=== PATIENT | female | born 1970 | race African-American/Black ===

== ENCOUNTER 2016-08-11 18:49 | Inpatient (IN) | payer OTHER ==
[~2016-08-11] VITALS: Ht 167.6 cm; Wt 58.5 kg
[~2016-08-11 18:49] MED LIST: ACET-461 PO; AMIT25TA9 PO; AMX500CIP PO; ASPI-875 PO; CEFD300C3 PO; CEPH500T PO; HYDR1TAB PO; INSU100I10 SQ; INSU100I14 SQ; INSU100V6 SC; LISI-556 PO; LOVA20TA2 PO; ONDA8TAB13 PO; ONDAN4ODT SL
--- NOTE | 2016-08-11 19:04 | ED General ---
General Chief Complaint: Glucose Problems Stated Complaint: SOA Source of Information: Patient Exam Limitations: No Limitations History of Present Illness Time Seen by Provider: 19:02 Initial Comments To ER with reports of shortness of breath nausea vomiting and feeling overall poorly since earlier today. Patient is a known diabetic insulin-dependent. She uses 8 units of NovoLog with meals and 30 units of Levemir at bedtime. She does not own a glucometer she states and has not checked her sugars in many months but she states that she has been taking her insulin appropriately. Timing/Duration: 1-2 Days Severity: Moderate Associated Systoms: Nausea/Vomiting Allergies and Home Medications Allergies Coded Allergies: Sulfa (Sulfonamide Antibiotics) (Unverified Allergy, Unknown, 08/02/13) Home Medications Cefdinir 300 Mg Capsule, 300 MG PO BID, #20 Ref 0 Prescribed by: MELODIE PALACIOS on 01/20/151533 Insulin Aspart 100 Unit/1 Ml Insuln.pen, 8 UNITS SQ TIDAC, (Reported) LAST RECEIVED 3 MONTHS 2013 THROUGH [facility] Insulin Glargine,Hum.rec.anlog 300 Unit/3 Ml Insuln.pen, 30 UNITS SQ HS, ( Reported) LAST RECEIVED 3 MONTHS 2013 THROUGH [facility] Ondansetron 8 Mg Tab.rapdis, 8 MG PO Q6H PRN for NAUSEA/VOMITING, #10 Ref 0 Prescribed by: MELODIE PALACIOS on 01/20/151533 Constitutional: see HPI EENTM: see HPI Respiratory: no symptoms reported Cardiovascular: no symptoms reported Genitourinary: no symptoms reported Musculoskeletal: no symptoms reported Skin: no symptoms reported Psychiatric/Neurological: No Symptoms Reported Hematologic/Lymphatic: No Symptoms Reported Past Ftrjwlj-Droahp-Dhvenr Hx Patient Social History Recent Foreign Travel: No Contact w/Someone Who Travel: No Immunizations Up To Date Tetanus Booster (TDap): Unknown PED Vaccines UTD: No Seasonal Allergies Seasonal Allergies: No Surgeries HX Surgeries: Yes Surgeries: Tubal Ligation Respiratory Hx Respiratory Disorders: No Cardiovascular Hx Cardiac Disorders: No Neurological Hx Neurological Disorders: Yes Neurological Disorders: Neuropathy 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 System Hx 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 Disorders: No Sexually Transmitted Disease: No HIV/AIDS: No Female 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 Disorders: Denies Genitourinary Hx Genitourinary Disorders: No Gastrointestinal Hx Gastrointestinal Disorders: No Musculoskeletal Hx Musculoskeletal Disorders: Yes Musculoskeletal Disorders: Osteoporosis, Arthritis Endocrine Hx Endocrine Disorders: Yes Endocrine Disorders: Diabetes, Insulin dep HEENT HX ENT Disorders: No Cancer Hx Cancer: No Psychosocial Hx Psychiatric Problems: Yes Behavioral Health Disorders: Anxiety, Depression Integumentary HX Skin/Integumentary Disorder: No Blood Transfusions Hx Blood Disorders: No Adverse Reaction to a Blood Tr: No Family Medical History Significant Family History: Heart Disease, Diabetes, Hypertension Family Medial History: Family history: Hypertension 09 SISTER Kidney disease 03 MOTHER Myocardial infarction 09 SISTER Physical Exam Vital Signs Capillary Refill : General Appearance: No Apparent Distress, WD/WN, Other ([place]ul respirations noted) Eyes: Bilateral Eye EOMI, Bilateral Eye Normal Inspection, Bilateral Eye PERRL HEENT: PERRL/EOMI, TMs Normal Neck: Full Range of Motion, Normal Inspection Respiratory: Normal Breath Sounds, No Accessory Muscle Use, No Respiratory Distress Cardiovascular: Normal Peripheral Pulses, Tachycardia Gastrointestinal: Normal Bowel Sounds, Non Tender, Soft Neurologic/Psychiatric: Alert, Oriented x3 Skin: Normal Color, Warm/Dry Departure Impression Impression: Primary Impression: Diabetic ketoacidosis Disposition: ADMITTED INPATIENT Condition: Improved Decision to Admit Reason: Admit from ER (General) Decision to Admit/Date: Aug 11, 2016 Time/Decision to Admit Time: 19:04 Departure-Patient Inst. Referrals: [facility] (PCP/Family) Primary Care Physician ESSIE DRIVER APRN Aug 11, 2016 19:04
[2016-08-11 19:06] LABS: ABG BASE EXCESS -26.5 MMOL/L (-2.5-2.5); ABG OXYGEN SATURATION 98 % (94-100); ABG PO2 122 MMHG (79-93); ABG TCO2 3.4 MMOL/L (21.0-31.0)
[2016-08-11 19:08] LABS: ABG HCO3 3 MMOL/L (23-27); ABG PCO2 13 MMHG (35-45); ABG PH 6.98 (7.37-7.43)
[2016-08-11 19:09] LABS: ALLENS TEST POSITIVE; PATIENT TEMP 98.3
[2016-08-11] MEDS ORDERED: SODIUM BICARB 8.4% 50 MEQ/50 ML (ABBOTT) SYR ONE (19:11)
[2016-08-11] MEDS ORDERED: SODIUM BICARB 8.4% 50 MEQ/50 ML (ABBOTT) SYR IV ONE (19:15)
[2016-08-11] MEDS ORDERED: inSUlin (REGULAR) HUMAN 1 UNIT/0.01 ML (CHARGE PER UNIT) IV ONE (19:15)
[2016-08-11] MEDS ORDERED: ONDANSETRON 4 MG/2 ML (SDV) Z0FRAN IVP ONE (19:15)
[2016-08-11] MEDS ORDERED: NS IV 1000 ML 1,000 ML IV SCH (19:15)
[2016-08-11 19:16] LABS: BASOPHILS % (AUTO) 0 % (0-10); EOSINOPHILS % (AUTO) 0 % (0-10); LYMPHOCYTES # (AUTO) 2.4 X 10^3 (1.0-4.0); LYMPHOCYTES % (AUTO) 14 % (12-44); MEAN CORPUSCULAR HEMOGLOBIN 28 PG (25-34); MEAN CORPUSCULAR HGB CONC 31 G/DL (32-36); MEAN CORPUSCULAR VOLUME 89 FL (80-99); MEAN PLATELET VOLUME 11.2 FL (7.4-10.4); MONOCYTES # (AUTO) 0.7 X 10^3 (0.0-1.0); MONOCYTES % (AUTO) 4 % (0-12); NEUTROPHILS # (AUTO) 13.8 X 10^3 (1.8-7.8); NEUTROPHILS % (AUTO) 82 % (42-75); PLATELET COUNT 447 10^3/uL (130-400); RED BLOOD COUNT 4.32 10^6/uL (4.35-5.85); RED CELL DISTRIBUTION WIDTH 14.1 % (10.0-14.5); WHITE BLOOD COUNT 16.9 10^3/uL (4.3-11.0)
[2016-08-11] MEDS ORDERED: D5W IV NR (19:24)
[2016-08-11] MEDS ORDERED: SODIUM BICARBONATE IV NR (19:24)
[2016-08-11 19:26] LABS: ALANINE AMINOTRANSFERASE 12 U/L (0-55); BILIRUBIN,TOTAL < 0.1 MG/DL (0.1-1.0); BLOOD UREA NITROGEN 13 MG/DL (7-18); BUN/CREATININE RATIO 7; CALCIUM 8.5 MG/DL (8.5-10.1); CHLORIDE 97 MMOL/L (98-107); CREATININE SERUM 1.86 MG/DL (0.60-1.30); GFR ESTIMATED 36; POTASSIUM 4.4 MMOL/L (3.6-5.0); SODIUM 131 MMOL/L (135-145)
[2016-08-11 19:28] LABS: BILIRUBIN,URINE NEGATIVE (NEGATIVE); KETONES,URINE 4+ (NEGATIVE); LEUKOCYTE ESTERASE ,URINE 2+ (NEGATIVE); NITRITE,URINE NEGATIVE (NEGATIVE); PH,URINE 5 (5-9); PROTEIN,URINE 2+ (NEGATIVE); UROBILINOGEN,URINE NORMAL (NORMAL)
[2016-08-11 19:29] LABS: ANION GAP 29 MMOL/L (5-14); CARBON DIOXIDE 5 MMOL/L (21-32); GLUCOSE 792 MG/DL (70-105)
[2016-08-11] MEDS ORDERED: inSUlin REGULAR TPN/DRIP ONLY 250 UNITS in NORMAL SALINE 250 ML IV SCH (19:30)
[2016-08-11] MEDS ORDERED: inSUlin REGULAR TPN/DRIP 250 UNITS/NS 250 ML IV SCH ×2 (19:30)
[2016-08-11 19:33] LABS: BAND NEUTROPHILS 6 %; BASOPHILS % (MANUAL) 1 %; EOSINOPHILS % (MANUAL) 0 %; LYMPHOCYTES % (MANUAL) 18 %; NEUTROPHILS % (MANUAL) 70 %
[2016-08-11 19:41] LABS: ASPARTATE AMINO TRANSFERASE 12 U/L (5-34)
[2016-08-11 19:45] LABS: SQUAMOUS EPITHELIAL CELL,UR 0-2 /HPF
[2016-08-11 20:00] VITALS: BP 133/81
[2016-08-11 20:02] LABS: ABG BASE EXCESS -26.4 MMOL/L (-2.5-2.5); ABG OXYGEN SATURATION 98 % (94-100); ABG PO2 125 MMHG (79-93); ABG TCO2 3.6 MMOL/L (21.0-31.0)
[2016-08-11 20:05] VITALS: BP 148/93
[2016-08-11 20:05] LABS: ABG HCO3 3 MMOL/L (23-27); ABG PCO2 15 MMHG (35-45); ABG PH 6.97 (7.37-7.43); ALLENS TEST POSITIVE
[2016-08-11 20:06] LABS: PATIENT TEMP 98.6
[2016-08-11] MEDS ORDERED: 1/2 NS W/KCL 20 MEQ/L 1,000 ML IV ONE (20:44)
[2016-08-11 21:00] VITALS: BP 148/99
[2016-08-11 22:00] VITALS: BP 126/86
[2016-08-11] MEDS ORDERED: NS IV 1000 ML X 1 WIDE OPEN IV ONE (22:30)
[2016-08-11] MEDS ORDERED: cefTRIAXone INJECTION 1,000 MG in NS (IVPB) 50 ML IV SCH (22:30)
[2016-08-11] MEDS ORDERED: ONDANSETRON 4 MG/2 ML (SDV) Z0FRAN IVP PRN (22:30)
[2016-08-11] MEDS ORDERED: DEXTROSE 10% IV SOLUTION 1,000 ML IV SCH (22:30)
[2016-08-11 23:00] VITALS: BP 139/91
[2016-08-12] VITALS (15 sets, daily range): BP systolic 113–157; BP diastolic 79–100
[2016-08-12] MEDS: D5 1/2 NS W/KCL 20 MEQ/L 1,000 ML IV SCH ×3 (00:15→10:20)
[2016-08-12] MEDS: cefTRIAXone INJECTION 1,000 MG in NS (IVPB) 50 ML IV SCH ×2 (00:15→22:38)
[2016-08-12 01:57] LABS: POTASSIUM 3.7 MMOL/L (3.6-5.0)
[2016-08-12 01:59] LABS: CALCIUM 7.7 MG/DL (8.5-10.1); CREATININE SERUM 1.19 MG/DL (0.60-1.30)
[2016-08-12 02:01] LABS: CALCIUM 7.9 MG/DL (8.5-10.1); CREATININE SERUM 1.3 MG/DL (0.60-1.30); POTASSIUM 3.6 MMOL/L (3.6-5.0)
[2016-08-12 03:35] LABS: BASOPHILS % (AUTO) 0 % (0-10); EOSINOPHILS % (AUTO) 0 % (0-10); LYMPHOCYTES # (AUTO) 2.7 X 10^3 (1.0-4.0); LYMPHOCYTES % (AUTO) 19 % (12-44); MEAN CORPUSCULAR HEMOGLOBIN 27 PG (25-34); MEAN CORPUSCULAR HGB CONC 33 G/DL (32-36); MEAN CORPUSCULAR VOLUME 83 FL (80-99); MEAN PLATELET VOLUME 10.1 FL (7.4-10.4); MONOCYTES # (AUTO) 0.8 X 10^3 (0.0-1.0); MONOCYTES % (AUTO) 6 % (0-12); NEUTROPHILS # (AUTO) 10.3 X 10^3 (1.8-7.8); NEUTROPHILS % (AUTO) 74 % (42-75); PLATELET COUNT 379 10^3/uL (130-400); RED BLOOD COUNT 3.76 10^6/uL (4.35-5.85); RED CELL DISTRIBUTION WIDTH 13.8 % (10.0-14.5); WHITE BLOOD COUNT 13.8 10^3/uL (4.3-11.0)
[2016-08-12 04:03] LABS: ANION GAP 10 MMOL/L (5-14); BLOOD UREA NITROGEN 8 MG/DL (7-18); BUN/CREATININE RATIO 7; CALCIUM 7.5 MG/DL (8.5-10.1); CARBON DIOXIDE 15 MMOL/L (21-32); CHLORIDE 109 MMOL/L (98-107); CREATININE SERUM 1.16 MG/DL (0.60-1.30); GFR ESTIMATED > 60; GLUCOSE 194 MG/DL (70-105); MAGNESIUM 1.7 MG/DL (1.8-2.4); POTASSIUM 3.4 MMOL/L (3.6-5.0); SODIUM 134 MMOL/L (135-145)
[2016-08-12 04:08] LABS: PHOSPHORUS 0.7 MG/DL (2.3-4.7)
[2016-08-12] MEDS ORDERED: KCL 20 MEQ TAB (K-DUR) PO ONE (04:45)
[2016-08-12] MEDS: MAGNESIUM 1 GM/100 ML IVPB 100 ML IV SCH ×2 (04:48→06:05)
[2016-08-12] MEDS ORDERED: SODIUM PHOSPHATE INJ 40 MM in NS (IVPB) 250 ML INJ ONE (05:45)
[2016-08-12] MEDS ORDERED: KCL 20 MEQ TAB (K-DUR) PO SCH (06:00)
[2016-08-12] MEDS ORDERED: MAGNESIUM 1 GM/100 ML IVPB 100 ML IV SCH (06:00)
[2016-08-12] MEDS ORDERED: POTASSIUM CL 10MEQ/50ML IVPB 50 ML IV SCH (06:00)
[2016-08-12] MEDS ORDERED: inSUlin DETERMIR 1 UNIT/0.01 ML (LEVEMIR) CHARGE PER UNIT SQ NR (09:30)
[2016-08-12] MEDS: 1/2 NS W/KCL 20 MEQ/L 1,000 ML IV SCH (10:22)
--- NOTE | 2016-08-12 11:01 | Diagnostic Imaging Report ---
EXAM: Postoperative radiograph of the chest. INDICATION: DKA. UTI. FINDINGS: The lungs are clear. The heart size is normal. No effusion or pneumothorax The mediastinum and tracey appear markable. IMPRESSION: Unremarkable exam. Dictated by: Dictated on workstation # [id number]
[2016-08-12] MEDS: inSUlin ASPART (NovoLOG) 1 UNIT/0.01 ML (CHARGE PER UNIT) SC SCH ×4 (11:10→21:34)
--- NOTE | 2016-08-12 11:47 | History & Physicial ([facility]) ---
HPI History of Present Illness: 45 yo F with known DM that was admitted from ER for DKA. Patient has not had insulin for many months. She does not want to tell me the last time she had insulin. The ICU nurse looked up pharmacy records and does not see any insulin that has been filled for the last year. She was also found to have UTI but denies any symptoms other then urinary frequency. Denies fever or chills. No coughing or shortness of breath. She was started on an insulin drip after admission and this AM states that she is feeling much better but she is just laying in bed and not interested in talking this AM. Denies any other medical problems at this time. Source: patient Exam Limitations: no limitations Date seen by provider: Aug 12, 2016 Attending Physician Christy Mcbride MD [place]CP [facility] Date of Admission Aug 11, 2016 at 19:19 Home Medications Home Medications Reviewed patient Home Medication Reconciliation Form Allergies Coded Allergies: Sulfa (Sulfonamide Antibiotics) (Unverified Allergy, Unknown, 08/02/13) YZW-Smfbdc-Vrmqer Hx Patient Social History Alcohol Use: Denies Use Recreational Drug Use: No Smoking Status: Never a Smoker Recent Foreign Travel: No Contact w/other who traveled: No Recent Hopitalizations: No Recent Infectious Disease Expo: No Physical Abuse Screen: No Sexual Abuse: No Immunizations Up To Date Tetanus Booster (TDap): Unknown Past Medical History Past Medical History 1. Diabetes Mellitus II -patient was diagnosed approximately 5 years ago and started initially on oral medications. Not compliant with her insulin or follow up. 2. Depression with history of Suicide attempt/ Suicidal ideation Past Surgical History 1. Tubal Ligation Family Medical History Significant Family History: Heart Disease, Diabetes, Hypertension Family History: Family history: Hypertension 09 SISTER Kidney disease 03 MOTHER Myocardial infarction 09 SISTER Review of Systems ([facility]) Constitutional: no symptoms reported, No chills, No fever, No malaise EENTM: no symptoms reported Respiratory: no symptoms reported, No cough, No dyspnea on exertion, No hemoptysis, No short of breath, No wheezing Cardiovascular: no symptoms reported, No chest pain, No edema, No palpitations Gastrointestinal: no symptoms reported, No abdominal pain, No constipation, No diarrhea, loss of appetite, No nausea, No vomiting Genitourinary: No discharge, No dysuria, frequency, No hematuria, No incontinence : No Musculoskeletal: no symptoms reported, No back pain, No joint pain, No muscle pain Skin: no symptoms reported, No lesions, No rash Psychiatric/Neurological: No Symptoms Reported, Denies Anxiety, Denies Depressed Reviewed Test Results Reviewed Test Results Lab Laboratory Tests Test 08/11/16 18:54 08/11/16 18:56 08/11/16 19:03 08/11/16 19:14 Range/Units Blood Gas Puncture Site RIGHT RADIAL Blood Gas Patient Temperature 98.3 Arterial Blood pH 6.98 *L 7.37-7.43 Arterial Blood Partial Pressure CO2 13 *L 35-45 MMHG Arterial Blood Partial Pressure O2 122 H 79-93 MMHG Arterial Blood HCO3 3 *L 23-27 MMOL/L Arterial Blood Total CO2 3.4 L 21.0-31.0 MMOL/L Arterial Blood Oxygen Saturation 98 94-100 % Arterial Blood Base Excess -26.5 L -2.5-2.5 MMOL/L Nic Test POSITIVE Blood Gas Ventilator Setting NO Blood Gas Inspired Oxygen ROOM AIR White Blood Count 16.9 H 4.3-11.0 10^3/uL Red Blood Count 4.32 L 4.35-5.85 10^6/uL Hemoglobin 12.0 11.5-16.0 G/DL Hematocrit 39 35-52 % Mean Corpuscular Volume 89 80-99 FL Mean Corpuscular Hemoglobin 28 25-34 PG Mean Corpuscular Hemoglobin Concent 31 L 32-36 G/DL Red Cell Distribution Width 14.1 10.0-14.5 % Platelet Count 447 H 130-400 10^3/uL Mean Platelet Volume 11.2 H 7.4-10.4 FL Neutrophils (%) (Auto) 82 H 42-75 % Lymphocytes (%) (Auto) 14 12-44 % Monocytes (%) (Auto) 4 0-12 % Eosinophils (%) (Auto) 0 0-10 % Basophils (%) (Auto) 0 0-10 % Neutrophils # (Auto) 13.8 H 1.8-7.8 X 10^3 Lymphocytes # (Auto) 2.4 1.0-4.0 X 10^3 Monocytes # (Auto) 0.7 0.0-1.0 X 10^3 Eosinophils # (Auto) 0.0 0.0-0.3 10^3/uL Basophils # (Auto) 0.0 0.0-0.1 10^3/uL Neutrophils % (Manual) 70 % Lymphocytes % (Manual) 18 % Monocytes % (Manual) 5 % Eosinophils % (Manual) 0 % Basophils % (Manual) 1 % Band Neutrophils 6 % Blood Morphology Comment NORMAL Sodium Level 131 L 135-145 MMOL/L Potassium Level 4.4 3.6-5.0 MMOL/L Chloride Level 97 L 98-107 MMOL/L Carbon Dioxide Level 5 *L 21-32 MMOL/L Anion Gap 29 H 5-14 MMOL/L Blood Urea Nitrogen 13 7-18 MG/DL Creatinine 1.86 H 0.60-1.30 MG/DL Estimat Glomerular Filtration Rate 36 BUN/Creatinine Ratio 7 Glucose Level 792 *H 70-105 MG/DL Hemoglobin A1c 13.1 H 4.5-6.2 % Calcium Level 8.5 8.5-10.1 MG/DL Total Bilirubin < 0.1 L 0.1-1.0 MG/DL Aspartate Amino Transf (AST/SGOT) 12 5-34 U/L Alanine Aminotransferase (ALT/SGPT) 12 0-55 U/L Alkaline Phosphatase 213 H 40-136 U/L Total Protein 8.0 6.4-8.2 G/DL Albumin 4.0 3.2-4.5 G/DL Glucometer > 600 *H 70-110 MG/DL Urine Color YELLOW Urine Clarity SLIGHTLY CLOUDY Urine pH 5 5-9 Urine Specific Sebastian 1.020 1.016-1.022 Urine Protein 2+ H NEGATIVE Urine Glucose (UA) 4+ H NEGATIVE Urine Ketones 4+ H NEGATIVE Urine Nitrite NEGATIVE NEGATIVE Urine Bilirubin NEGATIVE NEGATIVE Urine Urobilinogen NORMAL NORMAL MG/DL Urine Leukocyte Esterase 2+ H NEGATIVE Urine RBC (Auto) 4+ H NEGATIVE Urine RBC 5-10 H /HPF Urine WBC 10-25 H /HPF Urine Squamous Epithelial Cells 0-2 /HPF Urine Crystals NONE /LPF Urine Bacteria TRACE /HPF Urine Casts NONE /LPF Urine Mucus NONE /LPF Urine Culture Indicated YES Test 08/11/16 19:52 08/11/16 20:21 08/11/16 20:56 08/11/16 23:00 Range/Units Blood Gas Puncture Site RIGHT RADIAL Blood Gas Patient Temperature 98.6 Arterial Blood pH 6.97 *L 7.37-7.43 Arterial Blood Partial Pressure CO2 15 *L 35-45 MMHG Arterial Blood Partial Pressure O2 125 H 79-93 MMHG Arterial Blood HCO3 3 *L 23-27 MMOL/L Arterial Blood Total CO2 3.6 L 21.0-31.0 MMOL/L Arterial Blood Oxygen Saturation 98 94-100 % Arterial Blood Base Excess -26.4 L -2.5-2.5 MMOL/L Nic Test POSITIVE Blood Gas Ventilator Setting NO Blood Gas Inspired Oxygen ROOM AIR Glucometer 592 *H 531 *H 70-110 MG/DL Sodium Level 136 135-145 MMOL/L Potassium Level 3.6 3.6-5.0 MMOL/L Chloride Level 107 98-107 MMOL/L Carbon Dioxide Level 8 *L 21-32 MMOL/L Anion Gap 21 H 5-14 MMOL/L Blood Urea Nitrogen 10 7-18 MG/DL Creatinine 1.30 0.60-1.30 MG/DL Estimat Glomerular Filtration Rate 54 BUN/Creatinine Ratio 8 Glucose Level 292 H 70-105 MG/DL Calcium Level 7.9 L 8.5-10.1 MG/DL Test 08/12/16 00:04 08/12/16 01:13 08/12/16 01:15 08/12/16 02:06 Range/Units Glucometer 225 H 213 H 215 H 70-110 MG/DL Sodium Level 134 L 135-145 MMOL/L Potassium Level 3.7 3.6-5.0 MMOL/L Chloride Level 110 H 98-107 MMOL/L Carbon Dioxide Level 8 *L 21-32 MMOL/L Anion Gap 16 H 5-14 MMOL/L Blood Urea Nitrogen 8 7-18 MG/DL Creatinine 1.19 0.60-1.30 MG/DL Estimat Glomerular Filtration Rate 60 BUN/Creatinine Ratio 7 Glucose Level 222 H 70-105 MG/DL Calcium Level 7.7 L 8.5-10.1 MG/DL Test 08/12/16 03:05 08/12/16 03:17 08/12/16 03:59 08/12/16 05:02 Range/Units Glucometer 177 H 161 H 168 H 70-110 MG/DL White Blood Count 13.8 H 4.3-11.0 10^3/uL Red Blood Count 3.76 L 4.35-5.85 10^6/uL Hemoglobin 10.3 L 11.5-16.0 G/DL Hematocrit 31 L 35-52 % Mean Corpuscular Volume 83 80-99 FL Mean Corpuscular Hemoglobin 27 25-34 PG Mean Corpuscular Hemoglobin Concent 33 32-36 G/DL Red Cell Distribution Width 13.8 10.0-14.5 % Platelet Count 379 130-400 10^3/uL Mean Platelet Volume 10.1 7.4-10.4 FL Neutrophils (%) (Auto) 74 42-75 % Lymphocytes (%) (Auto) 19 12-44 % Monocytes (%) (Auto) 6 0-12 % Eosinophils (%) (Auto) 0 0-10 % Basophils (%) (Auto) 0 0-10 % Neutrophils # (Auto) 10.3 H 1.8-7.8 X 10^3 Lymphocytes # (Auto) 2.7 1.0-4.0 X 10^3 Monocytes # (Auto) 0.8 0.0-1.0 X 10^3 Eosinophils # (Auto) 0.0 0.0-0.3 10^3/uL Basophils # (Auto) 0.0 0.0-0.1 10^3/uL Sodium Level 134 L 135-145 MMOL/L Potassium Level 3.4 L 3.6-5.0 MMOL/L Chloride Level 109 H 98-107 MMOL/L Carbon Dioxide Level 15 L 21-32 MMOL/L Anion Gap 10 5-14 MMOL/L Blood Urea Nitrogen 8 7-18 MG/DL Creatinine 1.16 0.60-1.30 MG/DL Estimat Glomerular Filtration Rate > 60 BUN/Creatinine Ratio 7 Glucose Level 194 H 70-105 MG/DL Calcium Level 7.5 L 8.5-10.1 MG/DL Phosphorus Level 0.7 *L 2.3-4.7 MG/DL Magnesium Level 1.7 L 1.8-2.4 MG/DL Test 08/12/16 05:58 08/12/16 07:00 08/12/16 08:12 08/12/16 08:47 Range/Units Glucometer 174 H 174 H 137 H 121 H 70-110 MG/DL Test 08/12/16 09:33 08/12/16 11:08 08/12/16 12:45 Range/Units Glucometer 195 H 233 H 70-110 MG/DL Sodium Level 136 135-145 MMOL/L Potassium Level 3.3 L 3.6-5.0 MMOL/L Chloride Level 109 H 98-107 MMOL/L Carbon Dioxide Level 16 L 21-32 MMOL/L Anion Gap 11 5-14 MMOL/L Blood Urea Nitrogen 5 L 7-18 MG/DL Creatinine 0.95 0.60-1.30 MG/DL Estimat Glomerular Filtration Rate > 60 BUN/Creatinine Ratio 5 Glucose Level 136 H 70-105 MG/DL Calcium Level 7.6 L 8.5-10.1 MG/DL Radiology Date of Exam: 08/12/16 CHEST 1 VIEW, AP/PA ONLY EXAM: Postoperative radiograph of the chest. INDICATION: DKA. UTI. FINDINGS: The lungs are clear. The heart size is normal. No effusion or pneumothorax The mediastinum and tracey appear markable. IMPRESSION: Unremarkable exam. Physical Exam-([facility]) Physical Exam Vital Signs VS - Last 72 Hours, by Label 08/11/16 08/11/16 08/11/16 08/11/16 18:53 20:00 20:05 20:15 Temp 97.1 97.3 97.6 Pulse 121 117 117 Resp 24 25 22 B/P (MAP) 142/83 133/81 148/93 Pulse Ox 100 100 100 O2 Delivery Room Air Room Air Room Air 08/11/16 08/11/16 08/11/16 08/11/16 20:22 20:38 21:00 22:00 Temp 97.3 Pulse 119 114 112 123 Resp 23 17 13 B/P (MAP) 148/99 126/86 Pulse Ox 100 100 100 O2 Delivery Room Air Room Air 08/11/16 08/12/16 08/12/16 08/12/16 23:00 00:00 00:00 00:00 Temp 99.0 Pulse 114 116 Resp 21 12 B/P (MAP) 139/91 142/86 Pulse Ox 97 99 99 O2 Delivery Room Air Room Air 08/12/16 08/12/16 08/12/16 08/12/16 01:00 01:00 02:00 03:00 Pulse 124 124 120 125 Resp 9 17 37 B/P (MAP) 157/100 130/88 130/79 Pulse Ox 98 98 98 O2 Delivery Room Air Room Air Room Air 08/12/16 08/12/16 08/12/16 08/12/16 04:00 04:00 05:00 06:00 Pulse 129 120 121 Resp 12 10 39 B/P (MAP) 129/79 148/91 130/80 Pulse Ox 100 99 99 98 O2 Delivery Room Air Room Air Room Air 08/12/16 08/12/16 08/12/16 08/12/16 07:00 07:01 08:00 08:00 Pulse 113 113 112 Resp 11 12 B/P (MAP) 124/94 131/84 Pulse Ox 98 99 99 O2 Delivery Room Air Room Air 08/12/16 08/12/16 08/12/16 08/12/16 09:00 10:00 11:00 11:28 Pulse 114 120 109 Resp 7 11 15 B/P (MAP) 135/90 121/83 134/87 Pulse Ox 97 98 98 99 O2 Delivery Room Air Room Air Room Air 08/12/16 08/12/16 12:00 13:44 Temp 98.8 Pulse 110 Resp 20 B/P (MAP) 148/98 Pulse Ox 100 99 O2 Delivery Room Air Capillary Refill : Less Than 3 Seconds General Appearance: WD/WN, no apparent distress HEENT: PERRL/EOMI, TMs normal Neck: non-tender, full range of motion, supple, normal inspection Respiratory: chest non-tender, lungs clear, normal breath sounds, no respiratory distress, no accessory muscle use, No accessory muscle use, No crackles, No wheezing Cardiovascular: normal peripheral pulses, regular rate, rhythm, no edema, no gallop, no JVD, no murmur Gastrointestinal: normal bowel sounds, non tender, soft, no organomegaly, No distended, No guarding, No rebound, No tenderness Extremities: normal range of motion, non-tender, normal inspection, no pedal edema, no calf tenderness, normal capillary refill Neurologic/Psychiatric: account maintenance representative II-XII nml as tested, no motor/sensory deficits, alert, normal mood/affect, oriented x 3 Skin: normal color, warm/dry Lymphatic: no adenopathy Assessment/Plan Assessment/Plan Plan 45 yo F with known insulin dependent DM that was admitted for DKA Plan Diabetic Ketoacidosis likely 2/2 infection in Insulin dependent DM - Insulin drip d/c this AM after gap closed, Started her sub cutaneous insulin prior to D/c of drip - A1c 13.1, Patient has been non compliant for over 1 year - Labs in AM - Likely benefit from daily ASA therapy UTI - Culture and sensitivity pending - Continue Rocephin D2 - Encourage PO hydration Hypokalemia - Replaced IV, repeat BMP at noon - Will replace PO if needed Hypo Mag - Replaced PO, Repeat level at noon Elevated Blood Pressure - Will continue to monitor, if continues to be elevated with add ACEI FEN: ADA diet DVT PPX: Lovenox Dispo: Admit to ICU, will transfer to Med Surg after drip d/c, possible d/c home tomorrow Diagnosis/Problems: Clinical Quality Measures DVT/VTE Risk/Contraindication: Risk Factor Score Per Nursin RFS Level Per Nursing on Admit: 2=Moderate Copy Copies To 1: CHRISTY MCBRIDE MD, HOLLY R MD Aug 12, 2016 11:47
[2016-08-12 13:34] LABS: ANION GAP 11 MMOL/L (5-14); BLOOD UREA NITROGEN 5 MG/DL (7-18); BUN/CREATININE RATIO 5; CALCIUM 7.6 MG/DL (8.5-10.1); CARBON DIOXIDE 16 MMOL/L (21-32); CHLORIDE 109 MMOL/L (98-107); CREATININE SERUM 0.95 MG/DL (0.60-1.30); GFR ESTIMATED > 60; GLUCOSE 136 MG/DL (70-105); POTASSIUM 3.3 MMOL/L (3.6-5.0); SODIUM 136 MMOL/L (135-145)
[2016-08-12] MEDS ORDERED: ACETAMINOPHEN 500 MG TAB (TYLENOL) PO PRN (13:45)
[2016-08-12] MEDS: KCL 20 MEQ TAB (K-DUR) PO SCH (17:02)
[2016-08-12] MEDS ORDERED: inSUlin DETERMIR 1 UNIT/0.01 ML (LEVEMIR) CHARGE PER UNIT SQ SCH (21:00)
[2016-08-13] VITALS: BP 111/75
[2016-08-13 04:25] VITALS: BP 110/68
[2016-08-13] MEDS: KCL 20 MEQ TAB (K-DUR) PO SCH ×2 (06:32→17:39)
[2016-08-13] MEDS: inSUlin ASPART (NovoLOG) 1 UNIT/0.01 ML (CHARGE PER UNIT) SC SCH ×4 (06:46→16:58)
[2016-08-13 06:56] LABS: BASOPHILS % (AUTO) 0 % (0-10); EOSINOPHILS # (AUTO) 0.1 10^3/uL (0.0-0.3); EOSINOPHILS % (AUTO) 1 % (0-10); LYMPHOCYTES # (AUTO) 2.4 X 10^3 (1.0-4.0); LYMPHOCYTES % (AUTO) 28 % (12-44); MEAN CORPUSCULAR HEMOGLOBIN 27 PG (25-34); MEAN CORPUSCULAR HGB CONC 33 G/DL (32-36); MEAN CORPUSCULAR VOLUME 83 FL (80-99); MEAN PLATELET VOLUME 9.9 FL (7.4-10.4); MONOCYTES # (AUTO) 0.6 X 10^3 (0.0-1.0); MONOCYTES % (AUTO) 7 % (0-12); NEUTROPHILS # (AUTO) 5.5 X 10^3 (1.8-7.8); NEUTROPHILS % (AUTO) 64 % (42-75); PLATELET COUNT 369 10^3/uL (130-400); RED CELL DISTRIBUTION WIDTH 14.1 % (10.0-14.5); WHITE BLOOD COUNT 8.5 10^3/uL (4.3-11.0)
[2016-08-13 07:18] LABS: ANION GAP 9 MMOL/L (5-14); BLOOD UREA NITROGEN 4 MG/DL (7-18); BUN/CREATININE RATIO 6; CALCIUM 8.4 MG/DL (8.5-10.1); CARBON DIOXIDE 24 MMOL/L (21-32); CHLORIDE 106 MMOL/L (98-107); CREATININE SERUM 0.66 MG/DL (0.60-1.30); GFR ESTIMATED > 60; GLUCOSE 85 MG/DL (70-105); PHOSPHORUS 2.1 MG/DL (2.3-4.7); POTASSIUM 3.2 MMOL/L (3.6-5.0); SODIUM 139 MMOL/L (135-145)
[2016-08-13 08:24] VITALS: BP 118/79
[2016-08-13] MEDS ORDERED: KCL 20 MEQ TAB (K-DUR) PO NR (09:30)
[2016-08-13] MEDS ORDERED: CATHETER FLUSH 10 ML SYR IV PRN (13:45)
[2016-08-13] MEDS ORDERED: CATHETER FLUSH 10 ML SYR IV SCH (14:00)
--- NOTE | 2016-08-13 16:19 | Discharge Summary ---
Diagnosis/Chief Complaint Date of Admission Aug 11, 2016 at 19:19 Date of Discharge 08/13/2016 Admission Diagnosis Admission Diagnosis DKA Insulin Dependent DM II Ecoli UTI Hypokalemia Hypomagnesemia Discharge Diagnosis See Above Chief Complaint/HPI Chief Complaint/HPI 45 yo F with known DM that was admitted from ER for DKA. Patient has not had insulin for many months. She does not want to tell me the last time she had insulin. The ICU nurse looked up pharmacy records and does not see any insulin that has been filled for the last year. She was also found to have UTI but denies any symptoms other then urinary frequency. Denies fever or chills. No coughing or shortness of breath. She was started on an insulin drip after admission and this AM states that she is feeling much better but she is just laying in bed and not interested in talking this AM. Denies any other medical problems at this time. Discharge Summary-Simple/Stand Consultations Discharge Physical Examination Allergies: Coded Allergies: Sulfa (Sulfonamide Antibiotics) (Unverified Allergy, Unknown, 08/02/13) Vitals & I&Os Vital Sign - Last 12Hours Date Time Temp Pulse Resp B/P (MAP) Pulse Ox O2 Delivery O2 Flow Rate FiO2 08/13/16 08:24 97.3 110 20 118/79 99 Room Air Intake and Output 08/13/16 00:00 Intake Total 1690 ml Output Total 1450 ml Balance 240 ml General Appearance: Alert, Oriented X3, Cooperative, No Acute Distress HEENT: Atraumatic, PERRLA, EOMI, Mucous Memb Moist/[place] Respiratory: Clear to Auscultation, Normal Air Movement Cardiovascular: Regular Rate, Normal S1, Normal S2, No Murmurs Abdominal: Normal Bowel Sounds, Soft, No Tenderness, No Hepatosplenomegaly, No Masses Extremities: No Edema, Normal Pulses, No Tenderness/Swelling Skin: No Rashes, No Breakdown Neuro: Normal Gait, Normal Speech, Strength at 5/5 X4 Ext, Sensation Intact, Cranial Nerves 3-12 NL Psych/Mental Status: Mental Status NL, Mood NL Hospital Course See final discharge diagnosis. Pending Labs None pending A1c: 13.1 Radiology Reviewed Date of Exam: 08/12/16 CHEST 1 VIEW, AP/PA ONLY EXAM: Postoperative radiograph of the chest. INDICATION: DKA. UTI. FINDINGS: The lungs are clear. The heart size is normal. No effusion or pneumothorax The mediastinum and tracey appear markable. IMPRESSION: Unremarkable exam. Discussion & Recommendations 45 yo F that was admitted in DKA. Patient states that she has been taking her insulin appropriately 30 units of levemir at night and 8 with meal however she has not had medication filled for over a year. Patient was also found to have kwon-susceptible Ecoli UTI and was sent home with macrobid to complete treatment. Blood sugars better controlled with hydration and insulin administration. A1 was 13.1. Discussed with patient the importance of close follow up and discussed technician terminal and repeater impact of uncontrolled DM. Patient has appt to be seen next week. Discharge Condition at discharge stable Instructions to patient/family Please see electonic discharge instructions given to patient. Discharge Medications Reviewed and agree with Discharge Medication list on patient's Discharge Instruction sheet Clinical Quality Measures DVT/VTE Risk/Contraindication: Risk Factor Score Per Nursin RFS Level Per Nursing on Admit: 2=Moderate Copy Copies To 1: Raphael HILTON HOLLY R MD Aug 13, 2016 16:19
[2016-08-13] MEDS ORDERED: NITR-65 PO (16:21)
--- NOTE | 2016-08-13 16:29 | Discharge Instructions ---
Discharge Inst-[facility] Discharge Medications New, Converted or Re-Newed RX: Transmitted to Pharmacy New Medications: Nitrofurantoin Monohyd/M-Cryst (Macrobid 100 mg Capsule) 100 Mg Capsule 1 TAB PO BID for 7 Days, #14 CAP Continued Medications: Insulin Aspart (Novolog Pen) 100 Unit/1 Ml Insuln.pen 8 UNITS SQ AC, EACH HAS NOT RECEIVED IN OVER A YEAR Insulin Glargine,Hum.rec.anlog (Lantus Solostar) 300 Unit/3 Ml Insuln.pen 30 UNITS SQ HS, EA HAS NOT RECEIVED IN OVER A YEAR Patient Instructions Goal/Follow Up Appt: You have a follow up appt with Dr Galeas on August 17 @ 2pm as your doctor is out of the office next week - You will then follow up with Raphael Rogel after your hospital followup appt Patient Instructions: - Please call the clinic if you need refills on your insulin as your A1c is greatly increased - Make sure that you are following your diabetic diet - Make sure to stay well hydrated Return to The Hospital For: Chest pain Shortness of breath Unable to tolerate your antibiotics Activity & Diet Discharge Diet: ADA Diet Activity as Tolerated: Yes Copy Copies To 1: [facility] HO[facility] MD Aug 13, 2016 16:29
[2016-08-13 16:59] VITALS: BP 121/85
[2016-08-13] MEDS ORDERED: inSUlin DETERMIR 1 UNIT/0.01 ML (LEVEMIR) CHARGE PER UNIT SQ SCH (21:00)
== END 2016-08-13 18:10 | disposition home or self-care (01) | DRG 638 ==
LOC: EDUNIT# 18:49 → ER 18:51 → ICU 19:19 → 4TH 08-12 12:30
PROVIDERS: ADMIT Family Medicine; ATTEND Family Medicine
DX: E13.10 Other specified diabetes mellitus with ketoacidosis without coma (principal); N39.0 Urinary tract infection, site not specified; B96.20 Unspecified Escherichia coli [E. coli] as the cause of diseases classified elsewhere; Z79.4 Long term (current) use of insulin; E87.6 Hypokalemia; E83.42 Hypomagnesemia; F32.9 Major depressive disorder, single episode, unspecified; Z91.14 Patient's other noncompliance with medication regimen; Z91.19 Patient's noncompliance with other medical treatment and regimen
CPT/HCPCS: 36415; 71010; 80048; 80053; 81000; 82805; 82962; 83036; 83735; 84100; 84703; 85007; 85025; 85027; 87077; 87088; 87186; 96365; 96375

== ENCOUNTER 2016-10-04 14:45 | Emergency (ER) | payer SELFPAY ==
[~2016-10-04] VITALS: Ht 167.6 cm; Wt 60.3 kg
[~2016-10-04 14:45] MED LIST changes: +NITR-65 PO
[2016-10-04] MEDS ORDERED: HYDROcodone/APAP 7.5 MG/325 MG (LORTAB, LORCET PLUS) TABLET PO STA (15:18)
[2016-10-04] MEDS ORDERED: IBUPROFEN 800 MG (MOTRIN) TAB PO STA (15:18)
[2016-10-04] MEDS ORDERED: IBUPROFEN TABLET 200 MG TAB PO STA (15:18)
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
[2016-10-04] MEDS ORDERED: IBUPROFEN TABLET 200 MG TAB PO ONE (16:00)
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
[2016-10-04] MEDS ORDERED: CYCL10TA9 PO (16:40)
[2016-10-04] MEDS ORDERED: HYDR-3812 PO (16:40)
[2016-10-04 16:49] VITALS: BP 112/78
== END 2016-10-04 16:49 | disposition home or self-care (01) ==
LOC: EDUNIT# 14:45 → ER 14:47
DX: S13.4XXA Sprain of ligaments of cervical spine, initial encounter (principal); S29.011A Strain of muscle and tendon of front wall of thorax, initial encounter; E11.9 Type 2 diabetes mellitus without complications; Z87.39 Personal history of other diseases of the musculoskeletal system and connective tissue; Z79.4 Long term (current) use of insulin; V49.40XA Driver injured in collision with unspecified motor vehicles in traffic accident, initial encounter; Y92.410 Unspecified street and highway as the place of occurrence of the external cause
CPT/HCPCS: 70450; 71010; 72125; 99283

== ENCOUNTER 2016-10-15 02:23 | Inpatient (IN) | payer OTHER ==
[2016-10-15] VITALS (19 sets, daily range): BP systolic 93–141; BP diastolic 53–92
[~2016-10-15] VITALS: Ht 167.6 cm; Wt 65.8 kg
[~2016-10-15 02:23] MED LIST changes: +CYCL10TA9 PO; +HYDR-3812 PO
--- OUTSIDE RECORDS SUMMARY | 2016-10-15 02:29 | XMS REPORT | Continuity of Care Document ---
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 Name Role Phone [employer] Unavailable Unavailable Problems Problem Status Onset Date Classification Date Reported Comments Source No data available for this section Problem 03/23/2016 [facility] Medications Allergies, Adverse Reactions, Alerts Immunizations Immunization Date Given Site Status Last Updated Comments Source No data available for this section No data available for this section [facility] Results Vital Signs Encounters Location Location Details Encounter Type Encounter Number Reason For Visit Attending Provider ADM Date DC Date Status Source [facility] Cancel Admit [id number] Gil Enriquez 201503/18/2016 [facility] Procedures Procedure Code Date Perfomer Comments Source No data available for this section [facility] Plan of Care Social History Assessment and Plan Family History Value Date Source Advance Directives Order Name Results Value Date Source
--- OUTSIDE RECORDS SUMMARY | 2016-10-15 02:31 | XMS REPORT | Continuity of Care Document ---
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 measurement by glucometer (mass/volume) 347 mg/dL 70-110 Encounters ACCT No. Visit Date/Time Discharge Status Pt. Type Provider Facility Loc./Unit Complaint [id number] 08/14/2013 08:26:00 08/14/2013 23: 59:59 CLS Outpatient SUNNY MAN, DEMETRIA [id number] 12/24/2011 09:52:00 12/24/2011 23: 59:59 CLS Outpatient LUKE SCHUSTER APRN
[2016-10-15] MEDS ORDERED: INSU100V16 SQ (02:33)
[2016-10-15] MEDS ORDERED: NS IV 1000 ML 1,000 ML IV ONE ×2 (02:40→03:54)
--- NOTE | 2016-10-15 02:40 | ED General ---
General Chief Complaint: Glucose Problems Stated Complaint: SOA,HIGH BLOOD SUGER Nursing Triage Note: Patient reports n/v. states she believes she is in DKA Nursing Sepsis Screen: No Definite Risk Source of Information: Patient Exam Limitations: No Limitations History of Present Illness Time Seen by Provider: 02:35 Initial Comments This 46 year old woman presents to the emergency room with complaints of dyspnea , vomiting today, and extremely dry mouth. She is a type I diabetic who has a history of episodes of DKA. Her fingerstick blood sugar on arrival is "too high ". She denies any recent symptoms of infectious illness such as dysuria, cough , or fever. She reports compliance with her insulin. She takes a total of approximately 45 units of insulin per day. She does not check her blood sugars at home because she does not have a glucometer. She has been feeling ill for 2 days and started vomiting the last 24 hours. Allergies and Home Medications Allergies Coded Allergies: Sulfa (Sulfonamide Antibiotics) (Unverified Allergy, Unknown, 08/02/13) Home Medications Insulin Aspart 100 Unit/1 Ml Susp, #10 (Reported) Insulin Glargine,Hum.rec.anlog 300 Unit/3 Ml Insuln.pen, 30 UNITS SQ HS, ( Reported) HAS NOT RECEIVED IN OVER A YEAR Constitutional: see HPI EENTM: other (significant dental decay and gingivitis) Respiratory: see HPI Cardiovascular: other (tachycardia) Gastrointestinal: see HPI Genitourinary: no symptoms reported : No Musculoskeletal: no symptoms reported Skin: no symptoms reported Psychiatric/Neurological: No Symptoms Reported Hematologic/Lymphatic: No Symptoms Reported Past Cdgzcac-Bcoxcf-Imbakr Hx Patient Social History Alcohol Use: Denies Use Recreational Drug Use: No Smoking Status: Never a Smoker Recent Foreign Travel: No Contact w/Someone Who Travel: No Recent Infectious Disease Expo: No Recent Hopitalizations: No Immunizations Up To Date Tetanus Booster (TDap): Unknown PED Vaccines UTD: No Seasonal Allergies Seasonal Allergies: No Surgeries HX Surgeries: Yes Surgeries: Tubal Ligation Respiratory Hx Respiratory Disorders: No Cardiovascular Hx Cardiac Disorders: No Neurological Hx Neurological Disorders: Yes Neurological Disorders: Neuropathy 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 System Hx 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 Disorders: No Sexually Transmitted Disease: No HIV/AIDS: No Female 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 Disorders: Denies Genitourinary Hx Genitourinary Disorders: Yes Genitourinary Disorders: Kidney Infection Gastrointestinal Hx Gastrointestinal Disorders: No Musculoskeletal Hx Musculoskeletal Disorders: Yes Musculoskeletal Disorders: Osteoporosis, Arthritis Endocrine Hx Endocrine Disorders: Yes (DM Type II) Endocrine Disorders: Diabetes, Insulin dep HEENT HX ENT Disorders: No Cancer Hx Cancer: No Psychosocial Hx Psychiatric Problems: Yes Behavioral Health Disorders: Anxiety, Depression Integumentary HX Skin/Integumentary Disorder: No Blood Transfusions Hx Blood Disorders: No Adverse Reaction to a Blood Tr: No Family Medical History Significant Family History: Heart Disease, Diabetes, Hypertension Family Medial History: Family history: Hypertension 09 SISTER Kidney disease 03 MOTHER Myocardial infarction 09 SISTER Physical Exam Vital Signs Vital Sign - Last 12Hours 10/15/16 02:29 Temp 98.0 Pulse 130 Resp 24 B/P (MAP) 139/80 Pulse Ox 99 Capillary Refill : Less Than 3 Seconds General Appearance: WD/WN, Mild Distress HEENT: PERRL/EOMI, Normal ENT Inspection, Other (severe dental decay. 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 Skin: Normal Color, Warm/Dry Progress/Results/Core Measures Results/Orders Lab Results Laboratory Tests Test 10/15/16 02:30 10/15/16 02:35 10/15/16 03:25 Range/Units Glucometer > 600 *H 70-110 MG/DL White Blood Count 14.1 H 4.3-11.0 10^3/uL Red Blood Count 4.07 L 4.35-5.85 10^6/uL Hemoglobin 11.6 11.5-16.0 G/DL Hematocrit 36 35-52 % Mean Corpuscular Volume 88 80-99 FL Mean Corpuscular Hemoglobin 29 25-34 PG Mean Corpuscular Hemoglobin Concent 33 32-36 G/DL Red Cell Distribution Width 13.7 10.0-14.5 % Platelet Count 363 130-400 10^3/uL Mean Platelet Volume 10.9 H 7.4-10.4 FL Neutrophils (%) (Auto) 88 H 42-75 % Lymphocytes (%) (Auto) 9 L 12-44 % Monocytes (%) (Auto) 3 0-12 % Eosinophils (%) (Auto) 0 0-10 % Basophils (%) (Auto) 0 0-10 % Neutrophils # (Auto) 12.3 H 1.8-7.8 X 10^3 Lymphocytes # (Auto) 1.3 1.0-4.0 X 10^3 Monocytes # (Auto) 0.4 0.0-1.0 X 10^3 Eosinophils # (Auto) 0.0 0.0-0.3 10^3/uL Basophils # (Auto) 0.0 0.0-0.1 10^3/uL Sodium Level 129 L 135-145 MMOL/L Potassium Level 4.1 3.6-5.0 MMOL/L Chloride Level 99 98-107 MMOL/L Carbon Dioxide Level < 5 *L 21-32 MMOL/L Anion Gap 25 H 5-14 MMOL/L Blood Urea Nitrogen 16 7-18 MG/DL Creatinine 1.69 H 0.60-1.30 MG/DL Estimat Glomerular Filtration Rate 40 BUN/Creatinine Ratio 9 Glucose Level 716 *H 70-105 MG/DL Calcium Level 8.7 8.5-10.1 MG/DL Magnesium Level 2.2 1.8-2.4 MG/DL Total Bilirubin 0.1 0.1-1.0 MG/DL Aspartate Amino Transf (AST/SGOT) 21 5-34 U/L Alanine Aminotransferase (ALT/SGPT) 20 0-55 U/L Alkaline Phosphatase 169 H 40-136 U/L Total Protein 8.1 6.4-8.2 GM/DL Albumin 3.9 3.2-4.5 GM/DL Serum Alcohol < 10 <10 MG/DL Urine Color YELLOW Urine Clarity CLEAR Urine pH 5 5-9 Urine Specific [place] 1.015 L 1.016-1.022 Urine Protein 2+ H NEGATIVE Urine Glucose (UA) 4+ H NEGATIVE Urine Ketones 4+ H NEGATIVE Urine Nitrite NEGATIVE NEGATIVE Urine Bilirubin NEGATIVE NEGATIVE Urine Urobilinogen NORMAL NORMAL MG/DL Urine Leukocyte Esterase NEGATIVE NEGATIVE Urine RBC (Auto) 5+ H NEGATIVE Urine RBC >100 H /HPF Urine WBC RARE /HPF Urine Squamous Epithelial Cells 5-10 /HPF Urine Crystals NONE /LPF Urine Bacteria TRACE /HPF Urine Casts NONE /LPF Urine Mucus NEGATIVE /LPF Urine Culture Indicated NO Urine Opiates Screen NEGATIVE NEGATIVE Urine Oxycodone Screen NEGATIVE NEGATIVE Urine Methadone Screen NEGATIVE NEGATIVE Urine Propoxyphene Screen NEGATIVE NEGATIVE Urine Barbiturates Screen NEGATIVE NEGATIVE Ur Tricyclic Antidepressants Screen NEGATIVE NEGATIVE Urine Phencyclidine Screen NEGATIVE NEGATIVE Urine Amphetamines Screen NEGATIVE NEGATIVE Urine Methamphetamines Screen NEGATIVE NEGATIVE Urine Benzodiazepines Screen NEGATIVE NEGATIVE Urine Cocaine Screen NEGATIVE NEGATIVE Urine Cannabinoids Screen NEGATIVE NEGATIVE My Orders Orders - NANDO NICOLAS MD Cbc With Automated Diff (10/15/16 02:40) Comprehensive Metabolic Panel (10/15/16 02:40) Magnesium (10/15/16 02:40) Ua Culture If Indicated (10/15/16 02:40) Accucheck Stat ONCE (10/15/16 02:40) Saline Lock/Iv-Start (10/15/16 02:40) Monitor-Rhythm Ecg Trace Only (10/15/16 02:40) Chest 1 View, Ap/Pa Only (10/15/16 02:40) Ns Iv 1000 Ml (Sodium Chloride 0.9%) (10/15/16 02:40) Ondansetron Injection (Zofran Injectio (10/15/16 02:45) Insulin (Regular) Human (Humulin R (Per (10/15/16 02:45) Alcohol (10/15/16 03:02) Drug Screen Stat (Urine) (10/15/16 03:02) Accucheck Stat ONCE (10/15/16 03:50) Ns Iv 1000 Ml (Sodium Chloride 0.9%) (10/15/16 03:54) Insulin (Regular) Human (Humulin R (Per (10/15/16 04:00) Medications Given in ED Current Medications Medications Dose Ordered Sig/Ryland Route Start Time Stop Time Status Last Admin Dose Admin Insulin Human Regular 10 unit ONCE ONCE IV 10/15/16 02:45 10/15/16 02:46 DC 10/15/16 02:50 10 UNIT Ondansetron HCl 4 mg ONCE ONCE IVP 10/15/16 02:45 10/15/16 02:46 DC 10/15/16 02:49 4 MG Sodium Chloride 1,000 ml @ 0 mls/hr Q0M ONCE IV 10/15/16 02:40 10/15/16 02:43 DC 10/15/16 02:50 0 MLS/HR Vital Signs/I&O Vital Sign - Last 12Hours 10/15/16 02:29 Temp 98.0 Pulse 130 Resp 24 B/P (MAP) 139/80 Pulse Ox 99 Blood Pressure Mean: 99 Progress Note #1: Time: 03:23 Progress Note Patient is receiving a liter of IV fluids with 10 units of insulin. Labs have returned demonstrating DKA. Progress Note #2: Time: 03:56 Progress Note Fingerstick blood sugar is 406 after 1 L of normal saline and 10 units of insulin. Another liter of saline will be tongue with 5 units of insulin. Gingivitis may have been a contributing factor to the DKA. Clindamycin will be ordered for treatment of the dental disease. Hematuria was noted on UA. Cause is uncertain at this time. Diagnostic Imaging Diagonstic Imaging: Xray Plain Films/CT/US/NM/MRI: chest Comments Chest x-ray viewed by me and report not available. No acute abnormalities appreciated Departure Communication Time/Spoke to Admitting Phy: 03:[address] Neville Impression Impression: Primary Impression: DKA (diabetic ketoacidoses) Qualified Codes: E10.10 - Type 1 diabetes mellitus with ketoacidosis without coma Additional Impressions: Hypovolemia Hematuria Gingivitis Disposition: ADMITTED INPATIENT Condition: Improved Decision to Admit Reason: Admit from ER (General) Decision to Admit/Date: Oct 15, 2016 Time/Decision to Admit Time: 03:00 Departure-Patient Inst. Referrals: [facility] (PCP/Family) Primary Care Physician NANDO NICOLAS MD Oct 15, 2016 02:39
[2016-10-15] MEDS ORDERED: ONDANSETRON 4 MG/2 ML (SDV) Z0FRAN IVP ONE (02:45)
[2016-10-15] MEDS ORDERED: inSUlin (REGULAR) HUMAN 1 UNIT/0.01 ML (CHARGE PER UNIT) IV ONE ×2 (02:45→04:00)
[2016-10-15 02:52] LABS: BASOPHILS % (AUTO) 0 % (0-10); EOSINOPHILS % (AUTO) 0 % (0-10); LYMPHOCYTES # (AUTO) 1.3 X 10^3 (1.0-4.0); LYMPHOCYTES % (AUTO) 9 % (12-44); MEAN CORPUSCULAR HEMOGLOBIN 29 PG (25-34); MEAN CORPUSCULAR HGB CONC 33 G/DL (32-36); MEAN CORPUSCULAR VOLUME 88 FL (80-99); MEAN PLATELET VOLUME 10.9 FL (7.4-10.4); MONOCYTES # (AUTO) 0.4 X 10^3 (0.0-1.0); MONOCYTES % (AUTO) 3 % (0-12); NEUTROPHILS # (AUTO) 12.3 X 10^3 (1.8-7.8); NEUTROPHILS % (AUTO) 88 % (42-75); PLATELET COUNT 363 10^3/uL (130-400); RED BLOOD COUNT 4.07 10^6/uL (4.35-5.85); RED CELL DISTRIBUTION WIDTH 13.7 % (10.0-14.5); WHITE BLOOD COUNT 14.1 10^3/uL (4.3-11.0)
[2016-10-15 03:05] LABS: ALANINE AMINOTRANSFERASE 20 U/L (0-55); ALBUMIN 3.9 GM/DL (3.2-4.5); ASPARTATE AMINO TRANSFERASE 21 U/L (5-34); BILIRUBIN,TOTAL 0.1 MG/DL (0.1-1.0); BLOOD UREA NITROGEN 16 MG/DL (7-18); BUN/CREATININE RATIO 9; CALCIUM 8.7 MG/DL (8.5-10.1); CHLORIDE 99 MMOL/L (98-107); CREATININE SERUM 1.69 MG/DL (0.60-1.30); GFR ESTIMATED 40; MAGNESIUM 2.2 MG/DL (1.8-2.4); POTASSIUM 4.1 MMOL/L (3.6-5.0); SODIUM 129 MMOL/L (135-145); TOTAL PROTEIN 8.1 GM/DL (6.4-8.2)
[2016-10-15 03:07] LABS: ANION GAP 25 MMOL/L (5-14); CARBON DIOXIDE < 5 MMOL/L (21-32); GLUCOSE 716 MG/DL (70-105)
[2016-10-15 03:36] LABS: BILIRUBIN,URINE NEGATIVE (NEGATIVE); KETONES,URINE 4+ (NEGATIVE); LEUKOCYTE ESTERASE ,URINE NEGATIVE (NEGATIVE); NITRITE,URINE NEGATIVE (NEGATIVE); PH,URINE 5 (5-9); PROTEIN,URINE 2+ (NEGATIVE); UROBILINOGEN,URINE NORMAL (NORMAL)
[2016-10-15 03:43] LABS: WBC,URINE RARE /HPF
--- OUTSIDE RECORDS SUMMARY | 2016-10-15 04:18 | XMS REPORT | Continuity of Care Document ---
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 Sponsorship Coordinator Name Role Phone [employer] Unavailable Unavailable Problems Problem Status Onset Date Classification Date Reported Comments Source No data available for this section Problem 03/23/2016 [facility] Medications Allergies, Adverse Reactions, Alerts Immunizations Immunization Date Given Site Status Last Updated Comments Source No data available for this section No data available for this section [facility] Results Vital Signs Encounters Location Location Details Encounter Type Encounter Number Reason For Visit Attending Provider ADM Date DC Date Status Source [facility] Cancel Admit [id number] Gil Enriquez 201503/18/2016 [facility] Procedures Procedure Code Date Perfomer Comments Source No data available for this section [facility] Plan of Care Social History Assessment and Plan Family History Value Date Source Advance Directives Order Name Results Value Date Source
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
[2016-10-15] MEDS ORDERED: NS (IVPB) 100 ML ONE (04:34)
[2016-10-15] MEDS ORDERED: NS IV ONE (04:38)
[2016-10-15] MEDS ORDERED: KCL IV ONE (04:38)
[2016-10-15] MEDS ORDERED: 1/2 NS W/KCL 20 MEQ/L 1,000 ML IV ONE (04:41)
[2016-10-15] MEDS ORDERED: INSULIN REGULAR TPN IV SCH (05:15)
[2016-10-15] MEDS ORDERED: DRIP ONLY IV SCH (05:15)
[2016-10-15] MEDS ORDERED: NORMAL SALINE IV SCH (05:15)
[2016-10-15] MEDS: 1/2 NS W/KCL 20 MEQ/L 1,000 ML IV SCH ×5 (05:17→21:15)
[2016-10-15 05:29] LABS: CALCIUM 8.2 MG/DL (8.5-10.1); CREATININE SERUM 1.24 MG/DL (0.60-1.30); MAGNESIUM 1.9 MG/DL (1.8-2.4); PHOSPHORUS 1.9 MG/DL (2.3-4.7); POTASSIUM 3.4 MMOL/L (3.6-5.0)
--- NOTE | 2016-10-15 05:56 | Pulmonary Consultation ---
History of Present Illness History of Present Illness Date of Consultation 10/15/16 05:51 Time Seen by Provider: 05:51 Date of Admission History of Present Illness 46yo with hx of DM1 with multiple episodes of DKA presented to ED secondary to worsening SOB, vomiting that started 2 days ago. Her accu check read too high. No recent illness. She not usually check her BS at home secondary to not having a glucometer. Upon ED admission she was dx with DKA and admitted to ICU. I am consulted for ICU management. Allergies and Home Medications Allergies Coded Allergies: Sulfa (Sulfonamide Antibiotics) (Unverified Allergy, Unknown, 08/02/13) Home Medications Insulin Aspart 100 Unit/1 Ml Susp, #10 (Reported) Insulin Glargine,Hum.rec.anlog 300 Unit/3 Ml Insuln.pen, 30 UNITS SQ HS, ( Reported) HAS NOT RECEIVED IN OVER A YEAR Past [place]-Pairqk-Mxatyd Hx Patient Social History Alcohol Use: Denies Use Recreational Drug Use: No Smoking Status: Never a Smoker Recent Foreign Travel: No Contact w/Someone Who Travel: No Recent Infectious Disease Expo: No Recent Hopitalizations: No Physical Abuse Screen: No Sexual Abuse: No Immunizations Up To Date Tetanus Booster (TDap): Unknown PED Vaccines UTD: No Seasonal Allergies Seasonal Allergies: No Surgeries HX Surgeries: Yes Surgeries: Tubal Ligation Respiratory Hx Respiratory Disorders: No Cardiovascular Hx Cardiac Disorders: No Neurological Hx Neurological Disorders: Yes Neurological Disorders: Neuropathy 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 System Hx 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 Disorders: No Sexually Transmitted Disease: No HIV/AIDS: No Female 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 Disorders: Denies Genitourinary Hx Genitourinary Disorders: Yes Genitourinary Disorders: Kidney Infection Gastrointestinal Hx Gastrointestinal Disorders: No Musculoskeletal Hx Musculoskeletal Disorders: Yes Musculoskeletal Disorders: Osteoporosis, Arthritis Endocrine Hx Endocrine Disorders: Yes (DM Type II) Endocrine Disorders: Diabetes, Insulin dep HEENT HX ENT Disorders: No Cancer Hx Cancer: No Psychosocial Hx Psychiatric Problems: Yes Behavioral Health Disorders: Anxiety, Depression Integumentary HX Skin/Integumentary Disorder: No Blood Transfusions Hx Blood Disorders: No Adverse Reaction to a Blood Tr: No Family Medical History Significant Family History: Heart Disease, Diabetes, Hypertension Family Medial History: Family history: Hypertension 09 SISTER Kidney disease 03 MOTHER Myocardial infarction 09 SISTER Review of Systems Constitutional: Malaise, Sweats, Weakness, No: Chills, Fever, Other Eyes: No: Conjunctivae inflammation, Eyelid inflammation, Other, Pain, Redness , Vision change ENT: No: Ear discharge, Ear pain, Mouth pain, Mouth swelling, Nose congestion, Nose discharge, Nose pain, Other, Throat pain, Throat swelling Respiratory: Cough, Dry, SOB with excertion, Shortness of breath, No: Hemoptysis, Other, Pleuritic Pain, Sputum, Wheezing, Wheezing Cardiovascular: Lt Headedness, Palpitations, No: Chest Pain, Edema, Orthopnea, Other, Paroxysmal Noc. Dyspnea Gastrointestinal: Nausea, Vomiting, No: Abdominal Pain, Constipation, Diarrhea , Hematochezia, Melena, Other Genitourinary: No Dysuria, No Frequency, No Incontinence, No Hematuria, No Retention, No Other Musculoskeletal: No: arm pain, back pain, foot pain, hand pain, leg pain, neck pain, other, shoulder pain Skin: No: Bruising, Jaundice, Lesions, Other, Rash Neurological: Confusion, Weakness Exam Exam Vital Signs Date Time Temp Pulse Resp B/P (MAP) Pulse Ox O2 Delivery O2 Flow Rate FiO2 10/15/16 04:57 105 10/15/16 04:42 100 Room Air 10/15/16 04:40 97.0 110 15 132/92 100 Room Air 10/15/16 04:19 105 18 100 10/15/16 02:29 98.0 130 24 139/80 99 I & O 10/15/16 07:00 Intake Total 1000 ml Balance 1000 ml General Appearance: WD/WN, Mild Distress HEENT: PERRL/EOMI, Normal ENT Inspection, Other (severe dental decay. 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 Clinical Quality Measures DVT/VTE Risk/Contraindication: Risk Factor Score Per Nursin RFS Level Per Nursing on Admit: 1=Low/No VTE PPX EVELIO GUERRERO DO Oct 15, 2016 05:56
[2016-10-15] MEDS ORDERED: POTASSIUM CL 10MEQ/50ML IVPB 200 ML IV ONE (06:00)
[2016-10-15] MEDS ORDERED: CLINDAMYCIN 600 MG/4ML (CLEOCIN) VIAL ONE (06:13)
[2016-10-15] MEDS ORDERED: NS (IVPB) 50 ML ONE (06:13)
[2016-10-15] MEDS ORDERED: SODIUM PHOSPHATE INJ 30 MM in NS (IVPB) 250 ML IV ONE (06:15)
[2016-10-15] MEDS: D5 1/2 NS 1000 ML IV SOLUTION 1,000 ML IV SCH ×3 (06:16→18:37)
[2016-10-15] MEDS: POTASSIUM CL 10MEQ/50ML IVPB 50 ML IV SCH ×16 (06:16→20:30)
[2016-10-15] MEDS ORDERED: ONDANSETRON 4 MG/2 ML (SDV) Z0FRAN IV PRN (06:30)
[2016-10-15] MEDS ORDERED: CLINDAMYCIN INJECTION 600 MG in NS (IVPB) 50 ML IV NR (06:45)
--- NOTE | 2016-10-15 06:46 | Diagnostic Imaging Report ---
Clinical indication: Patient with high blood sugar. Exam: Portable chest x-ray upright view. Comparisons: Chest x-ray dated 10/04/2016. Findings: Lungs/pleura: Lungs are clear. There is no pneumothorax. There is no pleural effusion. Mediastinum: Unremarkable. Pulmonary vasculature: Unremarkable. Heart: Unremarkable. Bones/extrathoracic soft tissue: There is mild left curvature of the lumbar spine. Ring jewellery is again seen overlying the bilateral lower lung field regions. Impression: There is no radiographic evidence of acute cardiopulmonary process. Dictated by: Dictated on workstation # [id number]
[2016-10-15] MEDS ORDERED: inSUlin REGULAR TPN/DRIP ONLY 250 UNITS in NORMAL SALINE 250 ML IV SCH (07:00)
[2016-10-15] MEDS: D5 1/2 NS W/KCL 20 MEQ/L 1,000 ML IV SCH ×5 (08:24→22:29)
[2016-10-15] MEDS ORDERED: HYDROcodone/APAP 7.5 MG/325 MG (LORTAB, LORCET PLUS) TABLET PO PRN (08:30)
[2016-10-15 10:04] LABS: ABG BASE EXCESS -11.5 MMOL/L (-2.5-2.5); ABG OXYGEN SATURATION 98 % (94-100); ABG PCO2 29 MMHG (35-45); ABG PO2 85 MMHG (79-93); ABG TCO2 14.7 MMOL/L (21.0-31.0)
[2016-10-15 10:07] LABS: ABG HCO3 14 MMOL/L (23-27); ABG PH 7.29 (7.37-7.43); ALLENS TEST YES-POS; PATIENT TEMP 97.9
[2016-10-15] MEDS ORDERED: ACET-93 PO (10:49)
--- NOTE | 2016-10-15 11:11 | History & Physical-Hospitalist ---
HPI History of Present Illness: HPI/Chief Complaint CC: DKA HPI: This is a 46 yoWF pt of [facility] with recurrent hx of DKA, noncompliant with meds and diet, and is currently classified with severe DKA with blood sugar greater than 600, acute renal failure 1.69, and bicarb less than 5 now 8, currently on insulin drip, CXR showed no infiltrate, Na+ 135, UDS negative, ETOH negative, UA hematuria, WBC 14 Patient Interview: Pt states that she feels a bit better Physical exam stable. Lungs sound perfect. Pt states that she would like some pain meds and some breakfast. Pt asked how long it would be until she could eat. Scribed by Elizabeth Tompkins under the direct supervision of Dr. Neville. Source: patient Exam Limitations: no limitations Date Seen 10/15/16 Time Seen by Provider: 10:00 Attending Physician Yue Neville DO PCP [facility] Referring Physician Date of Admission Oct 15, 2016 at 03:29 Home Medications & Allergies Home Medications Reviewed patient Home Medication Reconciliation Form Allergies Allergies Coded Allergies Sulfa (Sulfonamide Antibiotics) (Unverified Allergy, Unknown, 08/02/13) Past Smncrit-Kgejge-Uhjbje Hx Patient Social History Employed/Student: unemployed Alcohol Use: Denies Use Recreational Drug Use: No Smoking Status: Never a Smoker Physical Abuse Screen: No Sexual Abuse: No Recent Foreign Travel: No Contact w/other who traveled: No Recent Hopitalizations: No Recent Infectious Disease Expo: No Immunizations Up To Date Tetanus Booster (TDap): Unknown Seasonal Allergies Seasonal Allergies: No Surgeries HX Surgeries: Yes Surgeries: Tubal Ligation Respiratory Hx Respiratory Disorders: No Cardiovascular Hx Cardiovascular Disorders: No Neurological Hx Neurological Disorders: Yes Neurological Disorders: Neuropathy 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 System Hx 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 Disorders: No Sexually Transmitted Disease: No HIV/AIDS: No Female 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 Disorders: Denies Genitourinary Hx Genitourinary Disorders: Yes Genitourinary Disorders: Kidney Infection Gastrointestinal Hx Gastrointestinal Disorders: No Musculoskeletal Hx Musculoskeletal Disorders: Yes Musculoskeletal Disorders: Osteoporosis, Arthritis Endocrine Hx Endocrine Disorders: Yes (DM Type II) Endocrine Disorders: Diabetes, Insulin dep HEENT HX ENT Disorders: No Cancer Hx Cancer: No Psychosocial Hx Psychiatric Problems: Yes Behavioral Health Disorders: Anxiety, Depression Integumentary HX Skin/Integumentary Disorder: No Blood Transfusions Hx Blood Disorders: No Adverse Reaction to a Blood Tr: No Family Medical History Significant Family History: Heart Disease, Diabetes, Hypertension Family Hx: Family history: Hypertension 09 SISTER Kidney disease 03 MOTHER Myocardial infarction 09 SISTER Review of Systems Constitutional: see HPI, dizziness, malaise, weakness EENTM: no symptoms reported Respiratory: no symptoms reported Cardiovascular: no symptoms reported Gastrointestinal: loss of appetite, nausea, vomiting Genitourinary: no symptoms reported Musculoskeletal: no symptoms reported Skin: no symptoms reported Psychiatric/Neurological: No Symptoms Reported All Other Systems Reviewed Negative Unless Noted: Yes Physical Exam Physical Exam Vital Signs Vital Sign - Last 12Hours 10/15/16 10/15/16 02:29 04:40 Temp 98.0 Pulse 130 Resp 24 B/P (MAP) 139/80 Pulse Ox 99 O2 Delivery Room Air Capillary Refill : Less Than 3 Seconds General Appearance: No Apparent Distress, WD/WN, Chronically ill, Thin Eyes: Bilateral Eye Normal Inspection, Bilateral Eye PERRL HEENT: PERRL/EOMI, Normal ENT Inspection, Pharynx Normal Neck: Full Range of Motion, Normal Inspection, Non Tender, Supple, Carotid Bruit Respiratory: Chest Non Tender, Lungs Clear, Normal Breath Sounds, No Accessory Muscle Use, No Respiratory Distress Cardiovascular: Regular Rate, Rhythm, No Edema, No Gallop, No JVD, No Murmur, Normal Peripheral Pulses Gastrointestinal: Normal Bowel Sounds, No Organomegaly, No Pulsatile Mass, Non Tender, Soft Back: Normal Inspection, No CVA Tenderness, No Vertebral Tenderness Extremity: Normal Capillary Refill, Normal Inspection, Normal Range of Motion, Non Tender, No Calf Tenderness, No Pedal Edema Neurologic/Psychiatric: Alert, Oriented x3, No Motor/Sensory Deficits, Normal Mood/Affect Skin: Normal Color, Warm/Dry Lymphatic: No Adenopathy Results Results/Procedures Lab Laboratory Tests 10/15/16 02:35 10/15/16 05:00 Assessment/Plan Admission Diagnosis Assessment: DKA severe DM Type 1 Hypokalemia Leukocytosis Assessment and Plan Plan: Pain meds insulin DKA protocol Monitor closely Clinical Quality Measures DVT/VTE Risk/Contraindication: Risk Factor Score Per Nursin RFS Level Per Nursing on Admit: 1=Low/No VTE PPX YUE NEVILLE DO Oct 15, 2016 11:11
[2016-10-15] MEDS: CLINDAMYCIN 150 MG (CLEOCIN) CAP PO SCH ×3 (13:08→20:30)
[2016-10-15 16:40] LABS: ANION GAP 7 MMOL/L (5-14); BLOOD UREA NITROGEN 5 MG/DL (7-18); BUN/CREATININE RATIO 6; CALCIUM 7.2 MG/DL (8.5-10.1); CARBON DIOXIDE 15 MMOL/L (21-32); CHLORIDE 111 MMOL/L (98-107); CREATININE SERUM 0.81 MG/DL (0.60-1.30); GFR ESTIMATED > 60; GLUCOSE 175 MG/DL (70-105); MAGNESIUM 1.2 MG/DL (1.8-2.4); PHOSPHORUS 1.1 MG/DL (2.3-4.7); POTASSIUM 3.1 MMOL/L (3.6-5.0); SODIUM 133 MMOL/L (135-145)
[2016-10-15] MEDS: MAGNESIUM 1 GM/100 ML IVPB 100 ML IV SCH ×4 (17:31→20:57)
[2016-10-16] VITALS (14 sets, daily range): BP systolic 95–135; BP diastolic 62–104
[2016-10-16] MEDS ORDERED: DEXTROSE 10% IV SOLUTION 1,000 ML IV ONE (00:10)
[2016-10-16] MEDS ORDERED: DEXTROSE 10% IV SOLUTION 1,000 ML IV SCH (00:30)
[2016-10-16 00:31] LABS: ANION GAP 6 MMOL/L (5-14); BLOOD UREA NITROGEN 3 MG/DL (7-18); BUN/CREATININE RATIO 4; CALCIUM 7.1 MG/DL (8.5-10.1); CARBON DIOXIDE 16 MMOL/L (21-32); CHLORIDE 113 MMOL/L (98-107); CREATININE SERUM 0.75 MG/DL (0.60-1.30); GFR ESTIMATED > 60; GLUCOSE 151 MG/DL (70-105); MAGNESIUM 2.7 MG/DL (1.8-2.4); PHOSPHORUS 1.1 MG/DL (2.3-4.7); POTASSIUM 3.8 MMOL/L (3.6-5.0); SODIUM 135 MMOL/L (135-145)
[2016-10-16] MEDS: inSUlin ASPART (NovoLOG) 1 UNIT/0.01 ML (CHARGE PER UNIT) SC SCH ×2 (02:11→10:53)
[2016-10-16] MEDS ORDERED: KCL 20 MEQ TAB (K-DUR) PO ONE (02:15)
[2016-10-16] MEDS ORDERED: inSUlin DETERMIR 1 UNIT/0.01 ML (LEVEMIR) CHARGE PER UNIT SQ ONE (02:15)
[2016-10-16 05:23] LABS: BASOPHILS % (AUTO) 0 % (0-10); EOSINOPHILS % (AUTO) 0 % (0-10); LYMPHOCYTES # (AUTO) 1.6 X 10^3 (1.0-4.0); LYMPHOCYTES % (AUTO) 16 % (12-44); MEAN CORPUSCULAR HEMOGLOBIN 28 PG (25-34); MEAN CORPUSCULAR HGB CONC 34 G/DL (32-36); MEAN CORPUSCULAR VOLUME 85 FL (80-99); MEAN PLATELET VOLUME 9.8 FL (7.4-10.4); MONOCYTES # (AUTO) 0.9 X 10^3 (0.0-1.0); MONOCYTES % (AUTO) 9 % (0-12); NEUTROPHILS # (AUTO) 7.7 X 10^3 (1.8-7.8); NEUTROPHILS % (AUTO) 75 % (42-75); PLATELET COUNT 250 10^3/uL (130-400); RED BLOOD COUNT 3.11 10^6/uL (4.35-5.85); RED CELL DISTRIBUTION WIDTH 13.8 % (10.0-14.5); WHITE BLOOD COUNT 10.3 10^3/uL (4.3-11.0)
[2016-10-16 05:46] LABS: ANION GAP 9 MMOL/L (5-14); BLOOD UREA NITROGEN 2 MG/DL (7-18); BUN/CREATININE RATIO 3; CALCIUM 7.2 MG/DL (8.5-10.1); CARBON DIOXIDE 15 MMOL/L (21-32); CHLORIDE 112 MMOL/L (98-107); CREATININE SERUM 0.74 MG/DL (0.60-1.30); GFR ESTIMATED > 60; GLUCOSE 159 MG/DL (70-105); MAGNESIUM 2.2 MG/DL (1.8-2.4); POTASSIUM 3.4 MMOL/L (3.6-5.0); SODIUM 136 MMOL/L (135-145)
[2016-10-16] MEDS: POTASSIUM CL 10MEQ/50ML IVPB 50 ML IV SCH (06:15)
[2016-10-16] MEDS ORDERED: SODIUM PHOSPHATE INJ 40 MM in NS (IVPB) 250 ML IV ONE (07:45)
[2016-10-16] MEDS: CLINDAMYCIN 150 MG (CLEOCIN) CAP PO SCH ×2 (08:03→14:08)
--- NOTE | 2016-10-16 08:38 | Diagnostic Imaging Report ---
INDICATION: Dyspnea. COMPARISON: 10/15/2016. FINDINGS: The lungs are well aerated. No infiltrates have developed. The heart is not enlarged. There is no pulmonary edema. No hilar adenopathy. Right PICC line is present overlying the superior vena caval shadow at the tip at the cavoatrial junction. The heart appears normal. IMPRESSION: 1. Satisfactory right PICC line placement. 2. Lungs are clear. Dictated by: Dictated on workstation # [id number]
--- NOTE | 2016-10-16 09:48 | Progress Note (SOAP) ---
Objective Exam Last Set of Vital Signs Vital Signs Date Time Temp Pulse Resp B/P (MAP) Pulse Ox O2 Delivery O2 Flow Rate FiO2 10/16/16 08:00 Room Air 10/16/16 07:00 107 10/16/16 06:00 14 106/70 99 10/15/16 20:00 99.5 Capillary Refill : Less Than 3 Seconds I&O Bad table Results/Procedures Lab Laboratory Tests 10/15/16 09:48: Glucometer 181H 10/15/16 09:57: Blood Gas Puncture Site NA, Blood Gas Patient Temperature 97.9, Arterial Blood pH 7.29*L, Arterial Blood Partial Pressure CO2 29L, Arterial Blood Partial Pressure O2 85, Arterial Blood HCO3 14*L, Arterial Blood Total CO2 14.7L, Arterial Blood Oxygen Saturation 98, Arterial Blood Base Excess -11.5L, Nic Test YES-POS, Blood Gas Ventilator Setting NO, Blood Gas Inspired Oxygen ROOM AIR 10/15/16 10:54: Glucometer 220H 10/15/16 12:03: Glucometer 198H 10/15/16 13:03: Glucometer 172H 10/15/16 14:07: Glucometer 179H 10/15/16 15:09: Glucometer 161H 10/15/16 16:10: Sodium Level 133L, Potassium Level 3.1L, Chloride Level 111H, Carbon Dioxide Level 15L, Anion Gap 7, Blood Urea Nitrogen 5L, Creatinine 0.81, Estimat Glomerular Filtration Rate > 60, BUN/Creatinine Ratio 6, Glucose Level 175H, Calcium Level 7.2L, Phosphorus Level 1.1L, Magnesium Level 1.2L 10/15/16 16:13: Glucometer 171H 10/15/16 18:01: Glucometer 155H 10/15/16 18:58: Glucometer 161H 10/15/16 20:00: Glucometer 210H 10/15/16 20:56: Glucometer 189H 10/15/16 21:55: Glucometer 159H 10/15/16 23:27: Glucometer 140H 10/16/16 00:05: Sodium Level 135, Potassium Level 3.8, Chloride Level 113H, Carbon Dioxide Level 16L, Anion Gap 6, Blood Urea Nitrogen 3L, Creatinine 0.75, Estimat Glomerular Filtration Rate > 60, BUN/Creatinine Ratio 4, Glucose Level 151H, Calcium Level 7.1L, Phosphorus Level 1.1L, Magnesium Level 2.7H 10/16/16 00:08: Glucometer 148H 10/16/16 01:27: Glucometer 188H 10/16/16 02:55: Glucometer 204H 10/16/16 05:03: Glucometer 160H, White Blood Count 10.3, Red Blood Count 3.11L, Hemoglobin 8.8#L , Hematocrit 26L, Mean Corpuscular Volume 85, Mean Corpuscular Hemoglobin 28, Mean Corpuscular Hemoglobin Concent 34, Red Cell Distribution Width 13.8, Platelet Count 250, Mean Platelet Volume 9.8, Neutrophils (%) (Auto) 75, Lymphocytes (%) (Auto) 16, Monocytes (%) (Auto) 9, Eosinophils (%) (Auto) 0, Basophils (%) (Auto) 0, Neutrophils # (Auto) 7.7, Lymphocytes # (Auto) 1.6, Monocytes # (Auto) 0.9, Eosinophils # (Auto) 0.0, Basophils # (Auto) 0.0, Sodium Level 136, Potassium Level 3.4L, Chloride Level 112H, Carbon Dioxide Level 15L, Anion Gap 9, Blood Urea Nitrogen 2L, Creatinine 0.74, Estimat Glomerular Filtration Rate > 60, BUN/Creatinine Ratio 3, Glucose Level 159H, Calcium Level 7.2L, Phosphorus Level 1.0*L, Magnesium Level 2.2 Clinical Quality Measures DVT/VTE Risk/Contraindication: Risk Factor Score Per Nursin RFS Level Per Nursing on Admit: 1=Low/No VTE PPX BERNIE BARRIOS MD Oct 16, 2016 09:48
[2016-10-16] MEDS ORDERED: CLIN150C17 PO (15:24)
--- NOTE | 2016-10-16 15:29 | Discharge Instructions ---
Discharge [facility] Discharge Medications New, Converted or Re-Newed RX: Transmitted to Pharmacy New Medications: Clindamycin HCl (Clindamycin HCl) 150 Mg Capsule 300 MG PO QID for 7 Days, #28 CAP 0 Refills Continued Medications: Acetaminophen (Acetaminophen) 500 Mg Tablet 1000 MG PO Q6H PRN for PAIN-MILD, TAB Insulin Aspart (Novolog) 100 Unit/1 Ml Susp 8 UNITS SQ TIDWM Insulin Glargine,Hum.rec.anlog (Lantus Solostar) 300 Unit/3 Ml Insuln.pen 30 UNITS SQ HS, EA HAS NOT RECEIVED IN OVER A YEAR Patient Instructions Goal/Follow Up Appt: The nurse from [facility] will call you on Tuesday morning with a follow up appointment. Patient Instructions: Please taek all medicines as prescribed. You can tow picker your diabetic supplies at the Walk-In desk at [facility]. Your antibiotics will be at the pharmacy. Return to The Hospital For: BS >500 that do not come down. Activity & Diet Discharge Diet: ADA Diet Activity as Tolerated: Yes Orders-Post D/C & Referrals Pneu Vac Indicated: Yes Copy Copies To 1: BERNIE SHERMAN APRN, MD Oct 16, 2016 15:29
--- NOTE | 2016-10-16 15:31 | Discharge Summary ---
Diagnosis/Chief Complaint Date of Admission Oct 15, 2016 at 03:29 Date of Discharge Discharge Summary-Simple/Stand Consultations Discharge Physical Examination Allergies: Coded Allergies: Sulfa (Sulfonamide Antibiotics) (Unverified Allergy, Unknown, 08/02/13) Vitals & I&Os Vital Sign - Last 12Hours Date Time Temp Pulse Resp B/P (MAP) Pulse Ox O2 Delivery O2 Flow Rate FiO2 10/16/16 15:21 Room Air 10/16/16 15:00 105 17 117/80 99 10/15/16 20:00 99.5 Intake and Output 10/16/16 00:00 Intake Total 2720 ml Output Total 2150 ml Balance 570 ml Hospital Course See final discharge diagnosis. Discharge Instructions to patient/family Please see electonic discharge instructions given to patient. Discharge Medications Reviewed and agree with Discharge Medication list on patient's Discharge Instruction sheet Clinical Quality Measures DVT/VTE Risk/Contraindication: Risk Factor Score Per Nursin RFS Level Per Nursing on Admit: 1=Low/No VTE PPX BERNIE BARRIOS MD Oct 16, 2016 15:31
[2016-10-17] MEDS ORDERED: POTASSIUM CL 10MEQ/50ML IVPB 50 ML IV SCH (06:00)
[2016-10-17] MEDS ORDERED: KCL 20 MEQ TAB (K-DUR) PO SCH (06:00)
[2016-10-17] MEDS ORDERED: MAGNESIUM 1 GM/100 ML IVPB 100 ML IV SCH (06:00)
== END 2016-10-16 16:45 | disposition home or self-care (01) | DRG 639 ==
LOC: EDUNIT# 02:23 → ER 02:25 → ICU 03:29
PROVIDERS: ADMIT Internal Medicine; ATTEND Internal Medicine
DX: E10.10 Type 1 diabetes mellitus with ketoacidosis without coma (principal); E87.6 Hypokalemia; E10.40 Type 1 diabetes mellitus with diabetic neuropathy, unspecified; K02.9 Dental caries, unspecified; K05.10 Chronic gingivitis, plaque induced; R31.9 Hematuria, unspecified; F32.9 Major depressive disorder, single episode, unspecified; D72.829 Elevated white blood cell count, unspecified; F41.9 Anxiety disorder, unspecified; M81.0 Age-related osteoporosis without current pathological fracture; Z79.4 Long term (current) use of insulin; Z91.19 Patient's noncompliance with other medical treatment and regimen; Z91.14 Patient's other noncompliance with medication regimen
CPT/HCPCS: 36415; 71010; 80048; 80053; 80306; 80320; 81000; 82805; 82962; 83605; 83735; 84100; 85025; 87040; 87081; 96361; 96374; 96375; 96376

== ENCOUNTER 2017-04-07 10:49 | Inpatient (IN) | payer SELFPAY ==
[~2017-04-07] VITALS: Ht 167.6 cm; Wt 63.0 kg
[~2017-04-07 10:49] MED LIST changes: +ACET-93 PO; +CLIN150C17 PO; +INSU100V16 SQ
--- OUTSIDE RECORDS SUMMARY | 2017-04-07 11:11 | XMS REPORT | Continuity of Care Document ---
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 Name Role Phone [employer] Unavailable Unavailable Problems Problem Status Onset Date Classification Date Reported Comments Source No data available for this section Problem 03/23/2016 [facility] Medications Allergies, Adverse Reactions, Alerts Immunizations Immunization Date Given Site Status Last Updated Comments Source No data available for this section No data available for this section [facility] Results Vital Signs Encounters Location Location Details Encounter Type Encounter Number Reason For Visit Attending Provider ADM Date DC Date Status Source [facility] Cancel Admit [id number] Gil Enriquez 201503/18/2016 [facility] Procedures Procedure Code Date Perfomer Comments Source No data available for this section [facility] Plan of Care Social History Assessment and Plan Family History Value Date Source Advance Directives Order Name Results Value Date Source
[2017-04-07] MEDS ORDERED: NS IV 1000 ML 1,000 ML IV ONE ×2 (11:17→12:37)
[2017-04-07] MEDS ORDERED: ONDANSETRON 4 MG/2 ML (SDV) Z0FRAN IVP ONE (11:30)
[2017-04-07 11:31] LABS: BASOPHILS % (AUTO) 0 % (0-10); EOSINOPHILS % (AUTO) 0 % (0-10); LYMPHOCYTES % (AUTO) 18 % (12-44); MEAN CORPUSCULAR HEMOGLOBIN 28 PG (25-34); MEAN CORPUSCULAR HGB CONC 34 G/DL (32-36); MEAN CORPUSCULAR VOLUME 83 FL (80-99); MEAN PLATELET VOLUME 10.6 FL (7.4-10.4); MONOCYTES # (AUTO) 0.9 X 10^3 (0.0-1.0); MONOCYTES % (AUTO) 6 % (0-12); NEUTROPHILS # (AUTO) 12.7 X 10^3 (1.8-7.8); NEUTROPHILS % (AUTO) 76 % (42-75); PLATELET COUNT 388 10^3/uL (130-400); RED BLOOD COUNT 4.48 10^6/uL (4.35-5.85); RED CELL DISTRIBUTION WIDTH 12.7 % (10.0-14.5); WHITE BLOOD COUNT 16.6 10^3/uL (4.3-11.0)
[2017-04-07 11:42] LABS: INR 0.9 (0.8-1.4); PROTHROMBIN TIME PATIENT 12.4 SEC (12.2-14.7)
[2017-04-07 11:49] LABS: ALANINE AMINOTRANSFERASE 15 U/L (0-55); ALBUMIN 4.2 GM/DL (3.2-4.5); AMYLASE 75 U/L (25-125); ANION GAP 23 MMOL/L (5-14); ASPARTATE AMINO TRANSFERASE 14 U/L (5-34); BILIRUBIN,TOTAL 0.4 MG/DL (0.1-1.0); BLOOD UREA NITROGEN 16 MG/DL (7-18); BUN/CREATININE RATIO 9; CALCIUM 9.3 MG/DL (8.5-10.1); CARBON DIOXIDE 13 MMOL/L (21-32); CHLORIDE 98 MMOL/L (98-107); CREATININE SERUM 1.74 MG/DL (0.60-1.30); GFR ESTIMATED 39; GLUCOSE 354 MG/DL (70-105); LIPASE < 4 U/L (8-78); MAGNESIUM 2.1 MG/DL (1.8-2.4); POTASSIUM 4.2 MMOL/L (3.6-5.0); SODIUM 134 MMOL/L (135-145); TOTAL PROTEIN 8.2 GM/DL (6.4-8.2)
[2017-04-07 11:55] LABS: ALCOHOL < 10 MG/DL (<10)
[2017-04-07 11:56] LABS: BAND NEUTROPHILS 0 %; BASOPHILS % (MANUAL) 1 %; EOSINOPHILS % (MANUAL) 0 %; LYMPHOCYTES % (MANUAL) 14 %; NEUTROPHILS % (MANUAL) 81 %
[2017-04-07 12:00] LABS: TROPONIN I < 0.30 NG/ML (<0.30)
[2017-04-07 12:17] LABS: ABG BASE EXCESS -12.2 MMOL/L (-2.5-2.5); ABG OXYGEN SATURATION 74 % (94-100); ABG PCO2 31 MMHG (35-45); ABG PO2 42 MMHG (79-93); ABG TCO2 14.5 MMOL/L (21.0-31.0)
--- NOTE | 2017-04-07 12:19 | ED General ---
General Chief Complaint: Glucose Problems Stated Complaint: HIGH BS Nursing Triage Note: pt reports she has had n/v and malaise since last night. pt thinks her sugar is high but has not taken her glucose level as her glucometer is broke. Nursing Sepsis Screen: No Definite Risk Source of Information: Patient, Old Records History of Present Illness Time Seen by Provider: 11:17 Initial Comments PT ARRIVES VIA POV FROM HOME PT C/O NAUSEA AND VOMITING SINCE MIDNIGHT--HAS VOMITED UNKNOWN # OF TIMES NO DIARRHEA NO ABDOMINAL PAIN NO FEVER NO URINARY SYMPTOMS, VOIDING A NORMAL AMOUNT C/O CHEST HEAVINESS AND HAVING SHORTNESS OF BREATH WITH EXERTION NO KNOWN SICK CONTACTS OR SUSPICIOUS FOODS PT IS INSULIN DEPENDENT DIABETES, AND STATES SHE FEELS LIKE SHE IS IN DKA PT WITH LONG HISTORY OF NON-COMPLIANCE AND MULTIPLE EPISODES OF DKA PT HAS NOT CHECKED HER BLOOD SUGAR RECENTLY--CLAIMS HER GLUCOMETER IS BROKEN-- STATES NORMALLY HER BLOOD SUGAR RUNS IN THE 200'S . 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--SEEN APPROXIMATELY A MONTH AGO FOR ROUTINE EXAM Allergies and Home Medications Allergies Coded Allergies: Sulfa (Sulfonamide Antibiotics) (Unverified Allergy, Unknown, 08/02/13) Home Medications Amitriptyline HCl 25 Mg Tablet, 25 MG PO DAILY PRN for NEUROPATHY, (Reported) Insulin Aspart 100 Unit/1 Ml Susp, 15 UNITS SQ AC, (Reported) LAST FILLED 09-01-16 Insulin Determir 1,000 Units/10 Ml Soln, 45 UNITS SC HS, (Reported) LAST FILLED 10-18-16 Constitutional: see HPI, No chills, No diaphoresis, No dizziness, No fever, malaise, weakness EENTM: no symptoms reported Respiratory: see HPI, dyspnea on exertion, short of breath Cardiovascular: see HPI, chest pain, No edema, No palpitations, No syncope, No vascular heart diseas Gastrointestinal: see HPI, No abdominal pain, No diarrhea, loss of appetite, nausea, vomiting Genitourinary: no symptoms reported : No LMP: Mar 24, 2017 (S/P BTL) Musculoskeletal: no symptoms reported Skin: no symptoms reported Psychiatric/Neurological: No Symptoms Reported Hematologic/Lymphatic: No Symptoms Reported Immunological/Allergic: no symptoms reported Past Loojhvz-Ynrmxr-Dfmkdq Hx Patient Social History Alcohol Use: Rarely Uses Recreational Drug Use: No (DENIES BUT TESTED + FOR COCAINE 04/07/17) Smoking Status: Never a Smoker Recent Foreign Travel: No Contact w/Someone Who Travel: No Recent Infectious Disease Expo: No Recent Hopitalizations: No Physical Abuse: No Sexual Abuse: No Mistreated: No Fear: No Immunizations Up To Date Tetanus Booster (TDap): Unknown PED Vaccines UTD: No Seasonal Allergies Seasonal Allergies: No Surgeries History of Surgeries: Yes Surgeries: Tubal Ligation Respiratory History of Respiratory Disorde: No Currently Using CPAP: No Cardiovascular History of Cardiac Disorders: No Neurological History of Neurological Disord: Yes Neurological Disorders: Neuropathy 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 System : No (BTL) Hx 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 Disorders: No Sexually Transmitted Disease: No HIV/AIDS: No Female 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 Disorders: Denies Genitourinary History of Genitourinary Disor: Yes Genitourinary Disorders: Kidney Infection Gastrointestinal History of Gastrointestinal Di: No Musculoskeletal History of Musculoskeletal Dis: Yes Musculoskeletal Disorders: Osteoporosis, Arthritis Endocrine History of Endocrine Disorders: Yes Endocrine Disorders: Diabetes, Insulin dep HEENT History of HEENT Disorders: No Cancer History of Cancer: No Psychosocial History of Psychiatric Problem: Yes Behavioral Health Disorders: Anxiety, Depression Suicide Risk Score: 0 Integumentary History of Skin or Integumenta: No Blood Transfusions History of Blood Disorders: No Adverse Reaction to a Blood Tr: No Family Medical History Significant Family History: Heart Disease, Diabetes, Hypertension Family Medial History: Family history: Hypertension 09 SISTER Kidney disease 03 MOTHER Myocardial infarction 09 SISTER Physical Exam Vital Signs Vital Sign - Last 12Hours 04/07/17 04/07/17 11:10 14:10 Temp 98.4 Pulse 115 Resp 20 B/P (MAP) 112/73 (86) Pulse Ox 99 O2 Delivery Room Air Capillary Refill : Less Than 3 Seconds General Appearance: No Apparent Distress, WD/WN, Other (LETHARGIC, SLIGHTLY SLOW MENTATION, SOMEWHAT DRAMATIC--SOBBING, NO TEARS) HEENT: PERRL/EOMI, Other (POOR DENTITION, MISSING TEETH. DRY ORAL MUCOSA) Neck: Full Range of Motion, Normal Inspection, Non Tender, Supple Respiratory: Normal Breath Sounds, No Accessory Muscle Use, No Respiratory Distress Cardiovascular: No Edema, No JVD, No Murmur, Normal Peripheral Pulses, Tachycardia Gastrointestinal: Normal Bowel Sounds, No Organomegaly, No Pulsatile Mass, Non Tender, Soft Back: Normal Inspection, No CVA Tenderness Extremity: Normal Capillary Refill, Normal Inspection, Normal Range of Motion, Non Tender, No Calf Tenderness, No Pedal Edema Neurologic/Psychiatric: Alert, Oriented x3, No Motor/Sensory Deficits, bobbin presser II- XII Norm as Tested Skin: Normal Color, Warm/Dry, Tattoos/Piercings (MULTIPLE TATTOOS) Progress/Results/Core Measures Suspected Sepsis Recent Fever Within 48 Hours: No Infection Criteria Present: None New/Unexplained Altered Menta: No Sepsis Screen: No Definite Risk Sepsis Diagnosis: SIRS Temperature:98.4 Pulse: 115 Respiratory Rate: 20 Laboratory Tests 04/07/17 11:05: White Blood Count 16.6H Blood Pressure 112 /73 Mean: 86 Laboratory Tests 04/07/17 11:05: Creatinine 1.74H, INR Comment 0.9, Platelet Count 388, Total Bilirubin 0.4 04/07/17 17:26: Creatinine 0.98 04/07/17 18:27: Creatinine 0.89 Results/Orders Lab Results Laboratory Tests Test 04/07/17 11:04 04/07/17 11:05 04/07/17 12:10 04/07/17 12:50 Range/Units Glucometer 304 H 70-110 MG/DL White Blood Count 16.6 H 4.3-11.0 10^3/uL Red Blood Count 4.48 4.35-5.85 10^6/uL Hemoglobin 12.7 11.5-16.0 G/DL Hematocrit 37 35-52 % Mean Corpuscular Volume 83 80-99 FL Mean Corpuscular Hemoglobin 28 25-34 PG Mean Corpuscular Hemoglobin Concent 34 32-36 G/DL Red Cell Distribution Width 12.7 10.0-14.5 % Platelet Count 388 130-400 10^3/uL Mean Platelet Volume 10.6 H 7.4-10.4 FL Neutrophils (%) (Auto) 76 H 42-75 % Lymphocytes (%) (Auto) 18 12-44 % Monocytes (%) (Auto) 6 0-12 % Eosinophils (%) (Auto) 0 0-10 % Basophils (%) (Auto) 0 0-10 % Neutrophils # (Auto) 12.7 H 1.8-7.8 X 10^3 Lymphocytes # (Auto) 3.0 1.0-4.0 X 10^3 Monocytes # (Auto) 0.9 0.0-1.0 X 10^3 Eosinophils # (Auto) 0.0 0.0-0.3 10^3/uL Basophils # (Auto) 0.0 0.0-0.1 10^3/uL Neutrophils % (Manual) 81 % Lymphocytes % (Manual) 14 % Monocytes % (Manual) 4 % Eosinophils % (Manual) 0 % Basophils % (Manual) 1 % Band Neutrophils 0 % Blood Morphology Comment NORMAL Prothrombin Time 12.4 12.2-14.7 SEC INR Comment 0.9 0.8-1.4 Activated Partial Thromboplast Time 21 L 24-35 SEC Sodium Level 134 L 135-145 MMOL/L Potassium Level 4.2 3.6-5.0 MMOL/L Chloride Level 98 98-107 MMOL/L Carbon Dioxide Level 13 L 21-32 MMOL/L Anion Gap 23 H 5-14 MMOL/L Blood Urea Nitrogen 16 7-18 MG/DL Creatinine 1.74 H 0.60-1.30 MG/DL Estimat Glomerular Filtration Rate 39 BUN/Creatinine Ratio 9 Glucose Level 354 H 70-105 MG/DL Hemoglobin A1c 13.4 H 4.5-6.2 % Calcium Level 9.3 8.5-10.1 MG/DL Magnesium Level 2.1 1.8-2.4 MG/DL Total Bilirubin 0.4 0.1-1.0 MG/DL Aspartate Amino Transf (AST/SGOT) 14 5-34 U/L Alanine Aminotransferase (ALT/SGPT) 15 0-55 U/L Alkaline Phosphatase 166 H 40-136 U/L Troponin I < 0.30 <0.30 NG/ML B-Type Natriuretic Peptide 15.8 <100.0 PG/ML Total Protein 8.2 6.4-8.2 GM/DL Albumin 4.2 3.2-4.5 GM/DL Amylase Level 75 25-125 U/L Lipase < 4 L 8-78 U/L Serum Test, Qualitative NEGATIVE NEGATIVE Serum Alcohol < 10 <10 MG/DL Blood Gas Puncture Site r radial Blood Gas Patient Temperature 98.2 Arterial Blood pH 7.26 *L 7.37-7.43 Arterial Blood Partial Pressure CO2 31 L 35-45 MMHG Arterial Blood Partial Pressure O2 42 L 79-93 MMHG Arterial Blood HCO3 14 *L 23-27 MMOL/L Arterial Blood Total CO2 14.5 L 21.0-31.0 MMOL/L Arterial Blood Oxygen Saturation 74 L 94-100 % Arterial Blood Base Excess -12.2 L -2.5-2.5 MMOL/L Nic Test YES-POS Blood Gas Ventilator Setting NO Blood Gas Inspired Oxygen Room air Urine Color YELLOW Urine Clarity CLEAR Urine pH 5 5-9 Urine Specific Cadott 1.025 H 1.016-1.022 Urine Protein 2+ H NEGATIVE Urine Glucose (UA) 4+ H NEGATIVE Urine Ketones 4+ H NEGATIVE Urine Nitrite NEGATIVE NEGATIVE Urine Bilirubin NEGATIVE NEGATIVE Urine Urobilinogen NORMAL NORMAL MG/DL Urine Leukocyte Esterase 3+ H NEGATIVE Urine RBC (Auto) 4+ H NEGATIVE Urine RBC 5-10 H /HPF Urine WBC 25-50 H /HPF Urine Squamous Epithelial Cells 2-5 /HPF Urine Crystals NONE /LPF Urine Bacteria TRACE /HPF Urine Casts NONE /LPF Urine Mucus NEGATIVE /LPF Urine Culture Indicated YES Urine Opiates Screen NEGATIVE NEGATIVE Urine Oxycodone Screen NEGATIVE NEGATIVE Urine Methadone Screen NEGATIVE NEGATIVE Urine Propoxyphene Screen NEGATIVE NEGATIVE Urine Barbiturates Screen NEGATIVE NEGATIVE Ur Tricyclic Antidepressants Screen NEGATIVE NEGATIVE Urine Phencyclidine Screen NEGATIVE NEGATIVE Urine Amphetamines Screen NEGATIVE NEGATIVE Urine Methamphetamines Screen NEGATIVE NEGATIVE Urine Benzodiazepines Screen NEGATIVE NEGATIVE Urine Cocaine Screen POSITIVE H NEGATIVE Urine Cannabinoids Screen NEGATIVE NEGATIVE Test 04/07/17 14:38 04/07/17 15:58 04/07/17 16:00 04/07/17 17:19 Range/Units Glucometer 119 H 129 H 121 H 70-110 MG/DL Blood Gas Puncture Site RT RAD Blood Gas Patient Temperature 99.5 Arterial Blood pH 7.35 L 7.37-7.43 Arterial Blood Partial Pressure CO2 38 35-45 MMHG Arterial Blood Partial Pressure O2 95 H 79-93 MMHG Arterial Blood HCO3 21 L 23-27 MMOL/L Arterial Blood Total CO2 21.7 21.0-31.0 MMOL/L Arterial Blood Oxygen Saturation 99 94-100 % Arterial Blood Base Excess -4.0 L -2.5-2.5 MMOL/L Nic Test YES-POS Blood Gas Ventilator Setting NO Blood Gas Inspired Oxygen ROOM AIR Test 04/07/17 17:26 04/07/17 18:06 04/07/17 18:27 04/07/17 19:03 Range/Units Sodium Level 137 135 135-145 MMOL/L Potassium Level 3.3 L 3.3 L 3.6-5.0 MMOL/L Chloride Level 107 107 98-107 MMOL/L Carbon Dioxide Level 23 22 21-32 MMOL/L Anion Gap 7 6 5-14 MMOL/L Blood Urea Nitrogen 10 10 7-18 MG/DL Creatinine 0.98 0.89 0.60-1.30 MG/DL Estimat Glomerular Filtration Rate > 60 > 60 BUN/Creatinine Ratio 10 11 Glucose Level 113 H 98 70-105 MG/DL Calcium Level 7.6 L 7.5 L 8.5-10.1 MG/DL Glucometer 110 68 L 70-110 MG/DL Test 04/07/17 19:29 Range/Units Glucometer 60 *L 70-110 MG/DL My Orders Orders - DARRYL CAMPOS DO Accucheck Stat ONCE (04/07/17 11:16) Saline Lock/Iv-Start (04/07/17 11:16) Monitor-Rhythm Ecg Trace Only (04/07/17 11:17) Amylase (04/07/17 11:17) Cbc With Automated Diff (04/07/17 11:17) Comprehensive Metabolic Panel (04/07/17 11:17) Lipase (04/07/17 11:17) Magnesium (04/07/17 11:17) Ua Culture If Indicated (04/07/17 11:17) Ondansetron Injection (Zofran Injectio (04/07/17 11:30) Saline Lock/Iv-Start (04/07/17 11:17) Ns Iv 1000 Ml (Sodium Chloride 0.9%) (04/07/17 11:17) Alcohol (04/07/17 11:23) BNP (04/07/17 11:23) Drug Screen Stat (Urine) (04/07/17 11:23) Hcg,Qualitative Serum (04/07/17 11:23) Protime With Inr (04/07/17 11:23) Partial Thromboplastin Time (04/07/17 11:23) Troponin I (04/07/17 11:23) Arterial Blood Gas (04/07/17 11:23) Manual Differential (04/07/17 11:05) Ekg Tracing (04/07/17 12:12) Sodium Bicarbonate 8.4% Syr (Sodium Bica (04/07/17 12:30) Saline Lock/Iv-Start (04/07/17 12:37) Ns Iv 1000 Ml (Sodium Chloride 0.9%) (04/07/17 12:37) Urine Culture (04/07/17 12:50) Medications Given in ED Current Medications Medications Dose Ordered Sig/Ryland Route Start Time Stop Time Status Last Admin Dose Admin Ondansetron HCl 8 mg ONCE ONCE IVP 04/07/17 11:30 04/07/17 11:31 DC 04/07/17 11:25 8 MG Sodium Bicarbonate 50 meq ONCE ONCE IV 04/07/17 12:30 04/07/17 12:31 DC 04/07/17 12:47 50 MEQ Sodium Chloride 1,000 ml @ 0 mls/hr Q0M ONCE IV 04/07/17 11:17 04/07/17 11:19 DC 04/07/17 11:25 0 MLS/HR Vital Signs/I&O Vital Sign - Last 12Hours 04/07/17 04/07/17 04/07/17 04/07/17 11:10 13:45 14:10 14:30 Temp 98.4 98.0 Pulse 115 111 107 Resp 20 18 18 B/P (MAP) 112/73 (86) 112/77 (89) Pulse Ox 99 98 98 O2 Delivery Room Air Room Air 04/07/17 04/07/17 16:40 19:00 Temp 99.5 Pulse 110 104 Resp 18 B/P (MAP) 105/58 (74) Pulse Ox 98 O2 Delivery Room Air Capillary Refill : Less Than 3 Seconds Blood Pressure Mean: 86 Progress Note : Progress Note HEART RATE DOWN AT TIME OF ADMIT NO DETERIORATION IN PT'S CONDITION DURING ER STAY ECG Initial ECG Impression Time: 12:12 Initial ECG Rate: 109 Initial ECG Rhythm: S.Tach Initial ECG Comparisson: No Previous ECG Available Departure Communication (Admissions) Progress Notes 1234--SPOKE WITH DR. RAWLS, [facility]ICE [facility] FOR ADMIT. Impression Impression: Primary Impression: Diabetic ketoacidosis Additional Impressions: Uncontrolled diabetes mellitus Urinary tract infection Non-compliance RENAL INSUFFICIENCY AND DEHYDRATION Disposition: ADMITTED INPATIENT Condition: Improved Admissions Decision to Admit Reason: Admit from ER (General) Decision to Admit/Date: Apr 07, 2017 Time/Decision to Admit Time: 12:35 Departure-Patient Inst. Referrals: [facility] (PCP) Primary Care Physician LUKE SCHUSTER (Family) Primary Care Physician DARRYL CAMPOS DO Apr 07, 2017 12:19
[2017-04-07 12:21] LABS: ABG HCO3 14 MMOL/L (23-27); ABG PH 7.26 (7.37-7.43)
[2017-04-07 12:22] LABS: ALLENS TEST YES-POS; PATIENT TEMP 98.2
[2017-04-07] MEDS ORDERED: SODIUM BICARB 8.4% 50 MEQ/50 ML (ABBOTT) SYR IV ONE (12:30)
[2017-04-07 12:57] LABS: BILIRUBIN,URINE NEGATIVE (NEGATIVE); KETONES,URINE 4+ (NEGATIVE); LEUKOCYTE ESTERASE ,URINE 3+ (NEGATIVE); NITRITE,URINE NEGATIVE (NEGATIVE); PH,URINE 5 (5-9); PROTEIN,URINE 2+ (NEGATIVE); UROBILINOGEN,URINE NORMAL (NORMAL)
--- OUTSIDE RECORDS SUMMARY | 2017-04-07 13:02 | XMS REPORT | Continuity of Care Document ---
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 [employer] Unavailable Unavailable Problems Problem Status Onset Date Classification Date Reported Comments Source No data available for this section Problem 03/23/2016 [facility] Medications Allergies, Adverse Reactions, Alerts Immunizations Immunization Date Given Site Status Last Updated Comments Source No data available for this section No data available for this section [facility] Results Vital Signs Encounters Location Location Details Encounter Type Encounter Number Reason For Visit Attending Provider ADM Date DC Date Status Source [facility] Cancel Admit [id number] Gil Enriquez [id number]/18/2016 [facility] Procedures Procedure Code Date Perfomer Comments Source No data available for this section [facility] Plan of Care Social History Assessment and Plan Family History Value Date Source Advance Directives Order Name Results Value Date Source
[2017-04-07 13:06] LABS: WBC,URINE 25-50 /HPF
[2017-04-07 14:10] VITALS: BP 112/77
[2017-04-07] MEDS ORDERED: DEXTROSE 10% IV SOLUTION 1,000 ML IV SCH (14:15)
[2017-04-07] MEDS ORDERED: POTASSIUM CL 10MEQ/50ML IVPB X 4 (TOTAL 40 MEQ) IV SCH (14:15)
[2017-04-07] MEDS ORDERED: 1/2 NS IV SOLUTION 1,000 ML IV SCH (14:15)
[2017-04-07] MEDS ORDERED: REGULAR inSUlin DRIP 250 UNITS/NS 250 ML IV SCH ×2 (14:15)
[2017-04-07] MEDS ORDERED: D5 1/2 NS IV 1,000 ML IV SCH (14:15)
[2017-04-07] MEDS ORDERED: 1/2 NS W/KCL 20 MEQ/L 1,000 ML IV SCH (14:15)
[2017-04-07] MEDS ORDERED: ONDANSETRON 4 MG/2 ML (SDV) Z0FRAN IV PRN (14:30)
[2017-04-07] MEDS: D5 1/2 NS W/KCL 20 MEQ/L 1,000 ML IV SCH ×2 (14:55→19:10)
[2017-04-07] MEDS ORDERED: AMIT25TA9 PO (15:45)
[2017-04-07] MEDS ORDERED: INSU100V5 SC (15:45)
[2017-04-07 16:17] LABS: ABG HCO3 21 MMOL/L (23-27); ABG OXYGEN SATURATION 99 % (94-100); ABG PCO2 38 MMHG (35-45); ABG PH 7.35 (7.37-7.43); ABG PO2 95 MMHG (79-93); ABG TCO2 21.7 MMOL/L (21.0-31.0); ALLENS TEST YES-POS
[2017-04-07 16:18] LABS: PATIENT TEMP 99.5
[2017-04-07 16:40] VITALS: BP 105/58
[2017-04-07 18:13] LABS: ANION GAP 7 MMOL/L (5-14); BLOOD UREA NITROGEN 10 MG/DL (7-18); BUN/CREATININE RATIO 10; CALCIUM 7.6 MG/DL (8.5-10.1); CARBON DIOXIDE 23 MMOL/L (21-32); CHLORIDE 107 MMOL/L (98-107); CREATININE SERUM 0.98 MG/DL (0.60-1.30); GFR ESTIMATED > 60; GLUCOSE 113 MG/DL (70-105); POTASSIUM 3.3 MMOL/L (3.6-5.0); SODIUM 137 MMOL/L (135-145)
[2017-04-07 18:51] LABS: ANION GAP 6 MMOL/L (5-14); BLOOD UREA NITROGEN 10 MG/DL (7-18); BUN/CREATININE RATIO 11; CALCIUM 7.5 MG/DL (8.5-10.1); CARBON DIOXIDE 22 MMOL/L (21-32); CHLORIDE 107 MMOL/L (98-107); CREATININE SERUM 0.89 MG/DL (0.60-1.30); GFR ESTIMATED > 60; GLUCOSE 98 MG/DL (70-105); POTASSIUM 3.3 MMOL/L (3.6-5.0); SODIUM 135 MMOL/L (135-145)
[2017-04-07 19:05] VITALS: BP 103/65
[2017-04-07] MEDS: DEXTROSE 10% IV SOLUTION 250 ML IV SCH ×2 (19:45→22:11)
[2017-04-07] MEDS ORDERED: DEXTROSE 10% IV SOLUTION 250 ML IV ONE (19:50)
[2017-04-07] MEDS: NITROFURANTOIN 100 MG (MACROBID) CAPSULE PO SCH (21:24)
[2017-04-07 23:31] LABS: ANION GAP 9 MMOL/L (5-14); BLOOD UREA NITROGEN 8 MG/DL (7-18); BUN/CREATININE RATIO 9; CALCIUM 7.7 MG/DL (8.5-10.1); CARBON DIOXIDE 21 MMOL/L (21-32); CHLORIDE 105 MMOL/L (98-107); CREATININE SERUM 0.85 MG/DL (0.60-1.30); GFR ESTIMATED > 60; GLUCOSE 105 MG/DL (70-105); POTASSIUM 3.1 MMOL/L (3.6-5.0); SODIUM 135 MMOL/L (135-145)
[2017-04-08] VITALS: BP 98/58
[2017-04-08] MEDS ORDERED: inSUlin ASPART (NovoLOG) 1 UNIT/0.01 ML (CHARGE PER UNIT) SC SCH
[2017-04-08] MEDS: POTASSIUM CL 10MEQ/50ML IVPB 50 ML IV SCH ×4 (01:06→03:13)
[2017-04-08 04:00] VITALS: BP 112/68
[2017-04-08 05:25] LABS: BASOPHILS % (AUTO) 0 % (0-10); EOSINOPHILS # (AUTO) 0.1 10^3/uL (0.0-0.3); EOSINOPHILS % (AUTO) 1 % (0-10); LYMPHOCYTES # (AUTO) 2.8 X 10^3 (1.0-4.0); LYMPHOCYTES % (AUTO) 29 % (12-44); MEAN CORPUSCULAR HEMOGLOBIN 29 PG (25-34); MEAN CORPUSCULAR HGB CONC 34 G/DL (32-36); MEAN CORPUSCULAR VOLUME 84 FL (80-99); MEAN PLATELET VOLUME 10.4 FL (7.4-10.4); MONOCYTES # (AUTO) 0.7 X 10^3 (0.0-1.0); MONOCYTES % (AUTO) 7 % (0-12); NEUTROPHILS % (AUTO) 63 % (42-75); PLATELET COUNT 294 10^3/uL (130-400); RED BLOOD COUNT 3.69 10^6/uL (4.35-5.85); RED CELL DISTRIBUTION WIDTH 12.5 % (10.0-14.5); WHITE BLOOD COUNT 9.7 10^3/uL (4.3-11.0)
[2017-04-08 05:51] LABS: ALANINE AMINOTRANSFERASE 12 U/L (0-55); ALBUMIN 3.2 GM/DL (3.2-4.5); ANION GAP 11 MMOL/L (5-14); ASPARTATE AMINO TRANSFERASE 11 U/L (5-34); BILIRUBIN,TOTAL 0.4 MG/DL (0.1-1.0); BLOOD UREA NITROGEN 6 MG/DL (7-18); BUN/CREATININE RATIO 8; CALCIUM 8.1 MG/DL (8.5-10.1); CARBON DIOXIDE 19 MMOL/L (21-32); CHLORIDE 106 MMOL/L (98-107); CREATININE SERUM 0.79 MG/DL (0.60-1.30); GFR ESTIMATED > 60; GLUCOSE 129 MG/DL (70-105); POTASSIUM 3.5 MMOL/L (3.6-5.0); SODIUM 136 MMOL/L (135-145); TOTAL PROTEIN 5.9 GM/DL (6.4-8.2)
[2017-04-08 08:00] VITALS: BP 104/67
[2017-04-08] MEDS ORDERED: INFLUENZA TRIvalent 2017-2018 0.5 ML/45 MCG SYR IM ONE (08:30)
[2017-04-08] MEDS: NITROFURANTOIN 100 MG (MACROBID) CAPSULE PO SCH ×2 (09:49→20:17)
[2017-04-08] MEDS ORDERED: AMITRIPTYLINE 25 MG (ELAVIL) TAB PO PRN (10:45)
--- NOTE | 2017-04-08 10:46 | History & Physical-Hospitalist ---
HPI History of Present Illness: HPI/Chief Complaint CC: DKA HPI: This is a 46-year-old female clinic patient a [facility] with a past medical history of type I diabetes with several occasions of DKA in the past that presents to the ER with nausea and vomiting and could no longer manage oral intake at home was found to have DKA due to dehydration with nausea and vomiting and UTI. She currently feels much better is able to tolerate clear liquids and once to advance her diet. I reviewed her home medications and have restarted her home insulin regimen and reviewed urine culture and will tentatively plan for discharge tomorrow. Source: patient Exam Limitations: no limitations Date Seen 04/08/17 Time Seen by Provider: 09:45 Attending Physician Yue Neville DO [facility] Referring Physician Date of Admission Apr 07, 2017 at 12:35 Home Medications & Allergies Home Medications Reviewed patient Home Medication Reconciliation Form Allergies Allergies Coded Allergies Sulfa (Sulfonamide Antibiotics) (Unverified Allergy, Unknown, 08/02/13) Past Cmjgefn-Kcvozd-Kjdlbd Hx Patient Social History Alcohol Use: Rarely Uses Number of Drinks Today: 0 Recreational Drug Use: No (DENIES BUT TESTED + FOR COCAINE 04/07/17) Smoking Status: Never a Smoker Physical Abuse Screen: No Sexual Abuse: No Recent Foreign Travel: No Contact w/other who traveled: No Recent Hopitalizations: No Recent Infectious Disease Expo: No Immunizations Up To Date Tetanus Booster (TDap): Unknown Pediatric: No Seasonal Allergies Seasonal Allergies: No Surgeries Yes Tubal Ligation Respiratory No Currently Using CPAP: No Cardiovascular No Neurological Yes Neuropathy 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 System : No (BTL) Hx 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 Disorders: No Sexually Transmitted Disease: No HIV/AIDS: No Female 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 Disorders: Denies Genitourinary Yes Kidney Infection Gastrointestinal No Musculoskeletal Yes Osteoporosis, Arthritis Endocrine History of Endocrine Disorders: Yes Endocrine Disorders: Diabetes, Insulin dep Are Your Blood Sugars Over 250: Yes HEENT History of HEENT Disorders: No Cancer No Psychosocial History of Psychiatric Problem: Yes Behavioral Health Disorders: Anxiety, Depression Integumentary History of Skin or Integumenta: No Blood Transfusions History of Blood Disorders: No Adverse Reaction to a Blood Tr: No Family Medical History Significant Family History: Heart Disease, Diabetes, Hypertension Family Hx: Family history: Hypertension 09 SISTER Kidney disease 03 MOTHER Myocardial infarction 09 SISTER Review of Systems Constitutional: see HPI, weakness EENTM: no symptoms reported Respiratory: no symptoms reported Cardiovascular: no symptoms reported Gastrointestinal: loss of appetite, nausea, vomiting Genitourinary: no symptoms reported Musculoskeletal: no symptoms reported Skin: no symptoms reported Psychiatric/Neurological: No Symptoms Reported All Other Systems Reviewed Negative Unless Noted: Yes Physical Exam Physical Exam Vital Signs Vital Sign - Last 12Hours 04/07/17 04/07/17 11:10 14:10 Temp 98.4 Pulse 115 Resp 20 B/P (MAP) 112/73 (86) Pulse Ox 99 O2 Delivery Room Air Capillary Refill : Less Than 3 Seconds General Appearance: No Apparent Distress, WD/WN, Chronically ill, Thin Eyes: Bilateral Eye Normal Inspection, Bilateral Eye PERRL HEENT: PERRL/EOMI, Normal ENT Inspection, Pharynx Normal Neck: Full Range of Motion, Normal Inspection, Non Tender, Supple, Carotid Bruit Respiratory: Chest Non Tender, Lungs Clear, Normal Breath Sounds, No Accessory Muscle Use, No Respiratory Distress Cardiovascular: Regular Rate, Rhythm, No Edema, No Gallop, No JVD, No Murmur, Normal Peripheral Pulses Gastrointestinal: Normal Bowel Sounds, No Organomegaly, No Pulsatile Mass, Non Tender, Soft Back: Normal Inspection, No CVA Tenderness, No Vertebral Tenderness Extremity: Normal Capillary Refill, Normal Inspection, Normal Range of Motion, Non Tender, No Calf Tenderness, No Pedal Edema Neurologic/Psychiatric: Alert, Oriented x3, No Motor/Sensory Deficits, Normal Mood/Affect Skin: Normal Color, Warm/Dry Lymphatic: No Adenopathy Results Results/Procedures Lab Laboratory Tests 04/07/17 11:05 04/07/17 17:26 04/07/17 18:27 04/07/17 23:00 04/08/17 05:10 Assessment/Plan Admission Diagnosis Assessment: DKA now resolved placed back on subcutaneous insulin and discontinue insulin drip Dehydration Nausea vomiting Cocaine on urine drug screen UTI Assessment and Plan Plan: Continue to treat the urinary tract infection Subcutaneous insulin Home meds Antibiotics Clinical Quality Measures DVT/VTE Risk/Contraindication: Risk Factor Score Per Nursin RFS Level Per Nursing on Admit: 3=High YUE NEVILLE DO Apr 08, 2017 10:45
[2017-04-08] MEDS ORDERED: KCL 20 MEQ TAB (K-DUR) PO NR (11:00)
[2017-04-08] MEDS: inSUlin ASPART (NovoLOG) 1 UNIT/0.01 ML (CHARGE PER UNIT) SQ SCH ×3 (11:07→17:26)
[2017-04-08 12:00] VITALS: BP 122/79
[2017-04-08] MEDS: DEXTROSE 10% IV SOLUTION 250 ML IV SCH (14:26)
[2017-04-08] MEDS: NS IV 1000 ML 1,000 ML IV SCH ×2 (15:08)
[2017-04-08 16:00] VITALS: BP 99/58
[2017-04-08 19:41] VITALS: BP 101/59
[2017-04-08] MEDS: inSUlin DETERMIR 1 UNIT/0.01 ML (LEVEMIR) CHARGE PER UNIT SQ SCH (21:46)
[2017-04-09] VITALS: BP 103/69
[2017-04-09] MEDS: NS IV 1000 ML 1,000 ML IV SCH ×2 (03:58→18:10)
[2017-04-09 04:01] VITALS: BP 105/73
[2017-04-09] MEDS ORDERED: GLUCAGON EMERGENCY 1 MG/KIT IM PRN (04:15)
[2017-04-09] MEDS ORDERED: DEXTROSE 10% IV SOLUTION 1,000 ML IV PRN (04:15)
[2017-04-09] MEDS ORDERED: DEXTROSE 50% 50 ML (IMS) SYR IV PRN (04:15)
[2017-04-09 05:34] LABS: BASOPHILS % (AUTO) 0 % (0-10); EOSINOPHILS # (AUTO) 0.1 10^3/uL (0.0-0.3); EOSINOPHILS % (AUTO) 2 % (0-10); LYMPHOCYTES # (AUTO) 0.9 X 10^3 (1.0-4.0); LYMPHOCYTES % (AUTO) 15 % (12-44); MEAN CORPUSCULAR HEMOGLOBIN 28 PG (25-34); MEAN CORPUSCULAR HGB CONC 33 G/DL (32-36); MEAN CORPUSCULAR VOLUME 86 FL (80-99); MEAN PLATELET VOLUME 9.9 FL (7.4-10.4); MONOCYTES # (AUTO) 0.5 X 10^3 (0.0-1.0); MONOCYTES % (AUTO) 8 % (0-12); NEUTROPHILS # (AUTO) 4.8 X 10^3 (1.8-7.8); NEUTROPHILS % (AUTO) 76 % (42-75); PLATELET COUNT 219 10^3/uL (130-400); RED BLOOD COUNT 3.62 10^6/uL (4.35-5.85); RED CELL DISTRIBUTION WIDTH 12.9 % (10.0-14.5); WHITE BLOOD COUNT 6.4 10^3/uL (4.3-11.0)
[2017-04-09 05:51] LABS: ALANINE AMINOTRANSFERASE 11 U/L (0-55); ALBUMIN 2.8 GM/DL (3.2-4.5); ANION GAP 12 MMOL/L (5-14); ASPARTATE AMINO TRANSFERASE 14 U/L (5-34); BILIRUBIN,TOTAL 0.2 MG/DL (0.1-1.0); BLOOD UREA NITROGEN 4 MG/DL (7-18); BUN/CREATININE RATIO 6; CALCIUM 7.9 MG/DL (8.5-10.1); CARBON DIOXIDE 23 MMOL/L (21-32); CHLORIDE 104 MMOL/L (98-107); CREATININE SERUM 0.63 MG/DL (0.60-1.30); GFR ESTIMATED > 60; GLUCOSE 116 MG/DL (70-105); POTASSIUM 3.5 MMOL/L (3.6-5.0); SODIUM 139 MMOL/L (135-145); TOTAL PROTEIN 5.4 GM/DL (6.4-8.2)
[2017-04-09] MEDS: NITROFURANTOIN 100 MG (MACROBID) CAPSULE PO SCH ×2 (08:00→20:09)
[2017-04-09] MEDS: inSUlin ASPART (NovoLOG) 1 UNIT/0.01 ML (CHARGE PER UNIT) SQ SCH ×3 (08:00→18:10)
[2017-04-09 08:45] VITALS: BP 107/71
[2017-04-09 12:59] VITALS: BP 94/57
[2017-04-09 15:39] VITALS: BP 112/75
[2017-04-09] MEDS: inSUlin DETERMIR 1 UNIT/0.01 ML (LEVEMIR) CHARGE PER UNIT SQ SCH (20:53)
[2017-04-09] MEDS ORDERED: inSUlin DETERMIR 1 UNIT/0.01 ML (LEVEMIR) CHARGE PER UNIT SQ ONE (21:00)
[2017-04-10] VITALS: BP 99/66
[2017-04-10 08:30] VITALS: BP 123/84
[2017-04-10] MEDS: NITROFURANTOIN 100 MG (MACROBID) CAPSULE PO SCH (08:44)
[2017-04-10] MEDS: NS IV 1000 ML 1,000 ML IV SCH (08:44)
[2017-04-10] MEDS: inSUlin ASPART (NovoLOG) 1 UNIT/0.01 ML (CHARGE PER UNIT) SQ SCH ×2 (08:44→11:43)
--- NOTE | 2017-04-10 14:21 | Discharge Instructions ---
Discharge [facility] Discharge Medications New, Converted or Re-Newed RX: Transmitted to Pharmacy New Medications: Nitrofurantoin Monohyd/M-Cryst (Nitrofurantoin Mclean-Mcr 100 mg) 100 Mg Capsule 100 MG PO BID for 5 Days, #10 CAP Continued Medications: Amitriptyline HCl (Amitriptyline HCl) 25 Mg Tablet 25 MG PO DAILY PRN for NEUROPATHY, TAB Insulin Aspart (Novolog) 100 Unit/1 Ml Susp 15 UNITS SQ AC, EA LAST FILLED 09-01-16 Insulin Determir (Levemir) 1,000 Units/10 Ml Soln 45 UNITS SC HS, EA LAST FILLED 10-18-16 Patient Instructions Goal/Follow Up Appt: [facility] WILL CALL YOU ON TUESDAY WITH AN APPOINTMENT. Patient Instructions: DUE TO YOUR LOW BLOOD SUGARS WHILE IN HOSPITAL, PLEASE REDUCE YOUR USUAL LEVEMIR DOSE TO 25 UNITS AT NIGHT. YOU CAN INCREASE THIS BY 2-3 UNITS IF YOUR DAYTIME BLOOD SUGARS ARE ABOVE 180 CONSISTENTLY. YOU SHOULD DISCUSS THIS FURTHER WITH YOUR PCP. Return to The Hospital For: PERSISTENTLY LOW BLOOD SUGARS, FEVER Activity & Diet Discharge Diet: ADA Diet Activity as Tolerated: Yes Orders-Post D/C & Referrals Pneu Vac Indicated: Yes Copy Copies To 1: BERNIE SHERMAN APRN, MD Apr 10, 2017 2:21 pm
[2017-04-10] MEDS ORDERED: NITR100C10 PO (14:22)
--- NOTE | 2017-04-10 14:24 | Discharge Summary ---
Diagnosis/Chief Complaint Date of Admission Apr 07, 2017 at 12:35 pm Date of Discharge Apr 10, 2017 Admission Diagnosis Admission Diagnosis DKA Dehydration Nausea vomiting Cocaine on urine drug screen UTI Discharge Diagnosis DKA, mild 04/09 - due to low BS overnight, will keep one more night. decresae levemir dose tonight. 04/10 - Pt to take levemir 25 units at night, increase by 3 if she is not having lows. Suspect marginal compliance with insulin regimen at home. Should follow with PCP for further care. Recommend CDE consult with stephanie Mireles. Dehydration Nausea vomiting 04/09 - Resolved, eating a full diet 04/10 - Recommend carb-counting as outpatients Cocaine on urine drug screen 04/09 - pt states she only occasionally does drugs, declines ATS at present. 04/10 - discussed that her use of cocaine is likely what catapulted her into DKA. still declines treatment. UTI 04/09 - on macrobid 04/10 - DC with 5 day course. Chief Complaint/HPI Chief Complaint/HPI HPI: This is a 46-year-old female clinic patient a [facility] with a past medical history of type I diabetes with several occasions of DKA in the past that presents to the ER with nausea and vomiting and could no longer manage oral intake at home was found to have DKA due to dehydration with nausea and vomiting and UTI. She currently feels much better is able to tolerate clear liquids and once to advance her diet. I reviewed her home medications and have restarted her home insulin regimen and reviewed urine culture and will tentatively plan for discharge tomorrow. Discharge Summary-Simple/Stand Consultations Discharge Physical Examination Allergies: Coded Allergies: Sulfa (Sulfonamide Antibiotics) (Unverified Allergy, Unknown, 08/02/13) Vitals & I&Os Vital Sign - Last 12Hours Date Time Temp Pulse Resp B/P (MAP) Pulse Ox O2 Delivery O2 Flow Rate FiO2 04/10/17 08:30 96.5 94 20 123/84 (97) 98 Room Air Intake and Output 04/10/17 00:00 Intake Total 2900 ml Balance 2900 ml General Appearance: Alert, Oriented X3, Cooperative, No Acute Distress Respiratory: Clear to Auscultation, Normal Air Movement Cardiovascular: Regular Rate, Normal S1, Normal S2, No Murmurs, Gallops, Rubs Abdominal: Normal Bowel Sounds, Soft, No Tenderness, No Hepatosplenomegaly, No Masses Extremities: No Clubbing, No Cyanosis, No Edema Skin: No Rashes, No Breakdown, No Significant Lesion Neuro: Normal Gait, Normal Speech, Strength at 5/5 X4 Ext, Normal Tone, Sensation Intact, Cranial Nerves 3-12 NL Psych/Mental Status: Mental Status NL, Mood NL Hospital Course See final discharge diagnosis. Discharge Instructions to patient/family Please see electronic discharge instructions given to patient. Discharge Medications Reviewed and agree with Discharge Medication list on patient's Discharge Instruction sheet Clinical Quality Measures DVT/VTE Risk/Contraindication: Risk Factor Score Per Nursin RFS Level Per Nursing on Admit: 3=High Copy Copies To 1: BERNIE SHERMAN APRN, MD Apr 10, 2017 14:24
--- NOTE | 2017-04-10 14:24 | Progress Note (SOAP) ---
Subjective Subjective/Events-last exam Patient is feeling better today. BS were low last night after getting the full dose of levemir last night. Review of Systems Date Seen by Provider: Apr 09, 2017 Time Seen by Provider: 09:00 Pulmonary: No Dyspnea, No Cough Cardiovascular: No: Chest Pain Objective Exam Last Set of Vital Signs Vital Signs Date Time Temp Pulse Resp B/P (MAP) Pulse Ox O2 Delivery O2 Flow Rate FiO2 04/10/17 08:30 96.5 94 20 123/84 (97) 98 Room Air Capillary Refill : Less Than 3 SecondsLess Than 3 Seconds I&O Intake and Output 04/10/17 00:00 Intake Total 4740 ml Output Total 1000 ml Balance 3740 ml Intake Oral 3760 ml IV Total 980 ml Output Urine Total 1000 ml # Voids 10 General: Alert, Oriented X3, Cooperative, No Acute Distress Lungs: Clear to Auscultation, Normal Air Movement Heart: Regular Rate, Normal S1, Normal S2, No Murmurs, Gallops, Rubs Abdomen: Normal Bowel Sounds, Soft, No Tenderness, No Hepatosplenomegaly, No Masses Extremities: No Clubbing, No Cyanosis, No Edema Psych/Mental Status: Mental Status NL, Mood NL Results/Procedures Lab Laboratory Tests 04/09/17 16:07: Glucometer 157H 04/09/17 20:27: Glucometer 103 04/10/17 03:32: Glucometer 53*L 04/10/17 04:01: Glucometer 76 04/10/17 06:10: Glucometer 173H 04/10/17 10:58: Glucometer 64L 04/10/17 13:42: Glucometer 76 Microbiology 04/07/17 Urine Culture - Final, Complete Escherichia Coli Strep Agalactiae Group B Assessment/Plan Assessment/Plan Admission Dx DKA now resolved placed back on subcutaneous insulin and discontinue insulin drip Dehydration Nausea vomiting Cocaine on urine drug screen UTI Plan DKA 04/09 - due to low BS overnight, will keep one more night. decresae levemir dose tonight. Dehydration Nausea vomiting 04/09 - Resolved, eating a full diet Cocaine on urine drug screen 04/09 - pt states she only occasionally does drugs, declines ATS at present. UTI 04/09 - on macrobid Clinical Quality Measures DVT/VTE Risk/Contraindication: Risk Factor Score Per Nursin RFS Level Per Nursing on Admit: 3=High SOPHIE,BERNIE A MD Apr 10, 2017 14:23
== END 2017-04-10 15:44 | disposition home or self-care (01) | DRG 639 ==
LOC: EDUNIT# 10:49 → ER 10:52 → 4TH 12:35
PROVIDERS: ADMIT Internal Medicine; ATTEND Internal Medicine
DX: E10.10 Type 1 diabetes mellitus with ketoacidosis without coma (principal); E10.40 Type 1 diabetes mellitus with diabetic neuropathy, unspecified; F32.9 Major depressive disorder, single episode, unspecified; F41.9 Anxiety disorder, unspecified; F14.90 Cocaine use, unspecified, uncomplicated; Z79.4 Long term (current) use of insulin; Z91.19 Patient's noncompliance with other medical treatment and regimen; Z88.2 Allergy status to sulfonamides
CPT/HCPCS: 36415; 80048; 80053; 80306; 80320; 81000; 82150; 82805; 82962; 83036; 83690; 83735; 83880; 84484; 84703; 85007; 85025; 85027; 85610; 85730; 87077; 87088; 87186; 93005; 93041

== ENCOUNTER 2017-05-09 04:48 | Inpatient (IN) | payer OTHER ==
[~2017-05-09] VITALS: Ht 167.6 cm; Wt 57.2 kg
[2017-05-09] VITALS (17 sets, daily range): BP systolic 79–134; BP diastolic 57–89
[~2017-05-09 04:48] MED LIST changes: +ACHD5005 PO; -HYDR-3812 PO; +INSU100V5 SC; +NITR100C10 PO
[2017-05-09] MEDS ORDERED: NS IV 1000 ML 1,000 ML IV ONE ×3 (04:58→06:55)
[2017-05-09] MEDS ORDERED: ONDANSETRON 4 MG/2 ML (SDV) Z0FRAN IVP ONE (05:00)
[2017-05-09 05:15] LABS: BASOPHILS % (AUTO) 0 % (0-10); EOSINOPHILS % (AUTO) 0 % (0-10); HEMATOCRIT 31 % (35-52); HEMOGLOBIN 10.4 G/DL (11.5-16.0); LYMPHOCYTES # (AUTO) 2.3 X 10^3 (1.0-4.0); LYMPHOCYTES % (AUTO) 12 % (12-44); MEAN CORPUSCULAR HEMOGLOBIN 28 PG (25-34); MEAN CORPUSCULAR HGB CONC 33 G/DL (32-36); MEAN CORPUSCULAR VOLUME 84 FL (80-99); MEAN PLATELET VOLUME 9.3 FL (7.4-10.4); MONOCYTES % (AUTO) 11 % (0-12); NEUTROPHILS # (AUTO) 14.6 X 10^3 (1.8-7.8); NEUTROPHILS % (AUTO) 77 % (42-75); PLATELET COUNT 545 10^3/uL (130-400); RED CELL DISTRIBUTION WIDTH 13.2 % (10.0-14.5); WHITE BLOOD COUNT 18.9 10^3/uL (4.3-11.0)
[2017-05-09] MEDS ORDERED: inSUlin (REGULAR) HUMAN 1 UNIT/0.01 ML (CHARGE PER UNIT) SC ONE (05:15)
--- NOTE | 2017-05-09 05:23 | ED General ---
General Chief Complaint: Cough/Cold/Flu Symptoms Stated Complaint: VOMITING SOA COUGH Nursing Triage Note: PT TO ED 6 W/ C/O COUGH, SOB W/ COUGHING TIL SHE VOMITS ONSET X2-3 DAYS, WORSE THIS AM. Nursing Sepsis Screen: No Definite Risk Source of Information: Patient, Old Records Exam Limitations: No Limitations History of Present Illness Date Seen by Provider: May 09, 2017 Time Seen by Provider: 04:51 Initial Comments This 46 and one presents to the emergency room with complaints of vomiting, cough, and epigastric pain for the past 2-3 days. She has history of type I diabetes and has been admitted multiple times for DKA. She also has had multiple urinary tract infections and has tested positive for high alcohol levels and cocaine in the past. She is afebrile. She reports blood sugar this morning has been in the 170s. Allergies and Home Medications Allergies Coded Allergies: Sulfa (Sulfonamide Antibiotics) (Unverified Allergy, Unknown, 08/02/13) Home Medications Amitriptyline HCl 25 Mg Tablet, 25 MG PO DAILY PRN for NEUROPATHY, (Reported) Insulin Aspart 100 Unit/1 Ml Susp, 15 UNITS SQ AC, (Reported) LAST FILLED 09-01-16 Insulin Determir 1,000 Units/10 Ml Soln, 45 UNITS SC HS, (Reported) LAST FILLED 10-18-16 Constitutional: weakness EENTM: no symptoms reported Respiratory: see HPI Cardiovascular: no symptoms reported Gastrointestinal: see HPI Genitourinary: no symptoms reported : No Musculoskeletal: no symptoms reported Skin: no symptoms reported Psychiatric/Neurological: No Symptoms Reported Hematologic/Lymphatic: No Symptoms Reported Past Duuclii-Fattli-Wywdhx Hx Patient Social History Alcohol Use: Denies Use Recreational Drug Use: Yes (history positive cocaine urine drug screen) Smoking Status: Never a Smoker Recent Foreign Travel: No Contact w/Someone Who Travel: No Recent Infectious Disease Expo: No Recent Hopitalizations: No Physical Abuse: No Sexual Abuse: No Mistreated: No Fear: No Immunizations Up To Date Tetanus Booster (TDap): Unknown PED Vaccines UTD: No Seasonal Allergies Seasonal Allergies: No Surgeries History of Surgeries: Yes Surgeries: Tubal Ligation Respiratory History of Respiratory Disorde: No Currently Using CPAP: No Cardiovascular History of Cardiac Disorders: No Neurological History of Neurological Disord: Yes Neurological Disorders: Neuropathy 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 System : No Hx 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 Disorders: No Sexually Transmitted Disease: No HIV/AIDS: No Female 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 Disorders: Denies [employer] History: Tubal Ligation Genitourinary History of Genitourinary Disor: Yes Genitourinary Disorders: Kidney Infection Gastrointestinal History of Gastrointestinal Di: No Musculoskeletal History of Musculoskeletal Dis: Yes Musculoskeletal Disorders: Osteoporosis, Arthritis Endocrine History of Endocrine Disorders: Yes Endocrine Disorders: Diabetes, Insulin dep HEENT History of HEENT Disorders: No Cancer History of Cancer: No Psychosocial History of Psychiatric Problem: Yes Behavioral Health Disorders: Anxiety, Depression Suicide Risk Score: 0 Integumentary History of Skin or Integumenta: No Blood Transfusions History of Blood Disorders: No Adverse Reaction to a Blood Tr: No Family Medical History Significant Family History: Heart Disease, Diabetes, Hypertension Family Medial History: Family history: Hypertension 09 SISTER Kidney disease 03 MOTHER Myocardial infarction 09 SISTER Physical Exam Vital Signs Vital Sign - Last 12Hours 05/09/17 04:58 Temp 96.6 Pulse 114 Resp 20 B/P (MAP) 120/73 (89) Pulse Ox 100 O2 Delivery Room Air Capillary Refill : Less Than 3 Seconds General Appearance: WD/WN, Moderate Distress HEENT: PERRL/EOMI, Normal ENT Inspection, Pharynx Normal Neck: Normal Inspection Respiratory: Lungs Clear, Normal Breath Sounds, No Accessory Muscle Use, No Respiratory Distress Cardiovascular: No Edema, No Murmur, Tachycardia Gastrointestinal: Normal Bowel Sounds, Soft, Tenderness (epigastrium) Extremity: Normal Inspection, No Pedal Edema Neurologic/Psychiatric: Alert, Oriented x3, No Motor/Sensory Deficits, Normal Mood/Affect, beater head II-XII Norm as Tested Skin: Normal Color, Warm/Dry Progress/Results/Core Measures Suspected Sepsis Recent Fever Within 48 Hours: No Infection Criteria Present: None New/Unexplained Altered Menta: No Sepsis Screen: No Definite Risk Sepsis Diagnosis: SIRS Temperature:96.6 Pulse: 114 Respiratory Rate: 20 Laboratory Tests 05/09/17 05:05: White Blood Count 18.9H Blood Pressure 120 /73 Mean: 89 Laboratory Tests 05/09/17 05:05: Creatinine 1.31H, Platelet Count 545H, Total Bilirubin 0.3 Results/Orders Lab Results Laboratory Tests Test 05/09/17 05:05 05/09/17 05:08 05/09/17 05:25 05/09/17 05:57 Range/Units White Blood Count 18.9 H 4.3-11.0 10^3/uL Red Blood Count 3.70 L 4.35-5.85 10^6/uL Hemoglobin 10.4 L 11.5-16.0 G/DL Hematocrit 31 L 35-52 % Mean Corpuscular Volume 84 80-99 FL Mean Corpuscular Hemoglobin 28 25-34 PG Mean Corpuscular Hemoglobin Concent 33 32-36 G/DL Red Cell Distribution Width 13.2 10.0-14.5 % Platelet Count 545 H 130-400 10^3/uL Mean Platelet Volume 9.3 7.4-10.4 FL Neutrophils (%) (Auto) 77 H 42-75 % Lymphocytes (%) (Auto) 12 12-44 % Monocytes (%) (Auto) 11 0-12 % Eosinophils (%) (Auto) 0 0-10 % Basophils (%) (Auto) 0 0-10 % Neutrophils # (Auto) 14.6 H 1.8-7.8 X 10^3 Lymphocytes # (Auto) 2.3 1.0-4.0 X 10^3 Monocytes # (Auto) 2.0 H 0.0-1.0 X 10^3 Eosinophils # (Auto) 0.0 0.0-0.3 10^3/uL Basophils # (Auto) 0.0 0.0-0.1 10^3/uL Neutrophils % (Manual) 79 % Lymphocytes % (Manual) 14 % Monocytes % (Manual) 3 % Eosinophils % (Manual) 0 % Basophils % (Manual) 0 % Band Neutrophils 4 % Polychromasia SLIGHT Anisocytosis SLIGHT Sodium Level 134 L 135-145 MMOL/L Potassium Level 3.8 3.6-5.0 MMOL/L Chloride Level 102 98-107 MMOL/L Carbon Dioxide Level 12 L 21-32 MMOL/L Anion Gap 20 H 5-14 MMOL/L Blood Urea Nitrogen 6 L 7-18 MG/DL Creatinine 1.31 H 0.60-1.30 MG/DL Estimat Glomerular Filtration Rate 53 BUN/Creatinine Ratio 5 Glucose Level 486 *H 70-105 MG/DL Calcium Level 8.9 8.5-10.1 MG/DL Magnesium Level 1.9 1.8-2.4 MG/DL Total Bilirubin 0.3 0.1-1.0 MG/DL Aspartate Amino Transf (AST/SGOT) 18 5-34 U/L Alanine Aminotransferase (ALT/SGPT) 13 0-55 U/L Alkaline Phosphatase 159 H 40-136 U/L Total Protein 7.8 6.4-8.2 GM/DL Albumin 3.5 3.2-4.5 GM/DL Lipase < 4 L 8-78 U/L Serum Alcohol < 10 <10 MG/DL Glucometer 453 *H 389 H 70-110 MG/DL Urine Color YELLOW Urine Clarity SLIGHTLY CLOUDY Urine pH 5 5-9 Urine Specific [place] 1.015 L 1.016-1.022 Urine Protein 2+ H NEGATIVE Urine Glucose (UA) 4+ H NEGATIVE Urine Ketones 4+ H NEGATIVE Urine Nitrite NEGATIVE NEGATIVE Urine Bilirubin NEGATIVE NEGATIVE Urine Urobilinogen NORMAL NORMAL MG/DL Urine Leukocyte Esterase 3+ H NEGATIVE Urine RBC (Auto) 4+ H NEGATIVE Urine RBC 10-25 H /HPF Urine WBC 10-25 H /HPF Urine Squamous Epithelial Cells 5-10 /HPF Urine Crystals NONE /LPF Urine Bacteria TRACE /HPF Urine Casts NONE /LPF Urine Mucus NEGATIVE /LPF Urine Trichomonas FEW H /HPF Urine Culture Indicated YES Urine Opiates Screen NEGATIVE NEGATIVE Urine Oxycodone Screen NEGATIVE NEGATIVE Urine Methadone Screen NEGATIVE NEGATIVE Urine Propoxyphene Screen NEGATIVE NEGATIVE Urine Barbiturates Screen NEGATIVE NEGATIVE Ur Tricyclic Antidepressants Screen NEGATIVE NEGATIVE Urine Phencyclidine Screen NEGATIVE NEGATIVE Urine Amphetamines Screen NEGATIVE NEGATIVE Urine Methamphetamines Screen NEGATIVE NEGATIVE Urine Benzodiazepines Screen NEGATIVE NEGATIVE Urine Cocaine Screen POSITIVE H NEGATIVE Urine Cannabinoids Screen NEGATIVE NEGATIVE Micro Results Microbiology 05/09/17 Influenza Types A,B Antigen (CINDY) - Final, Complete My Orders Orders - NANDO NICOLAS MD Cbc With Automated Diff (05/09/17 04:58) Comprehensive Metabolic Panel (05/09/17 04:58) Lipase (05/09/17 04:58) Magnesium (05/09/17 04:58) Ua Culture If Indicated (05/09/17 04:58) Influenza A And B Antigens (05/09/17 04:58) Accucheck Stat ONCE (05/09/17 04:58) Saline Lock/Iv-Start (05/09/17 04:58) Chest Pa/Lat (2 View) (05/09/17 04:58) Ns Iv 1000 Ml (Sodium Chloride 0.9%) (05/09/17 04:58) Ondansetron Injection (Zofran Injectio (05/09/17 05:00) Alcohol (05/09/17 05:03) Drug Screen Stat (Urine) (05/09/17 05:03) Insulin (Regular) Human (Humulin R (Per (05/09/17 05:15) Manual Differential (05/09/17 05:05) Promethazine Injection (Phenergan Injec (05/09/17 05:30) Urine Culture (05/09/17 05:25) Ceftriaxone Injection (Rocephin Injectio (05/09/17 06:15) Ns Iv 1000 Ml (Sodium Chloride 0.9%) (05/09/17 06:07) Ceftriaxone Injection (Rocephin Injectio (05/09/17 06:15) Medications Given in ED Current Medications Medications Dose Ordered Sig/Ryland Route Start Time Stop Time Status Last Admin Dose Admin Insulin Human Regular 5 unit ONCE ONCE SC 05/09/17 05:15 05/09/17 05:16 DC 05/09/17 05:12 5 UNIT Ondansetron HCl 8 mg ONCE ONCE IVP 05/09/17 05:00 05/09/17 05:01 DC 05/09/17 05:08 8 MG Promethazine HCl 25 mg ONCE ONCE IVP 05/09/17 05:30 05/09/17 05:31 DC 05/09/17 05:32 25 MG Sodium Chloride 1,000 ml @ 0 mls/hr Q0M ONCE IV 05/09/17 04:58 05/09/17 05:01 DC 05/09/17 05:08 1,000 MLS/HR Sodium Chloride 1,000 ml @ 0 mls/hr Q0M ONCE IV 05/09/17 06:07 05/09/17 06:08 DC 05/09/17 06:11 1,000 MLS/HR Vital Signs/I&O Vital Sign - Last 12Hours 05/09/17 04:58 Temp 96.6 Pulse 114 Resp 20 B/P (MAP) 120/73 (89) Pulse Ox 100 O2 Delivery Room Air Capillary Refill : Less Than 3 Seconds Blood Pressure Mean: 89 Progress Note #1: Time: 05:34 Progress Note Patient received Zofran 8 mg IV for nausea and vomiting. She had refractory nausea and vomiting and Phenergan was given. IV fluids are infusing. Fingerstick blood sugar was 453. Insulin 5 units IV was administered. Progress Note #2: Time: 05:48 Progress Note Chest x-ray was normal. Influenza screen was negative. Patient was found to be in DKA with a CO2 level of 12. She will be admitted to the ICU on an insulin drip. Progress Note #3: Time: 06:06 Progress Note Rocephin is being administered for treatment of urinary tract infection. Patient will be admitted to the ICU on insulin drip for DKA. Urine drug screen was positive for cocaine. Blood sugars trending down. Diagnostic Imaging Diagonstic Imaging: Xray Plain Films/CT/US/NM/MRI: chest Comments Chest x-ray viewed by me and report not yet available. No acute abnormalities appreciated. Departure Communication (Admissions) Time/Spoke to Admitting Phy: 06:[address] Stoner Impression Impression: Primary Impression: Diabetic ketoacidosis Qualified Codes: E10.10 - Type 1 diabetes mellitus with ketoacidosis without coma Additional Impressions: Nausea and vomiting Qualified Codes: R11.2 - Nausea with vomiting, unspecified Abdominal pain Qualified Codes: R10.13 - Epigastric pain Urinary tract infection Qualified Codes: N39.0 - Urinary tract infection, site not specified Cough Disposition: ADMITTED INPATIENT Condition: Improved Admissions Decision to Admit Reason: Admit from ER (General) Decision to Admit/Date: May 09, 2017 Time/Decision to Admit Time: 05:45 Departure-Patient Inst. Referrals: [facility] (PCP) Primary Care Physician LUKE SCHUSTER (Family) Primary Care Physician NANDO NICOLAS MD May 09, 2017 05:23
[2017-05-09] MEDS ORDERED: PROMETHAZINE INJ 25 MG/ML (PHENERGAN) AMP IVP ONE (05:30)
[2017-05-09 05:37] LABS: ALANINE AMINOTRANSFERASE 13 U/L (0-55); ALBUMIN 3.5 GM/DL (3.2-4.5); ALKALINE PHOSPHATASE 159 U/L (40-136); BILIRUBIN,TOTAL 0.3 MG/DL (0.1-1.0); BUN/CREATININE RATIO 5; CALCIUM 8.9 MG/DL (8.5-10.1); CARBON DIOXIDE 12 MMOL/L (21-32); CHLORIDE 102 MMOL/L (98-107); CREATININE SERUM 1.31 MG/DL (0.60-1.30); GFR ESTIMATED 53; LIPASE < 4 U/L (8-78); MAGNESIUM 1.9 MG/DL (1.8-2.4); POTASSIUM 3.8 MMOL/L (3.6-5.0); SODIUM 134 MMOL/L (135-145); TOTAL PROTEIN 7.8 GM/DL (6.4-8.2)
[2017-05-09 05:38] LABS: BILIRUBIN,URINE NEGATIVE (NEGATIVE); CLARITY,URINE SLIGHTLY CLOUDY; COLOR,URINE YELLOW; GLUCOSE, URINE (UA) 4+ (NEGATIVE); KETONES,URINE 4+ (NEGATIVE); LEUKOCYTE ESTERASE ,URINE 3+ (NEGATIVE); NITRITE,URINE NEGATIVE (NEGATIVE); PH,URINE 5 (5-9); PROTEIN,URINE 2+ (NEGATIVE); UROBILINOGEN,URINE NORMAL (NORMAL)
[2017-05-09 05:40] LABS: ANISOCYTOSIS SLIGHT; BAND NEUTROPHILS 4 %; BASOPHILS % (MANUAL) 0 %; EOSINOPHILS % (MANUAL) 0 %; LYMPHOCYTES % (MANUAL) 14 %; MONOCYTES % (MANUAL) 3 %; NEUTROPHILS % (MANUAL) 79 %; POLYCHROMASIA SLIGHT
[2017-05-09 05:42] LABS: GLUCOSE 486 MG/DL (70-105)
[2017-05-09 05:47] LABS: BACTERIA,URINE TRACE /HPF; TRICHOMONAS,URINE FEW /HPF
[2017-05-09 05:54] LABS: AMPHETAMINE SCREEN, URINE NEGATIVE (NEGATIVE); BARBITURATE SCREEN URINE NEGATIVE (NEGATIVE); BENZODIAZEPINES SCREEN URINE NEGATIVE (NEGATIVE); CANNABINOID SCREEN, URINE NEGATIVE (NEGATIVE); COCAINE SCREEN URINE POSITIVE (NEGATIVE); METHADONE STAT NEGATIVE (NEGATIVE); METHAMPHETAMINE SCREEN URINE S NEGATIVE (NEGATIVE); OPIATE SCREEN URINE NEGATIVE (NEGATIVE); OXYCODONE STAT NEGATIVE (NEGATIVE); PROPOXYPHENE STAT NEGATIVE (NEGATIVE); TRICYCLIC ANTIDEPRESSANTS SCRE NEGATIVE (NEGATIVE)
[2017-05-09] MEDS ORDERED: cefTRIAXone 1 GM (ROCEPHIN) VIAL IV ONE (06:15)
[2017-05-09] MEDS ORDERED: cefTRIAXone INJECTION 1,000 MG in D5W 50 ML IVPB SOLUTION 50 ML IV ONE (06:15)
--- OUTSIDE RECORDS SUMMARY | 2017-05-09 06:19 | XMS REPORT | Summary of Care ---
Author Author [facility] Organization [facility] Address Unknown Phone Unavailable Encounter [facility] [id number] Date(s): 03/18/16 - 03/18/16 [facility] [address] [place], [place] [id number] [place] [address] [phone] Attending Physician: Gil Enriquez Admitting Physician: Gil Enriquez Vital Signs No data available for this section Problem List No data available for this section Allergies, Adverse Reactions, Alerts No data available for this section Medications No data available for this section Results No data available for this section Immunizations No data available for this section Procedures No data available for this section Social History No data available for this section Functional Status No data available for this section Assessment and Plan No data available for this section Hospital Discharge Instructions No data available for this section
--- OUTSIDE RECORDS SUMMARY | 2017-05-09 06:19 | XMS REPORT | Summary of Care ---
Author Author [facility] Organization [facility] Address Unknown Phone Unavailable Encounter [facility] [id number] Date(s): 03/18/16 - 03/18/16 [facility] [address] [place], [place] [id number] [place] [address] [phone] Attending Physician: Gil Enriquez Admitting Physician: Gil [...]
--- OUTSIDE RECORDS SUMMARY | 2017-05-09 06:19 | XMS REPORT | Continuity of Care Document ---
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 Senior Science Consultant Name Role Phone [employer] Unavailable Unavailable Problems Medications Allergies, Adverse Reactions, Alerts Immunizations Results Vital Signs Encounters Location Location Details Encounter Type Encounter Number Reason For Visit Attending Provider ADM Date DC Date Status Source [facility] Cancel Admit [id number] Gil Enriquez 201503/18/[address] [facility] Procedures Plan of Care Social History Assessment and Plan Family History Advance Directives Functional Status
[2017-05-09] MEDS ORDERED: CATHETER FLUSH 10 ML SYR IV PRN (07:00)
[2017-05-09] MEDS ORDERED: inSUlin REGULAR TPN/DRIP ONLY 250 UNITS in NORMAL SALINE 250 ML IV SCH (07:00)
[2017-05-09] MEDS ORDERED: D5 1/2 NS 1000 ML IV SOLUTION 1,000 ML IV SCH (07:00)
[2017-05-09] MEDS ORDERED: PROMETHAZINE INJ 25 MG/ML (PHENERGAN) AMP IV PRN (07:00)
[2017-05-09] MEDS ORDERED: ONDANSETRON 4 MG/2 ML (SDV) Z0FRAN IV PRN (07:00)
[2017-05-09] MEDS: 1/2 NS W/KCL 20 MEQ/L 1,000 ML IV SCH ×3 (07:23→17:58)
--- NOTE | 2017-05-09 07:49 | Diagnostic Imaging Report ---
INDICATION: Shortness of air with cough. Patient refused to remove nipple rings EXAMINATION: Two-view chest 05/09/2017 COMPARISON: 10/16/2016 FINDINGS: Two views of the chest Bilateral nipple rings are noted obscuring portions of the chest. The visualized lungs demonstrate a vague density in the right infrahilar region and right lower lobe possibly a developing infiltrate versus atelectasis. Correlate with symptoms. Remaining lungs clear. Pulmonary vasculature normal in appearance. Heart also normal. No pneumothorax. IMPRESSION: 1. Vague density right lung base likely atelectasis, however, clinical exclusion of symptoms of pneumonia recommended. Followup could be performed to assure resolution. Remaining visualized chest unremarkable with limitations as above. Dictated by: Dictated on workstation # [id number]
[2017-05-09 07:52] LABS: BUN/CREATININE RATIO 4; CARBON DIOXIDE 15 MMOL/L (21-32); CHLORIDE 108 MMOL/L (98-107); CREATININE SERUM 1.01 MG/DL (0.60-1.30); GFR ESTIMATED > 60; GLUCOSE 322 MG/DL (70-105); POTASSIUM 3.8 MMOL/L (3.6-5.0); SODIUM 138 MMOL/L (135-145)
[2017-05-09] MEDS: D5 1/2 NS W/KCL 20 MEQ/L 1,000 ML IV SCH ×4 (08:06→18:14)
[2017-05-09] MEDS: 1/2 NS IV SOLUTION 1,000 ML IV SCH ×5 (08:09→18:13)
--- NOTE | 2017-05-09 10:00 | History & Physicial (CHS) ---
HPI History of Present Illness: Patient presented to ED early this morning with complaints of elevated blood sugars, not using her insulin for a few days, and nausea and vomiting. She reports that she has coughed so hard she has vomited. In the ED she was found to have elevated anion gap, acidosis, and hyperglycemia, and was admitted for DKA; she has had multiple admissions for DKA in the past, although she reports being admitted to the facility [facility] for the same problem and no record of that visit can be found in our hospital records. On admission, she was also found to have cocaine in her urine, which has also been present on past urine drug screens. When seen this morning the patient reports that her nausea has resolved and her only complaint is a headache. Patient was diagnosed with Type II Diabetes several years ago and has been frequently hospitalized for uncontrolled blood sugars secondary to non-compliance. Source: patient, RN/MD, old records Exam Limitations: other (pt unwillingness to communicate) Date seen by provider: May 09, 2017 Time Seen by Provider: 10:15 Attending Physician Angelita Griggs DO [facility] Consult Date of Admission May 09, 2017 at 06:11 Home Medications Home Medications Reviewed patient Home Medication Reconciliation Form Allergies Coded Allergies: Sulfa (Sulfonamide Antibiotics) (Unverified Allergy, Unknown, 08/02/13) [id number] Hx Patient Social History Marrital Status: single Number of Children: 5 Number of living children: 5 Employed/Student: unemployed Alcohol Use: Denies Use Recreational Drug Use: Yes (positive cocaine urine drug screen) Smoking Status: Never a Smoker Recent Foreign Travel: No Contact w/other who traveled: No Recent Hopitalizations: No Recent Infectious Disease Expo: No Physical Abuse Screen: No Sexual Abuse: No Immunizations Up To Date Tetanus Booster (TDap): Unknown Past Medical History Past Medical History 1. Diabetes Mellitus II -patient was diagnosed approximately 5 years ago and started initially on oral medications. Not compliant with her insulin or follow up. 2. Depression with history of Suicide attempt/ Suicidal ideation 3. Cocaine Use/Abuse 4. Abnormal Pap 5. Diabetic Neuropathy 6. Anxiety 7. Arthritis 8. Medical Noncompliance 9. History of Incarceration Past Surgical History 1. Tubal Ligation 2. LEEP Family Medical History Significant Family History: Heart Disease, Diabetes, Hypertension Family History: Family history: Hypertension 09 SISTER Kidney disease 03 MOTHER Myocardial infarction 09 SISTER Review of Systems (CHC) Constitutional: see HPI, malaise, weakness EENTM: no symptoms reported Respiratory: cough Cardiovascular: No chest pain, No edema, No palpitations Gastrointestinal: abdominal pain, loss of appetite, nausea, vomiting Genitourinary: no symptoms reported : No (s/p bilateral tubal ligation) Musculoskeletal: no symptoms reported Skin: no symptoms reported Psychiatric/Neurological: Anxiety, Depressed, Headache Reviewed Test Results Reviewed Test Results Lab Laboratory Tests Test 05/09/17 05:05 05/09/17 05:08 05/09/17 05:25 05/09/17 05:57 Range/Units White Blood Count 18.9 H 4.3-11.0 10^3/uL Red Blood Count 3.70 L 4.35-5.85 10^6/uL Hemoglobin 10.4 L 11.5-16.0 G/DL Hematocrit 31 L 35-52 % Mean Corpuscular Volume 84 80-99 FL Mean Corpuscular Hemoglobin 28 25-34 PG Mean Corpuscular Hemoglobin Concent 33 32-36 G/DL Red Cell Distribution Width 13.2 10.0-14.5 % Platelet Count 545 H 130-400 10^3/uL Mean Platelet Volume 9.3 7.4-10.4 FL Neutrophils (%) (Auto) 77 H 42-75 % Lymphocytes (%) (Auto) 12 12-44 % Monocytes (%) (Auto) 11 0-12 % Eosinophils (%) (Auto) 0 0-10 % Basophils (%) (Auto) 0 0-10 % Neutrophils # (Auto) 14.6 H 1.8-7.8 X 10^3 Lymphocytes # (Auto) 2.3 1.0-4.0 X 10^3 Monocytes # (Auto) 2.0 H 0.0-1.0 X 10^3 Eosinophils # (Auto) 0.0 0.0-0.3 10^3/uL Basophils # (Auto) 0.0 0.0-0.1 10^3/uL Neutrophils % (Manual) 79 % Lymphocytes % (Manual) 14 % Monocytes % (Manual) 3 % Eosinophils % (Manual) 0 % Basophils % (Manual) 0 % Band Neutrophils 4 % Polychromasia SLIGHT Anisocytosis SLIGHT Sodium Level 134 L 135-145 MMOL/L Potassium Level 3.8 3.6-5.0 MMOL/L Chloride Level 102 98-107 MMOL/L Carbon Dioxide Level 12 L 21-32 MMOL/L Anion Gap 20 H 5-14 MMOL/L Blood Urea Nitrogen 6 L 7-18 MG/DL Creatinine 1.31 H 0.60-1.30 MG/DL Estimat Glomerular Filtration Rate 53 BUN/Creatinine Ratio 5 Glucose Level 486 *H 70-105 MG/DL Calcium Level 8.9 8.5-10.1 MG/DL Magnesium Level 1.9 1.8-2.4 MG/DL Total Bilirubin 0.3 0.1-1.0 MG/DL Aspartate Amino Transf (AST/SGOT) 18 5-34 U/L Alanine Aminotransferase (ALT/SGPT) 13 0-55 U/L Alkaline Phosphatase 159 H 40-136 U/L Total Protein 7.8 6.4-8.2 GM/DL Albumin 3.5 3.2-4.5 GM/DL Lipase < 4 L 8-78 U/L Serum Alcohol < 10 <10 MG/DL Glucometer 453 *H 389 H 70-110 MG/DL Urine Color YELLOW Urine Clarity SLIGHTLY CLOUDY Urine pH 5 5-9 Urine Specific [place] 1.015 L 1.016-1.022 Urine Protein 2+ H NEGATIVE Urine Glucose (UA) 4+ H NEGATIVE Urine Ketones 4+ H NEGATIVE Urine Nitrite NEGATIVE NEGATIVE Urine Bilirubin NEGATIVE NEGATIVE Urine Urobilinogen NORMAL NORMAL MG/DL Urine Leukocyte Esterase 3+ H NEGATIVE Urine RBC (Auto) 4+ H NEGATIVE Urine RBC 10-25 H /HPF Urine WBC 10-25 H /HPF Urine Squamous Epithelial Cells 5-10 /HPF Urine Crystals NONE /LPF Urine Bacteria TRACE /HPF Urine Casts NONE /LPF Urine Mucus NEGATIVE /LPF Urine Trichomonas FEW H /HPF Urine Culture Indicated YES Urine Opiates Screen NEGATIVE NEGATIVE Urine Oxycodone Screen NEGATIVE NEGATIVE Urine Methadone Screen NEGATIVE NEGATIVE Urine Propoxyphene Screen NEGATIVE NEGATIVE Urine Barbiturates Screen NEGATIVE NEGATIVE Ur Tricyclic Antidepressants Screen NEGATIVE NEGATIVE Urine Phencyclidine Screen NEGATIVE NEGATIVE Urine Amphetamines Screen NEGATIVE NEGATIVE Urine Methamphetamines Screen NEGATIVE NEGATIVE Urine Benzodiazepines Screen NEGATIVE NEGATIVE Urine Cocaine Screen POSITIVE H NEGATIVE Urine Cannabinoids Screen NEGATIVE NEGATIVE Test 05/09/17 06:40 05/09/17 07:24 05/09/17 08:48 05/09/17 09:52 Range/Units Glucometer 274 H 379 H 422 *H 70-110 MG/DL Sodium Level 138 135-145 MMOL/L Potassium Level 3.8 3.6-5.0 MMOL/L Chloride Level 108 H 98-107 MMOL/L Carbon Dioxide Level 15 L 21-32 MMOL/L Anion Gap 15 H 5-14 MMOL/L Blood Urea Nitrogen 4 L 7-18 MG/DL Creatinine 1.01 0.60-1.30 MG/DL Estimat Glomerular Filtration Rate > 60 BUN/Creatinine Ratio 4 Glucose Level 322 H 70-105 MG/DL Calcium Level 8.0 L 8.5-10.1 MG/DL Test 05/09/17 10:46 05/09/17 10:56 05/09/17 11:47 05/09/17 12:30 Range/Units Glucometer 395 H 412 *H 339 H 70-110 MG/DL Sodium Level 136 135-145 MMOL/L Potassium Level 4.5 3.6-5.0 MMOL/L Chloride Level 107 98-107 MMOL/L Carbon Dioxide Level 12 L 21-32 MMOL/L Anion Gap 17 H 5-14 MMOL/L Blood Urea Nitrogen 5 L 7-18 MG/DL Creatinine 1.01 0.60-1.30 MG/DL Estimat Glomerular Filtration Rate > 60 BUN/Creatinine Ratio 5 Glucose Level 449 *H 70-105 MG/DL Calcium Level 7.7 L 8.5-10.1 MG/DL Physical Exam-(CHC) Physical Exam Vital Signs VS - Last 72 Hours, by Label 05/09/17 05/09/17 05/09/17 05/09/17 04:58 06:45 06:55 07:00 Temp 96.6 99.3 Pulse 114 105 112 100 Resp 20 16 14 B/P (MAP) 120/73 (89) 134/89 (104) Pulse Ox 100 97 99 O2 Delivery Room Air Room Air Room Air 05/09/17 05/09/17 05/09/17 05/09/17 08:00 08:00 08:00 09:00 Temp 99.2 Pulse 105 113 Resp 33 13 B/P (MAP) 104/80 (88) 123/79 (94) Pulse Ox 98 98 O2 Delivery Room Air Room Air Room Air 1/22/18 1/22/18 1/22/18 1/22/18 10:00 11:00 12:00 12:00 Temp 99.0 Pulse 103 104 Resp 15 17 B/P (MAP) 107/77 (87) 110/71 (84) Pulse Ox 98 98 O2 Delivery Room Air Room Air Room Air Capillary Refill : Less Than 3 Seconds General Appearance: WD/WN, no apparent distress Eyes: Bilateral Eye Normal Inspection, Bilateral Eye EOMI HEENT: PERRL/EOMI, normal ENT inspection, No scleral icterus (R), No scleral icterus (L), No photophobia Neck: non-tender, full range of motion, supple, normal inspection, No lymphadenopathy (R), No lymphadenopathy (L) Respiratory: chest non-tender, lungs clear, normal breath sounds, no respiratory distress, no accessory muscle use, No crackles, No rales, No rhonchi , No wheezing Cardiovascular: normal peripheral pulses, regular rate, rhythm, no edema, no gallop, no JVD, no murmur, tachycardia (sinus tachycardia with rate of 103 per telemetry) Peripheral Pulses: 2+ Radial Pulses (R), 2+ Radial Pulses (L) Gastrointestinal: normal bowel sounds, non tender, soft, no organomegaly, no pulsatile mass, No guarding, No rebound, No tenderness Back: normal inspection, no CVA tenderness, no vertebral tenderness Extremities: normal range of motion, non-tender, normal inspection, no pedal edema, no calf tenderness, normal capillary refill, No inflammation, No slow capillary refill, No swelling 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, no motor/sensory deficits, oriented x 3, depressed affect Skin: normal color, warm/dry Lymphatic: no adenopathy Assessment/Plan Assessment/Plan Admission Dx Diabetic Ketoacidosis Nausea and Vomiting Medical Noncompliance Cocaine Use Acute Kidney Injury Hyponatremia Leukocytosis Anxiety Depression Diabetic Neuropathy Plan Diabetic Ketoacidosis 05/09 -pt has been started on insulin gtt per protocol -accuchecks every hour -repeat BMP per protocol -will monitor closely Nausea and Vomiting 05/09 -reports no further nausea and vomiting since Zofran and Phenergan in ED -continue NPO for now, will consider advancing to diabetic clear liquid diet if pt requests later today Medical Noncompliance 05/09 -able to monitor while in the hospital, but getting patient to comply as an outpatient will likely prove to be a significant challenge Cocaine Use 05/09 -urine positive for cocaine; has also been positive in the past; when asked, patient refuses to discuss -will use any controlled substances sparingly Acute Kidney Injury 05/09 -Cr 1.31 on admission -appears to be trending down after IV hydration and insulin gtt started -will continue to monitor Hyponatremia 05/09 -borderline as Na 133, likely secondary to DKA -recheck with serial BMPs Leukocytosis 05/09 -WBC 18.9, received Rocephin in ED for possible UTI Anxiety 05/09 -per history Depression 05/09 -per history Diabetic Neuropathy 05/09 -per history; will start home Amitriptyline 25 mg at HS FEN: IV per insulin gtt protocol; NPO for now, will advance as tolerated to diabetic diet when ready DVT Ppx: Lovenox and SCDs, plus ambulation when patient is willing Dispo: Patient will require at least two midnights to gain control of her blood sugars and safely resolve her DKA; given her overall non-compliance she is at high risk for decompensation. CODE STATUS: FULL ANGELITA GRIGGS DO May 09, 2017 10:00
[2017-05-09] MEDS ORDERED: inSUlin (REGULAR) HUMAN 1 UNIT/0.01 ML (CHARGE PER UNIT) IV ONE (10:01)
[2017-05-09] MEDS ORDERED: inSUlin (REGULAR) HUMAN 1 UNIT/0.01 ML (CHARGE PER UNIT) ONE (10:06)
[2017-05-09 11:25] LABS: BUN/CREATININE RATIO 5; CALCIUM 7.7 MG/DL (8.5-10.1); CARBON DIOXIDE 12 MMOL/L (21-32); CHLORIDE 107 MMOL/L (98-107); CREATININE SERUM 1.01 MG/DL (0.60-1.30); GFR ESTIMATED > 60; POTASSIUM 4.5 MMOL/L (3.6-5.0); SODIUM 136 MMOL/L (135-145)
[2017-05-09 11:28] LABS: GLUCOSE 449 MG/DL (70-105)
[2017-05-09] MEDS ORDERED: INFLUENZA TRIvalent 2017-2018 0.5 ML/45 MCG SYR IM ONE (12:00)
[2017-05-09] MEDS ORDERED: ACETAMINOPHEN 500 MG TAB (TYLENOL) PO PRN (13:15)
[2017-05-09] MEDS ORDERED: DEXTROSE 10% IV SOLUTION 1,000 ML IV PRN (15:05)
[2017-05-09] MEDS ORDERED: DEXTROSE 10% IV SOLUTION 1,000 ML IV ONE (15:07)
[2017-05-09] MEDS: ENOXAPARIN 40 MG/0.4 ML (LOVENOX) SYR SC SCH (16:11)
[2017-05-09 18:11] LABS: BUN/CREATININE RATIO 5; CARBON DIOXIDE 19 MMOL/L (21-32); CHLORIDE 108 MMOL/L (98-107); GFR ESTIMATED > 60; GLUCOSE 125 MG/DL (70-105); POTASSIUM 3.8 MMOL/L (3.6-5.0); SODIUM 136 MMOL/L (135-145)
[2017-05-09] MEDS: AMITRIPTYLINE 25 MG (ELAVIL) TAB PO SCH (21:40)
[2017-05-09] MEDS: inSUlin (REGULAR) HUMAN 1 UNIT/0.01 ML (CHARGE PER UNIT) SC SCH (21:42)
[2017-05-10] VITALS (18 sets, daily range): BP systolic 95–140; BP diastolic 61–103
[2017-05-10 05:27] LABS: BASOPHILS % (AUTO) 0 % (0-10); EOSINOPHILS # (AUTO) 0.1 10^3/uL (0.0-0.3); EOSINOPHILS % (AUTO) 1 % (0-10); HEMATOCRIT 30 % (35-52); HEMOGLOBIN 10.1 G/DL (11.5-16.0); LYMPHOCYTES # (AUTO) 2.7 X 10^3 (1.0-4.0); LYMPHOCYTES % (AUTO) 22 % (12-44); MEAN CORPUSCULAR HEMOGLOBIN 28 PG (25-34); MEAN CORPUSCULAR HGB CONC 34 G/DL (32-36); MEAN CORPUSCULAR VOLUME 83 FL (80-99); MEAN PLATELET VOLUME 9.3 FL (7.4-10.4); MONOCYTES # (AUTO) 0.9 X 10^3 (0.0-1.0); MONOCYTES % (AUTO) 8 % (0-12); NEUTROPHILS # (AUTO) 8.5 X 10^3 (1.8-7.8); NEUTROPHILS % (AUTO) 69 % (42-75); PLATELET COUNT 520 10^3/uL (130-400); RED BLOOD COUNT 3.58 10^6/uL (4.35-5.85); RED CELL DISTRIBUTION WIDTH 13.6 % (10.0-14.5); WHITE BLOOD COUNT 12.2 10^3/uL (4.3-11.0)
[2017-05-10 05:52] LABS: BUN/CREATININE RATIO 6; CALCIUM 8.1 MG/DL (8.5-10.1); CARBON DIOXIDE 20 MMOL/L (21-32); CHLORIDE 104 MMOL/L (98-107); GFR ESTIMATED > 60; GLUCOSE 282 MG/DL (70-105); MAGNESIUM 1.7 MG/DL (1.8-2.4); PHOSPHORUS 1.1 MG/DL (2.3-4.7); POTASSIUM 3.6 MMOL/L (3.6-5.0); SODIUM 136 MMOL/L (135-145)
[2017-05-10] MEDS ORDERED: MAGNESIUM 1 GM/100 ML IVPB 100 ML IV SCH (06:00)
[2017-05-10] MEDS ORDERED: POTASSIUM CL 10MEQ/50ML IVPB 50 ML IV SCH (06:00)
[2017-05-10] MEDS ORDERED: KCL 20 MEQ TAB (K-DUR) PO SCH (06:00)
[2017-05-10] MEDS ORDERED: KCL 20 MEQ TAB (K-DUR) PO ONE (06:15)
[2017-05-10] MEDS: MAGNESIUM 1 GM/100 ML IVPB 100 ML IV SCH ×2 (06:15→07:19)
[2017-05-10] MEDS: inSUlin (REGULAR) HUMAN 1 UNIT/0.01 ML (CHARGE PER UNIT) SC SCH ×2 (06:15→11:22)
--- NOTE | 2017-05-10 08:19 | Diagnostic Imaging Report ---
INDICATION: Urinary tract infection and diabetic ketoacidosis. TIME OF EXAM: 4:26 AM Correlation is made with prior study 05/09/2017. FINDINGS: The heart size is normal. The lungs are clear. No pleural effusion or pneumothorax is identified. The pulmonary vascularity is normal. IMPRESSION: No acute abnormality detected. Dictated by: Dictated on workstation # [id number]
--- NOTE | 2017-05-10 09:42 | Progress Note (SOAP) ---
Subjective Subjective/Events-last exam Patient is without complaints this morning. Last night the insulin drip was discontinued by the eICU and the pt was started on sliding scale insulin and a diabetic diet. This morning she reports that she has been tolerating eating without any nausea or vomiting. She denies pain or other complaints at this time. No concerns from the nursing staff. Review of Systems Date Seen by Provider: May 10, 2017 Time Seen by Provider: 10:00 General: No Chills, No Night Sweats, No Fatigue, No Malaise HEENT: No Head Aches, No Visual Changes, No Eye Pain, No Ear Pain, No Dysphasia , No Sore Throat Pulmonary: No Dyspnea, No Cough Cardiovascular: No: Chest Pain, Palpitations, Edema, Lt Headedness Gastrointestinal: No: Nausea, Vomiting, Abdominal Pain, Diarrhea Genitourinary: No Dysuria, No Frequency, No Incontinence Musculoskeletal: No: neck pain, shoulder pain, back pain Neurological: No: Weakness, Numbness, Incoordination, Change in speech, Confusion, Seizures Objective Exam Last Set of Vital Signs Vital Signs Date Time Temp Pulse Resp B/P (MAP) Pulse Ox O2 Delivery O2 Flow Rate FiO2 05/10/17 08:30 Room Air 05/10/17 08:30 98.8 05/10/17 07:00 111 05/10/17 06:00 11 103/69 (80) 98 Capillary Refill : Less Than 3 Seconds I&O Intake and Output 05/10/17 00:00 Intake Total 2990 ml Output Total 2150 ml Balance 840 ml Intake Oral 490 ml IV Total 2500 ml Output Urine Total 2150 ml Daily Weight Change No General: Alert, Oriented X3, Cooperative, No Acute Distress HEENT: Atraumatic, PERRLA, EOMI, Mucous Memb Moist/[place] Neck: Supple, No JVD, No Thyromegaly Lungs: Clear to Auscultation, Normal Air Movement Heart: Regular Rate (NSR per telemetry, rate in the upper 90's), Normal S1, Normal S2, No Murmurs Abdomen: Normal Bowel Sounds, Soft, No Tenderness, No Hepatosplenomegaly, No Masses Extremities: No Clubbing, No Cyanosis, No Edema, Normal Pulses, No Tenderness/ Swelling Skin: No Rashes, No Significant Lesion Neuro: Normal Speech, Normal Tone, Sensation Intact, Cranial Nerves 3-12 NL Psych/Mental Status: Mental Status NL, Mood NL Results/Procedures Lab Laboratory Tests 05/09/17 09:52: Glucometer 422*H 05/09/17 10:46: Glucometer 395H 05/09/17 10:56: Sodium Level 136, Potassium Level 4.5, Chloride Level 107, Carbon Dioxide Level 12L, Anion Gap 17H, Blood Urea Nitrogen 5L, Creatinine 1.01, Estimat Glomerular Filtration Rate > 60, BUN/Creatinine Ratio 5, Glucose Level 449*H, Calcium Level 7.7L 05/09/17 11:47: Glucometer 412*H 05/09/17 12:30: Glucometer 339H 05/09/17 13:26: Glucometer 241H 05/09/17 14:34: Glucometer 134H 05/09/17 15:03: Glucometer 111H 05/09/17 15:51: Glucometer 120H 05/09/17 16:21: Glucometer 120H 05/09/17 17:01: Glucometer 120H 05/09/17 17:34: Glucometer 122H 05/09/17 17:45: Sodium Level 136, Potassium Level 3.8, Chloride Level 108H, Carbon Dioxide Level 19L, Anion Gap 9, Blood Urea Nitrogen 4L, Creatinine 0.80, Estimat Glomerular Filtration Rate > 60, BUN/Creatinine Ratio 5, Glucose Level 125H, Calcium Level 8.0L 05/09/17 18:05: Glucometer 141H 05/09/17 18:50: Glucometer 142H 05/09/17 21:39: Glucometer 283H 05/10/17 04:30: White Blood Count 12.2H, Red Blood Count 3.58L, Hemoglobin 10.1L, Hematocrit 30L , Mean Corpuscular Volume 83, Mean Corpuscular Hemoglobin 28, Mean Corpuscular Hemoglobin Concent 34, Red Cell Distribution Width 13.6, Platelet Count 520H, Mean Platelet Volume 9.3, Neutrophils (%) (Auto) 69, Lymphocytes (%) (Auto) 22, Monocytes (%) (Auto) 8, Eosinophils (%) (Auto) 1, Basophils (%) (Auto) 0, Neutrophils # (Auto) 8.5H, Lymphocytes # (Auto) 2.7, Monocytes # (Auto) 0.9, Eosinophils # (Auto) 0.1, Basophils # (Auto) 0.0, Sodium Level 136, Potassium Level 3.6, Chloride Level 104, Carbon Dioxide Level 20L, Anion Gap 12, Blood Urea Nitrogen 5L, Creatinine 0.90, Estimat Glomerular Filtration Rate > 60, BUN/ Creatinine Ratio 6, Glucose Level 282H, Calcium Level 8.1L, Phosphorus Level 1.1L, Magnesium Level 1.7L Microbiology 05/09/17 Influenza Types A,B Antigen (CINDY) - Final, Complete 05/09/17 Urine Culture - Preliminary, Resulted Escherichia Coli Yeast Species Radiology CXR this AM shows no acute process Assessment/Plan Assessment/Plan Admission Dx Diabetic Ketoacidosis Nausea and Vomiting Medical Noncompliance Cocaine Use Acute Kidney Injury Hyponatremia Leukocytosis Anxiety Depression Diabetic Neuropathy Plan Diabetic Ketoacidosis 05/09 -pt has been started on insulin gtt per protocol -accuchecks every hour -repeat BMP per protocol -will monitor closely 05/10 -insulin gtt stopped by eICU last night and patient started on diabetic diet with sliding scale insulin -patient normally takes 45 units Levemir at night and 15 units Novolog with meals; will resume home dosing schedule -check glucose 2 hours after lunch, will give corrective insulin if glucose is over 200; otherwise will continue with accuchecks AC and HS -anion gap has closed, CO2 is normalizing and is now 20, patient still with some hyperglycemia -recheck BMP in AM -transfer to floor when bed available Nausea and Vomiting 05/09 -reports no further nausea and vomiting since Zofran and Phenergan in ED -continue NPO for now, will consider advancing to diabetic clear liquid diet if pt requests later today 05/10 -resolved Medical Noncompliance 05/09 -able to monitor while in the hospital, but getting patient to comply as an outpatient will likely prove to be a significant challenge 05/10 -patient much more awake, alert and communicative today Cocaine Use 05/09 -urine positive for cocaine; has also been positive in the past; when asked, patient refuses to discuss -will use any controlled substances sparingly Acute Kidney Injury 05/09 -Cr 1.31 on admission -appears to be trending down after IV hydration and insulin gtt started -will continue to monitor 05/10 -Cr has normalized today after IV hydration -recheck BMP in AM Hyponatremia 05/09 -borderline as Na 133, likely secondary to DKA -recheck with serial BMPs 05/10 -resolved Leukocytosis 05/09 -WBC 18.9, received Rocephin in ED for possible UTI 05/10 -urine culture shows ecoli and yeast, but less than 100,000 CFU, so not at the threshold for further treatment -WBC down to 12.2 -recheck CBC in AM Anxiety 05/09 -per history Depression 05/09 -per history Diabetic Neuropathy 05/09 -per history; will start home Amitriptyline 25 mg at HS Hypocalcemia 05/10 -8.1 this AM, likely dilutional, will recheck in AM Hypophosphatemia 05/10 -1.1 this AM -replace per protocol -recheck in AM Hypomagnesemia -1.7 this AM -replace per protocol -recheck in AM FEN: IV per insulin gtt protocol; NPO for now, will advance as tolerated to diabetic diet when ready DVT Ppx: Lovenox and SCDs, plus ambulation when patient is willing Dispo: Patient has improved significantly but remains hyperglycemic; will transfer to floor today and see if we can get better control of her sugars before discharge. Anticipate patient will be ready for discharge in 24-48 hours. CODE STATUS: FULL Clinical Quality Measures DVT/VTE Risk/Contraindication: Risk Factor Score Per Nursin RFS Level Per Nursing on Admit: 1=Low/No VTE PPX CARMINA GRIGGS DO May 10, 2017 09:42
[2017-05-10] MEDS ORDERED: inSUlin ASPART (NovoLOG) 1 UNIT/0.01 ML (CHARGE PER UNIT) SQ SCH (11:00)
[2017-05-10] MEDS: ENOXAPARIN 40 MG/0.4 ML (LOVENOX) SYR SC SCH (12:37)
[2017-05-10] MEDS: inSUlin ASPART (NovoLOG) 1 UNIT/0.01 ML (CHARGE PER UNIT) SQ SCH ×2 (20:24→21:56)
[2017-05-10] MEDS: AMITRIPTYLINE 25 MG (ELAVIL) TAB PO SCH (20:24)
[2017-05-10] MEDS ORDERED: inSUlin DETERMIR 1 UNIT/0.01 ML (LEVEMIR) CHARGE PER UNIT SQ SCH (21:00)
[2017-05-11] VITALS: BP 110/68
[2017-05-11 04:00] VITALS: BP 98/63
[2017-05-11 04:56] LABS: BASOPHILS % (AUTO) 0 % (0-10); EOSINOPHILS # (AUTO) 0.1 10^3/uL (0.0-0.3); EOSINOPHILS % (AUTO) 1 % (0-10); HEMATOCRIT 29 % (35-52); HEMOGLOBIN 9.8 G/DL (11.5-16.0); LYMPHOCYTES # (AUTO) 1.7 X 10^3 (1.0-4.0); LYMPHOCYTES % (AUTO) 13 % (12-44); MEAN CORPUSCULAR HEMOGLOBIN 28 PG (25-34); MEAN CORPUSCULAR HGB CONC 34 G/DL (32-36); MEAN CORPUSCULAR VOLUME 83 FL (80-99); MEAN PLATELET VOLUME 9.3 FL (7.4-10.4); MONOCYTES # (AUTO) 0.8 X 10^3 (0.0-1.0); MONOCYTES % (AUTO) 6 % (0-12); NEUTROPHILS # (AUTO) 10.6 X 10^3 (1.8-7.8); NEUTROPHILS % (AUTO) 80 % (42-75); PLATELET COUNT 477 10^3/uL (130-400); RED BLOOD COUNT 3.49 10^6/uL (4.35-5.85); RED CELL DISTRIBUTION WIDTH 13.7 % (10.0-14.5); WHITE BLOOD COUNT 13.2 10^3/uL (4.3-11.0)
[2017-05-11 05:22] LABS: BUN/CREATININE RATIO 6; CARBON DIOXIDE 23 MMOL/L (21-32); CHLORIDE 102 MMOL/L (98-107); GFR ESTIMATED > 60; GLUCOSE 202 MG/DL (70-105); POTASSIUM 3.2 MMOL/L (3.6-5.0); SODIUM 136 MMOL/L (135-145)
[2017-05-11] MEDS: inSUlin ASPART (NovoLOG) 1 UNIT/0.01 ML (CHARGE PER UNIT) SQ SCH ×2 (06:43→09:58)
[2017-05-11 08:00] VITALS: BP 109/67
[2017-05-11] MEDS ORDERED: KCL 20 MEQ TAB (K-DUR) PO NR (08:30)
--- NOTE | 2017-05-11 10:56 | Discharge Instructions ---
Discharge Inst-[facility] Discharge Medications New, Converted or Re-Newed RX: Other (no new prescriptions or change in medications) Continued Medications: Amitriptyline HCl (Amitriptyline HCl) 25 Mg Tablet 25 MG PO DAILY PRN for NEUROPATHY, TAB LAST FILLED 02-21-17 #30 Insulin Aspart (Novolog) 100 Unit/1 Ml Susp 15 UNITS SQ AC, EA LAST FILLED 09-01-16 Insulin Determir (Levemir) 1,000 Units/10 Ml Soln 45 UNITS SC HS, EA LAST FILLED 10-18-16 Patient Instructions Patient Instructions -follow diabetic diet -take insulin as prescribed -check blood sugar and log prior to taking insulin or if feeling unwell -keep follow up appointments as scheduled -return to hospital for any emergent concerns Goal/Follow Up Appt: 05/23/2017 at 2 PM with Paz Rogel APRN Return to The Hospital For: shortness of breath, chest pain or pressure, nausea or vomiting that makes you unable to keep down liquids, hypoglycemia unrelieved by eating, if directed by the supervisor aluminum fabrication provider, or any other emergent complaints or concerns Activity & Diet Discharge Diet: ADA Diet Activity as Tolerated: Yes Orders-Post D/C & Referrals Pneu Vac Indicated: Yes Copy Copies To 1: [facility]/CARMINA PENDLETON DO May 11, 2017 10:56
--- NOTE | 2017-05-11 10:59 | Discharge Summary ---
Diagnosis/Chief Complaint Date of Admission May 09, 2017 at 06:11 Date of Discharge 05/11/17 Admission Diagnosis Admission Diagnosis Diabetic Ketoacidosis Nausea and Vomiting Medical Noncompliance Cocaine Use Acute Kidney Injury Hyponatremia Leukocytosis Anxiety Depression Diabetic Neuropathy Discharge Diagnosis Diabetic Ketoacidosis 05/09 -pt has been started on insulin gtt per protocol -accuchecks every hour -repeat BMP per protocol -will monitor closely 05/10 -insulin gtt stopped by eICU last night and patient started on diabetic diet with sliding scale insulin -patient normally takes 45 units Levemir at night and 15 units Novolog with meals; will resume home dosing schedule -check glucose 2 hours after lunch, will give corrective insulin if glucose is over 200; otherwise will continue with accuchecks AC and HS -anion gap has closed, CO2 is normalizing and is now 20, patient still with some hyperglycemia -recheck BMP in AM -transfer to floor when bed available 05/11 -pt with one episode of hypoglycemia overnight which resolved with a snack; pt had a repeat episode of hypoglycemia this morning and it was discovered that her insulin was not being given with her meals as it was intended; orders changed back to AC and HS insulin -tolerating PO diet -discharge on home insulin regimen and follow up with Paz Rogel APRN as scheduled for follow up Nausea and Vomiting 05/09 -reports no further nausea and vomiting since Zofran and Phenergan in ED -continue NPO for now, will consider advancing to diabetic clear liquid diet if pt requests later today 05/10 -resolved Medical Noncompliance 05/09 -able to monitor while in the hospital, but getting patient to comply as an outpatient will likely prove to be a significant challenge 05/10 -patient much more awake, alert and communicative today Cocaine Use 05/09 -urine positive for cocaine; has also been positive in the past; when asked, patient refuses to discuss -will use any controlled substances sparingly Acute Kidney Injury 05/09 -Cr 1.31 on admission -appears to be trending down after IV hydration and insulin gtt started -will continue to monitor 05/10 -Cr has normalized today after IV hydration -recheck BMP in AM 05/11 -resolved Hyponatremia 05/09 -borderline as Na 133, likely secondary to DKA -recheck with serial BMPs 05/10 -resolved Leukocytosis 05/09 -WBC 18.9, received Rocephin in ED for possible UTI 05/10 -urine culture shows ecoli and yeast, but less than 100,000 CFU, so not at the threshold for further treatment -WBC down to 12.2 -recheck CBC in AM 05/11 -WBC 13.2 today Anxiety 05/09 -per history Depression 05/09 -per history Diabetic Neuropathy 05/09 -per history; will start home Amitriptyline 25 mg at HS Hypocalcemia 05/10 -8.1 this AM, likely dilutional, will recheck in AM Hypophosphatemia 05/10 -1.1 this AM -replace per protocol -recheck in AM Hypomagnesemia 05/10 -1.7 this AM -replace per protocol -recheck in AM FEN: consistent carbohydrate diabetic diet DVT Ppx: Lovenox and SCDs, plus ambulation when patient is willing Dispo: Patient feels ready for discharge this morning, will plan to discharge home on previous regimen this afternoon CODE STATUS: FULL Chief Complaint/HPI Chief Complaint/HPI Patient presented to ED early this morning with complaints of elevated blood sugars, not using her insulin for a few days, and nausea and vomiting. She reports that she has coughed so hard she has vomited. In the ED she was found to have elevated anion gap, acidosis, and hyperglycemia, and was admitted for DKA; she has had multiple admissions for DKA in the past, although she reports being admitted to the facility over [place] for the same problem and no record of that visit can be found in our hospital records. On admission, she was also found to have cocaine in her urine, which has also been present on past urine drug screens. When seen this morning the patient reports that her nausea has resolved and her only complaint is a headache. Patient was diagnosed with Type II Diabetes several years ago and has been frequently hospitalized for uncontrolled blood sugars secondary to non-compliance. Discharge Summary-Simple/Stand Consultations Discharge Physical Examination Allergies: Coded Allergies: Sulfa (Sulfonamide Antibiotics) (Unverified Allergy, Unknown, 08/02/13) Vitals & I&Os Vital Sign - Last 12Hours Date Time Temp Pulse Resp B/P (MAP) Pulse Ox O2 Delivery O2 Flow Rate FiO2 05/11/17 08:00 Room Air 05/11/17 08:00 98.7 101 16 109/67 (81) 96 Intake and Output 05/11/17 00:00 Intake Total 1200 ml Output Total 1500 ml Balance -300 ml General Appearance: Alert, Oriented X3, Cooperative, No Acute Distress HEENT: Atraumatic, EOMI, Mucous Memb Moist/[place] Respiratory: Clear to Auscultation, Normal Air Movement Cardiovascular: Regular Rate, Normal S1, Normal S2, No Murmurs Abdominal: Normal Bowel Sounds, Soft, No Tenderness, No Hepatosplenomegaly, No Masses Extremities: No Clubbing, No Cyanosis, No Edema, Normal Pulses, No Tenderness/ Swelling Skin: No Rashes, No Significant Lesion Neuro: Normal Speech, Normal Tone, Sensation Intact, Cranial Nerves 3-12 NL Psych/Mental Status: Mental Status NL, Mood NL Hospital Course See final discharge diagnosis. Labs Laboratory Tests Test 05/09/17 05:05 05/09/17 05:08 05/09/17 05:25 05/09/17 05:57 Range/Units White Blood Count 18.9 H 4.3-11.0 10^3/uL Red Blood Count 3.70 L 4.35-5.85 10^6/uL Hemoglobin 10.4 L 11.5-16.0 G/DL Hematocrit 31 L 35-52 % Mean Corpuscular Volume 84 80-99 FL Mean Corpuscular Hemoglobin 28 25-34 PG Mean Corpuscular Hemoglobin Concent 33 32-36 G/DL Red Cell Distribution Width 13.2 10.0-14.5 % Platelet Count 545 H 130-400 10^3/uL Mean Platelet Volume 9.3 7.4-10.4 FL Neutrophils (%) (Auto) 77 H 42-75 % Lymphocytes (%) (Auto) 12 12-44 % Monocytes (%) (Auto) 11 0-12 % Eosinophils (%) (Auto) 0 0-10 % Basophils (%) (Auto) 0 0-10 % Neutrophils # (Auto) 14.6 H 1.8-7.8 X 10^3 Lymphocytes # (Auto) 2.3 1.0-4.0 X 10^3 Monocytes # (Auto) 2.0 H 0.0-1.0 X 10^3 Eosinophils # (Auto) 0.0 0.0-0.3 10^3/uL Basophils # (Auto) 0.0 0.0-0.1 10^3/uL Neutrophils % (Manual) 79 % Lymphocytes % (Manual) 14 % Monocytes % (Manual) 3 % Eosinophils % (Manual) 0 % Basophils % (Manual) 0 % Band Neutrophils 4 % Polychromasia SLIGHT Anisocytosis SLIGHT Sodium Level 134 L 135-145 MMOL/L Potassium Level 3.8 3.6-5.0 MMOL/L Chloride Level 102 98-107 MMOL/L Carbon Dioxide Level 12 L 21-32 MMOL/L Anion Gap 20 H 5-14 MMOL/L Blood Urea Nitrogen 6 L 7-18 MG/DL Creatinine 1.31 H 0.60-1.30 MG/DL Estimat Glomerular Filtration Rate 53 BUN/Creatinine Ratio 5 Glucose Level 486 *H 70-105 MG/DL Mean Blood Glucose 358 H <=126 mg/dL Hemoglobin A1c 14.1 H 4.0-5.6 % Calcium Level 8.9 8.5-10.1 MG/DL Magnesium Level 1.9 1.8-2.4 MG/DL Total Bilirubin 0.3 0.1-1.0 MG/DL Aspartate Amino Transf (AST/SGOT) 18 5-34 U/L Alanine Aminotransferase (ALT/SGPT) 13 0-55 U/L Alkaline Phosphatase 159 H 40-136 U/L Total Protein 7.8 6.4-8.2 GM/DL Albumin 3.5 3.2-4.5 GM/DL Lipase < 4 L 8-78 U/L Serum Alcohol < 10 <10 MG/DL Glucometer 453 *H 389 H 70-110 MG/DL Urine Color YELLOW Urine Clarity SLIGHTLY CLOUDY Urine pH 5 5-9 Urine Specific [place] 1.015 L 1.016-1.022 Urine Protein 2+ H NEGATIVE Urine Glucose (UA) 4+ H NEGATIVE Urine Ketones 4+ H NEGATIVE Urine Nitrite NEGATIVE NEGATIVE Urine Bilirubin NEGATIVE NEGATIVE Urine Urobilinogen NORMAL NORMAL MG/DL Urine Leukocyte Esterase 3+ H NEGATIVE Urine RBC (Auto) 4+ H NEGATIVE Urine RBC 10-25 H /HPF Urine WBC 10-25 H /HPF Urine Squamous Epithelial Cells 5-10 /HPF Urine Crystals NONE /LPF Urine Bacteria TRACE /HPF Urine Casts NONE /LPF Urine Mucus NEGATIVE /LPF Urine Trichomonas FEW H /HPF Urine Culture Indicated YES Urine Opiates Screen NEGATIVE NEGATIVE Urine Oxycodone Screen NEGATIVE NEGATIVE Urine Methadone Screen NEGATIVE NEGATIVE Urine Propoxyphene Screen NEGATIVE NEGATIVE Urine Barbiturates Screen NEGATIVE NEGATIVE Ur Tricyclic Antidepressants Screen NEGATIVE NEGATIVE Urine Phencyclidine Screen NEGATIVE NEGATIVE Urine Amphetamines Screen NEGATIVE NEGATIVE Urine Methamphetamines Screen NEGATIVE NEGATIVE Urine Benzodiazepines Screen NEGATIVE NEGATIVE Urine Cocaine Screen POSITIVE H NEGATIVE Urine Cannabinoids Screen NEGATIVE NEGATIVE Test 05/09/17 06:40 05/09/17 07:24 05/09/17 08:48 05/09/17 09:52 Range/Units Glucometer 274 H 379 H 422 *H 70-110 MG/DL Sodium Level 138 135-145 MMOL/L Potassium Level 3.8 3.6-5.0 MMOL/L Chloride Level 108 H 98-107 MMOL/L Carbon Dioxide Level 15 L 21-32 MMOL/L Anion Gap 15 H 5-14 MMOL/L Blood Urea Nitrogen 4 L 7-18 MG/DL Creatinine 1.01 0.60-1.30 MG/DL Estimat Glomerular Filtration Rate > 60 BUN/Creatinine Ratio 4 Glucose Level 322 H 70-105 MG/DL Calcium Level 8.0 L 8.5-10.1 MG/DL Test 05/09/17 10:46 05/09/17 10:56 05/09/17 11:47 05/09/17 12:30 Range/Units Glucometer 395 H 412 *H 339 H 70-110 MG/DL Sodium Level 136 135-145 MMOL/L Potassium Level 4.5 3.6-5.0 MMOL/L Chloride Level 107 98-107 MMOL/L Carbon Dioxide Level 12 L 21-32 MMOL/L Anion Gap 17 H 5-14 MMOL/L Blood Urea Nitrogen 5 L 7-18 MG/DL Creatinine 1.01 0.60-1.30 MG/DL Estimat Glomerular Filtration Rate > 60 BUN/Creatinine Ratio 5 Glucose Level 449 *H 70-105 MG/DL Calcium Level 7.7 L 8.5-10.1 MG/DL Test 05/09/17 13:26 05/09/17 14:34 05/09/17 15:03 05/09/17 15:51 Range/Units Glucometer 241 H 134 H 111 H 120 H 70-110 MG/DL Test 05/09/17 16:21 05/09/17 17:01 05/09/17 17:34 05/09/17 17:45 Range/Units Glucometer 120 H 120 H 122 H 70-110 MG/DL Sodium Level 136 135-145 MMOL/L Potassium Level 3.8 3.6-5.0 MMOL/L Chloride Level 108 H 98-107 MMOL/L Carbon Dioxide Level 19 L 21-32 MMOL/L Anion Gap 9 5-14 MMOL/L Blood Urea Nitrogen 4 L 7-18 MG/DL Creatinine 0.80 0.60-1.30 MG/DL Estimat Glomerular Filtration Rate > 60 BUN/Creatinine Ratio 5 Glucose Level 125 H 70-105 MG/DL Calcium Level 8.0 L 8.5-10.1 MG/DL Test 05/09/17 18:05 05/09/17 18:50 05/09/17 21:39 05/10/17 04:30 Range/Units Glucometer 141 H 142 H 283 H 70-110 MG/DL White Blood Count 12.2 H 4.3-11.0 10^3/uL Red Blood Count 3.58 L 4.35-5.85 10^6/uL Hemoglobin 10.1 L 11.5-16.0 G/DL Hematocrit 30 L 35-52 % Mean Corpuscular Volume 83 80-99 FL Mean Corpuscular Hemoglobin 28 25-34 PG Mean Corpuscular Hemoglobin Concent 34 32-36 G/DL Red Cell Distribution Width 13.6 10.0-14.5 % Platelet Count 520 H 130-400 10^3/uL Mean Platelet Volume 9.3 7.4-10.4 FL Neutrophils (%) (Auto) 69 42-75 % Lymphocytes (%) (Auto) 22 12-44 % Monocytes (%) (Auto) 8 0-12 % Eosinophils (%) (Auto) 1 0-10 % Basophils (%) (Auto) 0 0-10 % Neutrophils # (Auto) 8.5 H 1.8-7.8 X 10^3 Lymphocytes # (Auto) 2.7 1.0-4.0 X 10^3 Monocytes # (Auto) 0.9 0.0-1.0 X 10^3 Eosinophils # (Auto) 0.1 0.0-0.3 10^3/uL Basophils # (Auto) 0.0 0.0-0.1 10^3/uL Sodium Level 136 135-145 MMOL/L Potassium Level 3.6 3.6-5.0 MMOL/L Chloride Level 104 98-107 MMOL/L Carbon Dioxide Level 20 L 21-32 MMOL/L Anion Gap 12 5-14 MMOL/L Blood Urea Nitrogen 5 L 7-18 MG/DL Creatinine 0.90 0.60-1.30 MG/DL Estimat Glomerular Filtration Rate > 60 BUN/Creatinine Ratio 6 Glucose Level 282 H 70-105 MG/DL Calcium Level 8.1 L 8.5-10.1 MG/DL Phosphorus Level 1.1 L 2.3-4.7 MG/DL Magnesium Level 1.7 L 1.8-2.4 MG/DL Test 05/10/17 11:10 05/10/17 20:15 05/10/17 21:29 05/10/17 23:56 Range/Units Glucometer 297 H 446 *H 359 H 82 70-110 MG/DL Test 05/11/17 02:30 05/11/17 03:09 05/11/17 04:24 05/11/17 05:21 Range/Units Glucometer 54 *L 103 203 H 70-110 MG/DL White Blood Count 13.2 H 4.3-11.0 10^3/uL Red Blood Count 3.49 L 4.35-5.85 10^6/uL Hemoglobin 9.8 L 11.5-16.0 G/DL Hematocrit 29 L 35-52 % Mean Corpuscular Volume 83 80-99 FL Mean Corpuscular Hemoglobin 28 25-34 PG Mean Corpuscular Hemoglobin Concent 34 32-36 G/DL Red Cell Distribution Width 13.7 10.0-14.5 % Platelet Count 477 H 130-400 10^3/uL Mean Platelet Volume 9.3 7.4-10.4 FL Neutrophils (%) (Auto) 80 H 42-75 % Lymphocytes (%) (Auto) 13 12-44 % Monocytes (%) (Auto) 6 0-12 % Eosinophils (%) (Auto) 1 0-10 % Basophils (%) (Auto) 0 0-10 % Neutrophils # (Auto) 10.6 H 1.8-7.8 X 10^3 Lymphocytes # (Auto) 1.7 1.0-4.0 X 10^3 Monocytes # (Auto) 0.8 0.0-1.0 X 10^3 Eosinophils # (Auto) 0.1 0.0-0.3 10^3/uL Basophils # (Auto) 0.0 0.0-0.1 10^3/uL Sodium Level 136 135-145 MMOL/L Potassium Level 3.2 L 3.6-5.0 MMOL/L Chloride Level 102 98-107 MMOL/L Carbon Dioxide Level 23 21-32 MMOL/L Anion Gap 11 5-14 MMOL/L Blood Urea Nitrogen 4 L 7-18 MG/DL Creatinine 0.70 0.60-1.30 MG/DL Estimat Glomerular Filtration Rate > 60 BUN/Creatinine Ratio 6 Glucose Level 202 H 70-105 MG/DL Calcium Level 8.0 L 8.5-10.1 MG/DL Test 05/11/17 09:49 05/11/17 11:34 Range/Units Glucometer 52 *L 161 H 70-110 MG/DL Radiology Reviewed CXR this AM shows no acute process Discussion & Recommendations The patient's DKA is presumed to be secondary to medical noncompliance. It resolved with an insulin gtt and fluids, and patient has been tolerating PO intake and sq insulin. Further details as outlined above. Patient requires insulin in order to remain out of the hospital, and will need to be more compliant with her home insulin therapy in order avoid repeat episodes of DKA; per chart review, it appears that she has multiple episodes per year, the majority of which are due to noncompliance with her home medications. Discharge Condition at discharge Stable Instructions to patient/family Please see electronic discharge instructions given to patient. Discharge Medications Reviewed and agree with Discharge Medication list on patient's Discharge Instruction sheet Clinical Quality Measures DVT/VTE Risk/Contraindication: Risk Factor Score Per Nursin RFS Level Per Nursing on Admit: 1=Low/No VTE PPX Copy Copies To 1: [facility]/CARMINA PENDLETON DO May 11, 2017 10:59
[2017-05-11] MEDS ORDERED: inSUlin ASPART (NovoLOG) 1 UNIT/0.01 ML (CHARGE PER UNIT) SQ SCH (11:00)
[2017-05-11] MEDS: ENOXAPARIN 40 MG/0.4 ML (LOVENOX) SYR SC SCH (13:24)
[2017-05-11 13:30] VITALS: BP 109/67
== END 2017-05-11 13:30 | disposition home or self-care (01) | DRG 638 ==
LOC: EDUNIT# 04:48 → ER 04:51 → ICU 06:11 → 4TH 05-10 17:10
PROVIDERS: ADMIT Family Medicine; ATTEND Family Medicine
DX: E11.10 Type 2 diabetes mellitus with ketoacidosis without coma (principal); E11.649 Type 2 diabetes mellitus with hypoglycemia without coma; E11.40 Type 2 diabetes mellitus with diabetic neuropathy, unspecified; N39.0 Urinary tract infection, site not specified; N17.9 Acute kidney failure, unspecified; E87.1 Hypo-osmolality and hyponatremia; F14.90 Cocaine use, unspecified, uncomplicated; E83.42 Hypomagnesemia; Z91.19 Patient's noncompliance with other medical treatment and regimen; F32.9 Major depressive disorder, single episode, unspecified; F41.9 Anxiety disorder, unspecified; E83.51 Hypocalcemia; E83.39 Other disorders of phosphorus metabolism; Z79.4 Long term (current) use of insulin
CPT/HCPCS: 36415; 71045; 71046; 80048; 80053; 80306; 80320; 81000; 82962; 83036; 83690; 83735; 84100; 85007; 85025; 85027; 87081; 87088; 87186; 87804; 96361; 96365; 96375

== ENCOUNTER 2017-05-30 11:31 | Inpatient (IN) | payer MEDICAID, OTHER ==
[~2017-05-30] VITALS: Ht 167.6 cm; Wt 56.0 kg
[2017-05-30] MEDS ORDERED: NS IV 1000 ML 1,000 ML IV ONE ×2 (12:42→15:04)
[2017-05-30] MEDS ORDERED: ONDANSETRON 4 MG/2 ML (SDV) Z0FRAN IVP ONE (12:45)
[2017-05-30 12:49] LABS: BASOPHILS % (AUTO) 0 % (0-10); EOSINOPHILS # (AUTO) 0.1 10^3/uL (0.0-0.3); EOSINOPHILS % (AUTO) 1 % (0-10); HEMATOCRIT 39 % (35-52); HEMOGLOBIN 13.1 G/DL (11.5-16.0); LYMPHOCYTES # (AUTO) 3.4 X 10^3 (1.0-4.0); LYMPHOCYTES % (AUTO) 14 % (12-44); MEAN CORPUSCULAR HEMOGLOBIN 28 PG (25-34); MEAN CORPUSCULAR HGB CONC 34 G/DL (32-36); MEAN CORPUSCULAR VOLUME 83 FL (80-99); MEAN PLATELET VOLUME 9.4 FL (7.4-10.4); MONOCYTES # (AUTO) 1.2 X 10^3 (0.0-1.0); MONOCYTES % (AUTO) 5 % (0-12); NEUTROPHILS # (AUTO) 19.2 X 10^3 (1.8-7.8); NEUTROPHILS % (AUTO) 80 % (42-75); PLATELET COUNT 517 10^3/uL (130-400); RED CELL DISTRIBUTION WIDTH 14.8 % (10.0-14.5); WHITE BLOOD COUNT 24.1 10^3/uL (4.3-11.0)
[2017-05-30 13:11] LABS: ALANINE AMINOTRANSFERASE 15 U/L (0-55); ALBUMIN 4.3 GM/DL (3.2-4.5); ALKALINE PHOSPHATASE 165 U/L (40-136); BILIRUBIN,TOTAL 0.5 MG/DL (0.1-1.0); BUN/CREATININE RATIO 9; CALCIUM 10.2 MG/DL (8.5-10.1); CARBON DIOXIDE 19 MMOL/L (21-32); CHLORIDE 105 MMOL/L (98-107); CREATININE SERUM 1.25 MG/DL (0.60-1.30); GFR ESTIMATED 56; GLUCOSE 143 MG/DL (70-105); LIPASE 9 U/L (8-78); MAGNESIUM 1.8 MG/DL (1.8-2.4); POTASSIUM 3.7 MMOL/L (3.6-5.0); SODIUM 140 MMOL/L (135-145)
[2017-05-30 13:22] LABS: EOSINOPHILS % (MANUAL) 2 %; LYMPHOCYTES % (MANUAL) 19 %; MONOCYTES % (MANUAL) 5 %; NEUTROPHILS % (MANUAL) 74 %; RBC MORPH NORMAL
[2017-05-30 13:30] LABS: TSH (THYROID ANALYZER) 1.47 UIU/ML (0.35-4.94)
[2017-05-30 13:34] LABS: CREATINE KINASE 32 U/L (29-168); MYOGLOBIN SERUM 14.9 NG/ML (10.0-92.0)
--- NOTE | 2017-05-30 13:52 | ED General ---
General Chief Complaint: Abdominal/GI Problems Stated Complaint: VOMITING HIGH BLOOD SUGAR Nursing Triage Note: Pt c/o diffuse abd pain and vomiting starting this morning. Pt unable to check blood sugar at home due to monitor being . pt reports she thinks BS may be high. Nursing Sepsis Screen: No Definite Risk Source of Information: Patient Exam Limitations: No Limitations History of Present Illness Date Seen by Provider: May 30, 2017 Time Seen by Provider: 13:00 Initial Comments 46-year-old female patient presents to the emergency department with complaints of diffuse abdominal cramping, nausea, vomiting beginning this a.m. Patient states she has not been able to check her blood sugars at home today as her meter is working. She doesn't know if her batteries are . Patient is concerned that her blood sugars elevated. Patient was admitted to [facility] on April 07 in May 09 for DKA, urinary tract infections, and cocaine use. Patient reports last using cocaine on Tuesday. Denies any other illicit drug use. Timing/Duration: Getting Worse, Other (onset this a.m.) Modifying Factors: worse with Eating Allergies and Home Medications Allergies Coded Allergies: Sulfa (Sulfonamide Antibiotics) (Unverified Allergy, Unknown, 05/30/17) Home Medications Amitriptyline HCl 25 Mg Tablet, 25 MG PO DAILY PRN for NEUROPATHY, (Reported) LAST FILLED 02-21-17 #30 Insulin Aspart 100 Unit/1 Ml Susp, 15 UNITS SQ AC, (Reported) LAST FILLED 09-01-16 Insulin Determir 1,000 Units/10 Ml Soln, 45 UNITS SC HS, (Reported) LAST FILLED 10-18-16 Constitutional: No chills, No fever, No malaise EENTM: no symptoms reported Respiratory: no symptoms reported Cardiovascular: no symptoms reported Gastrointestinal: see HPI, abdominal pain, No constipation, No diarrhea, No hematemesis, No jaundice, loss of appetite, No melena, nausea, vomiting Genitourinary: No decreased output, No dysuria, No frequency, No hematuria Musculoskeletal: no symptoms reported Skin: no symptoms reported Psychiatric/Neurological: No Symptoms Reported All Other Systems Reviewed Negative Unless Noted: Yes (Negative excepted noted.) Past Ezpqafp-Hdxgsk-Lrveuy Hx Patient Social History Recent Foreign Travel: No Contact w/Someone Who Travel: No Recent Infectious Disease Expo: No Recent Hopitalizations: No Immunizations Up To Date Tetanus Booster (TDap): Unknown PED Vaccines UTD: No Seasonal Allergies Seasonal Allergies: No Surgeries History of Surgeries: Yes Surgeries: Tubal Ligation Respiratory History of Respiratory Disorde: No Currently Using CPAP: No Cardiovascular History of Cardiac Disorders: No Neurological History of Neurological Disord: Yes Neurological Disorders: Neuropathy 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 System Hx 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 Disorders: No Sexually Transmitted Disease: No HIV/AIDS: No Female 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 Disorders: Denies 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 Genitourinary History of Genitourinary Disor: Yes Genitourinary Disorders: Kidney Infection Gastrointestinal History of Gastrointestinal Di: No Musculoskeletal History of Musculoskeletal Dis: Yes Musculoskeletal Disorders: Osteoporosis, Arthritis Endocrine History of Endocrine Disorders: Yes Endocrine Disorders: Diabetes, Insulin dep HEENT History of HEENT Disorders: No Cancer History of Cancer: No Psychosocial History of Psychiatric Problem: Yes Behavioral Health Disorders: Anxiety, Depression Integumentary History of Skin or Integumenta: No Blood Transfusions History of Blood Disorders: No Adverse Reaction to a Blood Tr: No Reviewed Nursing Assessment Reviewed/Agree w Nursing PMH: Yes Family Medical History Significant Family History: Heart Disease, Diabetes, Hypertension Family Medial History: Family history: Hypertension 09 SISTER Kidney disease 03 MOTHER Myocardial infarction 09 SISTER Physical Exam Vital Signs Vital Signs - First Documented 05/30/17 12:32 Temp 98.5 Pulse 160 Resp 18 B/P (MAP) 86/58 (67) Pulse Ox 99 O2 Delivery Room Air Capillary Refill : Less Than 3 Seconds General Appearance: No Apparent Distress, WD/WN HEENT: PERRL/EOMI, TMs Normal, Normal ENT Inspection, Pharynx Normal Neck: Full Range of Motion, Normal Inspection, Non Tender, Supple Respiratory: Lungs Clear, Normal Breath Sounds, No Accessory Muscle Use, No Respiratory Distress Cardiovascular: No Edema, No Murmur, Normal Peripheral Pulses, Tachycardia Gastrointestinal: Normal Bowel Sounds, No Organomegaly, Non Tender, Soft, No Distended Back: Normal Inspection, No CVA Tenderness Extremity: No Calf Tenderness, No Pedal Edema Neurologic/Psychiatric: Alert, Oriented x3, No Motor/Sensory Deficits, Normal Mood/Affect, community health representative II-XII Norm as Tested Skin: Normal Color, Warm/Dry Focused Exam Evaluation Lactate Level Laboratory Tests 05/30/17 15:13: Lactic Acid Level 1.19 Time of Focused Exam: 13:55 Respiratory: Lungs Clear, Normal Breath Sounds, No Accessory Muscle Use, No Respiratory Distress Cardiovascular: No Edema, No Murmur, Normal Peripheral Pulses, Tachycardia Capillary Refill: Less Than 3 Seconds Skin: normal color, warm/dry, No rash, No ulcerations Progress/Results/Core Measures Suspected Sepsis Recent Fever Within 48 Hours: No Infection Criteria Present: Suspected New Infection New/Unexplained Altered Menta: No Sepsis Screen: No Definite Risk Sepsis Diagnosis: SIRS Temperature:98.5 Pulse: 160 Respiratory Rate: 18 Laboratory Tests 05/30/17 12:40: White Blood Count 24.1H Blood Pressure 86 /58 Mean: 67 Laboratory Tests 05/30/17 15:13: Lactic Acid Level 1.19 Laboratory Tests 05/30/17 12:40: Creatinine 1.25, Platelet Count 517H, Total Bilirubin 0.5 Results/Orders Lab Results Laboratory Tests Test 05/30/17 12:32 05/30/17 12:40 05/30/17 14:04 05/30/17 15:13 Range/Units Glucometer 143 H 70-110 MG/DL White Blood Count 24.1 H 4.3-11.0 10^3/uL Red Blood Count 4.70 4.35-5.85 10^6/uL Hemoglobin 13.1 11.5-16.0 G/DL Hematocrit 39 35-52 % Mean Corpuscular Volume 83 80-99 FL Mean Corpuscular Hemoglobin 28 25-34 PG Mean Corpuscular Hemoglobin Concent 34 32-36 G/DL Red Cell Distribution Width 14.8 H 10.0-14.5 % Platelet Count 517 H 130-400 10^3/uL Mean Platelet Volume 9.4 7.4-10.4 FL Neutrophils (%) (Auto) 80 H 42-75 % Lymphocytes (%) (Auto) 14 12-44 % Monocytes (%) (Auto) 5 0-12 % Eosinophils (%) (Auto) 1 0-10 % Basophils (%) (Auto) 0 0-10 % Neutrophils # (Auto) 19.2 H 1.8-7.8 X 10^3 Lymphocytes # (Auto) 3.4 1.0-4.0 X 10^3 Monocytes # (Auto) 1.2 H 0.0-1.0 X 10^3 Eosinophils # (Auto) 0.1 0.0-0.3 10^3/uL Basophils # (Auto) 0.0 0.0-0.1 10^3/uL Neutrophils % (Manual) 74 % Lymphocytes % (Manual) 19 % Monocytes % (Manual) 5 % Eosinophils % (Manual) 2 % Blood Morphology Comment NORMAL Sodium Level 140 135-145 MMOL/L Potassium Level 3.7 3.6-5.0 MMOL/L Chloride Level 105 98-107 MMOL/L Carbon Dioxide Level 19 L 21-32 MMOL/L Anion Gap 16 H 5-14 MMOL/L Blood Urea Nitrogen 11 7-18 MG/DL Creatinine 1.25 0.60-1.30 MG/DL Estimat Glomerular Filtration Rate 56 BUN/Creatinine Ratio 9 Glucose Level 143 H 70-105 MG/DL Calcium Level 10.2 H 8.5-10.1 MG/DL Magnesium Level 1.8 1.8-2.4 MG/DL Total Bilirubin 0.5 0.1-1.0 MG/DL Aspartate Amino Transf (AST/SGOT) 16 5-34 U/L Alanine Aminotransferase (ALT/SGPT) 15 0-55 U/L Alkaline Phosphatase 165 H 40-136 U/L Total Creatine Kinase 32 29-168 U/L Creatine Kinase MB 1.0 <6.6 NG/ML Myoglobin 14.9 10.0-92.0 NG/ML Troponin I < 0.30 <0.30 NG/ML Total Protein 9.0 H 6.4-8.2 GM/DL Albumin 4.3 3.2-4.5 GM/DL Lipase 9 8-78 U/L TSH [place] Testing 1.47 0.35-4.94 UIU/ML Serum Alcohol < 10 <10 MG/DL Urine Color YELLOW Urine Clarity CLEAR Urine pH 5 5-9 Urine Specific [place] 1.020 1.016-1.022 Urine Protein 2+ H NEGATIVE Urine Glucose (UA) 4+ H NEGATIVE Urine Ketones 4+ H NEGATIVE Urine Nitrite NEGATIVE NEGATIVE Urine Bilirubin NEGATIVE NEGATIVE Urine Urobilinogen NORMAL NORMAL MG/DL Urine Leukocyte Esterase 3+ H NEGATIVE Urine RBC (Auto) 2+ H NEGATIVE Urine RBC NONE /HPF Urine WBC 50-100 H /HPF Urine Squamous Epithelial Cells 5-10 /HPF Urine Crystals NONE /LPF Urine Bacteria TRACE /HPF Urine Casts PRESENT /LPF Urine Hyaline Casts 5-10 H /LPF Urine Granular Casts 5-10 H /LPF Urine Mucus NEGATIVE /LPF Urine Culture Indicated YES Urine Opiates Screen NEGATIVE NEGATIVE Urine Oxycodone Screen NEGATIVE NEGATIVE Urine Methadone Screen NEGATIVE NEGATIVE Urine Propoxyphene Screen NEGATIVE NEGATIVE Urine Barbiturates Screen NEGATIVE NEGATIVE Ur Tricyclic Antidepressants Screen NEGATIVE NEGATIVE Urine Phencyclidine Screen NEGATIVE NEGATIVE Urine Amphetamines Screen NEGATIVE NEGATIVE Urine Methamphetamines Screen POSITIVE H NEGATIVE Urine Benzodiazepines Screen NEGATIVE NEGATIVE Urine Cocaine Screen POSITIVE H NEGATIVE Urine Cannabinoids Screen NEGATIVE NEGATIVE Lactic Acid Level 1.19 0.50-2.00 MMOL/L Test 05/30/17 16:33 05/30/17 18:03 05/30/17 20:21 Range/Units Glucometer 57 *L 80 150 H 70-110 MG/DL My Orders Orders - MELODIE PALACIOS PA Cbc With Automated Diff (05/30/17 12:42) Comprehensive Metabolic Panel (05/30/17 12:42) Lipase (05/30/17 12:42) Magnesium (05/30/17 12:42) Thyroid Analyzer (05/30/17 12:42) Troponin I (05/30/17 12:42) Ua Culture If Indicated (05/30/17 12:42) Accucheck Stat ONCE (05/30/17 12:42) Saline Lock/Iv-Start (05/30/17 12:42) Ekg Tracing (05/30/17 12:42) Monitor-Rhythm Ecg Trace Only (05/30/17 12:42) Ns Iv 1000 Ml (Sodium Chloride 0.9%) (05/30/17 12:42) Ondansetron Injection (Zofran Injectio (05/30/17 12:45) Manual Differential (05/30/17 12:40) Alcohol (05/30/17 12:53) Creatine Kinase (05/30/17 12:53) Creatine Kinase Mb (05/30/17 12:53) Drug Screen Stat (Urine) (05/30/17 12:53) Myoglobin Serum (05/30/17 12:53) Urine Culture (05/30/17 14:04) Lactic Acid Analyzer (05/30/17 15:04) Blood Culture (05/30/17 15:04) Chest 1 View, Ap/Pa Only (05/30/17 15:04) Ceftriaxone Injection (Rocephin Injectio (05/30/17 15:15) Ns Iv 1000 Ml (Sodium Chloride 0.9%) (05/30/17 15:04) Medications Given in ED Vital Signs/I&O Vital Sign - Last 12Hours 05/30/17 05/30/17 05/30/17 05/30/17 16:10 16:16 17:12 17:30 Temp 97.7 Pulse 122 113 118 Resp 18 12 B/P (MAP) 129/79 (96) Pulse Ox 98 100 100 O2 Delivery Room Air Room Air Room Air 05/30/17 05/30/17 05/30/17 05/30/17 19:00 20:52 21:00 23:54 Temp 98.2 98.4 Pulse 111 100 102 Resp 16 18 B/P (MAP) 128/82 (97) 128/77 (94) Pulse Ox 100 98 O2 Delivery Room Air Room Air Room Air 05/31/17 01:00 Pulse 99 Capillary Refill : Less Than 3 Seconds Blood Pressure Mean: 67 Point of Care Testing Finger Stick Blood Glucose: 143 ECG Initial ECG Impression Date: May 30, 2017 Initial ECG Impression Time: 12:48 Initial ECG Rate: 137 Initial ECG Rhythm: S.Tach Initial ECG Comparisson: Unchanged Comment Sinus tachycardia. No STEMI or arrhythmia noted. ECG reviewed and discussed with Dr. Antony. Diagnostic Imaging Diagonstic Imaging: Xray Plain Films/CT/US/NM/MRI: chest Comments FINDINGS: Lungs/pleura: Lungs are clear. There is no pneumothorax. There is no pleural effusion. Mediastinum: Unremarkable. Pulmonary vasculature: Unremarkable. Heart: Unremarkable. Bones/extrathoracic soft tissue: Unremarkable. IMPRESSION: There is no radiographic evidence of acute cardiopulmonary process. Dictated by: Dictated on workstation # [id number] Reviewed: Reviewed by Me (radiology report reviewed by me) Departure Communication (Admissions) Time/Spoke to Admitting Phy: 15:[address] Mcbride graciously accepts patient to her medical service for IVF, IV antibiotics, and further management. Progress Notes patient seen and evaluated. Patient given 2 L NS, zofran 4 mg, and 1 g rocephin in the ED. all laboratory findings, diagnostic study findings, and plan for admission discussed with the patient. Patient verbalizes understanding and agrees with the treatment plan. Patient is agreeable to admission. Plan for admission discussed with Dr. Antony. Impression Impression: Primary Impression: Sepsis Qualified Codes: A41.9 - Sepsis, unspecified organism Additional Impressions: Urinary tract infection Qualified Codes: N30.00 - Acute cystitis without hematuria Type I diabetes mellitus Qualified Codes: E10.8 - Type 1 diabetes mellitus with unspecified complications Polysubstance abuse Disposition: ADMITTED INPATIENT Condition: Stable Admissions Decision to Admit Reason: Admit from ER (General) Decision to Admit/Date: May 30, 2017 Time/Decision to Admit Time: 15:00 Departure-Patient Inst. Referrals: [facility] (PCP/Family) Primary Care Physician MELODIE PALACIOS May 30, 2017 13:52
[2017-05-30 14:18] LABS: BILIRUBIN,URINE NEGATIVE (NEGATIVE); CLARITY,URINE CLEAR; COLOR,URINE YELLOW; GLUCOSE, URINE (UA) 4+ (NEGATIVE); KETONES,URINE 4+ (NEGATIVE); LEUKOCYTE ESTERASE ,URINE 3+ (NEGATIVE); NITRITE,URINE NEGATIVE (NEGATIVE); PH,URINE 5 (5-9); PROTEIN,URINE 2+ (NEGATIVE); UROBILINOGEN,URINE NORMAL (NORMAL)
[2017-05-30 14:41] LABS: BACTERIA,URINE TRACE /HPF; WBC,URINE 50-100 /HPF
[2017-05-30 14:44] LABS: AMPHETAMINE SCREEN, URINE NEGATIVE (NEGATIVE); BARBITURATE SCREEN URINE NEGATIVE (NEGATIVE); BENZODIAZEPINES SCREEN URINE NEGATIVE (NEGATIVE); CANNABINOID SCREEN, URINE NEGATIVE (NEGATIVE); COCAINE SCREEN URINE POSITIVE (NEGATIVE); METHADONE STAT NEGATIVE (NEGATIVE); METHAMPHETAMINE SCREEN URINE S POSITIVE (NEGATIVE); OPIATE SCREEN URINE NEGATIVE (NEGATIVE); OXYCODONE STAT NEGATIVE (NEGATIVE); PROPOXYPHENE STAT NEGATIVE (NEGATIVE); TRICYCLIC ANTIDEPRESSANTS SCRE NEGATIVE (NEGATIVE)
[2017-05-30] MEDS ORDERED: cefTRIAXone INJECTION 1,000 MG in NS (IVPB) 50 ML IV ONE (15:15)
--- NOTE | 2017-05-30 15:20 | Diagnostic Imaging Report ---
CLINICAL INDICATION: Patient with high blood sugar. EXAM: Portable chest x-ray upright view. Of note, patient is unable to remove nipple rings. COMPARISONS: Chest x-ray dated 05/10/2017. FINDINGS: Lungs/pleura: Lungs are clear. There is no pneumothorax. There is no pleural effusion. Mediastinum: Unremarkable. Pulmonary vasculature: Unremarkable. Heart: Unremarkable. Bones/extrathoracic soft tissue: Unremarkable. IMPRESSION: There is no radiographic evidence of acute cardiopulmonary process. Dictated by: Dictated on workstation # [id number]
[2017-05-30 16:16] VITALS: BP 129/79
[2017-05-30] MEDS ORDERED: KETOROLAC 30 MG/ML VIAL IV PRN (16:45)
[2017-05-30] MEDS ORDERED: ONDANSETRON 4 MG/2 ML (SDV) Z0FRAN IV PRN (16:45)
[2017-05-30] MEDS ORDERED: ACETAMINOPHEN 500 MG TAB (TYLENOL) PO PRN (16:45)
[2017-05-30] MEDS: fluCOnazole (DIFLUCAN) 100 MG TAB PO SCH (17:03)
[2017-05-30] MEDS: inSUlin ASPART (NovoLOG) 1 UNIT/0.01 ML (CHARGE PER UNIT) SC SCH (17:04)
[2017-05-30] MEDS: FAMOTIDINE 20 MG (PEPCID) TABLET PO SCH (20:35)
[2017-05-30 20:52] VITALS: BP 128/82
[2017-05-30] MEDS ORDERED: inSUlin DETERMIR 1 UNIT/0.01 ML (LEVEMIR) CHARGE PER UNIT SQ SCH (21:00)
[2017-05-30 23:54] VITALS: BP 128/77
[2017-05-30] MEDS: NS IV 1000 ML 1,000 ML IV SCH ×2 (23:54→23:55)
[2017-05-31 04:00] VITALS: BP 116/79
[2017-05-31 05:25] LABS: BASOPHILS % (AUTO) 0 % (0-10); EOSINOPHILS # (AUTO) 0.1 10^3/uL (0.0-0.3); EOSINOPHILS % (AUTO) 1 % (0-10); HEMATOCRIT 31 % (35-52); HEMOGLOBIN 10.4 G/DL (11.5-16.0); LYMPHOCYTES # (AUTO) 2.2 X 10^3 (1.0-4.0); LYMPHOCYTES % (AUTO) 24 % (12-44); MEAN CORPUSCULAR HEMOGLOBIN 28 PG (25-34); MEAN CORPUSCULAR HGB CONC 33 G/DL (32-36); MEAN CORPUSCULAR VOLUME 84 FL (80-99); MEAN PLATELET VOLUME 9.6 FL (7.4-10.4); MONOCYTES # (AUTO) 0.6 X 10^3 (0.0-1.0); MONOCYTES % (AUTO) 7 % (0-12); NEUTROPHILS # (AUTO) 6.2 X 10^3 (1.8-7.8); NEUTROPHILS % (AUTO) 68 % (42-75); PLATELET COUNT 372 10^3/uL (130-400); RED BLOOD COUNT 3.71 10^6/uL (4.35-5.85); RED CELL DISTRIBUTION WIDTH 14.9 % (10.0-14.5); WHITE BLOOD COUNT 9.2 10^3/uL (4.3-11.0)
[2017-05-31 05:44] LABS: ALANINE AMINOTRANSFERASE 11 U/L (0-55); ALKALINE PHOSPHATASE 107 U/L (40-136); BILIRUBIN,TOTAL 0.3 MG/DL (0.1-1.0); BUN/CREATININE RATIO 11; CALCIUM 8.2 MG/DL (8.5-10.1); CARBON DIOXIDE 20 MMOL/L (21-32); CHLORIDE 110 MMOL/L (98-107); CREATININE SERUM 0.71 MG/DL (0.60-1.30); GFR ESTIMATED > 60; GLUCOSE 61 MG/DL (70-105); POTASSIUM 3.3 MMOL/L (3.6-5.0); SODIUM 141 MMOL/L (135-145); TOTAL PROTEIN 6.3 GM/DL (6.4-8.2)
[2017-05-31] MEDS: inSUlin ASPART (NovoLOG) 1 UNIT/0.01 ML (CHARGE PER UNIT) SC SCH ×3 (06:29→16:38)
[2017-05-31] MEDS: NS IV 1000 ML 1,000 ML IV SCH ×3 (06:46→21:59)
[2017-05-31 08:00] VITALS: BP 118/71
[2017-05-31] MEDS: cefTRIAXone 1 GM/NS 50 ML IVPB IV SCH ×2 (08:33)
[2017-05-31] MEDS ORDERED: KCL 20 MEQ TAB (K-DUR) PO NR (09:15)
--- NOTE | 2017-05-31 10:46 | History & Physicial (CHS) ---
HPI History of Present Illness: Patient is a 46 yo F w/ PMH of IDDM who presented to the ED on 05/30 after several episodes of vomiting in the morning. Patient woke up the morning of and was unable to take her blood glucose because the battery in her monitor was , she then ate a normal breakfast and started vomiting shortly after. Patient has a hx of DKA and presented to the ED w/ concerns of another episode of DKA. Patient takes 45 units of long acting insulin qhs and 15 units w/ meals , she states her average sugar level is probably 150-250 most days when she checks it. Patient states she has been having loose stools for over a week and thinks she probably has been getting progressively dehydrated during this time and today complains of several loose watery stools which is an acute worsening from her previous loose BMs. Upon presentation to the ED the patient was tachycardic and tachypneic w/ positive UA, UDS also tested positive for cocaine and meth. Patient admits abdominal pains related to frequent BMs, baseline HAs, some minor changes in vision, mild neuropathy from her feet to her knees but denies new numbness or tingling, CP, SOB, dysuria, hematuria or hematochezia. Source: patient, RN/MD Exam Limitations: no limitations Date seen by provider: May 31, 2017 Time Seen by Provider: 10:05 Attending Physician Chelsie Mcbride MD PCP Center/[facility] [place] Consult Date of Admission May 30, 2017 at 15:53 Home Medications Home Medications Reviewed patient Home Medication Reconciliation Form Allergies Coded Allergies: Sulfa (Sulfonamide Antibiotics) (Unverified Allergy, Unknown, 05/30/17) OOZ-Ikpwrw-Sxstlc Hx Patient Social History Alcohol Use: Occasionally Uses Recreational Drug Use: No Drug of Choice: cocaine Smoking Status: Never a Smoker Recent Foreign Travel: No Contact w/other who traveled: No Recent Hopitalizations: No Recent Infectious Disease Expo: No Physical Abuse Screen: No Sexual Abuse: No Immunizations Up To Date Tetanus Booster (TDap): Unknown Past Medical History Past Medical History 1. Diabetes Mellitus II -patient was diagnosed approximately 5 years ago and started initially on oral medications. Not compliant with her insulin or follow up. 2. Depression with history of Suicide attempt/ Suicidal ideation 3. Cocaine Use/Abuse 4. Abnormal Pap 5. Diabetic Neuropathy 6. Anxiety 7. Arthritis 8. Medical Noncompliance 9. History of Incarceration Past Surgical History 1. Tubal Ligation 2. LEEP Family Medical History Significant Family History: Heart Disease, Diabetes, Hypertension Family History: Family history: Hypertension 09 SISTER Kidney disease 03 MOTHER Myocardial infarction 09 SISTER Review of Systems ([facility]) Constitutional: No chills, No fever EENTM: no symptoms reported, No nose congestion Respiratory: no symptoms reported, No cough, No hemoptysis, No short of breath Cardiovascular: no symptoms reported, No chest pain, No edema Gastrointestinal: abdominal pain, diarrhea, No hematemesis, loss of appetite, nausea, No vomiting Genitourinary: no symptoms reported, No dysuria, No hematuria : No Musculoskeletal: no symptoms reported, No joint pain, No muscle pain Skin: no symptoms reported Psychiatric/Neurological: No Symptoms Reported Reviewed Test Results Reviewed Test Results Lab Laboratory Tests Test 05/30/17 16:33 05/30/17 18:03 05/30/17 20:21 05/31/17 05:15 Range/Units Glucometer 57 *L 80 150 H 57 *L 70-110 MG/DL Test 05/31/17 05:16 05/31/17 11:08 05/31/17 13:56 Range/Units White Blood Count 9.2 4.3-11.0 10^3/uL Red Blood Count 3.71 L 4.35-5.85 10^6/uL Hemoglobin 10.4 #L 11.5-16.0 G/DL Hematocrit 31 L 35-52 % Mean Corpuscular Volume 84 80-99 FL Mean Corpuscular Hemoglobin 28 25-34 PG Mean Corpuscular Hemoglobin Concent 33 32-36 G/DL Red Cell Distribution Width 14.9 H 10.0-14.5 % Platelet Count 372 130-400 10^3/uL Mean Platelet Volume 9.6 7.4-10.4 FL Neutrophils (%) (Auto) 68 42-75 % Lymphocytes (%) (Auto) 24 12-44 % Monocytes (%) (Auto) 7 0-12 % Eosinophils (%) (Auto) 1 0-10 % Basophils (%) (Auto) 0 0-10 % Neutrophils # (Auto) 6.2 1.8-7.8 X 10^3 Lymphocytes # (Auto) 2.2 1.0-4.0 X 10^3 Monocytes # (Auto) 0.6 0.0-1.0 X 10^3 Eosinophils # (Auto) 0.1 0.0-0.3 10^3/uL Basophils # (Auto) 0.0 0.0-0.1 10^3/uL Sodium Level 141 135-145 MMOL/L Potassium Level 3.3 L 3.6-5.0 MMOL/L Chloride Level 110 H 98-107 MMOL/L Carbon Dioxide Level 20 L 21-32 MMOL/L Anion Gap 11 5-14 MMOL/L Blood Urea Nitrogen 8 7-18 MG/DL Creatinine 0.71 0.60-1.30 MG/DL Estimat Glomerular Filtration Rate > 60 BUN/Creatinine Ratio 11 Glucose Level 61 L 70-105 MG/DL Lactic Acid Level 1.28 0.50-2.00 MMOL/L Calcium Level 8.2 L 8.5-10.1 MG/DL Total Bilirubin 0.3 0.1-1.0 MG/DL Aspartate Amino Transf (AST/SGOT) 15 5-34 U/L Alanine Aminotransferase (ALT/SGPT) 11 0-55 U/L Alkaline Phosphatase 107 40-136 U/L Total Protein 6.3 L 6.4-8.2 GM/DL Albumin 3.0 L 3.2-4.5 GM/DL Glucometer 99 59 *L 70-110 MG/DL Radiology Date of Exam: 05/30/17 CHEST 1 VIEW, AP/PA ONLY CLINICAL INDICATION: Patient with high blood sugar. EXAM: Portable chest x-ray upright view. Of note, patient is unable to remove nipple rings. COMPARISONS: Chest x-ray dated 05/10/2017. FINDINGS: Lungs/pleura: Lungs are clear. There is no pneumothorax. There is no pleural effusion. Mediastinum: Unremarkable. Pulmonary vasculature: Unremarkable. Heart: Unremarkable. Bones/extrathoracic soft tissue: Unremarkable. IMPRESSION: There is no radiographic evidence of acute cardiopulmonary process. Physical Exam-([facility]) Physical Exam Vital Signs VS - Last 72 Hours, by Label 05/30/17 05/30/17 05/30/17 05/30/17 12:32 16:10 16:16 17:12 Temp 98.5 97.7 Pulse 160 122 113 118 Resp 18 18 12 B/P (MAP) 86/58 (67) 129/79 (96) Pulse Ox 99 98 100 O2 Delivery Room Air Room Air Room Air 05/30/17 05/30/17 05/30/17 05/30/17 17:30 19:00 20:52 21:00 Temp 98.2 Pulse 111 100 Resp 16 B/P (MAP) 128/82 (97) Pulse Ox 100 100 O2 Delivery Room Air Room Air Room Air 05/30/17 05/31/17 05/31/17 05/31/17 23:54 01:00 04:00 07:00 Temp 98.4 98.2 Pulse 102 99 98 95 Resp 18 16 B/P (MAP) 128/77 (94) 116/79 (91) Pulse Ox 98 98 O2 Delivery Room Air Room Air 05/31/17 05/31/17 05/31/17 08:00 12:00 13:00 Temp 98.2 97.6 Pulse 98 94 93 Resp 16 18 B/P (MAP) 118/71 (87) 126/85 (99) Pulse Ox 98 98 O2 Delivery Room Air Room Air Capillary Refill : Less Than 3 Seconds General Appearance: WD/WN, no apparent distress Eyes: Bilateral Eye EOMI HEENT: PERRL/EOMI, No scleral icterus (R) Neck: non-tender, full range of motion, supple Respiratory: chest non-tender, lungs clear, normal breath sounds, no respiratory distress, no accessory muscle use Cardiovascular: normal peripheral pulses, no edema, no gallop, no JVD, no murmur, tachycardia Peripheral Pulses: 2+ Dorsalis Pedis (R) Gastrointestinal: normal bowel sounds, soft, No guarding, No rebound, tenderness (mild tenderness LLQ to palpation, normal bowel sounds) Extremities: normal range of motion, non-tender, no pedal edema, no calf tenderness 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, no motor/sensory deficits, alert, normal mood/affect, oriented x 3 Skin: normal color, warm/dry Lymphatic: no adenopathy Clinical Quality Measures DVT/VTE Risk/Contraindication: Risk Factor Score Per Nursin RFS Level Per Nursing on Admit: 2=Moderate Copy Copies To 1: Raphael HILTON Assessment/Plan Assessment/Plan (1) UTI (urinary tract infection) Status: Acute Assessment & Plan: - Brian Susceptible Ecoli Qualifiers: (2) Diabetes mellitus with hyperglycemia Status: Acute Assessment & Plan: - Some hypoglycemia, decreasing Levemir dose due to decreased PO intake - A1c pending Qualifiers: Qualified Codes: E11.65 - Type 2 diabetes mellitus with hyperglycemia; Z79.4 - [facility] (current) use of insulin (3) Non-compliance Status: Acute (4) Polysubstance abuse (5) Acute kidney failure Status: Acute Assessment & Plan: - Improving with IV fluid hydration CHELSIE MCRBIDE MD May 31, 2017 10:46
[2017-05-31] MEDS ORDERED: INFLUENZA TRIvalent 2017-2018 0.5 ML/45 MCG SYR IM ONE (11:15)
[2017-05-31 12:00] VITALS: BP 126/85
[2017-05-31 16:00] VITALS: BP 121/82
[2017-05-31] MEDS: fluCOnazole (DIFLUCAN) 100 MG TAB PO SCH (16:38)
[2017-05-31 20:00] VITALS: BP 122/86
[2017-05-31] MEDS ORDERED: inSUlin DETERMIR 1 UNIT/0.01 ML (LEVEMIR) CHARGE PER UNIT SQ SCH (21:00)
[2017-05-31] MEDS: FAMOTIDINE 20 MG (PEPCID) TABLET PO SCH (22:11)
[2017-06-01 00:25] VITALS: BP 129/89
[2017-06-01] MEDS: NS IV 1000 ML 1,000 ML IV SCH ×2 (03:40→11:41)
[2017-06-01 04:19] VITALS: BP 131/92
[2017-06-01 06:12] LABS: BASOPHILS % (AUTO) 0 % (0-10); EOSINOPHILS # (AUTO) 0.2 10^3/uL (0.0-0.3); EOSINOPHILS % (AUTO) 2 % (0-10); HEMATOCRIT 31 % (35-52); HEMOGLOBIN 10.2 G/DL (11.5-16.0); LYMPHOCYTES # (AUTO) 2.3 X 10^3 (1.0-4.0); LYMPHOCYTES % (AUTO) 29 % (12-44); MEAN CORPUSCULAR HEMOGLOBIN 28 PG (25-34); MEAN CORPUSCULAR HGB CONC 33 G/DL (32-36); MEAN CORPUSCULAR VOLUME 85 FL (80-99); MEAN PLATELET VOLUME 10.3 FL (7.4-10.4); MONOCYTES # (AUTO) 0.5 X 10^3 (0.0-1.0); MONOCYTES % (AUTO) 6 % (0-12); NEUTROPHILS # (AUTO) 4.8 X 10^3 (1.8-7.8); NEUTROPHILS % (AUTO) 62 % (42-75); PLATELET COUNT 330 10^3/uL (130-400); RED CELL DISTRIBUTION WIDTH 14.9 % (10.0-14.5); WHITE BLOOD COUNT 7.7 10^3/uL (4.3-11.0)
[2017-06-01] MEDS: inSUlin ASPART (NovoLOG) 1 UNIT/0.01 ML (CHARGE PER UNIT) SC SCH ×2 (06:29→11:53)
[2017-06-01 06:38] LABS: ALANINE AMINOTRANSFERASE 13 U/L (0-55); ALBUMIN 2.8 GM/DL (3.2-4.5); ALKALINE PHOSPHATASE 98 U/L (40-136); BILIRUBIN,TOTAL 0.3 MG/DL (0.1-1.0); BUN/CREATININE RATIO 7; CALCIUM 8.1 MG/DL (8.5-10.1); CARBON DIOXIDE 21 MMOL/L (21-32); CHLORIDE 106 MMOL/L (98-107); CREATININE SERUM 0.68 MG/DL (0.60-1.30); GFR ESTIMATED > 60; GLUCOSE 372 MG/DL (70-105); SODIUM 134 MMOL/L (135-145); TOTAL PROTEIN 5.9 GM/DL (6.4-8.2)
[2017-06-01 08:00] VITALS: BP 121/76
[2017-06-01] MEDS: cefTRIAXone 1 GM/NS 50 ML IVPB IV SCH ×2 (08:27)
--- NOTE | 2017-06-01 11:52 | Discharge Instructions ---
Discharge Inst-[facility] Discharge Medications New, Converted or Re-Newed RX: Other (No new scripts) Continued Medications: Amitriptyline HCl (Amitriptyline HCl) 25 Mg Tablet 25 MG PO DAILY PRN for NEUROPATHY, TAB LAST FILLED 02-21-17 #30 Insulin Aspart (Novolog) 100 Unit/1 Ml Susp 15 UNITS SQ AC, EA LAST FILLED 09-01-16 Insulin Determir (Levemir) 1,000 Units/10 Ml Soln 45 UNITS SC HS, EA LAST FILLED 10-18-16 Patient Instructions Goal/Follow Up Appt: Follow up appt with Raphael Rogel Jun 13 @ 2pm Patient Instructions: - Decrease basal insulin for the next 2-3 days to 35 units at night due to decreased appetite [facility] - Unable to tolerate medications Activity & Diet Discharge Diet: ADA Diet [facility] MD Jun 01, 2017 11:52 am
--- NOTE | 2017-06-01 11:53 | Discharge Summary ---
Diagnosis/Chief Complaint Date of Admission May 30, 2017 at 3:53 pm Date of Discharge Chief Complaint/HPI Chief Complaint/HPI Patient is a 46 yo F w/ PMH of IDDM who presented to the ED on 05/30 after several episodes of vomiting in the morning. Patient woke up the morning of and was unable to take her blood glucose because the battery in her monitor was , she then ate a normal breakfast and started vomiting shortly after. Patient has a hx of DKA and presented to the ED w/ concerns of another episode of DKA. Patient takes 45 units of long acting insulin qhs and 15 units w/ meals , she states her average sugar level is probably 150-250 most days when she checks it. Patient states she has been having loose stools for over a week and thinks she probably has been getting progressively dehydrated during this time and today complains of several loose watery stools which is an acute worsening from her previous loose BMs. Upon presentation to the ED the patient was tachycardic and tachypneic w/ positive UA, UDS also tested positive for cocaine and meth. Patient admits abdominal pains related to frequent BMs, baseline HAs, some minor changes in vision, mild neuropathy from her feet to her knees but denies new numbness or tingling, CP, SOB, dysuria, hematuria or hematochezia. Discharge Summary-Simple/Stand Consultations Discharge Physical Examination Allergies: Coded Allergies: Sulfa (Sulfonamide Antibiotics) (Unverified Allergy, Unknown, 05/30/17) Vitals & I&Os Vital Sign - Last 12Hours Date Time Temp Pulse Resp B/P (MAP) Pulse Ox O2 Delivery O2 Flow Rate FiO2 06/01/17 08:00 Room Air 06/01/17 08:00 98.1 96 18 121/76 (91) 97 Intake and Output 06/01/17 00:00 Intake Total 2542 ml Output Total 950 ml Balance 1592 ml Hospital Course See final discharge diagnosis. Radiology Reviewed Date of Exam: 05/30/17 CHEST 1 VIEW, AP/PA ONLY CLINICAL INDICATION: Patient with high blood sugar. EXAM: Portable chest x-ray upright view. Of note, patient is unable to remove nipple rings. COMPARISONS: Chest x-ray dated 05/10/2017. FINDINGS: Lungs/pleura: Lungs are clear. There is no pneumothorax. There is no pleural effusion. Mediastinum: Unremarkable. Pulmonary vasculature: Unremarkable. Heart: Unremarkable. Bones/extrathoracic soft tissue: Unremarkable. IMPRESSION: There is no radiographic evidence of acute cardiopulmonary process. Discharge Instructions to patient/family Please see electronic discharge instructions given to patient. Discharge Medications Reviewed and agree with Discharge Medication list on patient's Discharge Instruction sheet Clinical Quality Measures DVT/VTE Risk/Contraindication: Risk Factor Score Per Nursin RFS Level Per Nursing on Admit: 2=Moderate CHRISTY BOLDEN MD Jun 01, 2017 11:53 am
[2017-06-01 12:15] VITALS: BP 121/76
--- OUTSIDE RECORDS SUMMARY | 2017-06-02 12:25 | XMS REPORT | Continuity of Care Document ---
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 Jacker Feeder Name Role Phone [employer] Unavailable Unavailable Problems Medications Allergies, Adverse Reactions, Alerts Immunizations Results Vital Signs Encounters Location Location Details Encounter Type Encounter Number Reason For Visit Attending Provider ADM Date DC Date Status Source [facility] Cancel Admit [id number] Gil Enriquez 201503/18/2016 [facility] Mental Health Procedures Plan of Care Social History Assessment and Plan Family History Advance Directives Functional Status
--- OUTSIDE RECORDS SUMMARY | 2017-06-02 12:45 | XMS REPORT | Continuity of Care Document ---
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 Licensing Court Magistrate Name Role Phone [employer] Unavailable Unavailable Problems Medications Allergies, Adverse Reactions, Alerts Immunizations Results Vital Signs Encounters Location Location Details Encounter Type Encounter Number Reason For Visit Attending Provider ADM Date DC Date Status Source [facility] Cancel Admit [id number] Gil Enriquez 201503/18/2016 [facility] Mental Health Procedures Plan of Care Social History Assessment and Plan Family History Advance Directives Functional Status
== END 2017-06-01 12:26 | disposition home or self-care (01) | DRG 690 ==
LOC: EDUNIT# 11:31 → ER 11:33 → 4TH 15:53
PROVIDERS: ADMIT Family Medicine; ATTEND Family Medicine
DX: N39.0 Urinary tract infection, site not specified (principal); E11.65 Type 2 diabetes mellitus with hyperglycemia; E11.649 Type 2 diabetes mellitus with hypoglycemia without coma; E11.43 Type 2 diabetes mellitus with diabetic autonomic (poly)neuropathy; F14.90 Cocaine use, unspecified, uncomplicated; F15.90 Other stimulant use, unspecified, uncomplicated; F32.9 Major depressive disorder, single episode, unspecified; F41.9 Anxiety disorder, unspecified; M81.0 Age-related osteoporosis without current pathological fracture; Z79.4 Long term (current) use of insulin; Z91.14 Patient's other noncompliance with medication regimen
CPT/HCPCS: 36415; 71045; 80053; 80306; 80320; 81000; 82550; 82553; 82962; 83036; 83605; 83690; 83735; 83874; 84443; 84484; 85007; 85025; 85027; 87040; 87045; 87046; 87088; 87186; 87324; 87328; 87329; 87449; 93005; 93041; 96361; 96374; 96375

== ENCOUNTER 2017-07-20 08:35 | Observation (INO) | payer MEDICAID ==
[~2017-07-20] VITALS: Ht 167.6 cm; Wt 58.1 kg
--- OUTSIDE RECORDS SUMMARY | 2017-07-20 08:40 | XMS REPORT | Continuity of Care Document ---
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 Bacteriologist Dairy Name Role Phone [employer] Unavailable Unavailable Problems Medications Allergies, Adverse Reactions, Alerts Immunizations Results Vital Signs Encounters Location Location Details Encounter Type Encounter Number Reason For Visit Attending Provider ADM Date DC Date Status Source [facility] Cancel Admit [id number] Gil Enriquez 201503/18/2016 [facility] Mental Health Procedures Plan of Care Social History Assessment and Plan Family History Advance Directives Functional Status
--- OUTSIDE RECORDS SUMMARY | 2017-07-20 08:41 | XMS REPORT ---
Author Author LUKE SCHUSTER Organization [facility] Address [address] [place] [address] Care Team Providers Care Rock Lather Name Role Phone LUKE SCHUSTER Unavailable PROBLEMS Type Condition ICD9-CM Code [id number] Code Onset Dates Condition Status SNOMED Code Problem Type 1 diabetes mellitus with diabetic neuropathy E10.40 Active 238031795 Problem Diabetic mononeuropathy associated with type 2 diabetes mellitus E11.41 Active 160103533 Problem Type 2 diabetes mellitus with other specified complication E11.69 Active 46508700598449 Problem Type 2 diabetes mellitus with hyperglycemia E11.65 Active [id number] ALLERGIES No Information ENCOUNTERS Encounter Location Date Diagnosis [facility] [id number] [place] [address] Jul, [facility] [id number] [place] [address] Jun, Type 1 diabetes mellitus with diabetic neuropathy E10.40 [facility] [id number] [place] [id number] May, [facility] [id number] [id number] Apr, [facility] [address] [place] [address] Feb, Type 2 diabetes mellitus with hyperglycemia E11.65 [facility] [id number], [place] [address] Feb, Type 2 diabetes mellitus with other specified complication E11.69 and Diabetic mononeuropathy associated with type 2 diabetes mellitus E11.41 [facility] [address] [id number] Oct, [facility] [id number] [place] [id number] Oct, Type 2 diabetes mellitus with other specified complication E11.69 [facility] [id number] [place] [address]- [address] August, Type 2 diabetes mellitus with other specified complication E11.69 and Type 2 diabetes mellitus with hyperglycemia E11.65 [facility] [id number] [place] [id number] August, [facility] [id number] [place] [id number] 2546 Feb, [facility] [id number] [place] [address] [id number] Sep, Dental caries K02.9 [facility] [id number] [place] [address] [id number] August, Dental examination Z01.20 [facility] [id number] [place] [address]- [address] Jan, [facility] [id number] [place] [address] 98793- 2726 Jan, [facility] [id number] [place] [address] 07[address]- 2636 Dec, Diabetes with ketoacidosis, type II or unspecified type, uncontrolled 250.12 [facility] [address] [address] Nov, [facility] [id number] [place] [address] 2546 Nov, Fever 780.60 [facility] [id number] [place] [address] 78510- 6776 Jul, [facility] [id number] [place] [address]- [address] Jul, [facility] [address] [address] August, [facility] [id number] [place] [address] August, [facility] [address] [id number] [place] [address] Jun, [facility] [place] [facility] [address] [id number] [place] [address] Jun, [facility] [address] [id number] [place] [address] Apr, [facility] [address] [id number] [place] [address] Apr, [facility] [address] [id number] [place] [address] Mar, [facility] [address] [id number] [place] [address] Mar, [facility] [address] [id number] [place] [address] Oct, [facility] [address] [id number] [place] [address] Jun, [facility] [address] [id number] [place] [address] Jan, [facility] [address] [id number] [place] [address] Jan, [facility] [address] [id number] [place] [address] Jan, [facility] [address] [id number] [place] [address] Dec, [facility] [place] [facility] [address] [id number] [place] [address] Feb, [facility] [place] [facility] [address] [id number] [place] [address] Mar, [facility] [address] [id number] [place] [address] Feb, [facility] [address] [facility] [id number] [place] [address] Feb, [facility] [address] [facility] [id number] [place] [address] Feb, IMMUNIZATIONS No Known Immunizations SOCIAL HISTORY Never Assessed REASON FOR VISIT Waiting for call back PLAN OF CARE VITAL SIGNS MEDICATIONS Medication Instructions Dosage Frequency Start Date End Date Duration Status NovoLog 100 UNIT/ML Subcutaneous 3 times a day before meals 8 units August, Active Levemir 100 UNIT/ML Subcutaneous at bedtime 30 units 30 days Active RESULTS No Results PROCEDURES No Known procedures INSTRUCTIONS MEDICATIONS ADMINISTERED No Known Medications MEDICAL (GENERAL) HISTORY Type Description Date Medical History Diabetes type I Medical History diabetic neuropathy Surgical History tubal ligation 2002 Hospitalization History Ketoacidosis 01/2014 Hospitalization History DKA, UTI-[facility] 08/11/16 Hospitalization History DKA, UTI-[facility] 05/09/17 Hospitalization History UTI, DKA-VC 05/30/17
[2017-07-20 09:10] LABS: BASOPHILS % (AUTO) 0 % (0-10); EOSINOPHILS # (AUTO) 0.2 10^3/uL (0.0-0.3); EOSINOPHILS % (AUTO) 2 % (0-10); HEMATOCRIT 35 % (35-52); HEMOGLOBIN 11.4 G/DL (11.5-16.0); LYMPHOCYTES # (AUTO) 2.1 X 10^3 (1.0-4.0); LYMPHOCYTES % (AUTO) 31 % (12-44); MEAN CORPUSCULAR HEMOGLOBIN 29 PG (25-34); MEAN CORPUSCULAR HGB CONC 33 G/DL (32-36); MEAN CORPUSCULAR VOLUME 87 FL (80-99); MEAN PLATELET VOLUME 10.4 FL (7.4-10.4); MONOCYTES # (AUTO) 0.4 X 10^3 (0.0-1.0); MONOCYTES % (AUTO) 6 % (0-12); NEUTROPHILS # (AUTO) 4.2 X 10^3 (1.8-7.8); NEUTROPHILS % (AUTO) 60 % (42-75); PLATELET COUNT 330 10^3/uL (130-400); RED BLOOD COUNT 3.96 10^6/uL (4.35-5.85); RED CELL DISTRIBUTION WIDTH 14.2 % (10.0-14.5); WHITE BLOOD COUNT 6.9 10^3/uL (4.3-11.0)
[2017-07-20] MEDS ORDERED: NS IV 1000 ML 1,000 ML IV SCH (09:15)
[2017-07-20 09:24] LABS: ALBUMIN 3.9 GM/DL (3.2-4.5); BILIRUBIN,TOTAL 0.2 MG/DL (0.1-1.0); CALCIUM 8.6 MG/DL (8.5-10.1); CREATININE SERUM 1.35 MG/DL (0.60-1.30); POTASSIUM 4.4 MMOL/L (3.6-5.0); TOTAL PROTEIN 7.3 GM/DL (6.4-8.2)
[2017-07-20 10:48] LABS: BILIRUBIN,URINE NEGATIVE (NEGATIVE); CLARITY,URINE CLEAR; COLOR,URINE YELLOW; GLUCOSE, URINE (UA) 4+ (NEGATIVE); KETONES,URINE 3+ (NEGATIVE); LEUKOCYTE ESTERASE ,URINE 1+ (NEGATIVE); NITRITE,URINE POSITIVE (NEGATIVE); PH,URINE 5 (5-9); PROTEIN,URINE NEGATIVE (NEGATIVE); UROBILINOGEN,URINE NORMAL (NORMAL)
--- NOTE | 2017-07-20 10:53 | ED General ---
General Chief Complaint: Glucose Problems Stated Complaint: GLUCOSE ISSUES Nursing Triage Note: c/o elevated blood sugar with vomiting. Onset early this morning. Nursing Sepsis Screen: No Definite Risk Source of Information: Patient Exam Limitations: No Limitations History of Present Illness Date Seen by Provider: Jul 20, 2017 Time Seen by Provider: 10:15 Initial Comments The patient is a 46-year-old diabetic. She presents with complaints of high blood sugar. She seems unable to give a consistent report about her medications and administration of the same. She told the nurses that she was taking NPH insulin. It was later found that she had Levemir and NovoLog. She stated that when she was in here as an inpatient on 05/09 her medications were cut in half. She states that she has been taking 8 units of NovoLog with meals and 20 units of Levemir in the evening. In a check of her discharge instructions from April it was found that she was to be taking 45 units of Levemir in the evening and 15 units of NovoLog with each meal which was unchanged from her previous regimen. No odor of ketones is noted. Timing/Duration: 2-3 Days, Other (she was here yesterday with a family member and made no effort to report her problems.) Allergies and Home Medications Allergies Coded Allergies: Sulfa (Sulfonamide Antibiotics) (Unverified Allergy, Unknown, 05/30/17) Home Medications Amitriptyline HCl 25 Mg Tablet, 25 MG PO DAILY PRN for NEUROPATHY, (Reported) LAST FILLED 02-21-17 #30 Insulin Aspart 100 Unit/1 Ml Susp, 15 UNITS SQ AC, (Reported) LAST FILLED 09-01-16 Insulin Determir 1,000 Units/10 Ml Soln, 45 UNITS SC HS, (Reported) LAST FILLED 10-18-16 Patient Home Medication List Home Medication List Reviewed: Yes Constitutional: see HPI EENTM: blurred vision Respiratory: no symptoms reported Cardiovascular: no symptoms reported Gastrointestinal: nausea Genitourinary: no symptoms reported Musculoskeletal: no symptoms reported Skin: no symptoms reported Hematologic/Lymphatic: No Symptoms Reported Immunological/Allergic: no symptoms reported Past Gpcsspq-Rsmyny-Plxtnc Hx Patient Social History Alcohol Use: Occasionally Uses Number of Drinks Today: BB Alcohol Beverage of Choice: Beer, [place] Recreational Drug Use: No Drug of Choice: cocaine Smoking Status: Never a Smoker Recent Foreign Travel: No Contact w/Someone Who Travel: No Recent Infectious Disease Expo: No Recent Hopitalizations: No Immunizations Up To Date Tetanus Booster (TDap): Unknown PED Vaccines UTD: No Seasonal Allergies Seasonal Allergies: No Surgeries History of Surgeries: Yes Surgeries: Tubal Ligation Respiratory History of Respiratory Disorde: No Currently Using CPAP: No Currently Using BIPAP: No Cardiovascular History of Cardiac Disorders: No Neurological History of Neurological Disord: Yes Neurological Disorders: Neuropathy 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 System Hx 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 Disorders: No Sexually Transmitted Disease: No HIV/AIDS: No Female 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 Disorders: Denies [employer] RUBBER History: Tubal Ligation Genitourinary History of Genitourinary Disor: Yes Genitourinary Disorders: Kidney Infection Gastrointestinal History of Gastrointestinal Di: No Musculoskeletal History of Musculoskeletal Dis: Yes Musculoskeletal Disorders: Osteoporosis, Arthritis Endocrine History of Endocrine Disorders: Yes Endocrine Disorders: Diabetes, Insulin dep HEENT History of HEENT Disorders: No Cancer History of Cancer: No Did You Recieve Any Treatments: No Psychosocial History of Psychiatric Problem: Yes Behavioral Health Disorders: Anxiety, Depression Integumentary History of Skin or Integumenta: No Blood Transfusions History of Blood Disorders: No Adverse Reaction to a Blood Tr: No Family Medical History Significant Family History: Heart Disease, Diabetes, Hypertension Family Medial History: Family history: Hypertension 09 SISTER Kidney disease 03 MOTHER Myocardial infarction 09 SISTER Physical Exam Vital Signs Vital Signs - First Documented 07/20/17 08:51 Temp 97.0 Pulse 91 Resp 18 B/P (MAP) 139/97 (111) Pulse Ox 100 O2 Delivery Room Air Capillary Refill : Less Than 3 Seconds General Appearance: Other (poor hygiene) Eyes: Bilateral Eye Normal Inspection HEENT: Normal ENT Inspection Neck: Normal Inspection Respiratory: Chest Non Tender, Lungs Clear, Normal Breath Sounds, No Accessory Muscle Use, No Respiratory Distress Cardiovascular: Regular Rate, Rhythm, No Edema, No Gallop, No JVD, No Murmur, Normal Peripheral Pulses Gastrointestinal: Normal Bowel Sounds, No Organomegaly, No Pulsatile Mass, Non Tender, Soft Back: Normal Inspection Extremity: Normal Capillary Refill Neurologic/Psychiatric: Alert, Oriented x3, No Motor/Sensory Deficits, Normal Mood/Affect Skin: Normal Color, Warm/Dry Lymphatic: No Adenopathy Progress/Results/Core Measures Suspected Sepsis Recent Fever Within 48 Hours: No Infection Criteria Present: None New/Unexplained Altered Menta: No Sepsis Screen: No Definite Risk Sepsis Diagnosis: SIRS Temperature:97.0 Pulse: 91 Respiratory Rate: 18 Laboratory Tests 07/20/17 08:50: White Blood Count 6.9 Blood Pressure 139 /97 Mean: 111 Laboratory Tests 07/20/17 08:50: Creatinine 1.35H, Platelet Count 330, Total Bilirubin 0.2 Results/Orders Lab Results Laboratory Tests Test 07/20/17 08:50 07/20/17 09:01 07/20/17 10:35 Range/Units White Blood Count 6.9 4.3-11.0 10^3/uL Red Blood Count 3.96 L 4.35-5.85 10^6/uL Hemoglobin 11.4 L 11.5-16.0 G/DL Hematocrit 35 35-52 % Mean Corpuscular Volume 87 80-99 FL Mean Corpuscular Hemoglobin 29 25-34 PG Mean Corpuscular Hemoglobin Concent 33 32-36 G/DL Red Cell Distribution Width 14.2 10.0-14.5 % Platelet Count 330 130-400 10^3/uL Mean Platelet Volume 10.4 7.4-10.4 FL Neutrophils (%) (Auto) 60 42-75 % Lymphocytes (%) (Auto) 31 12-44 % Monocytes (%) (Auto) 6 0-12 % Eosinophils (%) (Auto) 2 0-10 % Basophils (%) (Auto) 0 0-10 % Neutrophils # (Auto) 4.2 1.8-7.8 X 10^3 Lymphocytes # (Auto) 2.1 1.0-4.0 X 10^3 Monocytes # (Auto) 0.4 0.0-1.0 X 10^3 Eosinophils # (Auto) 0.2 0.0-0.3 10^3/uL Basophils # (Auto) 0.0 0.0-0.1 10^3/uL Sodium Level 131 L 135-145 MMOL/L Potassium Level 4.4 3.6-5.0 MMOL/L Chloride Level 96 L 98-107 MMOL/L Carbon Dioxide Level 25 21-32 MMOL/L Anion Gap 10 5-14 MMOL/L Blood Urea Nitrogen 26 H 7-18 MG/DL Creatinine 1.35 H 0.60-1.30 MG/DL Estimat Glomerular Filtration Rate 52 BUN/Creatinine Ratio 19 Glucose Level 773 *H 70-105 MG/DL Calcium Level 8.6 8.5-10.1 MG/DL Total Bilirubin 0.2 0.1-1.0 MG/DL Aspartate Amino Transf (AST/SGOT) 15 5-34 U/L Alanine Aminotransferase (ALT/SGPT) 21 0-55 U/L Alkaline Phosphatase 147 H 40-136 U/L Total Protein 7.3 6.4-8.2 GM/DL Albumin 3.9 3.2-4.5 GM/DL Glucometer 546 *H 70-110 MG/DL My Orders Orders - ANA PAULA ANDREWS MD Accucheck Stat ONCE (07/20/17 08:56) Cbc With Automated Diff (07/20/17 09:04) Comprehensive Metabolic Panel (07/20/17 09:04) Ua Culture If Indicated (07/20/17 09:04) Ns Iv 1000 Ml (Sodium Chloride 0.9%) (07/20/17 09:15) Vital Signs/I&O Vital Sign - Last 12Hours 07/20/17 08:51 Temp 97.0 Pulse 91 Resp 18 B/P (MAP) 139/97 (111) Pulse Ox 100 O2 Delivery Room Air Capillary Refill : Less Than 3 Seconds Blood Pressure Mean: 111 Point of Care Testing Finger Stick Blood Glucose: 546 Departure Impression Impression: Primary Impression: hyperglycemia Disposition: ADMITTED INPATIENT Condition: Stable/Unchanged Admissions Decision to Admit Reason: Admit from ER (General) Decision to Admit/Date: Jul 20, 2017 Time/Decision to Admit Time: 10:38 Departure-Patient Inst. Referrals: [facility] (PCP/Family) Primary Care Physician ANA PAULA ANDREWS MD Jul 20, 2017 10:53
[2017-07-20 11:01] LABS: BACTERIA,URINE MODERATE /HPF; SQUAMOUS EPITHELIAL CELL,UR RARE /HPF
[2017-07-20 11:02] LABS: YEAST,URINE FEW /HPF
--- OUTSIDE RECORDS SUMMARY | 2017-07-20 12:05 | XMS REPORT | Continuity of Care Document ---
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 Rn Diabetes Name Role Phone [employer] Unavailable Unavailable Problems Medications Allergies, Adverse Reactions, Alerts Immunizations Results Vital Signs Encounters Location Location Details Encounter Type Encounter Number Reason For Visit Attending Provider ADM Date DC Date Status Source [facility] Cancel Admit [id number] Gil Enriquez 201503/18/2016 [facility] Mental Health Procedures Plan of Care Social History Assessment and Plan Family History Advance Directives Functional Status
[2017-07-20] MEDS ORDERED: inSUlin (REGULAR) HUMAN 1 UNIT/0.01 ML (CHARGE PER UNIT) IV ONE (12:45)
[2017-07-20 13:00] VITALS: BP 121/81
[2017-07-20] MEDS ORDERED: inSUlin (REGULAR) HUMAN 1 UNIT/0.01 ML (CHARGE PER UNIT) IV SCH ×2 (13:00→15:00)
[2017-07-20] MEDS ORDERED: CATHETER FLUSH 10 ML SYR IV PRN (13:15)
[2017-07-20] MEDS: NS IV 1000 ML 1,000 ML IV SCH ×2 (13:25→18:46)
[2017-07-20 15:04] VITALS: BP 114/73
[2017-07-20] MEDS ORDERED: AMITRIPTYLINE 25 MG (ELAVIL) TAB PO PRN (16:00)
--- NOTE | 2017-07-20 16:33 | History & Physicial ([facility]) ---
HPI History of Present Illness: This is a 46 yo female w/ history of DM Type 1 with prior admissions for hyperglycemia and DKA. Pt presents not feeling well for the past couple of days with very elevated BS. Pt has been taking Levemir 25U qhs and Novolog 11 U w/ meals. She reports being compliant with insulin. Reports 1 day hx of UTI symptoms which disappeared. Denies fever, chills, abdominal pain. Date seen by provider: Jul 20, 2017 Time Seen by Provider: 16:33 Attending Physician Romeo Dooley DO [facility] Consult Date of Admission Jul 20, 2017 at 10:44 Home Medications Home Medications Reviewed patient Home Medication Reconciliation performed by pharmacy medication reconciliations ct technician and/or nursing. Patients Allergies have been reviewed. Allergies Coded Allergies: Sulfa (Sulfonamide Antibiotics) (Unverified Allergy, Unknown, 05/30/17) KGC-Otptrf-Kzolas Hx Patient Social History Alcohol Use: Occasionally Uses Recreational Drug Use: No Drug of Choice: cocaine Smoking Status: Never a Smoker Recent Foreign Travel: No Contact w/other who traveled: No Recent Hopitalizations: No Recent Infectious Disease Expo: No Immunizations Up To Date Tetanus Booster (TDap): Unknown Past Medical History Past Medical History 1. Diabetes Mellitus I dx 2009 2. Depression with history of Suicide attempt/ Suicidal ideation 3. Cocaine Use/Abuse 4. Abnormal Pap 5. Diabetic Neuropathy 6. Anxiety 7. Arthritis 8. Medical Noncompliance 9. History of Incarceration Past Surgical History 1. Tubal Ligation 2. LEEP Family Medical History Significant Family History: Heart Disease, Diabetes, Hypertension Family History: Family history: Hypertension 09 SISTER Kidney disease 03 MOTHER Myocardial infarction 09 SISTER Review of Systems ([facility]) Constitutional: see HPI Physical Exam-([facility]) Physical Exam Vital Signs VS - Last 72 Hours, by Label 07/20/17 07/20/17 07/20/17 07/20/17 08:51 12:54 13:00 15:04 Temp 97.0 97.0 98.2 99.2 Pulse 91 94 93 97 Resp 18 18 12 16 B/P (MAP) 139/97 (111) 132/94 (111) 121/81 (94) 114/73 (87) Pulse Ox 100 100 98 96 O2 Delivery Room Air Room Air Room Air 07/20/17 07/20/17 07/21/17 07/21/17 19:40 20:25 00:00 05:00 Temp 97.0 97.2 96.5 Pulse 86 87 91 Resp 18 19 18 B/P (MAP) 97/58 (71) 107/65 (79) 92/53 (66) Pulse Ox 98 98 94 97 O2 Delivery Room Air Room Air Room Air Room Air 07/21/17 07/21/17 07/21/17 08:00 08:00 12:00 Temp 97.6 97.6 Pulse 95 91 Resp 18 16 B/P (MAP) 99/65 (76) 99/58 (72) Pulse Ox 98 O2 Delivery Room Air Room Air Room Air Capillary Refill : Less Than 3 Seconds General Appearance: WD/WN, no apparent distress HEENT: PERRL/EOMI Respiratory: chest non-tender, lungs clear, normal breath sounds Cardiovascular: regular rate, rhythm, no edema Gastrointestinal: non tender, soft Neurologic/Psychiatric: alert, normal mood/affect, oriented x 3 Skin: normal color, warm/dry Assessment/Plan Assessment/Plan Admission Dx DM Type 1 Hyperglycemia UTI Admission Status: Observation Assessment & Plan 1. DM Type I - patient given IV insulin in the ER and aggressive IVF rehydration - no evidence of DKA - plan to resume sq insulin when BS <200 2. Hyperglycemia - fluctuating BS between high's and low's - recommend referral to DM Educator and consider sliding scale Novolog based on carb intake 3. UTI - start ROMEO Yancey DO Jul 20, 2017 16:33
[2017-07-20] MEDS: cefTRIAXone INJECTION 1,000 MG in NS (IVPB) 100 ML IV SCH (16:49)
[2017-07-20] MEDS: inSUlin ASPART (NovoLOG) 1 UNIT/0.01 ML (CHARGE PER UNIT) SQ SCH (16:49)
[2017-07-20 17:03] LABS: HEMOGLOBIN 9.2 G/DL (11.5-16.0); MEAN PLATELET VOLUME 9.3 FL (7.4-10.4); RED BLOOD COUNT 3.19 10^6/uL (4.35-5.85); RED CELL DISTRIBUTION WIDTH 13.9 % (10.0-14.5); WHITE BLOOD COUNT 8.5 10^3/uL (4.3-11.0)
[2017-07-20 20:25] VITALS: BP 97/58
[2017-07-20] MEDS ORDERED: inSUlin DETERMIR 1 UNIT/0.01 ML (LEVEMIR) CHARGE PER UNIT SQ SCH (21:00)
[2017-07-20] MEDS: inSUlin ASPART (NovoLOG) 1 UNIT/0.01 ML (CHARGE PER UNIT) SC SCH (21:07)
[2017-07-21] VITALS: BP 107/65
[2017-07-21] MEDS: NS IV 1000 ML 1,000 ML IV SCH ×3 (01:04→14:00)
[2017-07-21 05:00] VITALS: BP 92/53
[2017-07-21] MEDS: inSUlin ASPART (NovoLOG) 1 UNIT/0.01 ML (CHARGE PER UNIT) SC SCH ×3 (05:22→15:37)
[2017-07-21 06:42] LABS: ALANINE AMINOTRANSFERASE 14 U/L (0-55); ALKALINE PHOSPHATASE 104 U/L (40-136); BILIRUBIN,TOTAL 0.2 MG/DL (0.1-1.0); BUN/CREATININE RATIO 18; CARBON DIOXIDE 22 MMOL/L (21-32); CHLORIDE 109 MMOL/L (98-107); CREATININE SERUM 0.65 MG/DL (0.60-1.30); GFR ESTIMATED > 60; GLUCOSE 131 MG/DL (70-105); POTASSIUM 3.6 MMOL/L (3.6-5.0); SODIUM 140 MMOL/L (135-145); TOTAL PROTEIN 5.5 GM/DL (6.4-8.2)
[2017-07-21] MEDS: inSUlin ASPART (NovoLOG) 1 UNIT/0.01 ML (CHARGE PER UNIT) SQ SCH ×3 (07:08→16:59)
[2017-07-21 08:00] VITALS: BP 99/65
[2017-07-21] MEDS: cefTRIAXone INJECTION 1,000 MG in NS (IVPB) 100 ML IV SCH (09:51)
[2017-07-21 12:00] VITALS: BP 99/58
[2017-07-21] MEDS ORDERED: INSU100V5 SC (15:27)
--- NOTE | 2017-07-21 15:37 | Discharge Instructions ---
Discharge [facility] Discharge Medications Changed Medications: Insulin Determir (Levemir) 1,000 Units/10 Ml Soln 25 UNITS SC HS, #1 EA 0 Refills (Changed from: 20 UNITS; Refills: ) new Levemir dose of 25 units at bedtime Continued Medications: Amitriptyline HCl (Amitriptyline HCl) 25 Mg Tablet 25 MG PO DAILY PRN for NEUROPATHY, TAB LAST FILLED 02-21-17 #30 Insulin Aspart (Novolog) 100 Unit/1 Ml Susp 15 UNITS SQ AC, EA Patient Instructions Goal/Follow Up Appt: F/U with Raphael 07/25/17 at 2pm Ginny Mireles, Pipe Testing Technician will contact patient for appointment for diabetic education Activity & Diet Discharge Diet: ADA Diet Orders-Post D/C & Referrals Pneu Vac Indicated: Yes ROMEO OLSON DO Jul 21, 2017 15:37
--- NOTE | 2017-07-21 15:39 | Discharge Summary ---
Diagnosis/Chief Complaint Date of Admission Jul 20, 2017 at 10:44 Date of Discharge July 21, 2017 Admission Diagnosis Admission Diagnosis 1. DM Type I 2. Hyperglycemia 3. UTI Discharge Diagnosis 1. DM Type I - patient given IV insulin in the ER and aggressive IVF rehydration - no evidence of DKA - plan to resume sq insulin when BS <200 07/21 - Had hypoglycemia overnight DC home on Levemir 25U qhs and Novolog 15 w/ meals (see #2 recommendations) 2. Hyperglycemia - fluctuating BS between high's and low's - recommend referral to DM Educator and consider sliding scale Novolog based on carb intake 3. UTI - start Rocephin - RX for Cipro to complete antibiotics. Discharge Summary-OBS Procedures None. Consultations Discharge Physical Examination Allergies: Coded Allergies: Sulfa (Sulfonamide Antibiotics) (Unverified Allergy, Unknown, 05/30/17) Vitals & I&Os Intake and Output 07/21/17 00:00 Intake Total 2740 ml Output Total 1000 ml Balance 1740 ml Vital Sign - Last 12Hours Date Time Temp Pulse Resp B/P (MAP) Pulse Ox O2 Delivery O2 Flow Rate FiO2 07/21/17 08:00 97.6 95 18 99/65 (76) 98 Room Air General Appearance: Alert, Oriented X3, Cooperative Psych/Mental Status: Mood NL Hospital Course Labs Laboratory Tests 07/20/17 17:00: White Blood Count 8.5, Red Blood Count 3.19L, Hemoglobin 9.2L, Hematocrit 28L, Mean Corpuscular Volume 87, Mean Corpuscular Hemoglobin 29, Mean Corpuscular Hemoglobin Concent 33, Red Cell Distribution Width 13.9, Platelet Count 256, Mean Platelet Volume 9.3 07/20/17 20:26: Glucometer 130H 07/21/17 02:07: Glucometer 40*L 07/21/17 02:29: Glucometer 41*L 07/21/17 03:01: Glucometer 85 07/21/17 05:19: Glucometer 138H 07/21/17 05:55: Sodium Level 140, Potassium Level 3.6, Chloride Level 109H, Carbon Dioxide Level 22, Anion Gap 9, Blood Urea Nitrogen 12, Creatinine 0.65, Estimat Glomerular Filtration Rate > 60, BUN/Creatinine Ratio 18, Glucose Level 131H, Calcium Level 8.0L, Total Bilirubin 0.2, Aspartate Amino Transf (AST/SGOT) 12, Alanine Aminotransferase (ALT/SGPT) 14, Alkaline Phosphatase 104, Total Protein 5.5L, Albumin 3.0L 07/21/17 09:52: Glucometer 36*L 07/21/17 14:54: Glucometer 304H Microbiology 07/20/17 Urine Culture - Preliminary, Resulted Probable E.coli Discharge Instructions to patient/family Please see electronic discharge instructions given to patient. Patient Instructions Goal/Follow Up Appt: F/U with Raphael 07/25/17 at 2pm Ginny Mireles Tech Ed Teacher will contact patient for appointment for diabetic education Activity & Diet Discharge Diet: ADA Diet Discharge Medications Reviewed and agree with Discharge Medication list on patient's Discharge Instruction sheet Discharge Medications Changed Medications: Insulin Determir (Levemir) 1,000 Units/10 Ml Soln 25 UNITS SC HS, #1 EA 0 Refills (Changed from: 20 UNITS; Refills: ) new Levemir dose of 25 units at bedtime Continued Medications: Amitriptyline HCl (Amitriptyline HCl) 25 Mg Tablet 25 MG PO DAILY PRN for NEUROPATHY, TAB LAST FILLED 02-21-17 #30 Insulin Aspart (Novolog) 100 Unit/1 Ml Susp 15 UNITS SQ AC, EA Clinical Quality Measures DVT/VTE Risk/Contraindication: Risk Factor Score Per Nursin RFS Level Per Nursing on Admit: 2=Moderate ROMEO OLSON DO Jul 21, 2017 15:38
[2017-07-21] MEDS ORDERED: CIPR-225 PO (15:54)
[2017-07-21 16:00] VITALS: BP 124/87
== END 2017-07-21 15:35 | disposition home or self-care (01) ==
LOC: EDUNIT# 08:35 → ER 08:36 → UNDOADMOB 10:44 → ICU 10:44 → 4TH 19:40 → UNDODISOB 07-21 19:29
PROVIDERS: ADMIT Family Medicine; ATTEND Family Medicine
DX: E10.65 Type 1 diabetes mellitus with hyperglycemia (principal); N39.0 Urinary tract infection, site not specified; Z88.2 Allergy status to sulfonamides; Z79.4 Long term (current) use of insulin; Z91.14 Patient's other noncompliance with medication regimen; E10.40 Type 1 diabetes mellitus with diabetic neuropathy, unspecified; F32.9 Major depressive disorder, single episode, unspecified; F41.9 Anxiety disorder, unspecified; F14.10 Cocaine abuse, uncomplicated; M81.0 Age-related osteoporosis without current pathological fracture
CPT/HCPCS: 36415; 80053; 81000; 82962; 85025; 85027; 87088; 87186; 96361; 96374; 99282

== ENCOUNTER 2017-10-16 21:31 | Emergency (ER) | payer MEDICAID ==
[~2017-10-16] VITALS: Ht 167.6 cm; Wt 59.0 kg
[~2017-10-16 21:31] MED LIST changes: +CIPR-225 PO
[2017-10-16] MEDS ORDERED: MUPIROCIN 2% OINT 22 GM (BACTROBAN) TUBE ONE (21:42)
[2017-10-16] MEDS ORDERED: DOXYCYCLINE 100 MG (VIBRAMYCIN) TABLET PO SCH (21:45)
--- NOTE | 2017-10-16 21:45 | ED Lower Extremity ---
General Chief Complaint: Lower Extremity Stated Complaint: L FOOT BIG TOENAIL FELL OFF Source: patient Exam Limitations: no limitations History of Present Illness Date Seen by Provider: Oct 16, 2017 Time Seen by Provider: 21:40 Initial Comments ambulatory to ER per private vehicle in a tank top , flannel pajama pants and wearing a house arrest ankle bracelet with complaint that her left toenail has fallen off and seemed to have some pus beneath it. she does not walk with antalgic gait. She denies any swelling or fevers. This was first noticed last night. She is a poorly controlled diabetic. Denies any known preceding trauma. Onset: yesterday Severity: mild Pain/Injury Location: left 1st toe Method of Injury: unknown Allergies and Home Medications Allergies Coded Allergies: Sulfa (Sulfonamide Antibiotics) (Unverified Allergy, Unknown, 05/30/17) Home Medications Amitriptyline HCl 25 Mg Tablet, 25 MG PO DAILY PRN for NEUROPATHY, (Reported) LAST FILLED 02-21-17 #30 Ciprofloxacin HCl 500 Mg Tablet, 500 MG PO BID Prescribed by: RMOEO OLSON on 07/21/17 1554 Insulin Aspart 100 Unit/1 Ml Susp, 15 UNITS SQ AC, (Reported) Insulin Determir 1,000 Units/10 Ml Soln, 25 UNITS SC HS new Levemir dose of 25 units at bedtime Prescribed by: ROMEO OLSON on 07/21/17 1527 Patient Home Medication List Home Medication List Reviewed: Yes Constitutional: see HPI; No chills, No fever EENTM: see HPI Respiratory: no symptoms reported Genitourinary: no symptoms reported Musculoskeletal: see HPI Skin: see HPI Psychiatric/Neurological: No Symptoms Reported Past Pplasgl-Nacoiq-Eibpxu Hx Patient Social History Alcohol Beverage of Choice: Beer, [place] Drug of Choice: cocaine Recent Foreign Travel: No Contact w/Someone Who Travel: No Recent Hopitalizations: No Immunizations Up To Date Tetanus Booster (TDap): Unknown PED Vaccines UTD: No Seasonal Allergies Seasonal Allergies: No Past Medical History Surgeries: Yes Tubal Ligation Respiratory: No Currently Using CPAP: No Currently Using BIPAP: No Cardiac: No Neurological: Yes Neuropathy 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 Disorders: No Female 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 Disorders: Denies FLUTE GRINDER History: Tubal Ligation Sexually Transmitted Disease: No HIV/AIDS: No Genitourinary: Yes Kidney Infection Gastrointestinal: No Musculoskeletal: Yes Osteoporosis, Arthritis Endocrine: Yes Diabetes, Insulin dep HEENT: No Cancer: No Did You Recieve Any Treatments: No Psychosocial: Yes Anxiety, Depression Integumentary: No Blood Disorders: No Adverse Reaction/Blood Tranf: No Family Medical History Family history: Hypertension 09 SISTER Kidney disease 03 MOTHER Myocardial infarction 09 SISTER Heart Disease, Diabetes, Hypertension Physical Exam Vital Signs Capillary Refill : General Appearance: WD/WN, no apparent distress, thin, other (alert oriented pleasant) HEENT: PERRL/EOMI, normal ENT inspection Neck: non-tender, full range of motion Respiratory: no respiratory distress, no accessory muscle use Hips: bilateral hip non-tender, bilateral hip normal inspection, bilateral hip normal range of motion Legs: bilateral leg non-tender, bilateral leg normal inspection, bilateral leg normal range of motion Knees: bilateral knee non-tender, bilateral knee normal inspection, bilateral knee normal range of motion Ankles: bilateral ankle non-tender, bilateral ankle normal inspection, bilateral ankle normal range of motion Feet: left foot other (here is a partial avulsion of the distal half of the left great toenail from the nailbed. There is some dried purulent material at the lateral and proximal borders of the toenail. There are no ulcers of the skin.No erythema of the toe, no swelling of the toe. No lymphangitis.) Progress/Results/Core Measures Results/Orders My Orders Orders - ESSIE DRIVER APRN Wound Culture (10/16/17 21:38) Doxycycline Hyclate Tablet (Vibramycin T (10/16/17 21:45) Mupirocin Ointment (Bactroban Ointment (10/17/17 09:00) Departure Impression Primary Impression: Paronychia Disposition: 01 HOME, SELF-CARE Condition: Stable Departure-Patient Inst. Decision time for Depature: 21:44 Referrals: [facility] (PCP/Family) Primary Care Physician Patient Instructions: Wound Care Add. Discharge Instructions: 1. Wash this gently with soap and water twice daily 2. Antibiotics as directed starting tomorrow. Apply the topical antibiotic ointment twice daily.follow-up with your doctor within 1 week for recheck. Return to ER for any fevers or increased swelling. All discharge instructions reviewed with patient and/or family. Voiced understanding. Scripts Doxycycline Monohydrate (Doxycycline Monohydrate) 100 Mg Tablet 100 MG PO BID, #14 TAB Prov: ESSIE DRIVER APRN 10/16/17 ESSIE DRIVER APRN Oct 16, 2017 21:45
[2017-10-16] MEDS ORDERED: DOXY100T19 PO (21:47)
[2017-10-16 21:52] VITALS: BP 130/88
[2017-10-17] MEDS ORDERED: MUPIROCIN 2% OINT 22 GM (BACTROBAN) TUBE TOP SCH (09:00)
== END 2017-10-16 21:57 | disposition home or self-care (01) ==
LOC: EDUNIT# 21:31 → ER 21:33
DX: L03.032 Cellulitis of left toe (principal); E11.40 Type 2 diabetes mellitus with diabetic neuropathy, unspecified; F41.9 Anxiety disorder, unspecified; F32.9 Major depressive disorder, single episode, unspecified; Z98.51 Tubal ligation status; Z79.4 Long term (current) use of insulin; Z88.2 Allergy status to sulfonamides
CPT/HCPCS: 87070; 87077; 87186; 87205; 99283

== ENCOUNTER 2017-11-04 13:32 | Inpatient (IN) | payer MEDICAID ==
[2017-11-04] VITALS (9 sets, daily range): BP systolic 90–110; BP diastolic 51–84
[~2017-11-04] VITALS: Ht 167.6 cm; Wt 60.3 kg
[~2017-11-04 13:32] MED LIST changes: +DOXY100T19 PO
[2017-11-04] MEDS ORDERED: NS IV 1000 ML 1,000 ML ONE ×2 (14:13→14:27)
[2017-11-04] MEDS ORDERED: ONDANSETRON 4 MG/2 ML (SDV) Z0FRAN ONE (14:13)
[2017-11-04] MEDS ORDERED: NS IV 1000 ML 1,000 ML IV ONE ×2 (14:26→14:28)
[2017-11-04] MEDS ORDERED: PROMETHAZINE INJ 25 MG/ML (PHENERGAN) AMP ONE (14:27)
[2017-11-04] MEDS ORDERED: PROMETHAZINE INJ 25 MG/ML (PHENERGAN) AMP IVP ONE (14:30)
[2017-11-04] MEDS ORDERED: inSUlin (REGULAR) HUMAN 1 UNIT/0.01 ML (CHARGE PER UNIT) IV ONE (14:30)
[2017-11-04 14:35] LABS: BASOPHILS # (AUTO) 0.1 10^3/uL (0.0-0.1); BASOPHILS % (AUTO) 0 % (0-10); EOSINOPHILS # (AUTO) 0.1 10^3/uL (0.0-0.3); EOSINOPHILS % (AUTO) 1 % (0-10); HEMATOCRIT 38 % (35-52); HEMOGLOBIN 12.3 G/DL (11.5-16.0); LYMPHOCYTES # (AUTO) 2.5 X 10^3 (1.0-4.0); LYMPHOCYTES % (AUTO) 20 % (12-44); MEAN CORPUSCULAR HEMOGLOBIN 29 PG (25-34); MEAN CORPUSCULAR HGB CONC 32 G/DL (32-36); MEAN CORPUSCULAR VOLUME 89 FL (80-99); MEAN PLATELET VOLUME 11.6 FL (7.4-10.4); MONOCYTES # (AUTO) 0.8 X 10^3 (0.0-1.0); MONOCYTES % (AUTO) 6 % (0-12); NEUTROPHILS # (AUTO) 9.1 X 10^3 (1.8-7.8); NEUTROPHILS % (AUTO) 73 % (42-75); PLATELET COUNT 330 10^3/uL (130-400); RED BLOOD COUNT 4.29 10^6/uL (4.35-5.85); RED CELL DISTRIBUTION WIDTH 14.4 % (10.0-14.5); WHITE BLOOD COUNT 12.6 10^3/uL (4.3-11.0)
[2017-11-04 14:49] LABS: ALANINE AMINOTRANSFERASE 24 U/L (0-55); ALKALINE PHOSPHATASE 162 U/L (40-136); BILIRUBIN,TOTAL 0.2 MG/DL (0.1-1.0); BUN/CREATININE RATIO 9; CALCIUM 8.3 MG/DL (8.5-10.1); CHLORIDE 100 MMOL/L (98-107); CREATININE SERUM 1.59 MG/DL (0.60-1.30); GFR ESTIMATED 43; LIPASE 22 U/L (8-78); POTASSIUM 5.9 MMOL/L (3.6-5.0); SODIUM 131 MMOL/L (135-145); TOTAL PROTEIN 8.5 GM/DL (6.4-8.2)
[2017-11-04 14:51] LABS: CARBON DIOXIDE < 5 MMOL/L (21-32)
[2017-11-04 14:52] LABS: GLUCOSE 740 MG/DL (70-105)
[2017-11-04 15:06] LABS: ABG BASE EXCESS -26.6 MMOL/L (-2.5-2.5); ABG OXYGEN SATURATION 86 % (94-100); ABG PO2 68 MMHG (79-93); ABG TCO2 3.7 MMOL/L (21.0-31.0)
[2017-11-04 15:07] LABS: ABG PH 6.94 (7.37-7.43)
[2017-11-04 15:08] LABS: ABG PCO2 15 MMHG (35-45); ALLENS TEST YES-POS; INSPIRED O2 ROOM AIR; PATIENT TEMP 97.6; VENTILATOR NO
[2017-11-04 15:30] LABS: MAGNESIUM 3.1 MG/DL (1.8-2.4); PHOSPHORUS 4.2 MG/DL (2.3-4.7)
[2017-11-04] MEDS ORDERED: SODIUM BICARB 8.4% 50 MEQ/50 ML (ABBOTT) SYR IV ONE (15:30)
[2017-11-04] MEDS ORDERED: raNItidine 50 MG/2 ML INJ (ZANTAC) IV ONE (15:30)
--- OUTSIDE RECORDS SUMMARY | 2017-11-04 16:08 | XMS REPORT ---
Author Author LUKE SCHUSTER Organization [facility] Address [address] [place] [address] Care Team Providers Care Client Experience Specialist Name Role Phone LUKE SCHUSTER Unavailable PROBLEMS Type Condition ICD9-CM Code UNC48-II Code Onset Dates Condition Status SNOMED Code Problem Type 1 diabetes mellitus with diabetic neuropathy E10.40 Active 002257490 ALLERGIES No Information ENCOUNTERS Encounter Location Date Diagnosis [facility] [id number] [place] [address]906- 6488 Jul, [place] [id number] [place] [address]13- 4560 Jul, [facility] [id number] [place] [address] 52052- 9853 Jul, [facility] [id number] [place] [address] 60017- 7196 Jun, Type 1 diabetes mellitus with diabetic neuropathy E10.40 [facility] [id number] [place] [id number] May, [facility] [id number] [place] [id number] Apr, [facility] [id number] [place] [address] 10408- 9090 Feb, Type 2 diabetes mellitus with hyperglycemia E11.65 [facility] [id number] [place] [address] 77641- 1458 Feb, Type 2 diabetes mellitus with other specified complication E11.69 and Diabetic mononeuropathy associated with type [address] [facility] [id number] [place] [address] 90309- 8265 Oct, [facility] [address] [address] Oct, Type 2 diabetes mellitus with other specified complication E11.69 [facility] [id number] [place] [address] 32950- 5886 August, Type 2 diabetes mellitus with other specified complication E11.69 and Type 2 diabetes mellitus with hyperglycemia E11.65 [facility] [id number] [place] [id number] August, [facility] [id number] [place] [address] 11987- 0786 Feb, [facility] [id number] [place] [address] [phone] Sep, Dental caries K02.9 [facility] [id number] [place] [address] [phone] August, Dental examination Z01.20 [facility] [id number] [place] [address] 99016- 1896 Jan, [facility] [id number] [place] [address] 05673- 5696 Jan, [facility] [id number] [place] [address] 28587- 7086 Dec, Diabetes with ketoacidosis, type II or unspecified type, uncontrolled 250.12 [facility] [address] [address] Nov, [facility] [id number] [place] [address] 25951- 2546 Nov, Fever 780.60 [facility] [id number] [place] [address] 38831- 0546 Jul, [facility] [id number] [place] [address] 94578- 8106 Jul, [facility] [id number] [place] [address] 71456- 0486 August, [facility] [address] [id number] [place] [address] August, [facility] [place] [facility] [address] [id number] [place] [address] 9936 Jun, [facility] [place] [facility] [address] [id number] [place] [address] 2546 Jun, [facility] [place] [facility] [address] [id number] [place] [address] 8122 Apr, [facility] [address] [id number] [place] [address] 5591 Apr, [facility] [place] [facility] [address] [id number] [place] [address] 7756 Mar, [facility] [address] [id number] [place] [address] 0859 Mar, [facility] [address] [id number] [place] [address] 0635 Oct, [facility] [address] [id number] [place] [address] 3576 Jun, [facility] [address] [id number] [place] [address] 4188 Jan, [facility] [place] [facility] [address] [id number] [place] [address]- 7586 Jan, [facility] [place] [facility] [address] [id number] [place] [address]- 2546 Jan, [facility] [place] [facility] [address] [id number] [place] [address]- 2546 Dec, [facility] [place] [facility] [address] [id number] [place] [address]- 2546 Feb, [facility] [place] [facility] [address] [id number] [place] [address]- 2546 Mar, [facility] [place] [facility] [address] [id number] [place] [address] Feb, [facility] [address] [facility] [id number] [place] [address]166 Feb, [facility] [address] [facility] [id number] [place] [address] 1496 Feb, IMMUNIZATIONS No Known Immunizations SOCIAL HISTORY Never Assessed REASON FOR VISIT Medication refill request PLAN OF CARE VITAL SIGNS MEDICATIONS Medication Instructions Dosage Frequency Start Date End Date Duration Status NovoLog 100 UNIT/ML Subcutaneous 3 times a day Inject 15 units 8h Jun, Active Levemir 100 UNIT/ML Subcutaneous at bedtime inject 45units at bedtime Jun, Active RESULTS No Results PROCEDURES No Known procedures INSTRUCTIONS MEDICATIONS ADMINISTERED No Known Medications MEDICAL (GENERAL) HISTORY Type Description Date Medical History Diabetes type I Medical History diabetic neuropathy Surgical History tubal ligation 2002 Hospitalization History Ketoacidosis 01/2014 Hospitalization History DKA, UTI-[facility] 08/11/16 Hospitalization History DKA, UTI-[facility] 05/09/17 Hospitalization History UTI, DKA-[facility] 05/30/17 Hospitalization History DM, Hyperglycemia-[facility] 07/20/17
--- OUTSIDE RECORDS SUMMARY | 2017-11-04 16:09 | XMS REPORT ---
Author Author LUKE SCHUSTER Organization [facility] Address [address] [place] [address] Care Team Providers Care Medical Scientist Name Role Phone LUKE SCHUSTER Unavailable PROBLEMS Type Condition ICD9-CM Code HDR57-KS Code Onset Dates Condition Status SNOMED Code Problem Type 1 diabetes mellitus with diabetic neuropathy E10.40 Active 815855575 Problem Diabetic mononeuropathy associated with type 2 diabetes mellitus E11.41 Active 158287923 Problem Type 2 diabetes mellitus with other specified complication E11.69 Active 15323216971963 Problem Type 2 diabetes mellitus with hyperglycemia E11.65 Active [id number] ALLERGIES Substance Reaction Event Type Date Status Sulfamethoxazole hives Drug Allergy Oct, Active ENCOUNTERS Encounter Location Date Diagnosis [facility] [id number] [id number] Jul, [facility] [address] [place] [address] 98978- 4507 Jun, Type 1 diabetes mellitus with diabetic neuropathy E10.40 [facility] [id number] [id number] May, [facility] [id number] [id number] Apr, [facility] [id number] [address] Feb, Type 2 diabetes mellitus with hyperglycemia E11.65 [facility] [id number] [place] [address] 11326- 7472 Feb, Type 2 diabetes mellitus with other specified complication E11.69 and Diabetic mononeuropathy associated with type 2 diabetes mellitus E11.41 [facility] [id number] [address]49 Oct, [facility] [address] [place] [address] 4126 Oct, Type 2 diabetes mellitus with other specified complication E11.69 [facility] [id number] [place] [address] 12476- 2546 August, Type 2 diabetes mellitus with other specified complication E11.69 and Type 2 diabetes mellitus with hyperglycemia E11.65 [facility] [id number] [place] [address] [id number] August, [facility] [id number] [place] [address] 74012- 2546 Feb, [facility] [id number] [place] [address] [id number] Sep, Dental caries K02.9 [facility] [id number] [place] [address] [id number] August, Dental examination Z01.20 [facility] [id number] [place] [address] 62410- 8566 Jan, [facility] [id number] [place] [address] 82606- 8026 Jan, [facility] [id number] [place] [address] 15140- 6666 Dec, Diabetes with ketoacidosis, type II or unspecified type, uncontrolled 250.12 [facility] [id number] [place] [address] 94733- 4756 Nov, [facility] [address] [place] [address] 45820 2546 Nov, Fever 780.60 [facility] [id number] [place] [address] 14584- 5576 Jul, [facility] [id number] [place] [address] 87723- 3096 Jul, [facility] [id number] [place] [address] 44170- 5223 August, [facility] [place] [facility] [address] [id number] [place] [address]- 9990 August, [facility] [place] [facility] [address] [id number] [place] [address]- 5546 Jun, [facility] [place] [facility] [address] [id number] [place] [address] 2546 Jun, [facility] [place] [facility] [address] [id number] [place] [address]- 2405 Apr, [facility] [place] [facility] [address] [id number] [place] [address]- 8779 Apr, [facility] [place] [facility] [address] [id number] [place] [address]- 7606 Mar, [facility] [place] [facility] [address] [id number] [place] [address]- 4666 Mar, [facility] [place] [facility] [address] [id number] [place] [address]- 2734 Oct, [facility] [place] [facility] [address] [id number] [place] [address]- 1550 Jun, [facility] [place] [facility] [address] [id number] [place] [address]- 9138 Jan, [facility] [place] [facility] [address] [id number], [place] [address]- 2446 Jan, [facility] [place] [facility] [address] [id number], [place] [address]- 2546 Jan, [facility] [place] [facility] [address] [id number] [place] [address]- 2546 Dec, [facility] [place] [facility] [address] [id number], [place] [address] 2546 Feb, [facility] [place] [facility] [address] [id number] [place] [address]- 2546 Mar, [facility] [place] [facility] [address] [facility] [id number] [place] [address]- 3878 Feb, [facility] [address] [facility] [id number] [place] [address]- 0550 Feb, [facility] [address] [facility] [id number] [place] [address]- 4930 Feb, IMMUNIZATIONS No Known Immunizations SOCIAL HISTORY Never Assessed REASON FOR VISIT PMH obtained. Bernardino SUTTON PLAN OF CARE VITAL SIGNS MEDICATIONS Medication Instructions Dosage Frequency Start Date End Date Duration Status Levemir 100 UNIT/ML Subcutaneous at bedtime 30 units 30 days Active NovoLog 100 UNIT/ML Subcutaneous 3 times a day before meals 8 units August, Active RESULTS No Results PROCEDURES No Known procedures INSTRUCTIONS MEDICATIONS ADMINISTERED No Known Medications MEDICAL (GENERAL) HISTORY Type Description Date Medical History Diabetes type I Medical History diabetic neuropathy Surgical History tubal ligation 2002 Hospitalization History Ketoacidosis 01/2014 Hospitalization History DKA, [facility]TI[facility] 08/11/16 Hospitalization History DKA, [facility]TI[facility] 05/09/17 Hospitalization History UTI, DKA-[facility] 05/30/17
--- OUTSIDE RECORDS SUMMARY | 2017-11-04 16:09 | XMS REPORT ---
Author Author LUKE SCHUSTER Organization [facility] Address [address] [place] [address] Care Team Providers Care Cut Off Worker Name Role Phone LUKE SCHUSTER Unavailable PROBLEMS Type Condition ICD9-CM Code [id number] Code Onset Dates Condition Status SNOMED Code Problem Type 1 diabetes mellitus with diabetic neuropathy E10.40 Active 812975620 ALLERGIES Substance Reaction Event Type Date Status Sulfamethoxazole hives Drug Allergy Feb, Active ENCOUNTERS Encounter Location Date Diagnosis [facility] [id number] [place] [address] 20368- 4283 Jul, [facility] [id number] [place] [address] 06011- 5090 Jul, [facility] [id number] [place] [address] 66892- 6647 Jul, [facility] [id number] [place] [address] 33272- 2244 Jun, Type 1 diabetes mellitus with diabetic neuropathy E10.40 [facility] [id number] [id number] May, [facility] [id number] [place] [address] [id number] Apr, [facility] [id number] [place] [address] 46852- 6453 Feb, Type 2 diabetes mellitus with hyperglycemia E11.65 [facility] [id number] [place] [address] 26152- 9479 Feb, Type 2 diabetes mellitus with other specified complication E11.69 and Diabetic mononeuropathy associated with type 2 diabetes mellitus E11.41 [facility] [address] [place] [address] 06098- 9204 Oct, [facility] [address] [address] 7416 Oct, Type 2 diabetes mellitus with other specified complication E11.69 [facility] [id number] [place] [address] 18436- 2546 August, Type 2 diabetes mellitus with other specified complication E11.69 and Type 2 diabetes mellitus with hyperglycemia E11.65 [facility] [id number] [place] [address] [id number] August, [facility] [id number] [place] [address] 39695- 5986 Feb, [facility] [id number] [place] [address] [id number] Sep, Dental caries K02.9 [facility] [id number] [place] [address] [id number] August, Dental examination Z01.20 [facility] [id number] [place] [address] [id number]- [phone] Jan, [facility] [id number] [place] [address] 368310- 7207 Jan, [facility] [id number] [place] [address] 75536- 5366 Dec, Diabetes with ketoacidosis, type II or unspecified type, uncontrolled 250.12 [facility] [id number] [place] [address] 31089- 0186 Nov, [facility] [id number] [place] [address] 50227- 2736 Nov, Fever 780.60 [facility] [id number] [place] [address] 26868- 2556 14 Jul, 2014 [facility] [id number] [place] [address] 83227- 7526 Jul, [facility] [id number] [place] [address] [place] [address]- 5408 August, [facility] [address] [id number] [place] [address]- 1576 August, [facility] [place] [facility] [address] [id number] [place] [address]- 3891 Jun, [facility] [place] [facility] [address] [id number] [place] [address]- 6936 Jun, [facility] [place] [facility] [address] [id number] [place] [address]- 6278 Apr, [facility] [place] [facility] [address] [id number] [place] [address]- 1863 Apr, [facility] [place] [facility] [address] [id number] [place] [address]- 5139 Mar, [facility] [place] [facility] [address] [id number] [place] [address]- 8698 Mar, [facility] [place] [facility] [address] [id number] [place] [address]- 9786 Oct, [facility] [place] [facility] [address] [id number] [place] [address]- 7673 Jun, [facility] [place] [facility] [address] [id number] [place] [address]- 8624 Jan, [facility] [place] [facility] [address] [id number] [place] [address]- 9471 Jan, [facility] [place] [facility] [address] [id number] [place] [address]- 1282 Jan, [facility] [place] [facility] [address] [id number] [place] [address]- 4707 Dec, [facility] [place] [facility] [address] [id number] [place] [address]- 0694 Feb, [facility] [place] [facility] [address] [id number] [place] [address] 2546 Mar, [facility] [place] [facility] [address] [facility] [id number] [place] [id number] [address]36 Feb, [facility] [address] [facility] [id number] [place] [address]- 9379 Feb, [facility] [address] [facility] [id number] [place] [address]- 7055 Feb, IMMUNIZATIONS No Known Immunizations SOCIAL HISTORY Never Assessed REASON FOR VISIT Est Care, Diabetes, ran out of insulin 2 days ago CBrumbackRn PLAN OF CARE Activity Details Follow Up 3 Months Reason:dm2 3 mo. chkup VITAL SIGNS Height 66 in 2017-02-21 Weight 127.0 lbs 2017-02-21 Temperature 98.1 degrees Fahrenheit 2017-02-21 Heart Rate 92 bpm 2017-02-21 Respiratory Rate 16 2017-02-21 BMI 20.50 kg/m2 2017-02-21 Blood pressure systolic 102 mmHg 2017-02-21 Blood pressure diastolic 82 mmHg 2017-02-21 MEDICATIONS Medication Instructions Dosage Frequency Start Date End Date Duration Status Amitriptyline HCl 25 MG Orally Once a day 1 tablet 24h Active Levemir 100 UNIT/ML Subcutaneous at bedtime 30 units 30 days Active NovoLog 100 UNIT/ML Subcutaneous 3 times a day before meals 8 units August, Active RESULTS Name Result Date Reference Range A1C (IN HOUSE) 2017-02-21 A1C IN HOUSE 14 4.3 - 5.6 % Previous A1c 8.2 Lot [id number] Exp date 10/2018 PROCEDURES Procedure Date Ordered Result Body Site GLYCATED HEMOGLOBIN TEST Feb 21, 2017 INSTRUCTIONS MEDICATIONS ADMINISTERED No Known Medications MEDICAL (GENERAL) HISTORY Type Description Date Medical History Diabetes type I Medical History diabetic neuropathy Surgical History tubal ligation 2002 Hospitalization History Ketoacidosis 01/2014 Hospitalization History DKA, UTI-[facility] 08/11/16 Hospitalization History DKA, U[facility] 05/09/17 Hospitalization History UTI, DKA-[facility] 05/30/17 Hospitalization History DM, Hyperglycemia-[facility] 07/20/17
--- OUTSIDE RECORDS SUMMARY | 2017-11-04 16:10 | XMS REPORT ---
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 Name Role Phone LUKE SCHUSTER Unavailable PROBLEMS Type Condition ICD9-CM Code [id number] Code Onset Dates Condition Status SNOMED Code Problem Type 1 diabetes mellitus with diabetic neuropathy E10.40 Active 881703972 ALLERGIES Substance Reaction Event Type Date Status Sulfamethoxazole hives Drug Allergy Feb, Active ENCOUNTERS Encounter Location Date Diagnosis [facility] [address] [place] [address] 85040- 1605 Jul, [facility] [id number] [place] [address] 57343- 7626 Jul, [facility] [id number] [place] [address] 85978- 4904 Jul, [facility] [id number] [place] [address] 65639- 4575 Jun, Type 1 diabetes mellitus with diabetic neuropathy E10.40 [facility] [id number] [id number] May, [facility] [id number] [place] [address] [id number] Apr, [facility] [address] [place] [address] 16021- 4992 Feb, Type 2 diabetes mellitus with hyperglycemia E11.65 [facility] [id number] [place] [address] 87890- 9223 Feb, Type 2 diabetes mellitus with other specified complication E11.69 and Diabetic mononeuropathy associated with type 2 diabetes mellitus E11.41 [facility] [address] [place] [address] 25634- 4420 Oct, [facility] [address], [place] [address]- 4616 Oct, Type 2 diabetes mellitus with other specified complication E11.69 [facility] [id number] [place] [address] 55345- 2546 August, Type 2 diabetes mellitus with other specified complication E11.69 and Type 2 diabetes mellitus with hyperglycemia E11.65 [facility] [id number] [place] [address] [id number] August, [facility] [id number] [place] [address] 00415- 0086 Feb, [facility] [id number] [place] [address] [id number] Sep, Dental caries K02.9 [facility] [id number] [place] [address] [id number] August, Dental examination Z01.20 [facility] [id number] [place] [address] [id number]- 4956 Jan, [facility] [id number] [place] [address] 257106- 0071 Jan, [facility] [id number] [place] [address] 05327- 7436 Dec, Diabetes with ketoacidosis, type II or unspecified type, uncontrolled 250.12 [facility] [id number] [place] [address] 06566- 2506 Nov, [facility] [address] [place] [address] 22202- 6716 Nov, Fever 780.60 [facility] [id number] [place] [address] 69858- 3486 14 Jul, 2014 [facility] [id number] [place] [address] 91864- 0696 Jul, [facility] [id number] [place] [address] [place] [address]- 9373 August, [facility] [address] [id number] [place] [address]- 9588 August, [facility] [place] [facility] [address] [id number] [place] [address]- 7637 Jun, [facility] [place] [facility] [address] [id number] [place] [address]- 6256 Jun, [facility] [place] [facility] [address] [id number] [place] [address]- 2056 Apr, [facility] [place] [facility] [address] [id number] [place] [address]- 9630 Apr, [facility] [place] [facility] [address] [id number] [place] [address]- 3304 Mar, [facility] [place] [facility] [address] [id number] [place] [address]- 1898 Mar, [facility] [place] [facility] [address] [id number] [place] [address]- 5839 Oct, [facility] [place] [facility] [address] [id number] [place] [address]- 6833 Jun, [facility] [place] [facility] [address] [id number] [place] [address]- 6949 Jan, [facility] [place] [facility] [address] [id number] [place] [address]- 0226 Jan, [facility] [place] [facility] [address] [id number] [place] [address]- 1636 Jan, [facility] [place] [facility] [address] [id number] [place] [address]- 2011 Dec, [facility] [place] [facility] [address] [id number] [place] [address]- 1670 Feb, [facility] [place] [facility] [address] [id number] [place] [address] 2546 Mar, [facility] [place] [facility] [address] [facility] [id number] [place] [address]- 2196 Feb, [facility] [address] [facility] [id number] [place] [address]- 0583 Feb, [facility] [address] [facility] [id number] [place] [address]- 0302 Feb, IMMUNIZATIONS No Known Immunizations SOCIAL HISTORY Never Assessed REASON FOR VISIT PALS-levemir, novolog, pen needles PLAN OF CARE VITAL SIGNS MEDICATIONS Medication Instructions Dosage Frequency Start Date End Date Duration Status Pen [place] 32G X 6 MM use with insulin pens 6h Feb, 90 days Active Levemir FlexTouch 100 UNIT/ML Inject 40 units at bedtime Feb, 90 days Active NovoLog Flexpen 100 UNIT/ML Subcutaneous 3 times a day with meals 15 units 90 days Active RESULTS No Results PROCEDURES No Known procedures INSTRUCTIONS MEDICATIONS ADMINISTERED No Known Medications MEDICAL (GENERAL) HISTORY Type Description Date Medical History Diabetes type I Medical History diabetic neuropathy Surgical History tubal ligation 2002 Hospitalization History Ketoacidosis 01/2014 Hospitalization History DKA, UTI-[facility] 08/11/16 Hospitalization History DKA, UTI-[facility] 05/09/17 Hospitalization History UTI, DKA-[facility] 05/30/17 Hospitalization History DM, Hyperglycemia-[facility] 07/20/17
--- OUTSIDE RECORDS SUMMARY | 2017-11-04 16:10 | XMS REPORT ---
Author Author CARMINA GRIGGS Organization [facility] Address [address] [place] [address] Care Team Providers Care Automobile Brakes Bonder Name Role Phone RANGELDMITRIYLEANNEFELICIAT Unavailable PROBLEMS Type Condition ICD9-CM Code INH49-VS Code Onset Dates Condition Status SNOMED Code Problem Type 1 diabetes mellitus with diabetic neuropathy E10.40 Active 097800525 ALLERGIES No Information ENCOUNTERS Encounter Location Date Diagnosis [facility] [id number] [place] [address] 88731- 5837 Jul, [place] [id number] [place] [address] 21823- 5741 Jul, [facility] [id number] [place] [address] 17680- 0662 Jul, [facility] [id number] [place] [address] 44692- 5137 Jun, Type 1 diabetes mellitus with diabetic neuropathy E10.40 [facility] [id number] [place] [address] [id number] May, [facility] [id number] [place] [address] [id number] Apr, [facility] [address] [place] [address] 76564- 7290 Feb, Type 2 diabetes mellitus with hyperglycemia E11.65 [place] [id number] [place] [address] 37501- 9300 Feb, Type 2 diabetes mellitus with other specified complication E11.69 and Diabetic mononeuropathy associated with type 2 diabetes mellitus E11.41 [facility] [id number] [place] [address] 25510- 8704 Oct, [facility] [address] [address]- 9296 Oct, Type 2 diabetes mellitus with other specified complication E11.69 [facility] [id number] [place] [address] 18497- 2546 August, Type 2 diabetes mellitus with other specified complication E11.69 and Type 2 diabetes mellitus with hyperglycemia E11.65 [facility] [id number] [place] [address] [id number] August, [facility] [id number] [place] [address] 12823- 8646 Feb, [facility] [id number] [place] [address] [id number] Sep, Dental caries K02.9 [facility] [id number] [place] [address] [id number] August, Dental examination Z01.20 [facility] [id number] [place] [address] [id number]- 8066 Jan, [facility] [id number] [place] [address] 31380- 6724 Jan, [facility] [id number] [place] [address] [id number]- 0636 Dec, Diabetes with ketoacidosis, type II or unspecified type, uncontrolled 250.12 [facility] [address] [place] [address] 68419- 0596 Nov, [facility] [id number] [place] [address] 31736- 5476 Nov, Fever 780.60 [facility] [id number] [place] [address] 37400- 3206 Jul, [facility] [id number] [place] [address] 03487- 4386 Jul, [facility] [id number] [place] [address] 35927- 5588 August, [facility] [place] [facility] [address] [id number] [place] [address]- 4629 August, [facility] [place] [facility] [address] [id number] [place] [address]- 5608 Jun, [facility] [place] [facility] [address] [id number] [place] [address]- 7066 Jun, [facility] [place] [facility] [address] [id number] [place] [address]- 0568 Apr, [facility] [place] [facility] [address] [id number] [place] [address]- 5339 Apr, [facility] [place] [facility] [address] [id number] [place] [address]- 0838 Mar, [facility] [place] [facility] [address] [id number] [place] [address]- 6525 Mar, [facility] [place] [facility] [address] [id number] [place] [address]- 7353 Oct, [facility] [place] [facility] [address] [id number] [place] [address]- 9377 Jun, [facility] [place] [facility] [address] [id number] [place] [address]- 6551 Jan, [facility] [place] [facility] [address] [id number] [place] [address]- 3525 Jan, [facility] [place] [facility] [address] [id number] [place] [address]- 9672 Jan, [facility] [place] [facility] [address] [id number] [place] [address]- 7219 Dec, [facility] [place] [facility] [address] [id number] [place] [address]- 2243 Feb, [facility] [place] [facility] [address] [id number] [place] [address]- 2546 Mar, [facility] [place] [facility] [address] [id number] [place] 6242 Feb, [facility] [address] [facility] [id number] [address]- 6435 Feb, [facility] [address] [facility] [id number] [place] [id number] 2771 Feb, IMMUNIZATIONS No Known Immunizations SOCIAL HISTORY Never Assessed REASON FOR VISIT Hospital admit/DC PLAN OF CARE VITAL SIGNS MEDICATIONS Medication Instructions Dosage Frequency Start Date End Date Duration Status Amitriptyline HCl 25 MG Orally Once a day 1 tablet 24h Active Pen [place] 32G X 6 MM use with insulin pens 6h Feb, 90 days Active Levemir FlexTouch 100 UNIT/ML Inject 45units at bedtime Feb, Active NovoLog Flexpen 100 UNIT/ML Subcutaneous 3 [...] UTI-[facility] 05/09/17 Hospitalization History UTI, DKA-[facility] 05/30/17 Hospitalization History DM, Hyperglycemia-[facility] 07/20/17
--- NOTE | 2017-11-04 16:11 | ED General ---
General Chief Complaint: Glucose Problems Stated Complaint: DKA Nursing Triage Note: PT HAS N/V SINCE YESTERDAY, STATES OUT OF INSULIN SINCE YESTERDAY, PT FSBS READS TOO HIGH TO READ REPORT THIS TO DR NICOLAS Nursing Sepsis Screen: No Definite Risk Source of Information: Patient Exam Limitations: No Limitations History of Present Illness Date Seen by Provider: Nov 04, 2017 Time Seen by Provider: 14:13 Initial Comments This 47-year-old type I diabetic presents emergency room with suspected DKA. She is tachycardic and vomiting. She has generalized abdominal pain. She reports running out of her insulin yesterday because her family could not get to the pharmacy to pick it up. She also has not been checking her blood sugars because the battery in her meter . Patient denies illness of any kind prior to running out of insulin. She denies any drug or alcohol use. Allergies and Home Medications Allergies Coded Allergies: Sulfa (Sulfonamide Antibiotics) (Unverified Allergy, Unknown, 05/30/17) Home Medications Amitriptyline HCl 25 Mg Tablet, 25 MG PO DAILY PRN for NEUROPATHY, (Reported) LAST FILLED 02-21-17 #30 Ciprofloxacin HCl 500 Mg Tablet, 500 MG PO BID Prescribed by: ROMEO OLSON on 07/21/17 1554 Doxycycline Monohydrate 100 Mg Tablet, 100 MG PO BID Prescribed by: ESSIE DRIVER on 10/16/17 2147 Insulin Aspart 100 Unit/1 Ml Susp, 15 UNITS SQ AC, (Reported) Insulin Determir 1,000 Units/10 Ml Soln, 25 UNITS SC HS new Levemir dose of 25 units at bedtime Prescribed by: ROMEO OLSON on 07/21/17 1527 Patient Home Medication List Home Medication List Reviewed: Yes Review of Systems Constitutional: see HPI EENTM: no symptoms reported Respiratory: no symptoms reported Cardiovascular: see HPI Gastrointestinal: see HPI Genitourinary: no symptoms reported : No Musculoskeletal: no symptoms reported Skin: no symptoms reported Psychiatric/Neurological: No Symptoms Reported Hematologic/Lymphatic: No Symptoms Reported Immunological/Allergic: no symptoms reported Past Zbrcylw-Fuqpgd-Yokxlm Hx Patient Social History Alcohol Use: Denies Use Number of Drinks Today: BB Alcohol Beverage of Choice: Beer, [place] Recreational Drug Use: No Drug of Choice: cocaine Smoking Status: Never a Smoker Recent Foreign Travel: No Contact w/Someone Who Travel: No Recent Infectious Disease Expo: No Recent Hopitalizations: No Physical Abuse: No Sexual Abuse: No Immunizations Up To Date Tetanus Booster (TDap): Unknown PED Vaccines UTD: No Seasonal Allergies Seasonal Allergies: No Past Medical History Surgeries: Yes Tubal Ligation Respiratory: No Currently Using CPAP: No Currently Using BIPAP: No Cardiac: No Neurological: Yes Neuropathy 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 Disorders: No Female 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 Disorders: 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 Sexually Transmitted Disease: No HIV/AIDS: No Genitourinary: Yes Kidney Infection Gastrointestinal: No Musculoskeletal: Yes Osteoporosis, Arthritis Endocrine: Yes Diabetes, Insulin dep HEENT: No Cancer: No Did You Recieve Any Treatments: No Psychosocial: Yes Anxiety, Depression Nursing Suicide Risk Score: 0 Integumentary: No Blood Disorders: No Adverse Reaction/Blood Tranf: No Family Medical History Family history: Hypertension 09 SISTER Kidney disease 03 MOTHER Myocardial infarction 09 SISTER Heart Disease, Diabetes, Hypertension Physical Exam Vital Signs Vital Signs - First Documented 11/04/17 14:00 Temp 97.4 Pulse 133 Resp 24 B/P (MAP) 100/54 (69) Pulse Ox 100 Capillary Refill : Less Than 3 Seconds Height, Weight, BMI Height: 5'6.00" Weight: 133lbs. 2.0oz. [id number]; 20.7 BMI Method:Stated General Appearance: WD/WN, Moderate Distress HEENT: PERRL/EOMI, Normal ENT Inspection, Other (oropharynx somewhat dry) Neck: Normal Inspection Respiratory: Lungs Clear, Normal Breath Sounds, No Accessory Muscle Use, No Respiratory Distress Cardiovascular: Regular Rate, Rhythm, No Edema Gastrointestinal: Normal Bowel Sounds, Soft, Tenderness (generalized) Extremity: Normal Inspection, No Pedal Edema Neurologic/Psychiatric: Alert, Oriented x3 (alert but somnolent), No Motor/ Sensory Deficits, medical underwriter II-XII Norm as Tested Skin: Normal Color, Warm/Dry Progress/Results/Core Measures Suspected Sepsis Recent Fever Within 48 Hours: No Infection Criteria Present: None New/Unexplained Altered Menta: No Sepsis Screen: No Definite Risk SIRS Temperature:97.4 Pulse: 133 Respiratory Rate: 24 Laboratory Tests 11/04/17 14:06: White Blood Count 12.6H Blood Pressure 100 /54 Mean: 69 Laboratory Tests 11/04/17 14:06: Creatinine 1.59H, Platelet Count 330, Total Bilirubin 0.2 Results/Orders Lab Results Laboratory Tests Test 11/04/17 14:01 11/04/17 14:06 11/04/17 14:54 11/04/17 15:18 Range/Units Glucometer > 600 *H 569 *H 70-110 MG/DL White Blood Count 12.6 H 4.3-11.0 10^3/uL Red Blood Count 4.29 L 4.35-5.85 10^6/uL Hemoglobin 12.3 11.5-16.0 G/DL Hematocrit 38 35-52 % Mean Corpuscular Volume 89 80-99 FL Mean Corpuscular Hemoglobin 29 25-34 PG Mean Corpuscular Hemoglobin Concent 32 32-36 G/DL Red Cell Distribution Width 14.4 10.0-14.5 % Platelet Count 330 130-400 10^3/uL Mean Platelet Volume 11.6 H 7.4-10.4 FL Neutrophils (%) (Auto) 73 42-75 % Lymphocytes (%) (Auto) 20 12-44 % Monocytes (%) (Auto) 6 0-12 % Eosinophils (%) (Auto) 1 0-10 % Basophils (%) (Auto) 0 0-10 % Neutrophils # (Auto) 9.1 H 1.8-7.8 X 10^3 Lymphocytes # (Auto) 2.5 1.0-4.0 X 10^3 Monocytes # (Auto) 0.8 0.0-1.0 X 10^3 Eosinophils # (Auto) 0.1 0.0-0.3 10^3/uL Basophils # (Auto) 0.1 0.0-0.1 10^3/uL Sodium Level 131 L 135-145 MMOL/L Potassium Level 5.9 H 3.6-5.0 MMOL/L Chloride Level 100 98-107 MMOL/L Carbon Dioxide Level < 5 *L 21-32 MMOL/L Anion Gap 26 H 5-14 MMOL/L Blood Urea Nitrogen 15 7-18 MG/DL Creatinine 1.59 H 0.60-1.30 MG/DL Estimat Glomerular Filtration Rate 43 BUN/Creatinine Ratio 9 Glucose Level 740 *H 70-105 MG/DL Calcium Level 8.3 L 8.5-10.1 MG/DL Phosphorus Level 4.2 2.3-4.7 MG/DL Magnesium Level 3.1 H 1.8-2.4 MG/DL Total Bilirubin 0.2 0.1-1.0 MG/DL Aspartate Amino Transf (AST/SGOT) 38 H 5-34 U/L Alanine Aminotransferase (ALT/SGPT) 24 0-55 U/L Alkaline Phosphatase 162 H 40-136 U/L Total Protein 8.5 H 6.4-8.2 GM/DL Albumin 4.0 3.2-4.5 GM/DL Lipase 22 8-78 U/L Blood Gas Puncture Site L RAD Blood Gas Patient Temperature 97.6 Arterial Blood pH 6.94 *L 7.37-7.43 Arterial Blood Partial Pressure CO2 15 *L 35-45 MMHG Arterial Blood Partial Pressure O2 68 L 79-93 MMHG Arterial Blood HCO3 3 *L 23-27 MMOL/L Arterial Blood Total CO2 3.7 L 21.0-31.0 MMOL/L Arterial Blood Oxygen Saturation 86 L 94-100 % Arterial Blood Base Excess -26.6 L -2.5-2.5 MMOL/L Nic Test YES-POS Blood Gas Ventilator Setting NO Blood Gas Inspired Oxygen ROOM AIR My Orders Orders - NANDO NICOLAS MD Ondansetron Injection (Zofran Injectio (11/04/17 14:13) Ns Iv 1000 Ml (Sodium Chloride 0.9%) (11/04/17 14:13) Promethazine Injection (Phenergan Injec (11/04/17 14:30) Arterial Blood Gas (11/04/17 14:55) Cbc With Automated Diff (11/04/17 14:26) Comprehensive Metabolic Panel (11/04/17 14:26) Lipase (11/04/17 14:26) Ua Culture If Indicated (11/04/17 14:26) Saline Lock/Iv-Start (11/04/17 14:26) Saline Lock/Iv-Start (11/04/17 14:26) Ns Iv 1000 Ml (Sodium Chloride 0.9%) (11/04/17 14:26) Insulin (Regular) Human (Humulin R (Per (11/04/17 14:30) Saline Lock/Iv-Start (11/04/17 14:28) Ns Iv 1000 Ml (Sodium Chloride 0.9%) (11/04/17 14:28) Promethazine Injection (Phenergan Injec (11/04/17 14:27) Ns Iv 1000 Ml (Sodium Chloride 0.9%) (11/04/17 14:27) Arterial Blood Draw (11/04/17 ) Accucheck Stat ONCE (11/04/17 15:05) Accucheck Stat ONCE (11/04/17 15:05) Magnesium (11/04/17 15:12) Phosphorus (11/04/17 15:12) Basic Metabolic Panel (11/04/17 16:10) Sodium Bicarbonate 8.4% Syr (Sodium Bica (11/04/17 15:30) Hemoglobin A1c (11/04/17 15:20) Ranitidine Injection (Zantac Injection) (11/04/17 15:30) Medications Given in ED Current Medications Medications Dose Ordered Sig/Ryland Route Start Time Stop Time Status Last Admin Dose Admin Insulin Human Regular 10 unit ONCE ONCE IV 11/04/17 14:30 11/04/17 14:31 DC 11/04/17 14:30 10 UNIT Ondansetron HCl 4 mg STK-MED ONCE .ROUTE 11/04/17 14:13 11/04/17 14:15 DC 11/04/17 14:15 4 MG Promethazine HCl 25 mg ONCE ONCE IVP 11/04/17 14:30 11/04/17 14:31 DC 11/04/17 14:30 25 MG Ranitidine HCl 50 mg ONCE ONCE IV 11/04/17 15:30 11/04/17 15:31 DC 11/04/17 16:15 50 MG Sodium Bicarbonate 50 meq ONCE ONCE IV 11/04/17 15:30 11/04/17 15:31 DC 11/04/17 16:15 50 MEQ Sodium Chloride 1,000 ml @ 0 mls/hr Q0M ONCE IV 11/04/17 14:26 11/04/17 14:29 DC 11/04/17 14:30 1,000 MLS/HR Sodium Chloride 1,000 ml @ 0 mls/hr Q0M ONCE IV 11/04/17 14:28 11/04/17 14:29 DC 11/04/17 14:30 1,000 MLS/HR Sodium Chloride 1,000 ml @ ud STK-MED ONCE .ROUTE 11/04/17 14:13 11/04/17 14:15 DC 11/04/17 14:15 1,000 MLS/HR Vital Signs/I&O 11/04/17 14:00 Temp 97.4 Pulse 133 Resp 24 B/P (MAP) 100/54 (69) Pulse Ox 100 Capillary Refill : Less Than 3 Seconds Blood Pressure Mean: 69 Progress Note : Progress Note Patient was hydrated with normal saline boluses. She completed 2 L in the ER and a third liter was started. 10 units of insulin was administered by IV route. Nausea was controlled with Zofran and Phenergan. Ranitidine was also given. Departure Communication (Admissions) Case was reviewed with Dr. Mcbride who also requested an amp of bicarbonate be administered in the ER. The DKA protocol was used along with bridging orders. Impression Primary Impression: Diabetic ketoacidosis Qualified Codes: E10.10 - Type 1 diabetes mellitus with ketoacidosis without coma Additional Impression: Nausea and vomiting Qualified Codes: R11.2 - Nausea with vomiting, unspecified Disposition: HOME, SELF-CARE Condition: Improved Admissions Decision to Admit Reason: Admit from ER (General) Decision to Admit/Date: Nov 04, 2017 Time/Decision to Admit Time: 14:30 Departure-Patient Inst. Referrals: [facility] (PCP) Primary Care Physician LUKE SCHUSTER (Family) Primary Care Physician NANDO NICOLAS MD Nov 04, 2017 16:11
[2017-11-04] MEDS ORDERED: ONDANSETRON 4 MG/2 ML (SDV) Z0FRAN IVP PRN (16:45)
[2017-11-04] MEDS ORDERED: PROMETHAZINE INJ 25 MG/ML (PHENERGAN) AMP IVP PRN (16:45)
[2017-11-04] MEDS ORDERED: NS IV 1000 ML X 1 WIDE OPEN IV ONE (16:45)
[2017-11-04] MEDS: REGULAR inSUlin DRIP 250 UNITS/NS 250 ML IV SCH ×2 (16:59)
[2017-11-04] MEDS: 1/2 NS IV SOLUTION 1,000 ML IV SCH (17:01)
[2017-11-04] MEDS: 1/2 NS W/KCL 20 MEQ/L 1,000 ML IV SCH ×2 (17:03→18:04)
[2017-11-04] MEDS: DEXTROSE 10% IV SOLUTION 1,000 ML IV SCH (17:04)
[2017-11-04] MEDS: D5 1/2 NS IV 1,000 ML IV SCH (17:04)
[2017-11-04] MEDS: D5 1/2 NS W/KCL 20 MEQ/L 1,000 ML IV SCH ×3 (17:04→23:10)
[2017-11-04] MEDS: POTASSIUM CL 10MEQ/50ML IVPB X 4 (TOTAL 40 MEQ) IV SCH (17:05)
[2017-11-04 17:25] LABS: BUN/CREATININE RATIO 12; CALCIUM 7.1 MG/DL (8.5-10.1); CHLORIDE 109 MMOL/L (98-107); CREATININE SERUM 1.13 MG/DL (0.60-1.30); GFR ESTIMATED > 60; POTASSIUM 4.3 MMOL/L (3.6-5.0); SODIUM 136 MMOL/L (135-145)
[2017-11-04 17:27] LABS: CARBON DIOXIDE 5 MMOL/L (21-32); GLUCOSE 529 MG/DL (70-105)
[2017-11-04 19:38] LABS: BUN/CREATININE RATIO 12; CHLORIDE 113 MMOL/L (98-107); CREATININE SERUM 0.98 MG/DL (0.60-1.30); GFR ESTIMATED > 60; GLUCOSE 297 MG/DL (70-105); POTASSIUM 4.2 MMOL/L (3.6-5.0); SODIUM 137 MMOL/L (135-145)
[2017-11-04 19:42] LABS: CARBON DIOXIDE 8 MMOL/L (21-32)
[2017-11-04 23:28] LABS: BUN/CREATININE RATIO 11; CARBON DIOXIDE 15 MMOL/L (21-32); CHLORIDE 115 MMOL/L (98-107); CREATININE SERUM 0.84 MG/DL (0.60-1.30); GFR ESTIMATED > 60; GLUCOSE 173 MG/DL (70-105); POTASSIUM 3.7 MMOL/L (3.6-5.0); SODIUM 136 MMOL/L (135-145)
[2017-11-05] VITALS (24 sets, daily range): BP systolic 100–130; BP diastolic 54–100
[2017-11-05] MEDS: 1/2 NS W/KCL 20 MEQ/L 1,000 ML IV SCH ×7 (00:58→23:56)
[2017-11-05] MEDS: 1/2 NS IV SOLUTION 1,000 ML IV SCH ×8 (00:58→23:56)
[2017-11-05] MEDS: D5 1/2 NS IV 1,000 ML IV SCH ×8 (00:58→23:57)
[2017-11-05] MEDS: D5 1/2 NS W/KCL 20 MEQ/L 1,000 ML IV SCH ×6 (03:10→23:56)
[2017-11-05 03:24] LABS: BASOPHILS % (AUTO) 0 % (0-10); EOSINOPHILS # (AUTO) 0.1 10^3/uL (0.0-0.3); EOSINOPHILS % (AUTO) 1 % (0-10); HEMATOCRIT 29 % (35-52); HEMOGLOBIN 9.9 G/DL (11.5-16.0); LYMPHOCYTES # (AUTO) 2.4 X 10^3 (1.0-4.0); LYMPHOCYTES % (AUTO) 28 % (12-44); MEAN CORPUSCULAR HEMOGLOBIN 28 PG (25-34); MEAN CORPUSCULAR HGB CONC 34 G/DL (32-36); MEAN CORPUSCULAR VOLUME 84 FL (80-99); MEAN PLATELET VOLUME 10.2 FL (7.4-10.4); MONOCYTES # (AUTO) 0.9 X 10^3 (0.0-1.0); MONOCYTES % (AUTO) 11 % (0-12); NEUTROPHILS # (AUTO) 5.2 X 10^3 (1.8-7.8); NEUTROPHILS % (AUTO) 61 % (42-75); PLATELET COUNT 269 10^3/uL (130-400); WHITE BLOOD COUNT 8.5 10^3/uL (4.3-11.0)
[2017-11-05 03:41] LABS: BUN/CREATININE RATIO 8; CALCIUM 7.1 MG/DL (8.5-10.1); CARBON DIOXIDE 15 MMOL/L (21-32); CHLORIDE 113 MMOL/L (98-107); CREATININE SERUM 0.85 MG/DL (0.60-1.30); GFR ESTIMATED > 60; GLUCOSE 171 MG/DL (70-105); MAGNESIUM 1.6 MG/DL (1.8-2.4); POTASSIUM 3.7 MMOL/L (3.6-5.0); SODIUM 135 MMOL/L (135-145)
[2017-11-05 03:43] LABS: PHOSPHORUS 0.9 MG/DL (2.3-4.7)
[2017-11-05] MEDS: DEXTROSE 10% IV SOLUTION 1,000 ML IV SCH ×3 (03:51→21:11)
[2017-11-05] MEDS: POTASSIUM CL 10MEQ/50ML IVPB 50 ML IV SCH ×5 (04:40→07:52)
[2017-11-05] MEDS: MAGNESIUM 1 GM/100 ML IVPB 100 ML IV SCH ×3 (06:14→10:15)
[2017-11-05] MEDS: KCL 20 MEQ TAB (K-DUR) PO SCH (06:14)
[2017-11-05 07:17] LABS: BUN/CREATININE RATIO 7; CALCIUM 7.4 MG/DL (8.5-10.1); CARBON DIOXIDE 15 MMOL/L (21-32); CHLORIDE 111 MMOL/L (98-107); CREATININE SERUM 0.81 MG/DL (0.60-1.30); GFR ESTIMATED > 60; GLUCOSE 176 MG/DL (70-105); POTASSIUM 4.1 MMOL/L (3.6-5.0); SODIUM 133 MMOL/L (135-145)
[2017-11-05 07:17] LABS: BILIRUBIN,URINE NEGATIVE (NEGATIVE); CLARITY,URINE SLIGHTLY CLOUDY; COLOR,URINE YELLOW; GLUCOSE, URINE (UA) 4+ (NEGATIVE); KETONES,URINE 4+ (NEGATIVE); LEUKOCYTE ESTERASE ,URINE 3+ (NEGATIVE); NITRITE,URINE NEGATIVE (NEGATIVE); PH,URINE 6 (5-9); PROTEIN,URINE 2+ (NEGATIVE); UROBILINOGEN,URINE NORMAL (NORMAL)
[2017-11-05 07:23] LABS: WBC,URINE 50-100 /HPF
[2017-11-05 07:25] LABS: BACTERIA,URINE MODERATE /HPF
[2017-11-05] MEDS ORDERED: SODIUM PHOSPHATE INJ 40 MM in NS (IVPB) 250 ML IV NR (08:00)
--- NOTE | 2017-11-05 11:14 | History & Physicial ([facility]) ---
DEVIN WHIPPLE MED STUDENT 11/05/17 1114: HPI History of Present Illness: Patient is a 47 year old diabetic female who presented to the ED with nausea, vomiting and abdominal pain. The patient was admitted to the ICU for DKA. The patient states that due to being on house arrest and her son was unable to lease picker her insulin and was without it for greater than 1 day. She states that she has been checking her blood sugars at home only occasionally and states they "have been fine". Her most recent admission for DKA was in May. Today she is feeling much better and states that she no longer has abdominal pain and nausea and would like to eat a meal. She states that she is able to get up and urinate without difficulty and has had a normal bowel movement since admit. Denies chest pain and SOB. Her only acute complaint today is that she has a headache. Source: patient Exam Limitations: no limitations Date seen by provider: Nov 05, 2017 Time Seen by Provider: 09:30 Attending Physician Christy Bolden MD [facility] [place] Consult Date of Admission Nov 04, 2017 at 16:01 Home Medications Home Medications Reviewed patient Home Medication Reconciliation performed by pharmacy medication reconciliations auto transmission technician and/or nursing. Patients Allergies have been reviewed. Allergies Coded Allergies: Sulfa (Sulfonamide Antibiotics) (Unverified Allergy, Unknown, 05/30/17) RHZ-Iljnzo-Besrso Hx Patient Social History Alcohol Use: Denies Use Recreational Drug Use: No Drug of Choice: cocaine Smoking Status: Never a Smoker Recent Foreign Travel: No Contact w/other who traveled: No Recent Hopitalizations: Yes Recent Infectious Disease Expo: No Physical Abuse Screen: No Sexual Abuse: No Immunizations Up To Date Tetanus Booster (TDap): Unknown Past Medical History Past Medical History 1. Diabetes Mellitus I dx 2008 2. Depression with history of Suicide attempt/ Suicidal ideation 3. Cocaine Use/Abuse 4. Abnormal Pap 5. Diabetic Neuropathy 6. Anxiety 7. Arthritis 8. Medical Noncompliance 9. History of Incarceration Past Surgical History 1. Tubal Ligation 2. LEEP Family Medical History Significant Family History: Heart Disease, Diabetes, Hypertension Family History: Family history: Hypertension 09 SISTER Kidney disease 03 MOTHER Myocardial infarction 09 SISTER Review of Systems ([facility]) Constitutional: No chills, No dizziness, No fever; malaise; No weakness EENTM: No blurred vision, No double vision Respiratory: No cough, No dyspnea on exertion, No short of breath Gastrointestinal: No abdominal pain, No constipation, No diarrhea, No nausea, No vomiting Genitourinary: No dysuria, No frequency, No hematuria Musculoskeletal: no symptoms reported Skin: no symptoms reported Psychiatric/Neurological: Headache Physical Exam-([facility]) Physical Exam Vital Signs VS - Last 72 Hours, by Label 11/04/17 11/04/17 11/04/17 11/04/17 14:00 16:23 16:25 16:30 Temp 97.4 98.3 Pulse 133 118 122 Resp 24 16 12 B/P (MAP) 100/54 (69) 100/82 102/63 (76) Pulse Ox 100 100 100 O2 Delivery Room Air Room Air 11/04/17 11/04/17 11/04/17 11/04/17 16:39 17:00 17:15 18:00 Pulse 123 116 121 111 Resp 24 12 28 B/P (MAP) 103/84 (90) 90/51 (64) 104/61 (75) Pulse Ox 100 100 100 O2 Delivery Room Air Room Air Room Air 11/04/17 11/04/17 11/04/17 11/04/17 19:00 19:00 20:00 20:05 Temp 99.7 Pulse 116 117 112 Resp 16 18 B/P (MAP) 93/62 (72) 104/69 (81) Pulse Ox 100 97 99 O2 Delivery Room Air Room Air Room Air 11/04/17 11/04/17 11/04/17 11/05/17 21:00 22:00 23:00 00:00 Pulse 114 112 115 Resp 16 17 17 B/P (MAP) 101/65 (77) 103/65 (78) 110/61 (77) Pulse Ox 99 99 97 97 O2 Delivery Room Air Room Air Room Air Room Air 11/05/17 11/05/17 11/05/17 11/05/17 00:00 00:00 01:00 01:00 Temp 99.1 Pulse 112 113 113 Resp 18 16 B/P (MAP) 112/63 (79) 100/54 (69) Pulse Ox 97 98 O2 Delivery Room Air Room Air 11/05/17 11/05/17 11/05/17 11/05/17 02:00 03:00 04:00 04:00 Temp 99.0 Pulse 113 111 111 Resp 17 17 21 B/P (MAP) 108/65 (79) 111/74 (86) 112/72 (85) Pulse Ox 98 99 98 97 O2 Delivery Room Air Room Air Room Air Room Air 11/05/17 11/05/17 11/05/17 11/05/17 05:00 06:00 07:00 07:00 Pulse 111 112 121 110 Resp 17 19 B/P (MAP) 113/77 (89) 115/77 (90) 122/89 (100) Pulse Ox 98 99 99 O2 Delivery Room Air Room Air Room Air 11/05/17 11/05/17 11/05/17 11/05/17 07:32 07:33 08:00 09:00 Temp 98.9 Pulse 110 109 Resp 18 19 B/P (MAP) 116/78 (91) 120/88 (99) Pulse Ox 98 98 99 O2 Delivery Room Air Room Air Room Air Room Air 11/05/17 10:00 Pulse 105 Resp 18 B/P (MAP) 118/89 (99) Pulse Ox 100 O2 Delivery Room Air Capillary Refill : Less Than 3 Seconds General Appearance: no apparent distress HEENT: PERRL/EOMI Neck: non-tender, full range of motion, supple, normal inspection Respiratory: chest non-tender, lungs clear, normal breath sounds, no respiratory distress, no accessory muscle use Cardiovascular: regular rate, rhythm, no edema, no gallop, no JVD, no murmur Gastrointestinal: normal bowel sounds, non tender, soft, no organomegaly, no pulsatile mass Back: normal inspection Extremities: non-tender, normal inspection, no pedal edema, no calf tenderness Neurologic/Psychiatric: alert, normal mood/affect, oriented x 3 Skin: normal color, warm/dry Lymphatic: no adenopathy Assessment/Plan Assessment/Plan Admission Status: Inpatient Order (span 2 midnights) Reason for Inpatient Admission: DKA (1) Diabetic ketoacidosis Status: Acute Qualifiers: Qualified Codes: E10.10 - Type 1 diabetes mellitus with ketoacidosis without coma (2) Uncontrolled diabetes mellitus Status: Acute Qualifiers: Qualified Codes: E10.10 - Type 1 diabetes mellitus with ketoacidosis without coma Clinical Quality Measures DVT/VTE Risk/Contraindication: Risk Factor Score Per Nursin RFS Level Per Nursing on Admit: 1=Low/No VTE PPX Copy Copies To 1: DEMETRIA CORREA MD,CHRISTY Boyle MD 11/06/172044: HPI History of Present Illness: Reviewed history with patient and agree with documentation from student. Patient states that she was unable to lease picker insulin due to bring on house arrest. Source: patient, old records Home Medications Allergies Coded Allergies: Sulfa (Sulfonamide Antibiotics) (Unverified Allergy, Unknown, 05/30/17) IJQ-Tefnix-Qyiihj Hx Patient Social History Living Status: House with grown sons Past Medical History IDDM HTN Frequent admissions for DKA due to non compliance Family Medical History Family History: Family history: Hypertension 09 SISTER Kidney disease 03 MOTHER Myocardial infarction 09 SISTER Review of Systems ([facility]) Respiratory: no symptoms reported Cardiovascular: no symptoms reported Gastrointestinal: loss of appetite, nausea : No Musculoskeletal: no symptoms reported Skin: no symptoms reported Psychiatric/Neurological: Headache Reviewed Test Results Reviewed Test Results Lab Laboratory Tests Test 11/05/17 21:03 11/05/17 22:01 11/05/17 22:33 11/05/17 23:23 Range/Units Glucometer 145 H 134 H 122 H 119 H 70-110 MG/DL Test 11/05/17 23:58 11/05/17 23:59 11/06/17 01:11 11/06/17 02:03 Range/Units Glucometer 153 H 162 H 145 H 70-110 MG/DL Sodium Level 137 135-145 MMOL/L Potassium Level 3.7 3.6-5.0 MMOL/L Chloride Level 110 H 98-107 MMOL/L Carbon Dioxide Level 19 L 21-32 MMOL/L Anion Gap 8 5-14 MMOL/L Blood Urea Nitrogen 2 L -18 MG/DL Creatinine 0.74 0.60-1.30 MG/DL Estimat Glomerular Filtration Rate > 60 BUN/Creatinine Ratio 3 Glucose Level 157 H 70-105 MG/DL Calcium Level 7.8 L 8.5-10.1 MG/DL Test 11/06/17 02:55 11/06/17 03:00 11/06/17 06:08 11/06/17 06:54 Range/Units White Blood Count 5.5 4.3-11.0 10^3/uL Red Blood Count 3.59 L 4.35-5.85 10^6/uL Hemoglobin 10.0 L 11.5-16.0 G/DL Hematocrit 30 L 35-52 % Mean Corpuscular Volume 83 80-99 FL Mean Corpuscular Hemoglobin 28 25-34 PG Mean Corpuscular Hemoglobin Concent 34 32-36 G/DL Red Cell Distribution Width 14.4 10.0-14.5 % Platelet Count 249 130-400 10^3/uL Mean Platelet Volume 10.3 7.4-10.4 FL Neutrophils (%) (Auto) 46 42-75 % Lymphocytes (%) (Auto) 40 12-44 % Monocytes (%) (Auto) 12 0-12 % Eosinophils (%) (Auto) 2 0-10 % Basophils (%) (Auto) 0 0-10 % Neutrophils # (Auto) 2.6 1.8-7.8 X 10^3 Lymphocytes # (Auto) 2.2 1.0-4.0 X 10^3 Monocytes # (Auto) 0.7 0.0-1.0 X 10^3 Eosinophils # (Auto) 0.1 0.0-0.3 10^3/uL Basophils # (Auto) 0.0 0.0-0.1 10^3/uL Sodium Level 137 135-145 MMOL/L Potassium Level 3.4 L 3.6-5.0 MMOL/L Chloride Level 108 H 98-107 MMOL/L Carbon Dioxide Level 21 21-32 MMOL/L Anion Gap 8 5-14 MMOL/L Blood Urea Nitrogen 2 L 7-18 MG/DL Creatinine 0.67 0.60-1.30 MG/DL Estimat Glomerular Filtration Rate > 60 BUN/Creatinine Ratio 3 Glucose Level 140 H 70-105 MG/DL Calcium Level 8.0 L 8.5-10.1 MG/DL Phosphorus Level 1.9 L 2.3-4.7 MG/DL Magnesium Level 2.1 1.8-2.4 MG/DL Glucometer 133 H 47 *L 114 H 70-110 MG/DL Test 11/06/17 10:51 11/06/17 12:07 11/06/17 16:13 Range/Units Glucometer 139 H 163 H 310 H 70-110 MG/DL Physical Exam-([facility]) Physical Exam General Appearance: WD/WN, no apparent distress HEENT: PERRL/EOMI Neck: non-tender, supple Respiratory: chest non-tender, normal breath sounds, no respiratory distress, no accessory muscle use Cardiovascular: normal peripheral pulses, regular rate, rhythm, no edema, no murmur Gastrointestinal: normal bowel sounds, soft, no organomegaly, tenderness ( epigatric) Back: normal inspection Extremities: normal range of motion, non-tender, normal inspection, no pedal edema, no calf tenderness, normal capillary refill Neurologic/Psychiatric: home service consultant II-XII nml as tested, no motor/sensory deficits, alert, normal mood/affect, oriented x 3 Skin: normal color, warm/dry Lymphatic: no adenopathy Assessment/Plan Assessment/Plan (1) Diabetic ketoacidosis Status: Acute Assessment & Plan: - CO2 improved this AM, Continue insulin gtts until CO2 >20 then transition to subcutaneous insulin, Advance diet as tolerated, BMP q4 hrs Qualifiers: Qualified Codes: E10.10 - Type 1 diabetes mellitus with ketoacidosis without coma (2) Uncontrolled diabetes mellitus Status: Acute Assessment & Plan: - See Above Qualifiers: Qualified Codes: E10.10 - Type 1 diabetes mellitus with ketoacidosis without coma (3) Acute kidney failure Status: Acute Assessment & Plan: - Likely Pre Renal due to dehydration with DKA, Improving with DKA treatment (4) Normocytic anemia Status: Chronic Assessment & Plan: - At baseline, will continue to monitor (5) Non-compliance Status: Chronic (6) Discharge planning issues Status: Acute Assessment & Plan: - Discussed with patient that she can get her insulin delivered to her house DEVIN WHIPPLE MED STUDENT Nov 05, 2017 11:14 CHRISTY BOLDEN MD Nov 06, 2017 20:45
[2017-11-05] MEDS: REGULAR inSUlin DRIP 250 UNITS/NS 250 ML IV SCH ×2 (17:30)
[2017-11-05 19:13] LABS: CALCIUM 7.4 MG/DL (8.5-10.1); CARBON DIOXIDE 18 MMOL/L (21-32); CHLORIDE 110 MMOL/L (98-107); GLUCOSE 249 MG/DL (70-105); POTASSIUM 3.8 MMOL/L (3.6-5.0); SODIUM 136 MMOL/L (135-145)
[2017-11-05 19:39] LABS: BUN/CREATININE RATIO 3; CREATININE SERUM 0.78 MG/DL (0.60-1.30); GFR ESTIMATED > 60
[2017-11-06] VITALS (14 sets, daily range): BP systolic 112–143; BP diastolic 74–100
[2017-11-06 00:27] LABS: BUN/CREATININE RATIO 3; CALCIUM 7.8 MG/DL (8.5-10.1); CARBON DIOXIDE 19 MMOL/L (21-32); CHLORIDE 110 MMOL/L (98-107); CREATININE SERUM 0.74 MG/DL (0.60-1.30); GFR ESTIMATED > 60; GLUCOSE 157 MG/DL (70-105); POTASSIUM 3.7 MMOL/L (3.6-5.0); SODIUM 137 MMOL/L (135-145)
[2017-11-06] MEDS ORDERED: inSUlin DETERMIR 1 UNIT/0.01 ML (LEVEMIR) CHARGE PER UNIT SQ ONE ×2 (01:08→01:15)
[2017-11-06 03:28] LABS: BASOPHILS % (AUTO) 0 % (0-10); EOSINOPHILS # (AUTO) 0.1 10^3/uL (0.0-0.3); EOSINOPHILS % (AUTO) 2 % (0-10); HEMATOCRIT 30 % (35-52); LYMPHOCYTES # (AUTO) 2.2 X 10^3 (1.0-4.0); LYMPHOCYTES % (AUTO) 40 % (12-44); MEAN CORPUSCULAR HEMOGLOBIN 28 PG (25-34); MEAN CORPUSCULAR HGB CONC 34 G/DL (32-36); MEAN CORPUSCULAR VOLUME 83 FL (80-99); MEAN PLATELET VOLUME 10.3 FL (7.4-10.4); MONOCYTES # (AUTO) 0.7 X 10^3 (0.0-1.0); MONOCYTES % (AUTO) 12 % (0-12); NEUTROPHILS # (AUTO) 2.6 X 10^3 (1.8-7.8); NEUTROPHILS % (AUTO) 46 % (42-75); PLATELET COUNT 249 10^3/uL (130-400); RED BLOOD COUNT 3.59 10^6/uL (4.35-5.85); RED CELL DISTRIBUTION WIDTH 14.4 % (10.0-14.5); WHITE BLOOD COUNT 5.5 10^3/uL (4.3-11.0)
[2017-11-06 03:42] LABS: BUN/CREATININE RATIO 3; CARBON DIOXIDE 21 MMOL/L (21-32); CHLORIDE 108 MMOL/L (98-107); CREATININE SERUM 0.67 MG/DL (0.60-1.30); GFR ESTIMATED > 60; GLUCOSE 140 MG/DL (70-105); MAGNESIUM 2.1 MG/DL (1.8-2.4); PHOSPHORUS 1.9 MG/DL (2.3-4.7); POTASSIUM 3.4 MMOL/L (3.6-5.0); SODIUM 137 MMOL/L (135-145)
[2017-11-06] MEDS: 1/2 NS IV SOLUTION 1,000 ML IV SCH ×2 (05:30→07:42)
[2017-11-06] MEDS: 1/2 NS W/KCL 20 MEQ/L 1,000 ML IV SCH ×2 (05:30→07:42)
[2017-11-06] MEDS: D5 1/2 NS W/KCL 20 MEQ/L 1,000 ML IV SCH ×2 (05:31→07:43)
[2017-11-06] MEDS: D5 1/2 NS IV 1,000 ML IV SCH ×2 (05:31→07:43)
[2017-11-06] MEDS: POTASSIUM CL 10MEQ/50ML IVPB 50 ML IV SCH (05:32)
[2017-11-06] MEDS: KCL 20 MEQ TAB (K-DUR) PO SCH (05:32)
[2017-11-06] MEDS: MAGNESIUM 1 GM/100 ML IVPB 100 ML IV SCH (05:32)
[2017-11-06] MEDS: inSUlin ASPART (NovoLOG) 1 UNIT/0.01 ML (CHARGE PER UNIT) SC SCH ×5 (06:25→20:29)
[2017-11-06] MEDS ORDERED: KCL 20 MEQ TAB (K-DUR) PO ONE (07:00)
[2017-11-06] MEDS: DEXTROSE 10% IV SOLUTION 1,000 ML IV SCH (07:43)
--- NOTE | 2017-11-06 20:54 | Progress Note (SOAP) ---
Subjective Subjective/Events-last exam Patient states that she is feeling much better. Tolerating PO diet. Had episode of hypoglycemia this AM because full does of levemir was given. Nausea, vomiting and abdominal pain have resolved. Review of Systems Date Seen by Provider: Nov 06, 2017 Time Seen by Provider: 09:15 Pulmonary: No Dyspnea, No Cough Cardiovascular: No: Chest Pain, Palpitations, Edema Gastrointestinal: No: Nausea, Vomiting, Abdominal Pain, Diarrhea, Constipation Genitourinary: No Dysuria, No Frequency, No Incontinence Neurological: No: Confusion Objective Exam Last Set of Vital Signs Vital Signs Date Time Temp Pulse Resp B/P (MAP) Pulse Ox O2 Delivery O2 Flow Rate FiO2 11/06/17 16:12 99.1 90 20 135/90 (105) 97 Room Air Capillary Refill : Less Than 3 Seconds I&O Intake and Output 11/06/17 00:00 Intake Total 7715.3 ml Output Total 3300 ml Balance 4415.3 ml Intake Oral 1470 ml IV Total 6245.3 ml Output Urine Total 3300 ml # Bowel Movements 1 General: Alert, Oriented X3, Cooperative, No Acute Distress Lungs: Clear to Auscultation, Normal Air Movement Heart: Regular Rate, No Murmurs Abdomen: Normal Bowel Sounds, Soft, No Tenderness, No Hepatosplenomegaly, No Masses Extremities: No Edema, No Tenderness/Swelling Neuro: Cranial Nerves 3-12 NL Psych/Mental Status: Mental Status NL, Mood NL Results/Procedures Lab Laboratory Tests 11/05/17 21:03: Glucometer 145H 11/05/17 22:01: Glucometer 134H 11/05/17 22:33: Glucometer 122H 11/05/17 23:23: Glucometer 119H 11/05/17 23:58: Glucometer 153H 11/05/17 23:59: Sodium Level 137, Potassium Level 3.7, Chloride Level 110H, Carbon Dioxide Level 19L, Anion Gap 8, Blood Urea Nitrogen 2L, Creatinine 0.74, Estimat Glomerular Filtration Rate > 60, BUN/Creatinine Ratio 3, Glucose Level 157H, Calcium Level 7.8L 11/06/17 01:11: Glucometer 162H 11/06/17 02:03: Glucometer 145H 11/06/17 02:55: White Blood Count 5.5, Red Blood Count 3.59L, Hemoglobin 10.0L, Hematocrit 30L, Mean Corpuscular Volume 83, Mean Corpuscular Hemoglobin 28, Mean Corpuscular Hemoglobin Concent 34, Red Cell Distribution Width 14.4, Platelet Count 249, Mean Platelet Volume 10.3, Neutrophils (%) (Auto) 46, Lymphocytes (%) (Auto) 40 , Monocytes (%) (Auto) 12, Eosinophils (%) (Auto) 2, Basophils (%) (Auto) 0, Neutrophils # (Auto) 2.6, Lymphocytes # (Auto) 2.2, Monocytes # (Auto) 0.7, Eosinophils # (Auto) 0.1, Basophils # (Auto) 0.0, Sodium Level 137, Potassium Level 3.4L, Chloride Level 108H, Carbon Dioxide Level 21, Anion Gap 8, Blood Urea Nitrogen 2L, Creatinine 0.67, Estimat Glomerular Filtration Rate > 60, BUN/ Creatinine Ratio 3, Glucose Level 140H, Calcium Level 8.0L, Phosphorus Level 1.9L, Magnesium Level 2.1 11/06/17 03:00: Glucometer 133H 11/06/17 06:08: Glucometer 47*L 11/06/17 06:54: Glucometer 114H 11/06/17 10:51: Glucometer 139H 11/06/17 12:07: Glucometer 163H 11/06/17 16:13: Glucometer 310H Microbiology 11/04/17 MRSA Screen - Final, Complete MRSA not isolated 11/05/17 Urine Culture - Final, Complete See Comments Assessment/Plan Assessment/Plan (1) Diabetic ketoacidosis Status: Acute Assessment & Plan: - CO2 improved this AM, Continue insulin gtts until CO2 >20 then transition to subcutaneous insulin, Advance diet as tolerated, BMP q4 hrs 11/06: insulin gtts is off, 1 episode of hypoglycemia this AM, A1c pending, plan for home tomorrow, Transfer out of ICU today Qualifiers: Qualified Codes: E10.10 - Type 1 diabetes mellitus with ketoacidosis without coma (2) Uncontrolled diabetes mellitus Status: Resolved Assessment & Plan: - See Above Qualifiers: Qualified Codes: E10.10 - Type 1 diabetes mellitus with ketoacidosis without coma (3) Acute kidney failure Status: Acute Assessment & Plan: - Likely Pre Renal due to dehydration with DKA, Improving with DKA treatment 11/06: Resolved (4) Normocytic anemia Status: Chronic Assessment & Plan: - At baseline, will continue to monitor (5) Non-compliance Status: Chronic (6) Discharge planning issues Status: Acute Assessment & Plan: - Discussed with patient that she can get her insulin delivered to her house 11/06: Plan for home tomorrow Clinical Quality Measures DVT/VTE Risk/Contraindication: Risk Factor Score Per Nursin RFS Level Per Nursing on Admit: 1=Low/No VTE PPX CHRISTY BOLDEN MD Nov 06, 2017 20:54
[2017-11-07] VITALS: BP 135/85
[2017-11-07] MEDS: inSUlin ASPART (NovoLOG) 1 UNIT/0.01 ML (CHARGE PER UNIT) SC SCH (00:23)
[2017-11-07] MEDS ORDERED: inSUlin ASPART (NovoLOG) 1 UNIT/0.01 ML (CHARGE PER UNIT) SC SCH (06:00)
[2017-11-07 06:14] LABS: BASOPHILS % (AUTO) 0 % (0-10); EOSINOPHILS # (AUTO) 0.1 10^3/uL (0.0-0.3); EOSINOPHILS % (AUTO) 1 % (0-10); HEMATOCRIT 34 % (35-52); HEMOGLOBIN 11.3 G/DL (11.5-16.0); LYMPHOCYTES # (AUTO) 1.8 X 10^3 (1.0-4.0); LYMPHOCYTES % (AUTO) 32 % (12-44); MEAN CORPUSCULAR HGB CONC 33 G/DL (32-36); MEAN CORPUSCULAR VOLUME 83 FL (80-99); MEAN PLATELET VOLUME 10.6 FL (7.4-10.4); MONOCYTES # (AUTO) 0.4 X 10^3 (0.0-1.0); MONOCYTES % (AUTO) 7 % (0-12); NEUTROPHILS # (AUTO) 3.3 X 10^3 (1.8-7.8); NEUTROPHILS % (AUTO) 60 % (42-75); PLATELET COUNT 259 10^3/uL (130-400); RED BLOOD COUNT 4.11 10^6/uL (4.35-5.85); RED CELL DISTRIBUTION WIDTH 14.8 % (10.0-14.5); WHITE BLOOD COUNT 5.6 10^3/uL (4.3-11.0)
[2017-11-07 06:16] LABS: MEAN CORPUSCULAR HEMOGLOBIN 27 PG (25-34)
[2017-11-07 06:35] LABS: ALANINE AMINOTRANSFERASE 20 U/L (0-55); ALBUMIN 3.2 GM/DL (3.2-4.5); ALKALINE PHOSPHATASE 129 U/L (40-136); BILIRUBIN,TOTAL 0.3 MG/DL (0.1-1.0); BUN/CREATININE RATIO 9; CALCIUM 8.5 MG/DL (8.5-10.1); CARBON DIOXIDE 24 MMOL/L (21-32); CHLORIDE 103 MMOL/L (98-107); CREATININE SERUM 0.75 MG/DL (0.60-1.30); GFR ESTIMATED > 60; POTASSIUM 4.3 MMOL/L (3.6-5.0); SODIUM 136 MMOL/L (135-145); TOTAL PROTEIN 6.2 GM/DL (6.4-8.2)
[2017-11-07 06:41] LABS: GLUCOSE 442 MG/DL (70-105)
[2017-11-07 08:00] VITALS: BP 122/79
--- NOTE | 2017-11-07 10:27 | Discharge Summary-Hospitalist ---
Diagnosis/Chief Complaint Date of Admission Nov 04, 2017 at 16:01 Date of Discharge Discharge Date: Nov 07, 2017 Discharge Diagnosis (1) Diabetic ketoacidosis Status: Resolved Assessment & Plan: - CO2 improved this AM, Continue insulin gtts until CO2 >20 then transition to subcutaneous insulin, Advance diet as tolerated, BMP q4 hrs 11/06: insulin gtts is off, 1 episode of hypoglycemia this AM, A1c pending, plan for home tomorrow, Transfer out of ICU today (2) Uncontrolled diabetes mellitus Status: Resolved Assessment & Plan: - See Above (3) Acute kidney failure Status: Resolved Assessment & Plan: - Likely Pre Renal due to dehydration with DKA, Improving with DKA treatment 11/06: Resolved (4) Normocytic anemia Status: Chronic Assessment & Plan: - At baseline, will continue to monitor (5) Non-compliance Status: Chronic (6) Discharge planning issues Status: Acute Assessment & Plan: - Discussed with patient that she can get her insulin delivered to her house 11/06: Plan for home tomorrow Discharge Summary Discharge Physical Exam Allergies: Coded Allergies: Sulfa (Sulfonamide Antibiotics) (Unverified Allergy, Unknown, 05/30/17) Vitals & I&Os Vital Signs Date Time Temp Pulse Resp B/P (MAP) Pulse Ox O2 Delivery O2 Flow Rate FiO2 11/07/17 08:00 98.9 121 16 122/79 (93) 100 Room Air General Appearance: Alert, Oriented X3, Cooperative Respiratory: Clear to Auscultation, Normal Air Movement Cardiovascular: Regular Rate Neuro: Normal Gait, Normal Speech, Strength at 5/5 X4 Ext Psych/Mental Status: Mental Status NL, Mood NL Hospital Course Hospital course: patient was admitted for severe DKA and placed on protocol. ph 6.94 resolved after insulin drip and IVF initiated. Compliance was discussed with the patient and will fruit or nut picker the insulin she declined to fill at the pharmacy recently and will be seen in close f/u with Raphael Rogel. Overall patient has difficult to control diabetes and although sugars were not below 250 at DC she was much improved and acidosis had completely resolved. Labs (last 24 hrs) Laboratory Tests 11/06/17 10:51: Glucometer 139H 11/06/17 12:07: Glucometer 163H 11/06/17 16:13: Glucometer 310H 11/06/17 20:23: Glucometer 257H 11/07/17 00:12: Glucometer 235H 11/07/17 05:49: Glucometer 374H 11/07/17 05:54: White Blood Count 5.6, Red Blood Count 4.11L, Hemoglobin 11.3L, Hematocrit 34L, Mean Corpuscular Volume 83, Mean Corpuscular Hemoglobin 27, Mean Corpuscular Hemoglobin Concent 33, Red Cell Distribution Width 14.8H, Platelet Count 259, Mean Platelet Volume 10.6H, Neutrophils (%) (Auto) 60, Lymphocytes (%) (Auto) 32 , Monocytes (%) (Auto) 7, Eosinophils (%) (Auto) 1, Basophils (%) (Auto) 0, Neutrophils # (Auto) 3.3, Lymphocytes # (Auto) 1.8, Monocytes # (Auto) 0.4, Eosinophils # (Auto) 0.1, Basophils # (Auto) 0.0, Sodium Level 136, Potassium Level 4.3, Chloride Level 103, Carbon Dioxide Level 24, Anion Gap 9, Blood Urea Nitrogen 7, Creatinine 0.75, Estimat Glomerular Filtration Rate > 60, BUN/ Creatinine Ratio 9, Glucose Level 442*H, Calcium Level 8.5, Total Bilirubin 0.3 , Aspartate Amino Transf (AST/SGOT) 27, Alanine Aminotransferase (ALT/SGPT) 20, Alkaline Phosphatase 129, Total Protein 6.2L, Albumin 3.2 Microbiology 11/04/17 MRSA Screen - Final, Complete MRSA not isolated 11/05/17 Urine Culture - Final, Complete See Comments Patient resulted labs reviewed. Pending Labs Laboratory Tests 11/07/17 05:49: Glucometer 374 11/07/17 05:54: White Blood Count 5.6, Red Blood Count 4.11, Hemoglobin 11.3, Hematocrit 34, Mean Corpuscular Volume 83, Mean Corpuscular Hemoglobin 27, Mean Corpuscular Hemoglobin Concent 33, Red Cell Distribution Width 14.8, Platelet Count 259, Mean Platelet Volume 10.6, Neutrophils (%) (Auto) 60, Lymphocytes (%) (Auto) 32 , Monocytes (%) (Auto) 7, Eosinophils (%) (Auto) 1, Basophils (%) (Auto) 0, Neutrophils # (Auto) 3.3, Lymphocytes # (Auto) 1.8, Monocytes # (Auto) 0.4, Eosinophils # (Auto) 0.1, Basophils # (Auto) 0.0, Sodium Level 136, Potassium Level 4.3, Chloride Level 103, Carbon Dioxide Level 24, Anion Gap 9, Blood Urea Nitrogen 7, Creatinine 0.75, Estimat Glomerular Filtration Rate > 60, BUN/ Creatinine Ratio 9, Glucose Level 442, Calcium Level 8.5, Total Bilirubin 0.3, Aspartate Amino Transf (AST/SGOT) 27, Alanine Aminotransferase (ALT/SGPT) 20, Alkaline Phosphatase 129, Total Protein 6.2, Albumin 3.2 Discussion & Recommendations Discharge Planning: <30 minutes discharge planning Discharge Home Medications: Active Scripts Active Levemir (Insulin Determir) 1,000 Units/10 Ml Soln 25 Units SC HS new Levemir dose of 25 units at bedtime Reported Amitriptyline HCl 25 Mg Tablet 25 Mg PO DAILY PRN LAST FILLED 02-21-17 #30 Novolog (Insulin Aspart) 100 Unit/1 Ml Susp 15 Units SQ AC Instructions to patient/family Please see electronic discharge instructions given to patient. Clinical Quality Measures DVT/VTE Risk/Contraindication: Risk Factor Score Per Nursin RFS Level Per Nursing on Admit: 1=Low/No VTE PPX Problem Qualifiers (1) Diabetic ketoacidosis: Diabetes mellitus type: type 1 Diabetes mellitus complication detail: without coma Qualified Codes: E10.10 - Type 1 diabetes mellitus with ketoacidosis without coma (2) Uncontrolled diabetes mellitus: Diabetes mellitus type: type 1 Diabetes mellitus complication status: with ketoacidosis Diabetes mellitus complication detail: without coma Qualified Codes: E10.10 - Type 1 diabetes mellitus with ketoacidosis without coma ANNALISE RAWLS DO Nov 07, 2017 10:27
[2017-11-07 11:55] VITALS: BP 122/79
== END 2017-11-07 11:55 | disposition home or self-care (01) | DRG 638 ==
LOC: EDUNIT# 13:32 → ER 13:33 → ICU 16:01 → 4TH 11-06 12:00
PROVIDERS: ADMIT Family Medicine; ATTEND Family Medicine
DX: E10.10 Type 1 diabetes mellitus with ketoacidosis without coma (principal); E10.65 Type 1 diabetes mellitus with hyperglycemia; N17.9 Acute kidney failure, unspecified; E10.42 Type 1 diabetes mellitus with diabetic polyneuropathy; E86.0 Dehydration; D64.9 Anemia, unspecified; F41.9 Anxiety disorder, unspecified; F32.9 Major depressive disorder, single episode, unspecified; Z79.4 Long term (current) use of insulin; Z91.19 Patient's noncompliance with other medical treatment and regimen
CPT/HCPCS: 36415; 80048; 80053; 81000; 82805; 82962; 83036; 83690; 83735; 84100; 85025; 87081; 87088; 96361; 96374; 96375

== ENCOUNTER 2018-01-27 11:55 | Inpatient (IN) | payer MEDICAID ==
[2018-01-27] VITALS (21 sets, daily range): BP systolic 84–123; BP diastolic 48–82
[~2018-01-27] VITALS: Ht 167.6 cm; Wt 58.1 kg
[2018-01-27] MEDS ORDERED: NS IV 1000 ML 1,000 ML IV SCH ×2 (12:00→14:19)
--- NOTE | 2018-01-27 12:27 | ED General ---
General Chief Complaint: Glucose Problems Stated Complaint: HIGH BS Source of Information: Patient Exam Limitations: No Limitations History of Present Illness Date Seen by Provider: Jan 27, 2018 Time Seen by Provider: 12:25 Initial Comments To ER per private vehicle from [facility] with reports of hyperglycemia. Blood sugar was 470. She has a history of insulin dependent diabetes poorly controlled and frequent bouts of diabetic ketoacidosis. She's been vomiting since last night. No fevers chills or pain. She states that she did take her insulin last night. Timing/Duration: 1-2 Days Severity: Moderate Allergies and Home Medications Allergies Coded Allergies: Sulfa (Sulfonamide Antibiotics) (Unverified Allergy, Unknown, 05/30/17) Home Medications Amitriptyline HCl 25 Mg Tablet, 25 MG PO DAILY PRN for NEUROPATHY, (Reported) LAST FILLED 02-21-17 #30 Insulin Aspart 100 Unit/1 Ml Susp, 15 UNITS SQ AC, (Reported) Insulin Determir 1,000 Units/10 Ml Soln, 25 UNITS SC HS new Levemir dose of 25 units at bedtime Prescribed by: ROMEO OLSON on 07/21/17 1527 Patient Home Medication List Home Medication List Reviewed: Yes Review of Systems Review of Systems Constitutional: see HPI; No chills, No fever EENTM: see HPI Respiratory: no symptoms reported Cardiovascular: no symptoms reported Gastrointestinal: nausea, vomiting Genitourinary: no symptoms reported Musculoskeletal: no symptoms reported Skin: no symptoms reported Psychiatric/Neurological: No Symptoms Reported Hematologic/Lymphatic: No Symptoms Reported Past [id number] Hx Patient Social History Alcohol Use: Denies Use Number of Drinks Today: BB Alcohol Beverage of Choice: Beer, [place] Recreational Drug Use: No Drug of Choice: cocaine Smoking Status: Never a Smoker Recent Hopitalizations: Yes Immunizations Up To Date Tetanus Booster (TDap): Unknown PED Vaccines UTD: No Seasonal Allergies Seasonal Allergies: No Past Medical History Surgeries: Yes Tubal Ligation Respiratory: No Currently Using CPAP: No Currently Using BIPAP: No Cardiac: No Neurological: Yes Neuropathy 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 Disorders: No Female 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 Disorders: Denies 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 Sexually Transmitted Disease: No HIV/AIDS: No Genitourinary: Yes Kidney Infection Gastrointestinal: No Musculoskeletal: Yes Osteoporosis, Arthritis Endocrine: Yes Diabetes, Insulin dep HEENT: No Cancer: No Did You Recieve Any Treatments: No Psychosocial: Yes Anxiety, Depression Integumentary: No Blood Disorders: No Adverse Reaction/Blood Tranf: No Family Medical History Family history: Hypertension 09 SISTER Kidney disease 03 MOTHER Myocardial infarction 09 SISTER Heart Disease, Diabetes, Hypertension Physical Exam Vital Signs Vital Signs - First Documented 01/27/18 12:11 Temp 97.2 Pulse 114 Resp 20 B/P (MAP) 114/76 (89) Pulse Ox 100 O2 Delivery Room Air Capillary Refill : Height, Weight, BMI Height: 5'6.00" Weight: 133lbs. 0.0oz. [id number]; 21.5 BMI Method:Stated General Appearance: No Apparent Distress, WD/WN, Thin, Other (not actively vomiting at this time. Alert and oriented. No tachypnea.) Eyes: Bilateral Eye Normal Inspection, Bilateral Eye PERRL, Bilateral Eye EOMI HEENT: PERRL/EOMI, TMs Normal Respiratory: No Accessory Muscle Use, No Respiratory Distress Gastrointestinal: Normal Bowel Sounds, Non Tender, Soft Neurologic/Psychiatric: Alert, Oriented x3, No Motor/Sensory Deficits Skin: Normal Color, Warm/Dry (10) Progress/Results/Core Measures Suspected Sepsis SIRS Temperature: Pulse: Respiratory Rate: Laboratory Tests 01/27/18 12:21: White Blood Count 7.8 Blood Pressure / Mean: Laboratory Tests 01/27/18 12:21: Creatinine 1.52H, Platelet Count 390, Total Bilirubin 0.3 Results/Orders Lab Results Laboratory Tests Test 01/27/18 12:18 01/27/18 12:21 01/27/18 12:27 Range/Units Glucometer 482 *H 70-110 MG/DL White Blood Count 7.8 4.3-11.0 10^3/uL Red Blood Count 4.40 4.35-5.85 10^6/uL Hemoglobin 12.3 11.5-16.0 G/DL Hematocrit 38 35-52 % Mean Corpuscular Volume 87 80-99 FL Mean Corpuscular Hemoglobin 28 25-34 PG Mean Corpuscular Hemoglobin Concent 32 32-36 G/DL Red Cell Distribution Width 14.3 10.0-14.5 % Platelet Count 390 130-400 10^3/uL Mean Platelet Volume 10.3 7.4-10.4 FL Neutrophils (%) (Auto) 63 42-75 % Lymphocytes (%) (Auto) 30 12-44 % Monocytes (%) (Auto) 6 0-12 % Eosinophils (%) (Auto) 1 0-10 % Basophils (%) (Auto) 0 0-10 % Neutrophils # (Auto) 4.9 1.8-7.8 X 10^3 Lymphocytes # (Auto) 2.4 1.0-4.0 X 10^3 Monocytes # (Auto) 0.5 0.0-1.0 X 10^3 Eosinophils # (Auto) 0.1 0.0-0.3 10^3/uL Basophils # (Auto) 0.0 0.0-0.1 10^3/uL Sodium Level 132 L 135-145 MMOL/L Potassium Level 4.7 3.6-5.0 MMOL/L Chloride Level 99 98-107 MMOL/L Carbon Dioxide Level 7 *L 21-32 MMOL/L Anion Gap 26 H 5-14 MMOL/L Blood Urea Nitrogen 12 7-18 MG/DL Creatinine 1.52 H 0.60-1.30 MG/DL Estimat Glomerular Filtration Rate 45 BUN/Creatinine Ratio 8 Glucose Level 570 *H 70-105 MG/DL Calcium Level 8.9 8.5-10.1 MG/DL Corrected Calcium 8.8 8.5-10.1 MG/DL Total Bilirubin 0.3 0.1-1.0 MG/DL Aspartate Amino Transf (AST/SGOT) 15 5-34 U/L Alanine Aminotransferase (ALT/SGPT) 16 0-55 U/L Alkaline Phosphatase 155 H 40-136 U/L Total Protein 8.8 H 6.4-8.2 GM/DL Albumin 4.1 3.2-4.5 GM/DL Serum Test, Qualitative NEGATIVE NEGATIVE Urine Color YELLOW Urine Clarity CLEAR Urine pH 5 5-9 Urine Specific [place] 1.020 1.016-1.022 Urine Protein 1+ H NEGATIVE Urine Glucose (UA) 4+ H NEGATIVE Urine Ketones 4+ H NEGATIVE Urine Nitrite NEGATIVE NEGATIVE Urine Bilirubin NEGATIVE NEGATIVE Urine Urobilinogen NORMAL NORMAL MG/DL Urine Leukocyte Esterase NEGATIVE NEGATIVE Urine RBC (Auto) 3+ H NEGATIVE Urine RBC RARE /HPF Urine WBC 5-10 H /HPF Urine Crystals NONE /LPF Urine Bacteria TRACE /HPF Urine Casts NONE /LPF Urine Mucus NEGATIVE /LPF Urine Yeast FEW H /HPF Urine Culture Indicated NO Urine Opiates Screen NEGATIVE NEGATIVE Urine Oxycodone Screen NEGATIVE NEGATIVE Urine Methadone Screen NEGATIVE NEGATIVE Urine Propoxyphene Screen NEGATIVE NEGATIVE Urine Barbiturates Screen NEGATIVE NEGATIVE Ur Tricyclic Antidepressants Screen NEGATIVE NEGATIVE Urine Phencyclidine Screen NEGATIVE NEGATIVE Urine Amphetamines Screen NEGATIVE NEGATIVE Urine Methamphetamines Screen NEGATIVE NEGATIVE Urine Benzodiazepines Screen NEGATIVE NEGATIVE Urine Cocaine Screen NEGATIVE NEGATIVE Urine Cannabinoids Screen NEGATIVE NEGATIVE My Orders Orders - ESSIE DRIVER APRN Drug Screen Stat (Urine) (01/27/18 12:01) Hcg,Qualitative Serum (01/27/18 12:01) Cbc With Automated Diff (01/27/18 12:01) Comprehensive Metabolic Panel (01/27/18 12:01) Iv Heplock-Insert (Order) (01/27/18 12:01) Vital Signs/I&O 01/27/18 12:11 Temp 97.2 Pulse 114 Resp 20 B/P (MAP) 114/76 (89) Pulse Ox 100 O2 Delivery Room Air Capillary Refill : Departure Impression Primary Impression: DKA (diabetic ketoacidosis) Qualified Codes: E10.10 - Type 1 diabetes mellitus with ketoacidosis without coma Disposition: ADMITTED INPATIENT Condition: Stable Admissions Decision to Admit Reason: Admit from ER (General) Decision to Admit/Date: Jan 27, 2018 Time/Decision to Admit Time: 13:04 Departure-Patient Inst. Referrals: [facility]/EWELINA (PCP) Primary Care Physician LUKE SCHUSTER (Family) Primary Care Physician ESSIE DRIVER APRN Jan 27, 2018 12:27
[2018-01-27 12:30] LABS: BASOPHILS % (AUTO) 0 % (0-10); EOSINOPHILS # (AUTO) 0.1 10^3/uL (0.0-0.3); EOSINOPHILS % (AUTO) 1 % (0-10); HEMATOCRIT 38 % (35-52); HEMOGLOBIN 12.3 G/DL (11.5-16.0); LYMPHOCYTES # (AUTO) 2.4 X 10^3 (1.0-4.0); LYMPHOCYTES % (AUTO) 30 % (12-44); MEAN CORPUSCULAR HEMOGLOBIN 28 PG (25-34); MEAN CORPUSCULAR HGB CONC 32 G/DL (32-36); MEAN CORPUSCULAR VOLUME 87 FL (80-99); MEAN PLATELET VOLUME 10.3 FL (7.4-10.4); MONOCYTES # (AUTO) 0.5 X 10^3 (0.0-1.0); MONOCYTES % (AUTO) 6 % (0-12); NEUTROPHILS # (AUTO) 4.9 X 10^3 (1.8-7.8); NEUTROPHILS % (AUTO) 63 % (42-75); PLATELET COUNT 390 10^3/uL (130-400); RED CELL DISTRIBUTION WIDTH 14.3 % (10.0-14.5); WHITE BLOOD COUNT 7.8 10^3/uL (4.3-11.0)
[2018-01-27 12:38] LABS: BILIRUBIN,URINE NEGATIVE (NEGATIVE); CLARITY,URINE CLEAR; COLOR,URINE YELLOW; GLUCOSE, URINE (UA) 4+ (NEGATIVE); KETONES,URINE 4+ (NEGATIVE); LEUKOCYTE ESTERASE ,URINE NEGATIVE (NEGATIVE); NITRITE,URINE NEGATIVE (NEGATIVE); PH,URINE 5 (5-9); PROTEIN,URINE 1+ (NEGATIVE); UROBILINOGEN,URINE NORMAL (NORMAL)
[2018-01-27 12:48] LABS: BACTERIA,URINE TRACE /HPF; RBC,URINE RARE /HPF; YEAST,URINE FEW /HPF
[2018-01-27 12:50] LABS: AMPHETAMINE SCREEN, URINE NEGATIVE (NEGATIVE); BARBITURATE SCREEN URINE NEGATIVE (NEGATIVE); BENZODIAZEPINES SCREEN URINE NEGATIVE (NEGATIVE); CANNABINOID SCREEN, URINE NEGATIVE (NEGATIVE); COCAINE SCREEN URINE NEGATIVE (NEGATIVE); METHADONE STAT NEGATIVE (NEGATIVE); METHAMPHETAMINE SCREEN URINE S NEGATIVE (NEGATIVE); OPIATE SCREEN URINE NEGATIVE (NEGATIVE); OXYCODONE STAT NEGATIVE (NEGATIVE); PROPOXYPHENE STAT NEGATIVE (NEGATIVE); TRICYCLIC ANTIDEPRESSANTS SCRE NEGATIVE (NEGATIVE)
[2018-01-27 12:52] LABS: ALBUMIN 4.1 GM/DL (3.2-4.5); BILIRUBIN,TOTAL 0.3 MG/DL (0.1-1.0); CALCIUM 8.9 MG/DL (8.5-10.1); CREATININE SERUM 1.52 MG/DL (0.60-1.30); POTASSIUM 4.7 MMOL/L (3.6-5.0); TOTAL PROTEIN 8.8 GM/DL (6.4-8.2)
[2018-01-27] MEDS ORDERED: inSUlin REGULAR TPN/DRIP ONLY 250 UNITS in NORMAL SALINE 250 ML IV SCH ×2 (13:15→14:30)
[2018-01-27] MEDS ORDERED: inSUlin (REGULAR) HUMAN 1 UNIT/0.01 ML (CHARGE PER UNIT) IV ONE (13:15)
[2018-01-27] MEDS ORDERED: CATHETER FLUSH 10 ML SYR IV PRN (14:15)
[2018-01-27] MEDS ORDERED: ONDANSETRON 4 MG/2 ML (SDV) Z0FRAN IV PRN (14:15)
[2018-01-27] MEDS ORDERED: POTASSIUM CL 10MEQ/50ML IVPB 50 ML IV SCH (14:30)
[2018-01-27 14:43] LABS: HEMOGLOBIN 11.3 G/DL (11.5-16.0); MEAN PLATELET VOLUME 9.5 FL (7.4-10.4); RED BLOOD COUNT 4.1 10^6/uL (4.35-5.85); RED CELL DISTRIBUTION WIDTH 14.1 % (10.0-14.5); WHITE BLOOD COUNT 6.4 10^3/uL (4.3-11.0)
[2018-01-27 14:55] LABS: CALCIUM 8.2 MG/DL (8.5-10.1); CREATININE SERUM 1.3 MG/DL (0.60-1.30); POTASSIUM 3.6 MMOL/L (3.6-5.0)
[2018-01-27] MEDS: 1/2 NS IV SCH ×2 (15:03→15:21)
[2018-01-27] MEDS: POTASSIUM CL 10MEQ/50ML IVPB 50 ML IV SCH ×5 (15:04→23:07)
[2018-01-27] MEDS ORDERED: NS IV 1000 ML 1,000 ML ONE (15:05)
[2018-01-27] MEDS ORDERED: NS IV 1000 ML 1,000 ML IV ONE (15:15)
[2018-01-27] MEDS ORDERED: INSU100I29 SC (15:45)
[2018-01-27] MEDS ORDERED: INSU100I14 SC (15:45)
[2018-01-27] MEDS: 1/2 NS IV SOLUTION 1,000 ML IV SCH ×2 (15:51→23:50)
[2018-01-27] MEDS ORDERED: FLU QUADRIvalent (5+ YOA) 2018-2019 (AFLURIA) 0.5 ML IM ONE (16:00)
--- NOTE | 2018-01-27 16:08 | History & Physicial (CHS) ---
HPI History of Present Illness: 47 yo female with type 1 diabetes, states she thought she was doing pretty well and had been faithfully taking her insulin, but yesterday afternoon while at work felt nauseated and vomited, went home and rested, ate dinner and took insulin and felt a little better, but this morning felt poorly again and felt like she was going into DKA, so she came in. She denies fever, nasal congestion , shortness of breath. She does have cough at work when it is cold, but denies productive cough. She also does admit diarrhea which has been intermittent and unpredictable over the last month which she cannot relate to a particular food although she has tried. She denies blood in stools. She has a history of cocaine use, but states her last use was in April and she was scared about health consequences and that it had been laced with meth that time, so she has not used since. Source: patient Date seen by provider: Jan 27, 2018 Time Seen by Provider: 15:50 Attending Physician Lela Donaldson MD [facility] Consult Date of Admission Jan 27, 2018 at 1:24 pm Home Medications Home Medications Reviewed patient Home Medication Reconciliation performed by pharmacy medication reconciliations dentures lab technician and/or nursing. Patients Allergies have been reviewed. Allergies Coded Allergies: Sulfa (Sulfonamide Antibiotics) (Unverified Allergy, Unknown, 05/30/17) YTT-Bfoffi-Cojbmp Hx Patient Social History Alcohol Use: Denies Use Recreational Drug Use: Yes (last use reported Apr 2017) Drug of Choice: cocaine Smoking Status: Never a Smoker Recent Foreign Travel: No Contact w/other who traveled: No Recent Hopitalizations: Yes Recent Infectious Disease Expo: No Physical Abuse Screen: No Sexual Abuse: No Immunizations Up To Date Tetanus Booster (TDap): Unknown Past Medical History PMHx: IDDM HTN PSurgHx: Tubal ligation Family Medical History Significant Family History: Heart Disease, Diabetes, Hypertension Family History: Family history: Hypertension 09 SISTER Kidney disease 03 MOTHER Myocardial infarction 09 SISTER Review of Systems (CHC) Constitutional: see HPI EENTM: see HPI Respiratory: see HPI Cardiovascular: No chest pain Gastrointestinal: see HPI Genitourinary: no symptoms reported Musculoskeletal: no symptoms reported Skin: no symptoms reported Psychiatric/Neurological: No Symptoms Reported Reviewed Test Results Reviewed Test Results Lab Laboratory Tests Test 01/27/18 12:18 01/27/18 12:21 01/27/18 12:27 01/27/18 14:35 Range/Units Glucometer 482 *H 70-110 MG/DL White Blood Count 7.8 6.4 4.3-11.0 10^3/uL Red Blood Count 4.40 4.10 L 4.35-5.85 10^6/uL Hemoglobin 12.3 11.3 L 11.5-16.0 G/DL Hematocrit 38 36 35-52 % Mean Corpuscular Volume 87 87 80-99 FL Mean Corpuscular Hemoglobin 28 28 25-34 PG Mean Corpuscular Hemoglobin Concent 32 32 32-36 G/DL Red Cell Distribution Width 14.3 14.1 10.0-14.5 % Platelet Count 390 363 130-400 10^3/uL Mean Platelet Volume 10.3 9.5 7.4-10.4 FL Neutrophils (%) (Auto) 63 42-75 % Lymphocytes (%) (Auto) 30 12-44 % Monocytes (%) (Auto) 6 0-12 % Eosinophils (%) (Auto) 1 0-10 % Basophils (%) (Auto) 0 0-10 % Neutrophils # (Auto) 4.9 1.8-7.8 X 10^3 Lymphocytes # (Auto) 2.4 1.0-4.0 X 10^3 Monocytes # (Auto) 0.5 0.0-1.0 X 10^3 Eosinophils # (Auto) 0.1 0.0-0.3 10^3/uL Basophils # (Auto) 0.0 0.0-0.1 10^3/uL Sodium Level 132 L 136 135-145 MMOL/L Potassium Level 4.7 3.6 3.6-5.0 MMOL/L Chloride Level 99 106 98-107 MMOL/L Carbon Dioxide Level 7 *L 6 *L 21-32 MMOL/L Anion Gap 26 H 24 H 5-14 MMOL/L Blood Urea Nitrogen 12 12 7-18 MG/DL Creatinine 1.52 H 1.30 0.60-1.30 MG/DL Estimat Glomerular Filtration Rate 45 54 BUN/Creatinine Ratio 8 9 Glucose Level 570 *H 395 H 70-105 MG/DL Calcium Level 8.9 8.2 L 8.5-10.1 MG/DL Corrected Calcium 8.8 8.5-10.1 MG/DL Total Bilirubin 0.3 0.1-1.0 MG/DL Aspartate Amino Transf (AST/SGOT) 15 5-34 U/L Alanine Aminotransferase (ALT/SGPT) 16 0-55 U/L Alkaline Phosphatase 155 H 40-136 U/L Total Protein 8.8 H 6.4-8.2 GM/DL Albumin 4.1 3.2-4.5 GM/DL Serum Test, Qualitative NEGATIVE NEGATIVE Urine Color YELLOW Urine Clarity CLEAR Urine pH 5 5-9 Urine Specific [place] 1.020 1.016-1.022 Urine Protein 1+ H NEGATIVE Urine Glucose (UA) 4+ H NEGATIVE Urine Ketones 4+ H NEGATIVE Urine Nitrite NEGATIVE NEGATIVE Urine Bilirubin NEGATIVE NEGATIVE Urine Urobilinogen NORMAL NORMAL MG/DL Urine Leukocyte Esterase NEGATIVE NEGATIVE Urine RBC (Auto) 3+ H NEGATIVE Urine RBC RARE /HPF Urine WBC 5-10 H /HPF Urine Crystals NONE /LPF Urine Bacteria TRACE /HPF Urine Casts NONE /LPF Urine Mucus NEGATIVE /LPF Urine Yeast FEW H /HPF Urine Culture Indicated NO Urine Opiates Screen NEGATIVE NEGATIVE Urine Oxycodone Screen NEGATIVE NEGATIVE Urine Methadone Screen NEGATIVE NEGATIVE Urine Propoxyphene Screen NEGATIVE NEGATIVE Urine Barbiturates Screen NEGATIVE NEGATIVE Ur Tricyclic Antidepressants Screen NEGATIVE NEGATIVE Urine Phencyclidine Screen NEGATIVE NEGATIVE Urine Amphetamines Screen NEGATIVE NEGATIVE Urine Methamphetamines Screen NEGATIVE NEGATIVE Urine Benzodiazepines Screen NEGATIVE NEGATIVE Urine Cocaine Screen NEGATIVE NEGATIVE Urine Cannabinoids Screen NEGATIVE NEGATIVE Physical Exam-(CHC) Physical Exam Vital Signs VS - Last 72 Hours, by Label 01/27/18 01/27/18 01/27/18 01/27/18 12:11 14:00 14:10 14:15 Temp 97.2 Pulse 114 114 120 116 Resp 20 21 B/P (MAP) 114/76 (89) 119/73 (88) 123/81 (95) Pulse Ox 100 100 100 O2 Delivery Room Air Room Air Room Air 01/27/18 01/27/18 01/27/18 01/27/18 14:30 14:45 15:00 15:15 Pulse 116 112 112 112 Resp 16 14 14 13 B/P (MAP) 118/78 (91) 103/67 (79) 85/54 (64) 93/57 (69) Pulse Ox 100 100 100 100 O2 Delivery Room Air Room Air Room Air Room Air 01/27/18 15:30 Pulse 111 Resp 13 B/P (MAP) 87/60 (69) Pulse Ox 100 O2 Delivery Room Air Capillary Refill : Less Than 3 Seconds General Appearance: no apparent distress HEENT: other (missing teeth) Respiratory: lungs clear, normal breath sounds Cardiovascular: no murmur, tachycardia Gastrointestinal: normal bowel sounds, non tender Extremities: no pedal edema Neurologic/Psychiatric: alert, normal mood/affect Skin: warm/dry Assessment/Plan Assessment/Plan Admission Status: Inpatient Order (span 2 midnights) Reason for Inpatient Admission: Diabetic ketoacidosis requiring ICU care and intensive insulin therapy expected to require more than one night for correction. (1) Diabetic ketoacidosis Status: Acute Assessment & Plan: With CO2 of 8 on admission. Unclear etiology given report of sudden onset and good intake and insulin use. Possibly related to diarrhea intermittently over last month. DKA protocol- insulin drip, aggressive hydration Qualifiers: Qualified Codes: E10.10 - Type 1 diabetes mellitus with ketoacidosis without coma (2) Electrolyte imbalance Status: Acute Assessment & Plan: Monitor closely and replace K as needed. Initial Na low due to hyperglycemia, improved on recheck. (3) Diabetes mellitus with hyperglycemia Status: Chronic Assessment & Plan: A1c pending, reports using insulin faithfully, unclear etiology for DKA. Qualifiers: Qualified Codes: E10.65 - Type 1 diabetes mellitus with hyperglycemia (4) DVT prophylaxis Status: Acute Assessment & Plan: [facility] [place] Quality Measures DVT/VTE Risk/Contraindication: Risk Factor Score Per Nursin RFS Level Per Nursing on Admit: 1=Low/No VTE PPX LELA DONALDSON MD Jan 27, 2018 4:08 pm
[2018-01-27] MEDS: D5 1/2 NS 1000 ML IV SOLUTION 1,000 ML IV SCH ×2 (16:49→21:01)
[2018-01-27 16:56] LABS: BUN/CREATININE RATIO 9; CARBON DIOXIDE 13 MMOL/L (21-32); CHLORIDE 109 MMOL/L (98-107); CREATININE SERUM 1.12 MG/DL (0.60-1.30); GFR ESTIMATED > 60; GLUCOSE 216 MG/DL (70-105); POTASSIUM 4.1 MMOL/L (3.6-5.0); SODIUM 136 MMOL/L (135-145)
[2018-01-27 19:45] LABS: BUN/CREATININE RATIO 8; CALCIUM 7.5 MG/DL (8.5-10.1); CARBON DIOXIDE 14 MMOL/L (21-32); CHLORIDE 110 MMOL/L (98-107); CREATININE SERUM 1.05 MG/DL (0.60-1.30); GFR ESTIMATED > 60; GLUCOSE 231 MG/DL (70-105); SODIUM 136 MMOL/L (135-145)
[2018-01-28] VITALS (16 sets, daily range): BP systolic 101–119; BP diastolic 8–91
[2018-01-28] MEDS: POTASSIUM CL 10MEQ/50ML IVPB 50 ML IV SCH ×3 (01:13→09:00)
[2018-01-28] MEDS: D5 1/2 NS 1000 ML IV SOLUTION 1,000 ML IV SCH ×3 (01:14→10:04)
[2018-01-28 01:51] LABS: BASOPHILS % (AUTO) 0 % (0-10); EOSINOPHILS # (AUTO) 0.2 10^3/uL (0.0-0.3); EOSINOPHILS % (AUTO) 2 % (0-10); HEMATOCRIT 28 % (35-52); HEMOGLOBIN 9.6 G/DL (11.5-16.0); LYMPHOCYTES # (AUTO) 2.8 X 10^3 (1.0-4.0); LYMPHOCYTES % (AUTO) 36 % (12-44); MEAN CORPUSCULAR HEMOGLOBIN 29 PG (25-34); MEAN CORPUSCULAR HGB CONC 34 G/DL (32-36); MEAN CORPUSCULAR VOLUME 85 FL (80-99); MEAN PLATELET VOLUME 9.4 FL (7.4-10.4); MONOCYTES # (AUTO) 0.8 X 10^3 (0.0-1.0); MONOCYTES % (AUTO) 11 % (0-12); NEUTROPHILS # (AUTO) 4.1 X 10^3 (1.8-7.8); NEUTROPHILS % (AUTO) 52 % (42-75); PLATELET COUNT 300 10^3/uL (130-400); RED BLOOD COUNT 3.34 10^6/uL (4.35-5.85); RED CELL DISTRIBUTION WIDTH 13.8 % (10.0-14.5); WHITE BLOOD COUNT 7.9 10^3/uL (4.3-11.0)
[2018-01-28 02:07] LABS: BUN/CREATININE RATIO 7; CALCIUM 7.9 MG/DL (8.5-10.1); CARBON DIOXIDE 16 MMOL/L (21-32); CHLORIDE 109 MMOL/L (98-107); GFR ESTIMATED > 60; GLUCOSE 140 MG/DL (70-105); POTASSIUM 3.9 MMOL/L (3.6-5.0); SODIUM 134 MMOL/L (135-145)
[2018-01-28 02:34] LABS: MAGNESIUM 1.6 MG/DL (1.8-2.4)
[2018-01-28 02:35] LABS: PHOSPHORUS 0.9 MG/DL (2.3-4.7)
--- OUTSIDE RECORDS SUMMARY | 2018-01-28 03:29 | XMS REPORT ---
Author Author LUKE SCHUSTER Organization [facility] Address [address] [place] [address] Care Team Providers Care Plant And Instrument Engineer Name Role Phone LUKE SCHUSTER Unavailable PROBLEMS Type Condition ICD9-CM Code [id number] Code Onset Dates Condition Status SNOMED Code Problem Type 1 diabetes mellitus with diabetic neuropathy E10.40 Active [id number] ALLERGIES No Information ENCOUNTERS Encounter Location Date Diagnosis [facility] [id number] [place] [address] 79007- 3736 Nov, [facility] [id number] [place] [address] 44245- 7957 Oct, Type 2 diabetes mellitus with hyperglycemia E11.65 [facility] [id number] [place] [address] 28947- 7638 Jul, [facility] [id number] [place] [address] 56272- 1604 Jul, [facility] [id number] [place] [address] 73729- 7220 Jul, [facility] [id number] [place] [address] 92097- 2348 Jun, Type 1 diabetes mellitus with diabetic neuropathy E10.40 [facility] [place] [id number] [place] [address] [id number] May, [facility] [place] [id number] [place] [address] [id number] Apr, [facility] [id number] [place] [address] [id number] [id number] Feb, Type 2 diabetes mellitus with hyperglycemia E11.65 [facility] [id number] [place] [address] [id number] Feb, Type 2 diabetes mellitus with other specified complication E11.69 and Diabetic mononeuropathy associated with type 2 diabetes mellitus E11.41 [facility] [id number] [place] [address] 54839- 2546 Oct, [facility] [id number] [place] [address] 19591- 2546 Oct, Type 2 diabetes mellitus with other specified complication E11.69 [facility] [id number] [place] [address] 70433- 2546 August, Type 2 diabetes mellitus with other specified complication E11.69 and Type 2 diabetes mellitus with hyperglycemia E11.65 [facility] [place] [id number] [place] [address] [id number] August, [place] [id number] [place] [address] 90112- 9376 Feb, [facility] [id number] [place] [address] [id number] Sep, Dental caries K02.9 [facility] [id number] [place] [address] [id number] August, Dental examination Z01.20 [facility] [id number] [place] [address] 28024- 2086 Jan, [facility] [id number] [place] [address] 65568- 1946 Jan, [facility] [id number] [place] [address] 24057 2546 Dec, Diabetes with ketoacidosis, type II or unspecified type, uncontrolled 250.12 [facility] [id number] [place] [address] 10344- 3926 Nov, [facility] [id number] [place] [address] 77783- 3936 Nov, Fever 780.60 [facility] [address] 29684- 9483 14 Jul, 2014 [facility] [place] [facility] [address] [id number] [place] [address] 7909 Jul, [facility] [place] [facility] [address] [id number] [place] [address]- 4439 August, [facility] [place] [facility] [address] [id number] [place] [address]- 3430 August, [facility] [place] [facility] [address] [id number] [place] [address]- 7434 Jun, [facility] [place] [facility] [address] [id number] [place] [address]- 1530 Jun, [facility] [place] [facility] [address] [id number] [place] [address]- 0735 Apr, [facility] [place] [facility] [address] [id number] [place] [address]- 5094 Apr, [facility] [place] [facility] [address] [id number] [place] [address]- 3306 Mar, [facility] [place] [facility] [address] [id number] [place] [address]- 9958 Mar, [facility] [place] [facility] [address] [id number] [place] [address]- 4213 Oct, [facility] [place] [facility] [address] [id number] [place] [address]- 0877 Jun, [facility] [place] [facility] [address] [id number] [place] [address] 8213 Jan, [facility] [place] [facility] [address] [id number] [place] [address]- 9386 Jan, [facility] [place] [facility] [address] [id number] [place] [address]- 6736 Jan, [facility] [place] [facility] [address] [id number] [place] [address]- 2546 Dec, [facility] [place] [facility] [address] [facility] [id number] [place] [address]- 2546 11 Feb, 2011 [facility] [address] [facility] [id number] [place] [address] 7806 Mar, [facility] [address] [facility] [id number] [place] [address]- 2546 Feb, [facility] [address] [facility] [id number] [place] [address]- 1484 Feb, [facility] [address] [facility] [id number] [place] [address]- 4961 Feb, IMMUNIZATIONS No Known Immunizations SOCIAL HISTORY Never Assessed REASON FOR VISIT DM ed attempt PLAN OF CARE VITAL SIGNS MEDICATIONS Unknown Medications RESULTS No Results PROCEDURES No Known procedures INSTRUCTIONS MEDICATIONS ADMINISTERED No Known Medications MEDICAL (GENERAL) HISTORY Type Description Date Medical History Diabetes type I Medical History diabetic neuropathy Surgical History tubal ligation 2002 Hospitalization History Ketoacidosis 01/2014 Hospitalization History DKA, UTI-[facility] 08/11/16 Hospitalization History DKA, UTI-[facility] 05/09/17 Hospitalization History UTI, DKA-[facility] 05/30/17 Hospitalization History DM, Hyperglycemia-[facility] 07/20/17
--- OUTSIDE RECORDS SUMMARY | 2018-01-28 03:29 | XMS REPORT ---
Author Author ROMEO OLSON [facility] Address [address] [place] [address] Care Team Providers Care Bone Crusher Name Role Phone ROMEO OLSON Unavailable PROBLEMS Type Condition ICD9-CM Code [id number] Code Onset Dates Condition Status SNOMED Code Problem Type 1 diabetes mellitus with diabetic neuropathy E10.40 Active [id number] ALLERGIES No Information ENCOUNTERS Encounter Location Date Diagnosis [facility] [id number] [place] [address] 09341- 7934 Nov, [facility] [id number] [place] [address] 61869- 6828 Oct, Type 2 diabetes mellitus with hyperglycemia E11.65 [facility] [id number] [place] [address] 09803- 0954 Jul, [facility] [id number] [place] [address] 39937- 5450 Jul, [facility] [id number] [place] [address] 16252- 8744 Jul, [facility] [id number] [place] [address] 56328- 7898 Jun, Type 1 diabetes mellitus with diabetic neuropathy E10.40 [facility] [id number] [place] [address] [id number] May, [facility] [address] [id number] Apr, [facility] [id number] [place] [address] [id number]- 1688 Feb, Type 2 diabetes mellitus with hyperglycemia E11.65 [facility] [id number] [place] [address] 71495- 1100 Feb, Type 2 diabetes mellitus with other specified complication E11.69 and Diabetic mononeuropathy associated with type 2 diabetes mellitus E11.41 [facility] [id number] [place] [address] 55753- 2406 Oct, [facility] [id number] [place] [address] 41951- 9176 Oct, Type 2 diabetes mellitus with other specified complication E11.69 [facility] [id number] [place] [address] 96109- 4976 August, Type 2 diabetes mellitus with other specified complication E11.69 and Type 2 diabetes mellitus with hyperglycemia E11.65 [facility] [id number] [place] [address] [id number] August, [place] [facility] [id number] [place] [address] 52923- 6846 Feb, [facility] [id number] [place] [address] [id number] Sep, Dental caries K02.9 [facility] [id number] [place] [address] [id number] August, Dental examination Z01.20 [facility] [id number] [place] [address] [id number]- [id number] Jan, [facility] [id number] [place] [address] 17841- 8786 Jan, [facility] [id number] [place] [address] 00979- 0364 Dec, Diabetes with ketoacidosis, type II or unspecified type, uncontrolled 250.12 [facility] [id number] [place] [address] 62266- 8096 Nov, [facility] [id number] [place] [address] 73019- 0546 Nov, Fever 780.60 [facility] [address] [address]50- 7015 Jul, [facility] [place] [facility] [address] [id number] [place] [address]- 9769 Jul, [facility] [place] [facility] [address] [id number] [place] [address]- 1008 August, [facility] [place] [facility] [address] [id number] [place] [address]- 1360 August, [facility] [place] [facility] [address] [id number] [place] [address]- 5533 Jun, [facility] [place] [facility] [address] [id number] [place] [address]- 3435 Jun, [facility] [place] [facility] [address] [id number] [place] [address]40 Apr, [facility] [place] [facility] [address] [id number] [place] [address]374 Apr, [facility] [place] [facility] [address] [id number] [place] [address]- 2034 Mar, [facility] [place] [facility] [address] [id number] [place] [address]- 5289 Mar, [facility] [place] [facility] [address] [id number] [place] [address]- 9014 Oct, [facility] [place] [facility] [address] [id number] [place] [address]- 1364 Jun, [facility] [place] [facility] [address] [id number] [place] [address]- 8296 Jan, [facility] [place] [facility] [address] [id number] [place] [address]- 2610 Jan, [facility] [place] [facility] [address] [id number] [place] [address]- 8228 Jan, [facility] [place] [facility] [address] [id number] [place] [address]- 4575 Dec, [facility] [place] [facility] [address] [facility] [id number] [place] [address]- 2546 Feb, [facility] [address] [facility] [id number], [place] [address]- 3827 Mar, [facility] [address] [id number] [address]- 2546 Feb, [facility] [address] [facility] [id number], [place] [address]- 1048 Feb, [facility] [address] [facility] [id number]- 8671 Feb, IMMUNIZATIONS No Known Immunizations SOCIAL HISTORY Never Assessed REASON FOR VISIT DM ed attempt PLAN OF CARE VITAL SIGNS MEDICATIONS Unknown Medications RESULTS No Results PROCEDURES No Known procedures INSTRUCTIONS MEDICATIONS ADMINISTERED No Known Medications MEDICAL (GENERAL) HISTORY Type Description Date Medical History Diabetes type I Medical History diabetic neuropathy Surgical History tubal ligation 2002 Hospitalization History Ketoacidosis 01/2014 Hospitalization History DKA, UTI-[facility] 08/11/16 Hospitalization History DKA, UTI-[facility] 05/09/17 Hospitalization History UTI, DKA-[facility] 05/30/17 Hospitalization History DM, Hyperglycemia-[facility] 07/20/17
--- OUTSIDE RECORDS SUMMARY | 2018-01-28 03:29 | XMS REPORT ---
Author Author LUKE SCHUSTER Organization [facility] Address [address] [place] [address] Care Team Providers Care Expediter Clerk Name Role Phone LUKE SCHUSTER Unavailable PROBLEMS Type Condition ICD9-CM Code DQL21-XG Code Onset Dates Condition Status SNOMED Code Problem Type 1 diabetes mellitus with diabetic neuropathy E10.40 Active [id number] ALLERGIES No Information ENCOUNTERS Encounter Location Date Diagnosis [facility] [id number] [place] [address] 70788- 2557 Oct, Type 2 diabetes mellitus with hyperglycemia E11.65 [place] [id number] [place] [address] 73855- 7207 Jul, [facility] [id number] [place] [address] 23110- 7398 Jul, [facility] [id number] [place] [address] 99713- 5994 Jul, [facility] [id number] [place] [address] 47084- 5128 Jun, Type 1 diabetes mellitus with diabetic neuropathy E10.40 [facility] [id number] [place] [address] [id number] May, [facility] [id number] [place] [address] [id number] Apr, [facility] [id number] [place] [address] 55923- 3109 Feb, Type 2 diabetes mellitus with hyperglycemia E11.65 [facility] [id number] [place] [address] [id number]- [phone] Feb, Type 2 diabetes mellitus with other specified complication E11.69 and Diabetic mononeuropathy associated with type [address] [facility] [address] [address] Oct, [facility] [id number] [place] [address] 08267- 9856 Oct, Type 2 diabetes mellitus with other specified complication E11.69 [facility] [id number] [place] [address] 90672- 6816 August, Type 2 diabetes mellitus with other specified complication E11.69 and Type 2 diabetes mellitus with hyperglycemia E11.65 [facility] [id number] [place] [address] [id number] August, [facility] [id number] [place] [address] 73965- 8246 Feb, [facility] [id number] [place] [address] [phone] Sep, Dental caries K02.9 [facility] [id number] [place] [address] [phone] August, Dental examination Z01.20 [facility] [id number] [place] [address] 51866- 4633 Jan, [facility] [id number] [place] [address] [id number] Jan, [facility] [id number] [place] [address] 19526- 6775 Dec, Diabetes with ketoacidosis, type II or unspecified type, uncontrolled 250.12 [facility] [id number] [place] [address] 05977- 1167 Nov, [facility] [id number] [place] [address] 29508- 9293 Nov, Fever 780.60 [facility] [id number] [place] [address] 59939- 0146 Jul, [facility] [id number] [place] [address] 65216- 4852 Jul, [facility] [place] [facility] [address] [id number] [place] [address] 0737 August, [facility] [place] [facility] [address] [id number] [place] [address]- 9416 August, [facility] [place] [facility] [address] [id number] [place] [address]- 8211 Jun, [facility] [place] [facility] [address] [id number] [place] [address]- 0384 Jun, [facility] [place] [facility] [address] [id number] [place] [address]- 7610 Apr, [facility] [place] [facility] [address] [id number] [place] [address]- 6009 Apr, [facility] [place] [facility] [address] [id number] [place] [address]- 2305 Mar, [facility] [place] [facility] [address] [id number] [place] [address]- 0881 Mar, [facility] [place] [facility] [address] [id number] [place] [address]- 6839 Oct, [facility] [place] [facility] [address] [id number] [place] [address] 2546 Jun, [facility] [place] [facility] [address] [id number] [address] 5123 Jan, [facility] [place] [facility] [address] [id number] [address] 2546 Jan, [facility] [place] [facility] [address] [id number] [place] [address]- 2546 Jan, [facility] [place] [facility] [address] [id number] [place] [address]- 2546 Dec, [facility] [place] [facility] [address] [id number] [place] [address]- 2546 Feb, [facility] [place] [facility] [address] [facility] [id number] [place] [address] Mar, [facility] [address] [facility] [id number] [address] Feb, [facility] [address] [facility] [id number] [address] Feb, [facility] [address] [facility] [id number] [address] 2546 Feb, IMMUNIZATIONS No Known Immunizations SOCIAL HISTORY Never Assessed REASON FOR VISIT Refill request PLAN OF CARE VITAL SIGNS MEDICATIONS Medication Instructions Dosage Frequency Start Date End Date Duration Status Levemir FlexTouch 100 UNIT/ML Inject 25units at bedtime Feb, Active NovoLog Flexpen 100 [...] History UTI, DKA-[facility] 05/30/17 Hospitalization History DM, Hyperglycemia-[facility] 07/20/17
--- OUTSIDE RECORDS SUMMARY | 2018-01-28 03:30 | XMS REPORT ---
Author Author ROMEO OLSON [facility] Address [address] [place] [address] Care Team Providers Care Maintenance Job Titles Name Role Phone ROMEO OLSON Unavailable PROBLEMS Type Condition ICD9-CM Code GWQ35-AH Code Onset Dates Condition Status SNOMED Code Problem Type 1 diabetes mellitus with diabetic neuropathy E10.40 Active [id number] ALLERGIES No Information ENCOUNTERS Encounter Location Date Diagnosis [facility] [id number] [place] [address] 49149- 9057 Nov, [facility] [id number] [place] [address] 18005- 2559 Oct, Type 2 diabetes mellitus with hyperglycemia E11.65 [facility] [id number] [place] [address] 63557- 5789 Jul, [facility] [id number] [place] [address] 36153- 7046 Jul, [facility] [id number] [place] [address] 52230- 5904 Jul, [facility] [id number] [place] [address] 20781- 1066 Jun, Type 1 diabetes mellitus with diabetic neuropathy E10.40 [facility] [id number] [place] [address] [id number] May, [facility] [address] [id number] Apr, [facility] [id number] [place] [address] [phone] 9526 Feb, Type 2 diabetes mellitus with hyperglycemia E11.65 [facility] [id number] [place] [address] 98150- 9587 Feb, Type 2 diabetes mellitus with other specified complication E11.69 and Diabetic mononeuropathy associated with type 2 diabetes mellitus E11.41 [facility] [id number] [place] [address] 32835- 8716 Oct, [facility] [id number] [place] [address] 53537- 5996 Oct, Type 2 diabetes mellitus with other specified complication E11.69 [facility] [id number] [place] [address] 13647- 3746 August, Type 2 diabetes mellitus with other specified complication E11.69 and Type 2 diabetes mellitus with hyperglycemia E11.65 [facility] [id number] [place] [address] [id number] August, [place] [id number] [place] [address] 93606- 0776 Feb, [facility] [id number] [place] [address] [id number] Sep, Dental caries K02.9 [facility] [id number] [place] [address] [phone] August, Dental examination Z01.20 [facility] [id number] [place] [address] [id number] Jan, [facility] [address] [place] [address] 51302- 0586 Jan, [facility] [id number] [place] [address] 45861- 3595 Dec, Diabetes with ketoacidosis, type II or unspecified type, uncontrolled 250.12 [facility] [id number] [place] [address] 20161- 9346 Nov, [facility] [id number] [place] [address] 60988- 1926 Nov, Fever 780.60 [facility] [address] 21985- 0353 Jul, [facility] [place] [facility] [address] [id number] [place] [address]- 8446 Jul, [facility] [place] [facility] [address] [id number] [place] [address]- 9641 August, [facility] [place] [facility] [address] [id number] [place] [address]- 2544 August, [facility] [place] [facility] [address] [id number] [place] [address]- 5366 Jun, [facility] [place] [facility] [address] [id number] [place] [address]- 2236 Jun, [facility] [place] [facility] [address] [id number] [place] [address]647 Apr, [facility] [place] [facility] [address] [id number] [place] 8703 Apr, [facility] [place] [facility] [address] [id number] [place] [address]- 6166 Mar, [facility] [place] [facility] [address] [id number] [place] [address]- 1292 Mar, [facility] [place] [facility] [address] [id number] [place] [address]- 2097 Oct, [facility] [place] [facility] [address] [id number] [place] [address]- 4510 Jun, [facility] [place] [facility] [address] [id number] [place] [address]- 7289 Jan, [facility] [place] [facility] [address] [id number] [place] [address]- 8311 Jan, [facility] [place] [facility] [address] [id number] [place] [address]- 0234 Jan, [facility] [place] [facility] [address] [id number] [place] [address]- 9423 Dec, [facility] [place] [facility] [address] [facility] [id number] [place] [address]- 2546 Feb, [facility] [address] [facility] [id number] [address]- 4446 Mar, [facility] [address] [facility] [id number] [address]- 2546 Feb, [facility] [address] [facility] [id number] [place] [address]- 3330 Feb, [facility] [address] [facility] [id number] [place] [address]- 5655 Feb, IMMUNIZATIONS No Known Immunizations SOCIAL HISTORY Never Assessed REASON FOR VISIT Hospital admit/DC PLAN OF CARE VITAL SIGNS MEDICATIONS Medication Instructions Dosage Frequency Start Date End Date Duration Status Levemir FlexTouch 100 UNIT/ML Inject 25units at bedtime Feb, Active Pen Sumner 32G X 6 MM use with insulin pens 6h Feb, 90 days Active NovoLog Flexpen 100 UNIT/ML Subcutaneous 3 times a day with meals 15 units 90 days Active Amitriptyline HCl 25 MG Orally Once a day 1 tablet 24h Active RESULTS No Results PROCEDURES No Known procedures INSTRUCTIONS MEDICATIONS ADMINISTERED No Known Medications MEDICAL (GENERAL) HISTORY Type Description Date Medical History Diabetes type I Medical History diabetic neuropathy Surgical History tubal ligation 2002 Hospitalization History Ketoacidosis 01/2014 Hospitalization History DKA, UTI-[facility] 08/11/16 Hospitalization History DKA, UTI-[facility] 05/09/17 Hospitalization History UTI, DKA-[facility] 05/30/17 Hospitalization History DM, Hyperglycemia-[facility] 07/20/17
[2018-01-28] MEDS ORDERED: SODIUM PHOSPHATE INJ 30 MM in NS (IVPB) 250 ML INJ ONE (03:45)
[2018-01-28] MEDS: MAGNESIUM 1 GM/100 ML IVPB 100 ML IV SCH ×2 (05:34→06:23)
[2018-01-28] MEDS: 1/2 NS IV SOLUTION 1,000 ML IV SCH ×2 (05:42→08:15)
[2018-01-28] MEDS ORDERED: KCL 20 MEQ TAB (K-DUR) PO SCH (06:00)
[2018-01-28] MEDS ORDERED: POTASSIUM CL 10MEQ/50ML IVPB 50 ML IV SCH (06:00)
--- NOTE | 2018-01-28 08:06 | Diagnostic Imaging Report ---
EXAM: CHEST 1 VIEW, AP/PA ONLY INDICATION: Diabetic ketoacidosis. COMPARISON: Chest radiograph 05/30/2017. FINDINGS: Normal heart size and central pulmonary vascularity. No focal pulmonary opacity, pleural effusion or pneumothorax. No acute osseous findings. IMPRESSION: No acute cardiopulmonary findings. Dictated by: Dictated on workstation # [id number]
[2018-01-28] MEDS ORDERED: ACETAMINOPHEN 500 MG TAB (TYLENOL) ONE (08:51)
[2018-01-28] MEDS ORDERED: inSUlin DETERMIR 1 UNIT/0.01 ML (LEVEMIR) CHARGE PER UNIT SQ ONE (08:52)
[2018-01-28] MEDS ORDERED: inSUlin DETERMIR 1 UNIT/0.01 ML (LEVEMIR) CHARGE PER UNIT SQ NR (09:00)
[2018-01-28] MEDS ORDERED: ACETAMINOPHEN 500 MG TAB (TYLENOL) PO PRN (09:00)
[2018-01-28 09:48] LABS: BUN/CREATININE RATIO 4; CALCIUM 8.1 MG/DL (8.5-10.1); CARBON DIOXIDE 17 MMOL/L (21-32); CHLORIDE 109 MMOL/L (98-107); GFR ESTIMATED > 60; GLUCOSE 115 MG/DL (70-105); POTASSIUM 3.4 MMOL/L (3.6-5.0); SODIUM 137 MMOL/L (135-145)
[2018-01-28] MEDS: inSUlin ASPART (NovoLOG) 1 UNIT/0.01 ML (CHARGE PER UNIT) SC SCH ×4 (11:22→20:26)
[2018-01-28] MEDS ORDERED: inSUlin ASPART (NovoLOG) 1 UNIT/0.01 ML (CHARGE PER UNIT) SC SCH (12:00)
--- NOTE | 2018-01-28 12:38 | Progress Note (SOAP) ---
Subjective Subjective/Events-last exam Patient states that she feel so much better this AM. Appetite has returned and she ordered breakfast. States that she had been doing well. The day before admission she started to feel sick and had some nausea and vomiting and then was not able to keep anything down so she came to ER. Last admission for DKA was in October. Denies any sick contacts but the kids just started back to school. Denies missing any doses of insulin. Review of Systems Date Seen by Provider: Jan 28, 2018 Time Seen by Provider: 09:20 Pulmonary: No Dyspnea, No Cough Cardiovascular: No: Chest Pain, Palpitations Gastrointestinal: Nausea; No: Vomiting, Abdominal Pain, Diarrhea Genitourinary: No Dysuria; Frequency; No Hematuria Neurological: Weakness Objective Exam Last Set of Vital Signs Vital Signs Date Time Temp Pulse Resp B/P (MAP) Pulse Ox O2 Delivery O2 Flow Rate FiO2 01/28/18 12:00 96 13 113/8 (43) 96 Room Air 01/28/18 08:00 98.8 Capillary Refill : Less Than 3 SecondsLess Than 3 Seconds I&O Intake and Output 01/28/18 00:00 Intake Total 2250 ml Output Total 1300 ml Balance 950 ml Intake Oral 1000 ml IV Total 1250 ml Output Urine Total 1300 ml # [place] 1 Daily Weight Change No General: Alert, Oriented X3, Cooperative, No Acute Distress Lungs: Clear to Auscultation, Normal Air Movement Heart: Regular Rate, No Murmurs Abdomen: Normal Bowel Sounds, Soft, No Tenderness, No Hepatosplenomegaly, No Masses Extremities: No Edema, No Tenderness/Swelling Skin: No Rashes, No Breakdown Neuro: Normal Speech, Strength at 5/5 X4 Ext, Cranial Nerves 3-12 NL Psych/Mental Status: Mental Status NL, Mood NL Results/Procedures Lab Laboratory Tests 01/27/18 14:35: White Blood Count 6.4, Red Blood Count 4.10L, Hemoglobin 11.3L, Hematocrit 36, Mean Corpuscular Volume 87, Mean Corpuscular Hemoglobin 28, Mean Corpuscular Hemoglobin Concent 32, Red Cell Distribution Width 14.1, Platelet Count 363, Mean Platelet Volume 9.5, Sodium Level 136, Potassium Level 3.6, Chloride Level 106, Carbon Dioxide Level 6*L, Anion Gap 24H, Blood Urea Nitrogen 12, Creatinine 1.30, Estimat Glomerular Filtration Rate 54, BUN/Creatinine Ratio 9, Glucose Level 395H, Calcium Level 8.2L 01/27/18 16:07: Glucometer 208H 01/27/18 16:33: Sodium Level 136, Potassium Level 4.1, Chloride Level 109H, Carbon Dioxide Level 13L, Anion Gap 14, Blood Urea Nitrogen 10, Creatinine 1.12, Estimat Glomerular Filtration Rate > 60, BUN/Creatinine Ratio 9, Glucose Level 216H, Calcium Level 8.0L 01/27/18 16:45: Glucometer 208H 01/27/18 17:47: Glucometer 210H 01/27/18 18:44: Glucometer 208H 01/27/18 19:23: Sodium Level 136, Potassium Level 4.0, Chloride Level 110H, Carbon Dioxide Level 14L, Anion Gap 12, Blood Urea Nitrogen 8, Creatinine 1.05, Estimat Glomerular Filtration Rate > 60, BUN/Creatinine Ratio 8, Glucose Level 231H, Calcium Level 7.5L 01/27/18 19:34: Glucometer 275H 01/27/18 20:42: Glucometer 211H 01/27/18 21:29: Glucometer 254H 01/27/18 22:42: Glucometer 232H 01/27/18 23:32: Glucometer 207H 01/28/18 00:25: Glucometer 173H 01/28/18 01:30: Glucometer 131H 01/28/18 01:42: White Blood Count 7.9, Red Blood Count 3.34L, Hemoglobin 9.6L, Hematocrit 28L, Mean Corpuscular Volume 85, Mean Corpuscular Hemoglobin 29, Mean Corpuscular Hemoglobin Concent 34, Red Cell Distribution Width 13.8, Platelet Count 300, Mean Platelet Volume 9.4, Neutrophils (%) (Auto) 52, Lymphocytes (%) (Auto) 36, Monocytes (%) (Auto) 11, Eosinophils (%) (Auto) 2, Basophils (%) (Auto) 0, Neutrophils # (Auto) 4.1, Lymphocytes # (Auto) 2.8, Monocytes # (Auto) 0.8, Eosinophils # (Auto) 0.2, Basophils # (Auto) 0.0, Sodium Level 134L, Potassium Level 3.9, Chloride Level 109H, Carbon Dioxide Level 16L, Anion Gap 9, Blood Urea Nitrogen 6L, Creatinine 0.90, Estimat Glomerular Filtration Rate > 60, BUN/ Creatinine Ratio 7, Glucose Level 140H, Calcium Level 7.9L, Phosphorus Level 0.9 *L, Magnesium Level 1.6L 01/28/18 02:33: Glucometer 156H 01/28/18 03:32: Glucometer 134H 01/28/18 04:26: Glucometer 156H 01/28/18 05:36: Glucometer 144H 01/28/18 06:26: Glucometer 165H 01/28/18 07:33: Glucometer 165H 01/28/18 08:36: Glucometer 145H 01/28/18 09:13: Sodium Level 137, Potassium Level 3.4L, Chloride Level 109H, Carbon Dioxide Level 17L, Anion Gap 11, Blood Urea Nitrogen 3L, Creatinine 0.80, Estimat Glomerular Filtration Rate > 60, BUN/Creatinine Ratio 4, Glucose Level 115H, Calcium Level 8.1L 01/28/18 09:31: Glucometer 125H 01/28/18 10:30: Glucometer 205H Assessment/Plan Assessment/Plan (1) Diabetic ketoacidosis Status: Acute Assessment & Plan: With CO2 of 8 on admission. Unclear etiology given report of sudden onset and good intake and insulin use. Possibly related to diarrhea intermittently over last month. DKA protocol- insulin drip, aggressive hydration 01/28: Sub Cu insulin given and Insulin gtts stopped, DM started, Will only given 50% of long acting tonight due to decreased appetite, Anion Gap closed, Will continue to monitor BMP Qualifiers: Qualified Codes: E10.10 - Type 1 diabetes mellitus with ketoacidosis without coma (2) Electrolyte imbalance Status: Acute Assessment & Plan: Monitor closely and replace K as needed. Initial Na low due to hyperglycemia, improved on recheck. (3) Diabetes mellitus with hyperglycemia Status: Chronic Assessment & Plan: A1c pending, reports using insulin faithfully, unclear etiology for DKA. Qualifiers: Qualified Codes: E10.65 - Type 1 diabetes mellitus with hyperglycemia (4) Normocytic anemia Status: Chronic Assessment & Plan: 01/28: At patient's baseline, likely contracted on admit labs (5) Hypokalemia Status: Acute Assessment & Plan: 01/28: Replace and repeat BMP in AM (6) DVT prophylaxis Status: Acute Assessment & Plan: SCDs Clinical Quality Measures DVT/VTE Risk/Contraindication: Risk Factor Score Per Nursin RFS Level Per Nursing on Admit: 1=Low/No VTE PPX CHRISTY BOLDEN MD Jan 28, 2018 12:38
[2018-01-29 03:23] LABS: BASOPHILS % (AUTO) 0 % (0-10); EOSINOPHILS # (AUTO) 0.1 10^3/uL (0.0-0.3); EOSINOPHILS % (AUTO) 2 % (0-10); HEMATOCRIT 32 % (35-52); HEMOGLOBIN 10.7 G/DL (11.5-16.0); LYMPHOCYTES # (AUTO) 1.8 X 10^3 (1.0-4.0); LYMPHOCYTES % (AUTO) 30 % (12-44); MEAN CORPUSCULAR HEMOGLOBIN 28 PG (25-34); MEAN CORPUSCULAR HGB CONC 33 G/DL (32-36); MEAN CORPUSCULAR VOLUME 84 FL (80-99); MEAN PLATELET VOLUME 10.2 FL (7.4-10.4); MONOCYTES # (AUTO) 0.5 X 10^3 (0.0-1.0); MONOCYTES % (AUTO) 8 % (0-12); NEUTROPHILS # (AUTO) 3.7 X 10^3 (1.8-7.8); NEUTROPHILS % (AUTO) 60 % (42-75); PLATELET COUNT 306 10^3/uL (130-400); RED BLOOD COUNT 3.85 10^6/uL (4.35-5.85); RED CELL DISTRIBUTION WIDTH 14.4 % (10.0-14.5); WHITE BLOOD COUNT 6.1 10^3/uL (4.3-11.0)
[2018-01-29 03:41] LABS: BUN/CREATININE RATIO 6; CALCIUM 8.1 MG/DL (8.5-10.1); CARBON DIOXIDE 20 MMOL/L (21-32); CHLORIDE 101 MMOL/L (98-107); CREATININE SERUM 0.78 MG/DL (0.60-1.30); GFR ESTIMATED > 60; GLUCOSE 390 MG/DL (70-105); POTASSIUM 3.9 MMOL/L (3.6-5.0); SODIUM 133 MMOL/L (135-145)
[2018-01-29 04:00] VITALS: BP 135/88
[2018-01-29] MEDS: inSUlin ASPART (NovoLOG) 1 UNIT/0.01 ML (CHARGE PER UNIT) SC SCH ×4 (06:57→11:36)
[2018-01-29 08:00] VITALS: BP 113/70
[2018-01-29] MEDS ORDERED: INSU100I29 SC (10:56)
[2018-01-29] MEDS ORDERED: INSU100I14 SC (10:56)
--- NOTE | 2018-01-29 10:57 | Discharge Summary ---
Diagnosis/Chief Complaint Date of Admission Jan 28, 2018 at 3:15 pm Date of Discharge Chief Complaint/HPI Chief Complaint/HPI 47 yo female with type 1 diabetes, states she thought she was doing pretty well and had been faithfully taking her insulin, but yesterday afternoon while at work felt nauseated and vomited, went home and rested, ate dinner and took insulin and felt a little better, but this morning felt poorly again and felt like she was going into DKA, so she came in. She denies fever, nasal congestion , shortness of breath. She does have cough at work when it is cold, but denies productive cough. She also does admit diarrhea which has been intermittent and unpredictable over the last month which she cannot relate to a particular food although she has tried. She denies blood in stools. She has a history of cocaine use, but states her last use was in April and she was scared about health consequences and that it had been laced with meth that time, so she has not used since. Discharge Summary-Simple/Stand Consultations Discharge Physical Examination Allergies: Coded Allergies: Sulfa (Sulfonamide Antibiotics) (Unverified Allergy, Unknown, 05/30/17) Vitals & I&Os Vital Sign - Last 12Hours Date Time Temp Pulse Resp B/P (MAP) Pulse Ox O2 Delivery O2 Flow Rate FiO2 01/29/18 08:00 98.5 100 20 113/70 (84) 99 Room Air Intake and Output 01/29/18 00:00 Intake Total 1146 ml Balance 1146 ml Hospital Course See final discharge diagnosis. Discharge Instructions to patient/family Please see electronic discharge instructions given to patient. Discharge Medications Reviewed and agree with Discharge Medication list on patient's Discharge Instruction sheet Clinical Quality Measures DVT/VTE Risk/Contraindication: Risk Factor Score Per Nursin RFS Level Per Nursing on Admit: 1=Low/No VTE PPX CHRISTY BOLDEN MD Jan 29, 2018 10:57 am
--- NOTE | 2018-01-29 11:02 | Discharge Instructions ---
Discharge [facility] Discharge Medications New, Converted or Re-Newed RX: Transmitted to Pharmacy Continued Medications: Amitriptyline HCl (Amitriptyline HCl) 25 Mg Tablet 25 MG PO DAILY PRN for NEUROPATHY, TAB LAST FILLED 02-21-17 #30 Insulin Aspart (Novolog Flexpen) 300 Units/3 Ml Solution 15 UNITS SC AC for 30 Days, #1 EA (This prescription has been renewed) LAST FILLED 11-03-17 Insulin Detemir (Levemir Flextouch) 100 Unit/1 Ml Insuln.pen 25 UNITS SC HS for 30 Days, #1 EA (This prescription has been renewed) LAST FILLED 11-03-17 Patient Instructions Goal/Follow Up Appt: You will be called with a follow up with Raphael Rogel for next year Patient Instructions: Make sure you take your insulin Activity & Diet Discharge Diet: ADA Diet Orders-Post D/C & Referrals Pneu Vac Indicated: Yes Copy Copies To 1: CHRISTY Hayes APRN, MD Jan 29, 2018 11:02 am
[2018-01-29 12:00] VITALS: BP 118/70
[2018-01-29 12:54] VITALS: BP 118/70
--- OUTSIDE RECORDS SUMMARY | 2018-02-01 15:05 | XMS REPORT ---
Author Author LUKE SCHUSTER Organization [facility] Address [address] [place] [address] Care Team Providers Care Physical Therapy Instructor Name Role Phone LUKE SCHUSTER Unavailable PROBLEMS Type Condition ICD9-CM Code AGK43-PD Code Onset Dates Condition Status SNOMED Code Problem Diabetes E11.9 Active 267807339 Problem Type 1 diabetes mellitus with diabetic neuropathy E10.40 Active [id number] ALLERGIES No Information ENCOUNTERS Encounter Location Date Diagnosis [facility] [address] [address] Jan, Diabetes E11.9 [facility] [id number] [place] [address] Oct, Type 2 diabetes mellitus with hyperglycemia E11.65 [facility] [id number] [place] [phone] Jul, [facility] [id number] [place] [address] [phone]- [phone] Jul, [facility] [id number] [place] [address] 42593- 9752 Jul, [facility] [id number] [place] [address] 62190[address] 5860 Jun, Type 1 diabetes mellitus with diabetic neuropathy E10.40 [facility] [id number] [place] [address] [phone] May, [facility] [id number] [place] [address] [phone] Apr, [facility] [address] [id number] Feb, Type 2 diabetes mellitus with hyperglycemia E11.65 [facility] [id number], [place] [address] 2546 Feb, Type 2 diabetes mellitus with other specified complication E11.69 and Diabetic mononeuropathy associated with type 2 diabetes mellitus E11.41 [facility] [address] [address] Oct, [facility] [id number] [place] [address]78- [phone] Oct, Type 2 diabetes mellitus with other specified complication E11.69 [facility] [id number] [place] [phone]- 7136 August, Type 2 diabetes mellitus with other specified complication E11.69 and Type 2 diabetes mellitus with hyperglycemia E11.65 [facility] [id number] [place] [address] [phone] August, [facility] [id number] [place] [address] [phone]- [phone] Feb, [facility] [id number] [place] [address] [phone] Sep, Dental caries K02.9 [facility] [id number] [place] [address] [phone] August, Dental examination Z01.20 [facility] [address] [address] Jan, [facility] [id number] [place] [address] 04106[address] [phone] Jan, [facility] [address] [address]46 Dec, Diabetes with ketoacidosis, type II or unspecified type, uncontrolled 250.12 [facility] [id number] [place] [address] 58874- 3166 Nov, [facility] [address] [address] Nov, Fever 780.60 [facility] [id number] [place] [address] 14 Jul, 2014 [facility] [address] [id number] [place] [address] Jul, [facility] [address] [id number] [place] [address] August, [facility] [address] [id number] [place] [address] August, [facility] [address] [id number] [place] [address] Jun, [facility] [address] [id number] [place] [address] Jun, [facility] [address] [id number] [place] [address] Apr, [facility] [address] [id number] [place] [address] Apr, [facility] [address] [id number] [place] [address] Mar, [facility] [address] [id number] [place] [address] Mar, [facility] [address] [id number] [place] [address] Oct, [facility] [place] [facility] [address] [id number] [place] [address] Jun, [facility] [address] [id number] [place] [address] Jan, [facility] [place] [facility] [address] [id number] [place] [address] Jan, [facility] [place] [facility] [address] [id number] [place] [address] Jan, [facility] [place] [facility] [address] [id number] [place] [address] Dec, [facility] [address] [facility] [id number] [address] Feb, [facility] [address] [facility] [id number] [address] Mar, [facility] [address] [facility] [id number] [address] Feb, [facility] [address] [facility] [id number] [address] Feb, [facility] [address] [facility] [id number] [address] Feb, IMMUNIZATIONS No Known Immunizations SOCIAL HISTORY Never Assessed REASON FOR VISIT N/V since yesterday. pt is diabetic type 1. monitor at home shows 180. here for evaluation. has been a now show for her last few appts with ramone. explained the importance of keeping her appts. kpt verbalized understanding. lynn, visited with Jackelin diez aprn...decision made to send pt to the ER. nurse visit only., 1135-called Er et spoke with gustavo krishnamurthy aprn et gave report on pt. PLAN OF CARE VITAL SIGNS Height 66 in 2018-01-27 Weight 121.4 lbs 2018-01-27 Temperature 97.8 degrees Fahrenheit 2018-01-27 Heart Rate 88 bpm 2018-01-27 Respiratory Rate 20 2018-01-27 BMI 19.59 kg/m2 2018-01-27 Blood pressure systolic 100 mmHg 2018-01-27 Blood pressure diastolic 58 mmHg 2018-01-27 MEDICATIONS Medication Instructions Dosage Frequency Start Date End Date Duration Status Pen [place] 32G X 6 MM use with insulin pens 6h Feb, 90 days Active NovoLog Flexpen 100 UNIT/ML Subcutaneous 3 times a day with meals 15 units 90 days Active Levemir FlexTouch 100 UNIT/ML Inject 25units at bedtime Feb, Active Amitriptyline HCl 25 MG Orally Once a day 1 tablet 24h Active RESULTS Name Result Date Reference Range GLUCOSE FINGERSTICK (IN HOUSE) 2018-01-27 GLU FINGERSTICK 470 PC + Lot # [id number] Exp date 2019 08 31 PROCEDURES Procedure Date Ordered Result Body Site GLUCOSE BLOOD TEST Jan 27, 2018 INSTRUCTIONS MEDICATIONS ADMINISTERED No Known Medications MEDICAL (GENERAL) HISTORY Type Description Date Medical History Diabetes type I Medical History diabetic neuropathy Surgical History tubal ligation 2002 Hospitalization History Ketoacidosis 01/2014 Hospitalization History DKA, UTI-[facility] 08/11/16 Hospitalization History DKA, UTI[facility] 05/09/17 Hospitalization History UTI, DKA-[facility] 05/30/17 Hospitalization History DM, Hyperglycemia-[facility] 07/20/17
== END 2018-01-29 12:55 | disposition home or self-care (01) | DRG 638 ==
LOC: EDUNIT# 11:55 → ER 11:56 → UNDOADMOB 13:24 → ICU 13:24 → 4TH 01-28 13:25 → ICU 01-28 13:25 → OBSVTOIN 01-28 15:15 → INTOOBSV 01-28 15:15 → UNDODISIN 01-29 12:55
PROVIDERS: ADMIT Family Medicine; ATTEND Family Medicine
DX: E10.10 Type 1 diabetes mellitus with ketoacidosis without coma (principal); E87.1 Hypo-osmolality and hyponatremia; E87.6 Hypokalemia; D64.9 Anemia, unspecified; E10.40 Type 1 diabetes mellitus with diabetic neuropathy, unspecified; I10 Essential (primary) hypertension; Z79.4 Long term (current) use of insulin
CPT/HCPCS: 36415; 71045; 80048; 80053; 80306; 81000; 82962; 83036; 83735; 84100; 84703; 85025; 85027; 96361; 96374; G0378

== ENCOUNTER 2018-02-08 12:27 | Inpatient (IN) | payer MEDICAID ==
[2018-02-08] VITALS (10 sets, daily range): BP systolic 86–111; BP diastolic 60–83
[~2018-02-08] VITALS: Ht 167.6 cm; Wt 56.4 kg
[~2018-02-08 12:27] MED LIST changes: +INSU100I14 SC; +INSU100I29 SC
[2018-02-08] MEDS ORDERED: NS IV 1000 ML 1,000 ML IV ONE ×3 (12:35→14:22)
[2018-02-08] MEDS ORDERED: ONDANSETRON 4 MG/2 ML (SDV) Z0FRAN IVP ONE (12:45)
[2018-02-08 12:47] LABS: BASOPHILS % (AUTO) 0 % (0-10); EOSINOPHILS % (AUTO) 0 % (0-10); HEMATOCRIT 38 % (35-52); HEMOGLOBIN 12.1 G/DL (11.5-16.0); LYMPHOCYTES # (AUTO) 1.4 X 10^3 (1.0-4.0); LYMPHOCYTES % (AUTO) 18 % (12-44); MEAN CORPUSCULAR HEMOGLOBIN 28 PG (25-34); MEAN CORPUSCULAR HGB CONC 32 G/DL (32-36); MEAN CORPUSCULAR VOLUME 88 FL (80-99); MEAN PLATELET VOLUME 10.1 FL (7.4-10.4); MONOCYTES # (AUTO) 0.4 X 10^3 (0.0-1.0); MONOCYTES % (AUTO) 5 % (0-12); NEUTROPHILS % (AUTO) 77 % (42-75); PLATELET COUNT 350 10^3/uL (130-400); RED BLOOD COUNT 4.31 10^6/uL (4.35-5.85); RED CELL DISTRIBUTION WIDTH 14.3 % (10.0-14.5); WHITE BLOOD COUNT 7.9 10^3/uL (4.3-11.0)
[2018-02-08 13:12] LABS: ALANINE AMINOTRANSFERASE 41 U/L (0-55); ALBUMIN 4.2 GM/DL (3.2-4.5); ALKALINE PHOSPHATASE 165 U/L (40-136); AMYLASE 62 U/L (25-125); BILIRUBIN,TOTAL 0.6 MG/DL (0.1-1.0); BUN/CREATININE RATIO 17; CALCIUM 9.4 MG/DL (8.5-10.1); CARBON DIOXIDE 10 MMOL/L (21-32); CHLORIDE 89 MMOL/L (98-107); CREATININE SERUM 1.49 MG/DL (0.60-1.30); GFR ESTIMATED 46; LIPASE < 4 U/L (8-78); MAGNESIUM 2.2 MG/DL (1.8-2.4); POTASSIUM 5.1 MMOL/L (3.6-5.0); SODIUM 128 MMOL/L (135-145)
[2018-02-08 13:29] LABS: GLUCOSE 919 MG/DL (70-105)
--- NOTE | 2018-02-08 13:29 | ED General ---
General Chief Complaint: Chest Pain Stated Complaint: CP;SOA Nursing Triage Note: ARRIVED VIA EMS FROM WORK. STATES SHE STARTED HAVING CHESTPAIN WHILE AT WORK THAT HAS DECREASED SINCE ARRIVING TO ER. EMS REPORTS PT BLOOD SUGAR IS READING HI. Nursing Sepsis Screen: No Definite Risk Source of Information: Patient, EMS, Old Records History of Present Illness Date Seen by Provider: Feb 08, 2018 Time Seen by Provider: 12:30 Initial Comments PT ARRIVES VIA EMS FROM PT'S WORK/[employer] [place]--HAS BEEN THERE SINCE 0600 PT STATES SHE BEGAN HAVING SEVERE CHEST PAIN IMMEDIATELY PRIOR TO CALLING EMS. STATES PAIN IS ALMOST GONE NOW STATES SHE IS NOT SHORT OF BREATH NOW, BUT WAS EARLIER NO SWEATS + NAUSEA AND VOMITED X 1--EMS GAVE ZOFRAN 4 MG AND IV FLUIDS PRIOR TO ARRIVAL NO SYNCOPE PT IS KNOWN DIABETIC AND EMS CHECKED BLOOD GLUCOSE AND WAS "TOO HIGH" FOR GLUCOMETER PT STATES SHE DID NOT CHECK HER BLOOD SUGAR THIS MORNING AND DID NOT TAKE HER MORNING INSULIN--STATES SHE DID NOT TAKE IT BECAUSE SHE DID NOT EAT BREAKFAST PT STATES SHE TOOK HER MEDICATIONS YESTERDAY AND BLOOD SUGAR WAS IN 300'S YESTERDAY, WHICH IS NORMAL FOR PT PT HAS HAD MULTIPLE VISITS--11 IN THE LAST YEAR, NEARLY ALL FOR UNCONTROLLED DM/ DKA LAST ADMIT WAS 01/28-01/29 FOR DKA PT HAS LONG HISTORY OF NONCOMPLIANCE IN ALL ASPECTS OF CARE AND POLYSUBSTANCE ABUSE 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, 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[place]IA SCHUSTER--STATES SHE HAS NOT BEEN THERE IN A YEAR Allergies and Home Medications Allergies Coded Allergies: Sulfa (Sulfonamide Antibiotics) (Unverified Allergy, Unknown, 05/30/17) Home Medications Insulin Aspart 300 Units/3 Ml Solution, 15 UNITS SC AC LAST FILLED 11-03-17 Prescribed by: CHRISTY BOLDEN on 01/29/18 1056 Insulin Detemir 100 Unit/1 Ml Insuln.pen, 25 UNITS SC HS LAST FILLED 11-03-17 Prescribed by: CHRISTY BOLDEN on 01/29/18 1056 Patient Home Medication List Home Medication List Reviewed: Yes Review of Systems Review of Systems Constitutional: No fever; malaise, weakness Respiratory: see HPI, short of breath Cardiovascular: see HPI, chest pain Gastrointestinal: see HPI, nausea, vomiting Genitourinary: no symptoms reported : No Musculoskeletal: no symptoms reported Skin: no symptoms reported Psychiatric/Neurological: No Symptoms Reported Hematologic/Lymphatic: No Symptoms Reported Immunological/Allergic: no symptoms reported Past Nhqbksw-Yyuqrp-Ybuqkq Hx Patient Social History Alcohol Use: Rarely Uses Alcohol Beverage of Choice: Beer, Gray Recreational Drug Use: Yes (TESTED + FOR COCAINE 04/07/17) Drug of Choice: COCAINE Smoking Status: Never a Smoker Recent Foreign Travel: No Contact w/Someone Who Travel: No Recent Infectious Disease Expo: No Recent Hopitalizations: Yes Immunizations Up To Date Tetanus Booster (TDap): Unknown PED Vaccines UTD: No Seasonal Allergies Seasonal Allergies: No Past Medical History Surgeries: Yes Tubal Ligation Respiratory: No Currently Using CPAP: No Currently Using BIPAP: No Cardiac: No Neurological: Yes Neuropathy 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 Disorders: No Female 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 Disorders: Denies 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 Sexually Transmitted Disease: No HIV/AIDS: No Genitourinary: Yes Kidney Infection Gastrointestinal: No Musculoskeletal: Yes Osteoporosis, Arthritis Endocrine: Yes Diabetes, Insulin dep HEENT: No Cancer: No Did You Recieve Any Treatments: No Psychosocial: Yes Anxiety, Depression Integumentary: No Blood Disorders: No Adverse Reaction/Blood Tranf: No Family Medical History Family history: Hypertension 09 SISTER Kidney disease 03 MOTHER Myocardial infarction 09 SISTER Heart Disease, Diabetes, Hypertension Physical Exam Vital Signs Vital Signs - First Documented 02/08/18 12:27 Temp 95.1 Pulse 96 Resp 16 B/P (MAP) 119/73 (88) Pulse Ox 100 O2 Delivery Room Air Capillary Refill : Less Than 3 Seconds Height, Weight, BMI Height: 5'6.00" Weight: 124lbs. 0.0oz. 56.534804kk; 21.5 BMI Method:Stated General Appearance: Thin, Other (MILDLY LETHARGIC) HEENT: Other (POOR DENTITION--MULTIPLE MISSING TEETH, DRY ORAL MUCOSA) Neck: Full Range of Motion, Normal Inspection, Non Tender, Supple Respiratory: Normal Breath Sounds, No Accessory Muscle Use, No Respiratory Distress Cardiovascular: No Edema, No JVD, No Murmur, Normal Peripheral Pulses, Tachycardia (MILD 110'S) Gastrointestinal: Non Tender, Soft Back: No CVA Tenderness Extremity: Normal Capillary Refill, Normal Inspection, No Pedal Edema Neurologic/Psychiatric: Alert, Oriented x3, No Motor/Sensory Deficits (BUT HISTORY OF NEUROPATHY), 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 Tested Skin: Normal Color, Warm/Dry, Tattoos/Piercings (MULTIPLE TATTOOS AND PIERCINGS ) Progress/Results/Core Measures Suspected Sepsis Recent Fever Within 48 Hours: No Infection Criteria Present: None New/Unexplained Altered Menta: No Sepsis Screen: No Definite Risk SIRS Temperature:95.1 Pulse: 96 Respiratory Rate: 16 Laboratory Tests 02/08/18 12:40: White Blood Count 7.9 Blood Pressure 119 /73 Mean: 88 Laboratory Tests 02/08/18 12:40: Creatinine 1.49H, Platelet Count 350, Total Bilirubin 0.6 Results/Orders Lab Results Laboratory Tests Test 02/08/18 12:39 02/08/18 12:40 02/08/18 13:25 02/08/18 14:20 Range/Units Glucometer > 600 *H 70-110 MG/DL White Blood Count 7.9 4.3-11.0 10^3/uL Red Blood Count 4.31 L 4.35-5.85 10^6/uL Hemoglobin 12.1 11.5-16.0 G/DL Hematocrit 38 35-52 % Mean Corpuscular Volume 88 80-99 FL Mean Corpuscular Hemoglobin 28 25-34 PG Mean Corpuscular Hemoglobin Concent 32 32-36 G/DL Red Cell Distribution Width 14.3 10.0-14.5 % Platelet Count 350 130-400 10^3/uL Mean Platelet Volume 10.1 7.4-10.4 FL Neutrophils (%) (Auto) 77 H 42-75 % Lymphocytes (%) (Auto) 18 12-44 % Monocytes (%) (Auto) 5 0-12 % Eosinophils (%) (Auto) 0 0-10 % Basophils (%) (Auto) 0 0-10 % Neutrophils # (Auto) 6.0 1.8-7.8 X 10^3 Lymphocytes # (Auto) 1.4 1.0-4.0 X 10^3 Monocytes # (Auto) 0.4 0.0-1.0 X 10^3 Eosinophils # (Auto) 0.0 0.0-0.3 10^3/uL Basophils # (Auto) 0.0 0.0-0.1 10^3/uL Sodium Level 128 L 135-145 MMOL/L Potassium Level 5.1 H 3.6-5.0 MMOL/L Chloride Level 89 L 98-107 MMOL/L Carbon Dioxide Level 10 L 21-32 MMOL/L Anion Gap 29 H 5-14 MMOL/L Blood Urea Nitrogen 25 H 7-18 MG/DL Creatinine 1.49 H 0.60-1.30 MG/DL Estimat Glomerular Filtration Rate 46 BUN/Creatinine Ratio 17 Glucose Level 919 *H 70-105 MG/DL Calcium Level 9.4 8.5-10.1 MG/DL Corrected Calcium 9.2 8.5-10.1 MG/DL Magnesium Level 2.2 1.8-2.4 MG/DL Total Bilirubin 0.6 0.1-1.0 MG/DL Aspartate Amino Transf (AST/SGOT) 24 5-34 U/L Alanine Aminotransferase (ALT/SGPT) 41 0-55 U/L Alkaline Phosphatase 165 H 40-136 U/L Troponin I < 0.30 <0.30 NG/ML B-Type Natriuretic Peptide 36.0 <100.0 PG/ML Total Protein 8.0 6.4-8.2 GM/DL Albumin 4.2 3.2-4.5 GM/DL Amylase Level 62 25-125 U/L Lipase < 4 L 8-78 U/L TSH [place] Testing 0.86 0.35-4.94 UIU/ML Serum Test, Qualitative NEGATIVE NEGATIVE Serum Alcohol < 10 <10 MG/DL Urine Color YELLOW Urine Clarity CLEAR Urine pH 5 5-9 Urine Specific [place] 1.015 L 1.016-1.022 Urine Protein 1+ H NEGATIVE Urine Glucose (UA) 4+ H NEGATIVE Urine Ketones 4+ H NEGATIVE Urine Nitrite NEGATIVE NEGATIVE Urine Bilirubin NEGATIVE NEGATIVE Urine Urobilinogen NORMAL NORMAL MG/DL Urine Leukocyte Esterase 1+ H NEGATIVE Urine RBC (Auto) NEGATIVE NEGATIVE Urine RBC NONE /HPF Urine WBC 5-10 H /HPF Urine Squamous Epithelial Cells 0-2 /HPF Urine Crystals NONE /LPF Urine Bacteria FEW H /HPF Urine Casts NONE /LPF Urine Mucus NEGATIVE /LPF Urine Culture Indicated YES Urine Opiates Screen NEGATIVE NEGATIVE Urine Oxycodone Screen NEGATIVE NEGATIVE Urine Methadone Screen NEGATIVE NEGATIVE Urine Propoxyphene Screen NEGATIVE NEGATIVE Urine Barbiturates Screen NEGATIVE NEGATIVE Ur Tricyclic Antidepressants Screen NEGATIVE NEGATIVE Urine Phencyclidine Screen NEGATIVE NEGATIVE Urine Amphetamines Screen NEGATIVE NEGATIVE Urine Methamphetamines Screen NEGATIVE NEGATIVE Urine Benzodiazepines Screen NEGATIVE NEGATIVE Urine Cocaine Screen NEGATIVE NEGATIVE Urine Cannabinoids Screen NEGATIVE NEGATIVE My Orders Orders - ANDRES,DARRYL K DO Saline Lock/Iv-Start (02/08/18 12:35) Ekg Tracing (02/08/18 12:35) Monitor-Rhythm Ecg Trace Only (02/08/18 12:35) Amylase (02/08/18 12:35) BNP (02/08/18 12:35) Cbc With Automated Diff (02/08/18 12:35) Comprehensive Metabolic Panel (02/08/18 12:35) Drug Screen Stat (Urine) (02/08/18 12:35) Hcg,Qualitative Serum (02/08/18 12:35) Lipase (02/08/18 12:35) Magnesium (02/08/18 12:35) Thyroid Analyzer (02/08/18 12:35) Troponin I (02/08/18 12:35) Ua Culture If Indicated (02/08/18 12:35) Chest 1 View, Ap/Pa Only (02/08/18 12:35) Saline Lock/Iv-Start (02/08/18 12:35) Ns Iv 1000 Ml (Sodium Chloride 0.9%) (02/08/18 12:35) Ondansetron Injection (Zofran Injectio (02/08/18 12:45) Alcohol (02/08/18 13:29) Arterial Blood Gas (02/08/18 13:29) Saline Lock/Iv-Start (02/08/18 13:29) Ns Iv 1000 Ml (Sodium Chloride 0.9%) (02/08/18 13:29) Insulin (Regular) Human (Humulin R (Per (02/08/18 13:30) Urine Culture (02/08/18 13:25) Insulin (Regular) Human (Humulin R (Per (02/08/18 13:39) Saline Lock/Iv-Start (02/08/18 14:22) Ns Iv 1000 Ml (Sodium Chloride 0.9%) (02/08/18 14:22) Accucheck Stat ONCE (02/08/18 14:22) Medications Given in ED Current Medications Medications Dose Ordered Sig/Ryland Route Start Time Stop Time Status Last Admin Dose Admin Insulin Human Regular 30 unit ONCE ONCE IV 02/08/18 13:30 02/08/18 13:51 DC 02/08/18 13:43 30 UNIT Sodium Chloride 1,000 ml @ 0 mls/hr Q0M ONCE IV 10/24/18 12:35 02/08/18 12:37 DC 02/08/18 13:29 1,000 MLS/HR Sodium Chloride 1,000 ml @ 0 mls/hr Q0M ONCE IV 02/08/18 13:29 02/08/18 13:33 DC 02/08/18 14:21 1,000 MLS/HR Vital Signs/I&O 02/08/18 12:27 Temp 95.1 Pulse 96 Resp 16 B/P (MAP) 119/73 (88) Pulse Ox 100 O2 Delivery Room Air Capillary Refill : Less Than 3 Seconds Blood Pressure Mean: 88 Progress Note : Progress Note UNEVENTFUL ER STAY PT HAD NO COMPLAINTS OF CHEST PAIN, SHORTNESS OF BREATH OR NAUSEA AT ANY TIME DURING ER STAY HEART RATE DOWN AT TIME OF ADMIT PT RESTED QUIETLY FOR ENTIRE ER STAY. ACCUCHECK AFTER 30 UNITS OF INSULIN AND 1 1/2 LITERS OF FLUID--STILL "TOO HIGH" TO READ ON GLUCOMETER ECG Initial ECG Impression Date: Feb 08, 2018 Initial ECG Impression Time: 12:32 Initial ECG Rate: 97 Initial ECG Rhythm: Normal Sinus Initial ECG Impression: Nonspecific Changes Diagnostic Imaging Comments CXR--NO ACUTE PROCESS, PER RADIOLOGIST REPORT @ 1444 Reviewed: Reviewed by Oh Departure Communication (Admissions) 1335--SPOKE WITH DR. RAWLS, PRE SALES TECHNICAL CONSULTANT FOR [facility], ACCEPTS PT FOR ADMIT. WOULD LIKE DR. GUERRERO CONSULTED 1337--SPOKE WITH DR. GUERRERO AND INFORMED OF CONSULT Impression Primary Impression: Diabetic ketoacidosis Additional Impressions: Electrolyte imbalance Non-compliance Disposition: 09 ADMITTED INPATIENT Condition: Stable Admissions Decision to Admit Reason: Admit from ER (General) Decision to Admit/Date: Feb 08, 2018 Time/Decision to Admit Time: 13:35 Departure-Patient Inst. Referrals: [facility] (PCP) Primary Care Physician LUKE SCHUSTER (Family) Primary Care Physician DARRYL CAMPOS DO Feb 08, 2018 13:29
[2018-02-08] MEDS ORDERED: inSUlin (REGULAR) HUMAN 1 UNIT/0.01 ML (CHARGE PER UNIT) IV ONE (13:30)
[2018-02-08 13:32] LABS: TSH (THYROID ANALYZER) 0.86 UIU/ML (0.35-4.94)
[2018-02-08 13:35] LABS: BILIRUBIN,URINE NEGATIVE (NEGATIVE); CLARITY,URINE CLEAR; COLOR,URINE YELLOW; GLUCOSE, URINE (UA) 4+ (NEGATIVE); KETONES,URINE 4+ (NEGATIVE); LEUKOCYTE ESTERASE ,URINE 1+ (NEGATIVE); NITRITE,URINE NEGATIVE (NEGATIVE); PH,URINE 5 (5-9); PROTEIN,URINE 1+ (NEGATIVE); UROBILINOGEN,URINE NORMAL (NORMAL)
[2018-02-08] MEDS ORDERED: inSUlin (REGULAR) HUMAN 1 UNIT/0.01 ML (CHARGE PER UNIT) ONE (13:39)
[2018-02-08 13:42] LABS: BACTERIA,URINE FEW /HPF; SQUAMOUS EPITHELIAL CELL,UR 0-2 /HPF
--- NOTE | 2018-02-08 13:47 | Diagnostic Imaging Report ---
PATIENT HISTORY: Chest pain. TECHNIQUE: Single frontal view of the chest. COMPARISON: 01/28/2018. FINDINGS: The lung volumes are normal. No focal consolidation is seen. No large pleural effusion or pneumothorax is seen. The cardiomediastinal silhouette is normal in size and contour. No acute osseous abnormality is seen. IMPRESSION: No acute pulmonary abnormality seen. Dictated by: Dictated on workstation # [id number]
[2018-02-08 13:48] LABS: AMPHETAMINE SCREEN, URINE NEGATIVE (NEGATIVE); BARBITURATE SCREEN URINE NEGATIVE (NEGATIVE); BENZODIAZEPINES SCREEN URINE NEGATIVE (NEGATIVE); CANNABINOID SCREEN, URINE NEGATIVE (NEGATIVE); COCAINE SCREEN URINE NEGATIVE (NEGATIVE); METHADONE STAT NEGATIVE (NEGATIVE); METHAMPHETAMINE SCREEN URINE S NEGATIVE (NEGATIVE); OPIATE SCREEN URINE NEGATIVE (NEGATIVE); OXYCODONE STAT NEGATIVE (NEGATIVE); PROPOXYPHENE STAT NEGATIVE (NEGATIVE); TRICYCLIC ANTIDEPRESSANTS SCRE NEGATIVE (NEGATIVE)
[2018-02-08 14:24] LABS: ABG OXYGEN SATURATION 98 % (94-100); ABG PCO2 24 MMHG (35-45); ABG PO2 107 MMHG (79-93); ABG TCO2 8.5 MMOL/L (21.0-31.0); ALLENS TEST YES-POS; INSPIRED O2 RA; VENTILATOR NO
[2018-02-08 14:25] LABS: PATIENT TEMP 95.1
[2018-02-08 14:30] LABS: ABG PH 7.13 (7.37-7.43)
[2018-02-08] MEDS ORDERED: SODIUM BICARB 8.4% 50 MEQ/50 ML (ABBOTT) SYR IV ONE (15:00)
[2018-02-08] MEDS ORDERED: NS IV 1000 ML 1,000 ML IV SCH (15:29)
[2018-02-08] MEDS ORDERED: POTASSIUM CL 10MEQ/50ML IVPB 50 ML IV SCH (15:30)
[2018-02-08] MEDS ORDERED: inSUlin REGULAR TPN/DRIP ONLY 250 UNITS in NORMAL SALINE 250 ML IV SCH (15:30)
[2018-02-08] MEDS ORDERED: ONDANSETRON 4 MG/2 ML (SDV) Z0FRAN IV PRN (15:45)
[2018-02-08] MEDS ORDERED: NITROGLYCERIN 0.4 MG SL TABS BTL 25'S SL PRN (15:45)
[2018-02-08] MEDS ORDERED: CATHETER FLUSH 10 ML SYR IV PRN (15:45)
[2018-02-08 15:51] LABS: BUN/CREATININE RATIO 20; CALCIUM 8.3 MG/DL (8.5-10.1); CHLORIDE 105 MMOL/L (98-107); CREATININE SERUM 1.06 MG/DL (0.60-1.30); GFR ESTIMATED > 60; POTASSIUM 3.9 MMOL/L (3.6-5.0); SODIUM 137 MMOL/L (135-145)
[2018-02-08 16:03] LABS: CARBON DIOXIDE 9 MMOL/L (21-32); GLUCOSE 509 MG/DL (70-105)
[2018-02-08] MEDS: POTASSIUM CL 10MEQ/50ML IVPB 50 ML IV SCH ×3 (16:07→23:05)
[2018-02-08] MEDS: 1/2 NS IV SOLUTION 1,000 ML IV SCH ×2 (16:07→19:41)
[2018-02-08] MEDS: D5 1/2 NS 1000 ML IV SOLUTION 1,000 ML IV SCH ×2 (18:26→22:31)
[2018-02-08 18:49] LABS: HEMOGLOBIN 10.1 G/DL (11.5-16.0); MEAN PLATELET VOLUME 9.7 FL (7.4-10.4); RED BLOOD COUNT 3.55 10^6/uL (4.35-5.85); RED CELL DISTRIBUTION WIDTH 14.2 % (10.0-14.5); WHITE BLOOD COUNT 10.2 10^3/uL (4.3-11.0)
[2018-02-08 19:06] LABS: BUN/CREATININE RATIO 21; CARBON DIOXIDE 15 MMOL/L (21-32); CHLORIDE 109 MMOL/L (98-107); CREATININE SERUM 0.81 MG/DL (0.60-1.30); GFR ESTIMATED > 60; GLUCOSE 194 MG/DL (70-105); POTASSIUM 3.9 MMOL/L (3.6-5.0); SODIUM 139 MMOL/L (135-145)
[2018-02-08] MEDS ORDERED: HYDROcodone/APAP 5 MG/325 MG (LORTAB) TAB PO NR (20:00)
[2018-02-09] VITALS (24 sets, daily range): BP systolic 80–136; BP diastolic 54–95
[2018-02-09] MEDS: 1/2 NS IV SOLUTION 1,000 ML IV SCH ×5 (00:20→15:21)
[2018-02-09 00:37] LABS: BUN/CREATININE RATIO 15; CALCIUM 7.5 MG/DL (8.5-10.1); CARBON DIOXIDE 18 MMOL/L (21-32); CHLORIDE 110 MMOL/L (98-107); CREATININE SERUM 0.78 MG/DL (0.60-1.30); GFR ESTIMATED > 60; GLUCOSE 122 MG/DL (70-105); POTASSIUM 3.7 MMOL/L (3.6-5.0); SODIUM 136 MMOL/L (135-145)
[2018-02-09] MEDS: POTASSIUM CL 10MEQ/50ML IVPB 50 ML IV SCH ×10 (01:11→22:37)
[2018-02-09] MEDS: D5 1/2 NS 1000 ML IV SOLUTION 1,000 ML IV SCH ×3 (02:42→10:56)
--- NOTE | 2018-02-09 06:08 | Pulmonary Consultation ---
History of Present Illness History of Present Illness Date of Consultation 02/09/18 06:03 Time Seen by Provider: 06:03 Date of Admission History of Present Illness 47yo with hx of IDDM and multiple episodes of DKA requiring hospitalization, poor medical compliance hx, and drug use presented to ED secondary to severe CP , N/V, and SOB. Glucometer read "too high". Pt has had 11 hospitalizations over the last year. Allergies and Home Medications Allergies Coded Allergies: Sulfa (Sulfonamide Antibiotics) (Unverified Allergy, Unknown, 05/30/17) Home Medications Insulin Aspart 300 Units/3 Ml Solution, 15 UNITS SC AC LAST FILLED 11-03-17 Prescribed by: CHRISTY BOLDEN on 01/29/18 1056 Insulin Detemir 100 Unit/1 Ml Insuln.pen, 25 UNITS SC HS LAST FILLED 11-03-17 Prescribed by: CHRISTY BOLDEN on 01/29/18 1056 Past Fdnzsqy-Gftjgc-Kxhpzq Hx Patient Social History Alcohol Use: Denies Use Alcohol Beverage of Choice: Beer, [place] Recreational Drug Use: No Drug of Choice: COCAINE Smoking Status: Never a Smoker Recent Foreign Travel: No Contact w/Someone Who Travel: No Recent Infectious Disease Expo: No Recent Hopitalizations: Yes Immunizations Up To Date Tetanus Booster (TDap): Unknown PED Vaccines UTD: No Seasonal Allergies Seasonal Allergies: No Past Medical History Surgeries: Yes Tubal Ligation Respiratory: No Currently Using CPAP: No Currently Using BIPAP: No Cardiac: No Neurological: Yes Neuropathy 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 Disorders: No Female 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 Disorders: 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 Sexually Transmitted Disease: No HIV/AIDS: No Genitourinary: Yes Kidney Infection Gastrointestinal: No Musculoskeletal: Yes Osteoporosis, Arthritis Endocrine: Yes Diabetes, Insulin dep HEENT: No Cancer: No Did You Recieve Any Treatments: No Psychosocial: Yes Anxiety, Depression Integumentary: No Blood Disorders: No Adverse Reaction/Blood Tranf: No Family Medical History Family history: Hypertension 09 SISTER Kidney disease 03 MOTHER Myocardial infarction 09 SISTER Heart Disease, Diabetes, Hypertension Review of Systems Time Seen by Provider: 06:14 Constitutional: Weakness; No: Fever, Chills, Sweats, Malaise, Other Eyes: No: Pain, Vision change, Conjunctivae inflammation, Eyelid inflammation, Other, Redness ENT: No: Ear pain, Ear discharge, Nose pain, Nose discharge, Nose congestion, Mouth pain, Mouth swelling, Throat pain, Throat swelling, Other Respiratory: Cough, Dry, Shortness of breath, SOB with excertion; No: Wheezing , Hemoptysis, Pleuritic Pain, Sputum, Wheezing, Other Cardiovascular: Chest Pain, Palpitations Gastrointestinal: Nausea, Vomiting Neurological: Weakness Sepsis Event Evaluation Height, Weight, BMI Height: 5'6.00" Weight: 127lbs. 0.0oz. 57.872492cf; 20.5 BMI Method:Stated Exam Exam Vital Signs Date Time Temp Pulse Resp B/P (MAP) Pulse Ox O2 Delivery O2 Flow Rate FiO2 02/09/18 05:00 85 15 84/62 (69) 100 Room Air 02/09/18 04:00 99 Room Air 02/09/18 04:00 88 13 98/70 (79) 99 Room Air 02/09/18 03:00 85 13 96/60 (72) 99 Room Air 02/09/18 02:00 87 13 82/57 (65) 99 Room Air 02/09/18 01:00 90 14 84/54 (64) 98 Room Air 02/09/18 01:00 90 02/09/18 00:00 98.2 02/09/18 00:00 99 Room Air 02/09/18 00:00 95 12 80/56 (64) 97 Room Air 02/08/18 23:00 95 15 88/61 (70) 97 Room Air 02/08/18 22:00 101 15 86/60 (69) 98 Room Air 02/08/18 21:00 106 10 105/76 (86) 99 Room Air 02/08/18 20:00 101 11 97/71 (80) 100 Room Air 02/08/18 20:00 99 Room Air 02/08/18 19:37 98.9 Room Air 02/08/18 19:00 97 12 94/72 (79) 97 Room Air 02/08/18 19:00 96 02/08/18 18:00 98 12 103/67 (79) 98 Room Air 02/08/18 17:00 98 12 99/66 (77) 100 Room Air 02/08/18 16:00 113 15 107/83 (91) 100 Room Air 02/08/18 15:00 117 8 111/72 (85) 100 Room Air 02/08/18 14:49 102 02/08/18 14:35 Room Air 02/08/18 14:35 97.6 105 14 108/70 (83) 100 Room Air 02/08/18 14:25 106 16 95/55 (68) 98 Room Air 02/08/18 12:27 95.1 96 16 119/73 (88) 100 Room Air I & O 02/09/18 07:00 Intake Total 3900 ml Output Total 1250 ml Balance 2650 ml Height & Weight Height: 5'6.00" Weight: 127lbs. 0.0oz. 57.404681yl; 20.5 BMI Method:Stated General Appearance: No Apparent Distress, WD/WN, Thin HEENT: Other (POOR DENTITION--MULTIPLE MISSING TEETH, DRY ORAL MUCOSA) Neck: Full Range of Motion, Normal Inspection, Non Tender, Supple Respiratory: Normal Breath Sounds, No Accessory Muscle Use, No Respiratory Distress Cardiovascular: No Edema, No JVD, No Murmur, Normal Peripheral Pulses, Tachycardia (MILD 110'S) Capillary Refill: Less Than 3 Seconds Extremity: Normal Capillary Refill, Normal Inspection, No Pedal Edema Neurologic/Psychiatric: Alert, Oriented x3, No Motor/Sensory Deficits (BUT HISTORY OF NEUROPATHY), 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 -will go ahead and give Levemir and see what repeat chem shows. IDDM - with poor compliance -Education CP - resolved -Troponin negative x 3 EVELIO GUERRERO DO Feb 09, 2018 06:08
[2018-02-09] MEDS ORDERED: inSUlin DETERMIR 1 UNIT/0.01 ML (LEVEMIR) CHARGE PER UNIT SQ NR (06:15)
[2018-02-09 06:51] LABS: BUN/CREATININE RATIO 13; CALCIUM 7.5 MG/DL (8.5-10.1); CARBON DIOXIDE 17 MMOL/L (21-32); CHLORIDE 109 MMOL/L (98-107); CREATININE SERUM 0.72 MG/DL (0.60-1.30); GFR ESTIMATED > 60; GLUCOSE 152 MG/DL (70-105); MAGNESIUM 1.4 MG/DL (1.8-2.4); PHOSPHORUS 1.9 MG/DL (2.3-4.7); POTASSIUM 3.7 MMOL/L (3.6-5.0); SODIUM 135 MMOL/L (135-145)
[2018-02-09] MEDS: ASPIRIN E.C. 81 MG (ECOTRIN) TAB PO SCH (08:06)
[2018-02-09] MEDS ORDERED: INSU100I14 SQ (09:43)
[2018-02-09] MEDS ORDERED: INSU100I29 SQ (09:43)
[2018-02-09] MEDS ORDERED: FLU QUADRIvalent (5+ YOA) 2018-2019 (AFLURIA) 0.5 ML IM ONE (11:00)
--- NOTE | 2018-02-09 11:09 | History & Physical-Hospitalist ---
History of Present Illness HPI/Chief Complaint CC: DKA HPI: This is a 47-year-old black female with a past medical history of type I diabetes that presented originally to the emergency room with chest pain and palpitations but was found to be in severe DKA with a bicarbonate of 10 and pH is 7.1. Workup for cardiac issues was negative so she was placed on insulin drip per DKA protocol and is currently feeling much better and has been eating and drinking normally. She has not had a recurrence of chest pain. She reports that she was not taking her insulin as prescribed considering her daughter was just recently on this hospitalist service on Tuesday for abdominal pain and just felt worse and worse and that is what brought her to the ER. We' re in the midst of transition to subcutaneous insulin but maintaining insulin drip because bicarbonate is still 17 until that is completely resolved at 21 with good bridge of IV fluids and insulin drip then will discontinue the drip. Source: patient Exam Limitations: no limitations Date Seen 02/09/18 Time Seen by a Provider: 09:30 Attending Physician Yue Neville DO [facility] Referring Physician Date of Admission Feb 08, 2018 at 13:53 Home Medications & Allergies Home Medications Reviewed patient Home Medication Reconciliation performed by pharmacy medication reconciliations technician assistant and/or nursing. Patients Allergies have been reviewed. Allergies Allergies Coded Allergies Sulfa (Sulfonamide Antibiotics) (Unverified Allergy, Unknown, 05/30/17) Past Lgaluyi-Bhehti-Ofhrga Hx Past Med/Social Hx: Reviewed Nursing Past Med/Soc Hx, Reviewed and Corrections made Patient Social History Marrital Status: single Alcohol Use: Denies Use Alcohol Beverage of Choice: Beer, [place] Recreational Drug Use: No Drug of Choice: COCAINE Smoking Status: Never a Smoker Physical Abuse Screen: No Sexual Abuse: No Recent Foreign Travel: No Contact w/other who traveled: No Recent Hopitalizations: Yes Recent Infectious Disease Expo: No Immunizations Up To Date Tetanus Booster (TDap): Unknown Pediatric: No Seasonal Allergies Seasonal Allergies: No Past Medical History Surgeries: Tubal Ligation Currently Using CPAP: No Currently Using BIPAP: No Neurological: Neuropathy 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: No Sexually Transmitted Disease: No HIV/AIDS: No Female 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 Disorders: Denies Tubal Ligation Genitourinary: Kidney Infection Musculoskeletal: Osteoporosis, Arthritis Endocrine: Diabetes, Insulin dep Did You Recieve Any Treatments: No Psychosocial: Anxiety, Depression History of Blood Disorders: No Adverse Reaction to Blood [place]: No Family History Family history: Hypertension 09 SISTER Kidney disease 03 MOTHER Myocardial infarction 09 SISTER Heart Disease, Diabetes, Hypertension Review of Systems Constitutional: see HPI, weakness EENTM: no symptoms reported Respiratory: short of breath Cardiovascular: chest pain Gastrointestinal: heartburn, loss of appetite, nausea, vomiting Genitourinary: no symptoms reported Musculoskeletal: no symptoms reported Skin: no symptoms reported Psychiatric/Neurological: No Symptoms Reported All Other Systems Reviewed Negative Unless Noted: Yes Physical Exam Physical Exam Vital Signs Vital Signs - First Documented 02/08/18 12:27 Temp 95.1 Pulse 96 Resp 16 B/P (MAP) 119/73 (88) Pulse Ox 100 O2 Delivery Room Air Capillary Refill : Less Than 3 Seconds Height, Weight, BMI Height: 5'6.00" Weight: 131lbs. 5.0oz. 59.432849mr; 20.5 BMI Method:Stated General Appearance: No Apparent Distress, WD/WN, Chronically ill, Thin Eyes: Bilateral Eye Normal Inspection, Bilateral Eye PERRL HEENT: PERRL/EOMI, TMs Normal, Normal ENT Inspection, Pharynx Normal Neck: Full Range of Motion, Normal Inspection, Non Tender, Supple, Carotid Bruit Respiratory: Chest Non Tender, Lungs Clear, Normal Breath Sounds, No Accessory Muscle Use, No Respiratory Distress Cardiovascular: Regular Rate, Rhythm, No Edema, No Gallop, No JVD, No Murmur, Normal Peripheral Pulses Gastrointestinal: Normal Bowel Sounds, No Organomegaly, No Pulsatile Mass, Non Tender, Soft Back: Normal Inspection, No CVA Tenderness, No Vertebral Tenderness Extremity: Normal Capillary Refill, Normal Inspection, Normal Range of Motion, Non Tender, No Calf Tenderness, No Pedal Edema Neurologic/Psychiatric: Alert, Oriented x3, No Motor/Sensory Deficits, Normal Mood/Affect Skin: Normal Color, Warm/Dry Lymphatic: No Adenopathy Results Results/Procedures Labs Laboratory Tests 02/08/18 12:40 02/08/18 15:30 02/08/18 18:40 02/09/18 00:05 02/09/18 06:25 Patient resulted labs reviewed. Assessment/Plan Admission Diagnosis Assessment: DKA DM poor control hga1c 14.9 h/o non-compliance and multiple DKA admits h/o HARDIK but UDS is negative Admission Status: Inpatient Order (span 2 midnights) Reason for Inpatient Admission: Severe DKA will require 3 days inpt Diagnosis/Problems Diagnosis/Problems (1) DKA, type 1 Status: Acute Qualifiers: Diabetes mellitus complication detail: without coma Qualified Codes: E10.10 - Type 1 diabetes mellitus with ketoacidosis without coma (2) Noncompliance Status: Chronic (3) Renal insufficiency Status: Acute Clinical Quality Measures AMI/AHF: ASA po Prior to arrival: No DVT/VTE Risk/Contraindication: Risk Factor Score Per Nursin RFS Level Per Nursing on Admit: 1=Low/No VTE PPX YUE NEVILLE DO Feb 09, 2018 11:09
[2018-02-09 11:20] LABS: BUN/CREATININE RATIO 9; CALCIUM 7.6 MG/DL (8.5-10.1); CARBON DIOXIDE 18 MMOL/L (21-32); CHLORIDE 108 MMOL/L (98-107); CREATININE SERUM 0.76 MG/DL (0.60-1.30); GFR ESTIMATED > 60; GLUCOSE 171 MG/DL (70-105); POTASSIUM 3.6 MMOL/L (3.6-5.0); SODIUM 136 MMOL/L (135-145)
[2018-02-09 15:20] LABS: BUN/CREATININE RATIO 8; CALCIUM 7.6 MG/DL (8.5-10.1); CARBON DIOXIDE 17 MMOL/L (21-32); CHLORIDE 108 MMOL/L (98-107); CREATININE SERUM 0.75 MG/DL (0.60-1.30); GFR ESTIMATED > 60; GLUCOSE 160 MG/DL (70-105); POTASSIUM 3.9 MMOL/L (3.6-5.0); SODIUM 135 MMOL/L (135-145)
[2018-02-09] MEDS ORDERED: DEXTROSE 10% IV SOLUTION 1,000 ML IV ONE (15:26)
[2018-02-09] MEDS: DEXTROSE 10% IV SOLUTION 1,000 ML IV SCH ×3 (15:28→23:30)
[2018-02-09 18:51] LABS: BUN/CREATININE RATIO 6; CALCIUM 7.6 MG/DL (8.5-10.1); CARBON DIOXIDE 16 MMOL/L (21-32); CHLORIDE 106 MMOL/L (98-107); CREATININE SERUM 0.81 MG/DL (0.60-1.30); GFR ESTIMATED > 60; GLUCOSE 242 MG/DL (70-105); POTASSIUM 4.1 MMOL/L (3.6-5.0); SODIUM 132 MMOL/L (135-145)
[2018-02-09 22:59] LABS: BUN/CREATININE RATIO 5; CALCIUM 8.2 MG/DL (8.5-10.1); CARBON DIOXIDE 19 MMOL/L (21-32); CHLORIDE 105 MMOL/L (98-107); CREATININE SERUM 0.77 MG/DL (0.60-1.30); GFR ESTIMATED > 60; GLUCOSE 196 MG/DL (70-105); SODIUM 136 MMOL/L (135-145)
[2018-02-10] VITALS (14 sets, daily range): BP systolic 110–163; BP diastolic 76–118
[2018-02-10] MEDS: POTASSIUM CL 10MEQ/50ML IVPB 50 ML IV SCH ×4 (00:42→10:04)
[2018-02-10] MEDS: 1/2 NS IV SOLUTION 1,000 ML IV SCH ×3 (01:02→10:29)
[2018-02-10 03:24] LABS: BASOPHILS % (AUTO) 0 % (0-10); EOSINOPHILS # (AUTO) 0.1 10^3/uL (0.0-0.3); EOSINOPHILS % (AUTO) 1 % (0-10); HEMATOCRIT 30 % (35-52); HEMOGLOBIN 9.9 G/DL (11.5-16.0); LYMPHOCYTES # (AUTO) 2.4 X 10^3 (1.0-4.0); LYMPHOCYTES % (AUTO) 37 % (12-44); MEAN CORPUSCULAR HEMOGLOBIN 28 PG (25-34); MEAN CORPUSCULAR HGB CONC 33 G/DL (32-36); MEAN CORPUSCULAR VOLUME 86 FL (80-99); MEAN PLATELET VOLUME 9.7 FL (7.4-10.4); MONOCYTES # (AUTO) 0.5 X 10^3 (0.0-1.0); MONOCYTES % (AUTO) 8 % (0-12); NEUTROPHILS # (AUTO) 3.5 X 10^3 (1.8-7.8); NEUTROPHILS % (AUTO) 54 % (42-75); PLATELET COUNT 266 10^3/uL (130-400); RED CELL DISTRIBUTION WIDTH 14.3 % (10.0-14.5); WHITE BLOOD COUNT 6.5 10^3/uL (4.3-11.0)
[2018-02-10 03:40] LABS: BUN/CREATININE RATIO 4; CALCIUM 8.4 MG/DL (8.5-10.1); CARBON DIOXIDE 19 MMOL/L (21-32); CHLORIDE 105 MMOL/L (98-107); CREATININE SERUM 0.72 MG/DL (0.60-1.30); GFR ESTIMATED > 60; GLUCOSE 193 MG/DL (70-105); MAGNESIUM 1.7 MG/DL (1.8-2.4); PHOSPHORUS 2.3 MG/DL (2.3-4.7); POTASSIUM 3.8 MMOL/L (3.6-5.0); SODIUM 136 MMOL/L (135-145)
[2018-02-10] MEDS: DEXTROSE 10% IV SOLUTION 1,000 ML IV SCH ×3 (03:50→11:00)
--- NOTE | 2018-02-10 05:29 | Pulmonary Progress Note ---
Subjective Time Seen by a Provider: 05:28 Subjective/Events-last exam Pt still on insulin gtt. Sepsis Event Evaluation Height, Weight, BMI Height: 5'6.00" Weight: 131lbs. 5.0oz. 59.391564jk; 20.5 BMI Method:Stated Exam Exam Vital Signs Date Time Temp Pulse Resp B/P (MAP) Pulse Ox O2 Delivery O2 Flow Rate FiO2 02/10/18 04:00 Room Air 02/10/18 04:00 98 11 126/80 (95) 100 Room Air 02/10/18 03:00 96 19 115/81 (92) 99 Room Air 02/10/18 02:00 90 15 115/76 (89) 99 Room Air 02/10/18 01:00 106 16 163/118 (133) 100 Room Air 02/10/18 01:00 105 02/10/18 00:06 87 15 136/99 (111) 100 Room Air 02/10/18 00:00 Room Air 02/09/18 23:00 93 20 117/72 (87) 98 Room Air 02/09/18 22:00 92 20 122/83 (96) 98 Room Air 02/09/18 21:53 92 20 132/95 (107) 100 Room Air 02/09/18 20:13 85 24 127/88 (101) 100 Room Air 02/09/18 20:00 Room Air 02/09/18 19:00 90 14 127/88 (101) 98 Room Air 02/09/18 19:00 107 02/09/18 18:00 92 15 136/92 (107) 100 Room Air 02/09/18 17:00 89 51 131/90 (104) 99 Room Air 02/09/18 16:07 97.6 02/09/18 16:00 90 16 109/78 (88) 100 Room Air 02/09/18 15:10 Room Air 02/09/18 15:00 95 12 115/86 (96) 100 Room Air 02/09/18 14:00 99 16 121/87 (98) 99 Room Air 02/09/18 13:00 95 02/09/18 13:00 95 9 122/85 (97) 100 Room Air 02/09/18 12:00 93 13 110/75 (87) 99 Room Air 02/09/18 11:57 98.6 02/09/18 11:25 Room Air 10/25/18 11:00 96 7 110/80 (90) 99 Room Air 02/09/18 10:00 99 16 101/65 (77) 99 Room Air 02/09/18 09:00 97 41 100/71 (81) 99 Room Air 02/09/18 08:00 Room Air 02/09/18 08:00 86 12 108/76 (87) 100 Room Air 02/09/18 07:30 98.2 02/09/18 07:00 95 02/09/18 07:00 95 16 101/74 (83) 98 Room Air 02/09/18 06:00 83 12 89/60 (70) 97 Room Air I & O 02/10/18 07:00 Intake Total 3660 ml Output Total 3900 ml Balance -240 ml Height & Weight Height: 5'6.00" Weight: 131lbs. 5.0oz. 59.089811li; 20.5 BMI Method:Stated General Appearance: No Apparent Distress, WD/WN, Chronically ill, Thin HEENT: PERRL/EOMI, TMs Normal, Normal ENT Inspection, Pharynx Normal Neck: Full Range of Motion, Normal Inspection, Non Tender, Supple, Carotid Bruit Respiratory: Chest Non Tender, Lungs Clear, Normal Breath Sounds, No Accessory Muscle Use, No Respiratory Distress Cardiovascular: Regular Rate, Rhythm, No Edema, No Gallop, No JVD, No Murmur, Normal Peripheral Pulses Capillary Refill: Less Than 3 Seconds Extremity: Normal Capillary Refill, Normal Inspection, Normal Range of Motion, Non Tender, No Calf Tenderness, No Pedal Edema Neurologic/Psychiatric: Alert, Oriented x3, No Motor/Sensory Deficits, Normal Mood/Affect Skin: Normal Color, Warm/Dry Lymphatic: No Adenopathy Results Lab Laboratory Tests 02/08/18 12:40 02/08/18 15:30 02/08/18 18:40 02/09/18 00:05 02/09/18 06:25 02/09/18 10:58 02/09/18 14:56 02/09/18 18:31 02/09/18 22:34 02/10/18 03:11 Assessment/Plan Assessment/Plan Acute DKA -DKA protocol -Will probably be able to D/C it today. -currently insulin gtt only going at 2 unit/hr. -will go ahead and give Levemir and see what repeat chem shows. IDDM - with poor compliance -Education CP - resolved -Troponin negative x 3 EVELIO GUERRERO DO Feb 10, 2018 05:29
[2018-02-10] MEDS ORDERED: MAGNESIUM 1 GM/100 ML IVPB 100 ML IV SCH (06:00)
[2018-02-10] MEDS ORDERED: POTASSIUM CL 10MEQ/50ML IVPB 50 ML IV SCH (06:00)
[2018-02-10] MEDS ORDERED: KCL 20 MEQ TAB (K-DUR) PO SCH (06:00)
[2018-02-10 06:35] LABS: BUN/CREATININE RATIO 6; CALCIUM 8.1 MG/DL (8.5-10.1); CARBON DIOXIDE 19 MMOL/L (21-32); CHLORIDE 104 MMOL/L (98-107); CREATININE SERUM 0.71 MG/DL (0.60-1.30); GFR ESTIMATED > 60; GLUCOSE 191 MG/DL (70-105); POTASSIUM 3.9 MMOL/L (3.6-5.0); SODIUM 134 MMOL/L (135-145)
[2018-02-10 08:47] LABS: BUN/CREATININE RATIO 6; CALCIUM 8.2 MG/DL (8.5-10.1); CARBON DIOXIDE 21 MMOL/L (21-32); CHLORIDE 104 MMOL/L (98-107); CREATININE SERUM 0.68 MG/DL (0.60-1.30); GFR ESTIMATED > 60; GLUCOSE 203 MG/DL (70-105); POTASSIUM 3.6 MMOL/L (3.6-5.0); SODIUM 136 MMOL/L (135-145)
[2018-02-10] MEDS: ASPIRIN E.C. 81 MG (ECOTRIN) TAB PO SCH (09:03)
[2018-02-10] MEDS ORDERED: inSUlin DETERMIR 1 UNIT/0.01 ML (LEVEMIR) CHARGE PER UNIT SQ ONE ×2 (09:08→09:15)
[2018-02-10] MEDS: MAGNESIUM 1 GM/100 ML IVPB 100 ML IV SCH ×2 (10:59→11:00)
[2018-02-10] MEDS ORDERED: inSUlin ASPART (NovoLOG) 1 UNIT/0.01 ML (CHARGE PER UNIT) ONE (11:57)
[2018-02-10] MEDS: inSUlin ASPART (NovoLOG) 1 UNIT/0.01 ML (CHARGE PER UNIT) SQ SCH ×2 (11:59→17:20)
--- NOTE | 2018-02-10 12:08 | Discharge Summary-Hospitalist ---
Diagnosis/Chief Complaint Date of Admission Feb 08, 2018 at 13:53 Date of Discharge Discharge Date: Feb 10, 2018 Admission Diagnosis Assessment: DKA DM poor control hga1c 14.9 h/o non-compliance and multiple DKA admits h/o HARDIK but UDS is negative Discharge Diagnosis (1) DKA, type 1 Status: Acute (2) Noncompliance Status: Chronic (3) Renal insufficiency Status: Resolved Discharge Summary Discharge Physical Exam Allergies: Coded Allergies: Sulfa (Sulfonamide Antibiotics) (Unverified Allergy, Unknown, 05/30/17) Vitals & I&Os Vital Signs Date Time Temp Pulse Resp B/P (MAP) Pulse Ox O2 Delivery O2 Flow Rate FiO2 02/10/18 11:00 101 125/93 (104) 99 Room Air 02/10/18 09:07 98.3 02/10/18 06:00 15 General Appearance: No Apparent Distress, WD/WN, Chronically ill Respiratory: Chest Non Tender, Lungs Clear, Normal Breath Sounds, No Accessory Muscle Use, No Respiratory Distress Cardiovascular: Regular Rate, Rhythm, No Edema, No Gallop, No JVD, No Murmur, Normal Peripheral Pulses Hospital Course Hospital course: patient was admitted with DKA and labile sugars are chronic which was confirmed with elevated hga1c. Pt reported she has been worried about her daughter and got behind on her injections. Pt was placed on DKA protocol but required longer maintenance of insulin drip due to bicarb labile status. Pt improved and was ready to go home and did not need any new meds. Labs (last 24 hrs) Laboratory Tests 02/09/18 12:50: Glucometer 140H 02/09/18 14:07: Glucometer 132H 02/09/18 14:56: Sodium Level 135, Potassium Level 3.9, Chloride Level 108H, Carbon Dioxide Level 17L, Anion Gap 10, Blood Urea Nitrogen 6L, Creatinine 0.75, Estimat Glomerular Filtration Rate > 60, BUN/Creatinine Ratio 8, Glucose Level 160H, Calcium Level 7.6L 02/09/18 15:02: Glucometer 168H 02/09/18 16:05: Glucometer 161H 02/09/18 16:56: Glucometer 170H 02/09/18 17:53: Glucometer 201H 02/09/18 18:31: Sodium Level 132L, Potassium Level 4.1, Chloride Level 106, Carbon Dioxide Level 16L, Anion Gap 10, Blood Urea Nitrogen 5L, Creatinine 0.81, Estimat Glomerular Filtration Rate > 60, BUN/Creatinine Ratio 6, Glucose Level 242H, Calcium Level 7.6L 02/09/18 20:01: Glucometer 213H 02/09/18 21:26: Glucometer 180H 02/09/18 22:34: Sodium Level 136, Potassium Level 4.0, Chloride Level 105, Carbon Dioxide Level 19L, Anion Gap 12, Blood Urea Nitrogen 4L, Creatinine 0.77, Estimat Glomerular Filtration Rate > 60, BUN/Creatinine Ratio 5, Glucose Level 196H, Calcium Level 8.2L 02/09/18 22:35: Glucometer 185H 02/09/18 23:27: Glucometer 160H 02/10/18 00:31: Glucometer 140H 02/10/18 01:35: Glucometer 208H 02/10/18 02:43: Glucometer 205H 02/10/18 03:11: White Blood Count 6.5, Red Blood Count 3.50L, Hemoglobin 9.9L, Hematocrit 30L, Mean Corpuscular Volume 86, Mean Corpuscular Hemoglobin 28, Mean Corpuscular Hemoglobin Concent 33, Red Cell Distribution Width 14.3, Platelet Count 266, Mean Platelet Volume 9.7, Neutrophils (%) (Auto) 54, Lymphocytes (%) (Auto) 37, Monocytes (%) (Auto) 8, Eosinophils (%) (Auto) 1, Basophils (%) (Auto) 0, Neutrophils # (Auto) 3.5, Lymphocytes # (Auto) 2.4, Monocytes # (Auto) 0.5, Eosinophils # (Auto) 0.1, Basophils # (Auto) 0.0, Sodium Level 134L, Potassium Level 3.9, Chloride Level 104, Carbon Dioxide Level 19L, Anion Gap 11, Blood Urea Nitrogen 4L, Creatinine 0.71, Estimat Glomerular Filtration Rate > 60, BUN/ Creatinine Ratio 6, Glucose Level 191H, Calcium Level 8.1L, Phosphorus Level 2.3 , Magnesium Level 1.7L 02/10/18 03:49: Glucometer 139H 02/10/18 04:46: Glucometer 178H 02/10/18 05:52: Glucometer 178H 02/10/18 06:46: Glucometer 151H 02/10/18 08:16: Glucometer 199H 02/10/18 08:25: Sodium Level 136, Potassium Level 3.6, Chloride Level 104, Carbon Dioxide Level 21, Anion Gap 11, Blood Urea Nitrogen 4L, Creatinine 0.68, Estimat Glomerular Filtration Rate > 60, BUN/Creatinine Ratio 6, Glucose Level 203H, Calcium Level 8.2L 02/10/18 09:05: Glucometer 189H 02/10/18 10:02: Glucometer 177H 02/10/18 10:58: Glucometer 165H Microbiology 02/08/18 Urine Culture - Preliminary, Resulted Escherichia coli Patient resulted labs reviewed. Pending Labs Laboratory Tests 02/10/18 04:46: Glucometer 178 02/10/18 05:52: Glucometer 178 02/10/18 06:46: Glucometer 151 02/10/18 08:16: Glucometer 199 02/10/18 08:25: Sodium Level 136, Potassium Level 3.6, Chloride Level 104, Carbon Dioxide Level 21, Anion Gap 11, Blood Urea Nitrogen 4, Creatinine 0.68, Estimat Glomerular Filtration Rate > 60, BUN/Creatinine Ratio 6, Glucose Level 203, Calcium Level 8.2 02/10/18 09:05: Glucometer 189 02/10/18 10:02: Glucometer 177 02/10/18 10:58: Glucometer 165 Discussion & Recommendations Discharge Planning: <30 minutes discharge planning Discharge Home Medications: Active Scripts Active Reported Levemir Flextouch (Insulin Detemir) 100 Unit/1 Ml Insuln.pen 25 Unit SQ HS Novolog Flexpen (Insulin Aspart) 300 Units/3 Ml Solution 15 Units SQ AC Instructions to patient/family Please see electronic discharge instructions given to patient. Clinical Quality Measures AMI/AHF: ASA po Prior to arrival: No DVT/VTE Risk/Contraindication: Risk Factor Score Per Nursin RFS Level Per Nursing on Admit: 1=Low/No VTE PPX Problem Qualifiers (1) DKA, type 1: Diabetes mellitus complication detail: without coma Qualified Codes: E10.10 - Type 1 diabetes mellitus with ketoacidosis without coma ANNALISE RAWLS DO Feb 10, 2018 12:08
[2018-02-10 13:47] LABS: BUN/CREATININE RATIO 8; CALCIUM 8.8 MG/DL (8.5-10.1); CARBON DIOXIDE 22 MMOL/L (21-32); CHLORIDE 102 MMOL/L (98-107); CREATININE SERUM 0.66 MG/DL (0.60-1.30); GFR ESTIMATED > 60; POTASSIUM 3.5 MMOL/L (3.6-5.0); SODIUM 136 MMOL/L (135-145)
[2018-02-10 14:00] LABS: GLUCOSE 46 MG/DL (70-105)
[2018-02-10 19:55] LABS: BUN/CREATININE RATIO 15; CALCIUM 8.3 MG/DL (8.5-10.1); CARBON DIOXIDE 22 MMOL/L (21-32); CHLORIDE 102 MMOL/L (98-107); CREATININE SERUM 0.74 MG/DL (0.60-1.30); GFR ESTIMATED > 60; GLUCOSE 262 MG/DL (70-105); POTASSIUM 4.7 MMOL/L (3.6-5.0); SODIUM 134 MMOL/L (135-145)
[2018-02-10] MEDS: inSUlin DETERMIR 1 UNIT/0.01 ML (LEVEMIR) CHARGE PER UNIT SQ SCH (20:47)
[2018-02-11] VITALS: BP 118/81
[2018-02-11 04:00] VITALS: BP 110/70
--- NOTE | 2018-02-11 08:05 | Progress Note (SOAP) ---
Subjective Subjective/Events-last exam Patient is without complaints this morning. She is hungry and has not had breakfast yet. She apparently has been having issues with her blood glucose dropping. She does inform he recently she was changed from 8 units of NovoLog with meals to 15 units with meals. She has also been taking 25 units in the evening of Levemir. Review of Systems Date Seen by Provider: Feb 11, 2018 Time Seen by Provider: 07:00 Objective Exam Last Set of Vital Signs Vital Signs Date Time Temp Pulse Resp B/P (MAP) Pulse Ox O2 Delivery O2 Flow Rate FiO2 02/11/18 04:00 98.4 99 20 110/70 (83) 98 Room Air Capillary Refill : Less Than 3 Seconds I&O Intake and Output 02/10/18 23:59 Intake Total 3515 ml Output Total 2800 ml Balance 715 ml Intake Oral 1790 ml IV Total 1725 ml Output Urine Total 2800 ml # Voids 4 # Bowel Movements 1 General: No Acute Distress Neck: Supple Lungs: Clear to Auscultation Heart: Regular Rate Results/Procedures Lab Laboratory Tests 02/10/18 08:16: Glucometer 199H 02/10/18 08:25: Sodium Level 136, Potassium Level 3.6, Chloride Level 104, Carbon Dioxide Level 21, Anion Gap 11, Blood Urea Nitrogen 4L, Creatinine 0.68, Estimat Glomerular Filtration Rate > 60, BUN/Creatinine Ratio 6, Glucose Level 203H, Calcium Level 8.2L 02/10/18 09:05: Glucometer 189H 02/10/18 10:02: Glucometer 177H 02/10/18 10:58: Glucometer 165H 02/10/18 12:58: Sodium Level 136, Potassium Level 3.5L, Chloride Level 102, Carbon Dioxide Level 22, Anion Gap 12, Blood Urea Nitrogen 5L, Creatinine 0.66, Estimat Glomerular Filtration Rate > 60, BUN/Creatinine Ratio 8, Glucose Level 46*L, Calcium Level 8.8 02/10/18 13:11: Glucometer 48*L 02/10/18 13:24: Glucometer 69L 02/10/18 14:10: Glucometer 61L 02/10/18 15:01: Glucometer 73 02/10/18 16:38: Glucometer 136H 02/10/18 19:35: Sodium Level 134L, Potassium Level 4.7, Chloride Level 102, Carbon Dioxide Level 22, Anion Gap 10, Blood Urea Nitrogen 11, Creatinine 0.74, Estimat Glomerular Filtration Rate > 60, BUN/Creatinine Ratio 15, Glucose Level 262H, Calcium Level 8.3L 02/10/18 20:11: Glucometer 281H 02/11/18 02:47: Glucometer 43*L 02/11/18 03:30: Glucometer 74 02/11/18 05:48: Glucometer 112H Microbiology 02/08/18 Urine Culture - Preliminary, Resulted Escherichia coli Assessment/Plan Assessment/Plan Assessment & Plan 1. Diabetes mellitus -Patient's discharge yesterday was canceled due to her glucose dropping. -We will see how she responds this morning after breakfast. She will ultimately need a scheduled NovoLog dosage 2. DKA now resolved 3. Electrolyte imbalance -Resolved Clinical Quality Measures AMI/AHF: ASA po Prior to arrival: No DVT/VTE Risk/Contraindication: Risk Factor Score Per Nursin RFS Level Per Nursing on Admit: 1=Low/No VTE PPX BRIGIDO ARMAS MD Feb 11, 2018 08:05
[2018-02-11 08:15] VITALS: BP 120/79
[2018-02-11] MEDS: inSUlin ASPART (NovoLOG) 1 UNIT/0.01 ML (CHARGE PER UNIT) SQ SCH ×4 (08:17→18:25)
[2018-02-11 12:00] VITALS: BP 124/70
[2018-02-11 16:17] VITALS: BP 109/70
[2018-02-11] MEDS: inSUlin DETERMIR 1 UNIT/0.01 ML (LEVEMIR) CHARGE PER UNIT SQ SCH (21:12)
[2018-02-12] VITALS: BP 127/86
[2018-02-12] MEDS: inSUlin DETERMIR 1 UNIT/0.01 ML (LEVEMIR) CHARGE PER UNIT SQ SCH (07:21)
[2018-02-12] MEDS: inSUlin ASPART (NovoLOG) 1 UNIT/0.01 ML (CHARGE PER UNIT) SQ SCH ×2 (07:22→12:27)
[2018-02-12 08:00] VITALS: BP 115/80
--- NOTE | 2018-02-12 08:16 | Discharge Summary ---
Diagnosis/Chief Complaint Date of Admission Feb 08, 2018 at 13:53 Date of Discharge February 12, 2018 Admission Diagnosis Admission Diagnosis 1. Diabetic ketoacidosis 2. Dehydration 3. Electrolyte abnormality secondary to number 1 Discharge Diagnosis 1. Diabetes mellitus 2. DKA now resolved 3. Electrolyte imbalance 4. Dehydration Chief Complaint/HPI Chief Complaint/HPI 47-year-old female with a past medical history of type I diabetes that presented originally to the emergency room with chest pain and palpitations but was found to be in severe DKA with a bicarbonate of 10 and pH is 7.1. Workup for cardiac issues was negative so she was placed on insulin drip per DKA protocol and is currently feeling much better and has been eating and drinking normally. She has not had a recurrence of chest pain. She reports that she was not taking her insulin as prescribed considering her daughter was just recently on this hospitalist service on Tuesday for abdominal pain and just felt worse and worse and that is what brought her to the ER. Discharge Summary-Simple/Stand Consultations Discharge Physical Examination Allergies: Coded Allergies: Sulfa (Sulfonamide Antibiotics) (Unverified Allergy, Unknown, 05/30/17) Vitals & I&Os Vital Sign - Last 12Hours Date Time Temp Pulse Resp B/P (MAP) Pulse Ox O2 Delivery O2 Flow Rate FiO2 02/12/18 00:00 99.3 93 20 127/86 (100) 99 Room Air Intake and Output 02/12/18 00:00 Intake Total 4141 ml Balance 4141 ml General Appearance: No Acute Distress HEENT: Mucous Memb Moist/[place] Respiratory: Clear to Auscultation Cardiovascular: Regular Rate Abdominal: Normal Bowel Sounds, Soft Skin: No Rashes Neuro: Normal Speech Psych/Mental Status: Mental Status NL Hospital Course Patient was admitted to hospital in diabetic ketoacidosis. She underwent protocol for diabetic ketoacidosis. Patient received IV fluids and noted correction in her glucose immediately within the first 24 hours. She ultimately was switched to her insulin regimen at home which consisted of 25 units of Levemir at night and 15 units of NovoLog with meals. During the course of February 10 and February 11 she was noted to have "bottomed out" Patient required to have extra glucose in the form of peanut butter or or issues to correct this. Ultimately she did better on 8 or 10 units of NovoLog with meals and on the evening prior to dismissal 15 units of Levemir at bedtime. She had all questions answered in the morning of February 12, 2018. She will follow up with [facility] within the week to fine-tune her insulin dosage if necessary. Discharge Instructions to patient/family Please see electronic discharge instructions given to patient. Discharge Medications Reviewed and agree with Discharge Medication list on patient's Discharge Instruction sheet Clinical Quality Measures AMI/AHF: ASA po Prior to arrival: No DVT/VTE Risk/Contraindication: Risk Factor Score Per Nursin RFS Level Per Nursing on Admit: 1=Low/No VTE PPX BRIGIDO ARMAS MD Feb 12, 2018 08:16
--- NOTE | 2018-02-12 08:23 | Discharge Inst-Simple/Standard ---
Discharge Inst-Standard Patient Instructions/Follow Up Plan of Care/Instructions/FU: Insulin dosage adjustment as directed. Levemir 15 units at night and NovoLog 10 units with meals Activity as Tolerated: Yes Discharge Diet: ADA Diet Return to The Hospital For: Uncontrolled glucose values at home Other Inst to Patient Continue to check glucose fasting and 2 hours after meals. Bring these in two- year appointment at [facility] on February 16 Planned Outpatient Orders/Ref. Pneu Vac Indicated: Yes BRIGIDO ARMAS MD Feb 12, 2018 08:23
--- NOTE | 2018-02-15 08:26 | Physician Query Clarification ---
PQ-Intro New Diagnosis Admission/Discharge Admission Date: Feb 08, 2018 at 13:53 Discharge Date: Feb 12, 2018 at 13:35 The medical record reflects the following clinical scenario: History/Risk Factors: DKA Clinical Findings: urine WBC 5-10, urine leukocyte esterase 1+, urine bacteria Few, urine culture > 100,000 e. coli Treatment: Not seeing any given Question: What condition best reflects the above clinical scenario? Please document below. 1. UTI e. coli 2. No UTI - contaminant 3. Other, with explanation of the clinical findings. 4. Clinically undetermined, no explanation for the clinical findings. PHYSICIAN RESPONSE What condition reflects above: Other, explanation/clinical finding Explanation of clincal finding The patient was not treated for UTI on admission. She was asymptomatic during her day. The urine culture does reveal E. coli but she didn't received antibiotic. Her fu O/P should address the E. coli. In responding to this query, please exercise your independent professional judgment. The purpose of this communication is to more accurately reflect the complexity of your patients condition. The fact that a question is asked does not imply that any particular answer is desired or expected. Thank you for your timely response to this clarification. Requestors name: Blane THIS PHYSICIAN QUERY FORM IS A PERMANENT PART OF THE MEDICAL RECORD BLANE ZUNIGA Feb 15, 2018 08:26 BRIGIDO ARMAS MD Feb 24, 2018 09:03
== END 2018-02-12 13:35 | disposition home or self-care (01) | DRG 639 ==
LOC: EDUNIT# 12:27 → ER 12:28 → ICU 13:53 → 4TH 02-10 11:45
PROVIDERS: ADMIT Internal Medicine; ATTEND Internal Medicine
DX: E10.10 Type 1 diabetes mellitus with ketoacidosis without coma (principal); E10.40 Type 1 diabetes mellitus with diabetic neuropathy, unspecified; E86.0 Dehydration; E87.8 Other disorders of electrolyte and fluid balance, not elsewhere classified; R07.9 Chest pain, unspecified; R00.2 Palpitations; N28.9 Disorder of kidney and ureter, unspecified; M81.0 Age-related osteoporosis without current pathological fracture; M19.91 Primary osteoarthritis, unspecified site; F41.9 Anxiety disorder, unspecified; F32.9 Major depressive disorder, single episode, unspecified; Z91.19 Patient's noncompliance with other medical treatment and regimen; Z79.4 Long term (current) use of insulin
CPT/HCPCS: 36415; 36600; 71045; 80048; 80053; 80306; 80320; 81000; 82150; 82805; 82962; 83036; 83690; 83735; 83880; 84100; 84443; 84484; 84703; 85025; 85027; 87077; 87088; 87186; 93005; 93041; 96361; 96374; 96375

== ENCOUNTER 2018-04-19 12:29 | Inpatient (IN) | payer SELFPAY, MEDICAID | END 2018-04-21 13:19 | disposition home or self-care (01) | LOC: ER 12:29 → ICU 14:59 | DX: E10.10 Type 1 diabetes mellitus with ketoacidosis without coma (principal); N30.00 Acute cystitis without hematuria; E10.42 Type 1 diabetes mellitus with diabetic polyneuropathy; E87.6 Hypokalemia; F41.9 Anxiety disorder, unspecified; F32.9 Major depressive disorder, single episode, unspecified; M81.0 Age-related osteoporosis without current pathological fracture; M19.91 Primary osteoarthritis, unspecified site; Z79.4 Long term (current) use of insulin ==

== ENCOUNTER 2018-06-12 18:33 | Emergency (ER) | payer SELFPAY ==
[~2018-06-12] VITALS: Ht 167.6 cm; Wt 62.6 kg
[~2018-06-12 18:33] MED LIST changes: +INSU100I29 SQ
[2018-06-12 18:47] LABS: BASOPHILS % (AUTO) 0 % (0-10); EOSINOPHILS # (AUTO) 0.1 10^3/uL (0.0-0.3); EOSINOPHILS % (AUTO) 1 % (0-10); HEMATOCRIT 35 % (35-52); HEMOGLOBIN 11.5 G/DL (11.5-16.0); LYMPHOCYTES % (AUTO) 40 % (12-44); MEAN CORPUSCULAR HEMOGLOBIN 27 PG (25-34); MEAN CORPUSCULAR HGB CONC 33 G/DL (32-36); MEAN CORPUSCULAR VOLUME 85 FL (80-99); MEAN PLATELET VOLUME 9.9 FL (7.4-10.4); MONOCYTES # (AUTO) 0.6 X 10^3 (0.0-1.0); MONOCYTES % (AUTO) 9 % (0-12); NEUTROPHILS # (AUTO) 3.8 X 10^3 (1.8-7.8); NEUTROPHILS % (AUTO) 50 % (42-75); PLATELET COUNT 323 10^3/uL (130-400); RED CELL DISTRIBUTION WIDTH 13.6 % (10.0-14.5); WHITE BLOOD COUNT 7.5 10^3/uL (4.3-11.0)
--- NOTE | 2018-06-12 18:50 | ED General ---
General Stated Complaint: LOW BLOOD SURGAR Source of Information: Patient Exam Limitations: No Limitations History of Present Illness Date Seen by Provider: Jun 12, 2018 Time Seen by Provider: 18:49 Initial Comments To ER per private vehicle with reports of low blood sugar as low as 51. She is a diabetic and she is typically here for diabetic ketoacidosis. About 15 minutes prior to arrival to the emergency room she checked her blood sugar and found it to be 51 as she was feeling very lethargic and weak. She then ate 2 cookies with some frosting. On arrival to ER it is 85. Timing/Duration: 1/2 Hour Severity: Moderate Associated Systoms: Weakness Allergies and Home Medications Allergies Coded Allergies: Sulfa (Sulfonamide Antibiotics) (Unverified Allergy, Unknown, 05/30/17) Home Medications Insulin Aspart 300 Units/3 Ml Solution, 10 UNITS SQ AC LAST FILLED 01-30-18 Prescribed by: ANNALISE RAWLS on 04/21/18905 Insulin Detemir 100 Unit/1 Ml Insuln.pen, 15 UNIT SQ HS LAST FILLED 01-30-18 Prescribed by: ANNALISE RAWLS on 04/21/18 09 Patient Home Medication List Home Medication List Reviewed: Yes Review of Systems Review of Systems Constitutional: see HPI, weakness EENTM: see HPI Respiratory: no symptoms reported Cardiovascular: no symptoms reported Genitourinary: no symptoms reported Musculoskeletal: no symptoms reported Skin: no symptoms reported Psychiatric/Neurological: No Symptoms Reported Hematologic/Lymphatic: No Symptoms Reported Past Hyzzgoy-Xsvymk-Uhwsvx Hx Patient Social History Alcohol Beverage of Choice: Beer, [place] Drug of Choice: COCAINE Recent Foreign Travel: No Contact w/Someone Who Travel: No Recent Hopitalizations: No Immunizations Up To Date Tetanus Booster (TDap): Unknown PED Vaccines UTD: No Seasonal Allergies Seasonal Allergies: No Past Medical History Surgeries: Yes Tubal Ligation Respiratory: No Currently Using CPAP: No Currently Using BIPAP: No Cardiac: No Neurological: Yes Neuropathy 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 Disorders: No 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 Sexually Transmitted Disease: No HIV/AIDS: No Genitourinary: Yes Kidney Infection Gastrointestinal: No Musculoskeletal: Yes Osteoporosis, Arthritis Endocrine: Yes Diabetes, Insulin dep HEENT: No Cancer: No Did You Recieve Any Treatments: No Psychosocial: Yes Anxiety, Depression Integumentary: No Blood Disorders: No Adverse Reaction/Blood Tranf: No Family Medical History Family history: Hypertension 09 SISTER Kidney disease 03 MOTHER Myocardial infarction 09 SISTER Heart Disease, Diabetes, Hypertension Physical Exam Vital Signs Vital Signs - First Documented 06/12/18 18:41 Temp 98.3 Pulse 87 Resp 12 B/P (MAP) 120/87 (98) Pulse Ox 100 Capillary Refill : Height, Weight, BMI Height: 5'6.00" Weight: 132lbs. 0.0oz. [id number]; 20.2 BMI Method:Stated General Appearance: No Apparent Distress, WD/WN, Other (weak but alert and oriented, ambulatory to room 9) Eyes: Bilateral Eye Normal Inspection, Bilateral Eye PERRL, Bilateral Eye EOMI HEENT: PERRL/EOMI, Normal ENT Inspection Neck: Full Range of Motion, Normal Inspection Respiratory: Normal Breath Sounds, No Accessory Muscle Use, No Respiratory Distress Cardiovascular: Regular Rate, Rhythm, Normal Peripheral Pulses Gastrointestinal: Normal Bowel Sounds, Non Tender, Soft Extremity: Normal Capillary Refill, Normal Inspection Neurologic/Psychiatric: Alert, Oriented x3 Skin: Normal Color, Warm/Dry Progress/Results/Core Measures Suspected Sepsis SIRS Temperature: Pulse: Respiratory Rate: Laboratory Tests 06/12/18 18:41: White Blood Count 7.5 Blood Pressure / Mean: Laboratory Tests 06/12/18 18:41: Creatinine 0.72, Platelet Count 323, Total Bilirubin 0.2 Results/Orders Lab Results Laboratory Tests Test 06/12/18 18:40 06/12/18 18:41 06/12/18 19:20 Range/Units Glucometer 85 70-110 MG/DL White Blood Count 7.5 4.3-11.0 10^3/uL Red Blood Count 4.19 L 4.35-5.85 10^6/uL Hemoglobin 11.5 11.5-16.0 G/DL Hematocrit 35 35-52 % Mean Corpuscular Volume 85 80-99 FL Mean Corpuscular Hemoglobin 27 25-34 PG Mean Corpuscular Hemoglobin Concent 33 32-36 G/DL Red Cell Distribution Width 13.6 10.0-14.5 % Platelet Count 323 130-400 10^3/uL Mean Platelet Volume 9.9 7.4-10.4 FL Neutrophils (%) (Auto) 50 42-75 % Lymphocytes (%) (Auto) 40 12-44 % Monocytes (%) (Auto) 9 0-12 % Eosinophils (%) (Auto) 1 0-10 % Basophils (%) (Auto) 0 0-10 % Neutrophils # (Auto) 3.8 1.8-7.8 X 10^3 Lymphocytes # (Auto) 3.0 1.0-4.0 X 10^3 Monocytes # (Auto) 0.6 0.0-1.0 X 10^3 Eosinophils # (Auto) 0.1 0.0-0.3 10^3/uL Basophils # (Auto) 0.0 0.0-0.1 10^3/uL Sodium Level 141 135-145 MMOL/L Potassium Level 2.8 L 3.6-5.0 MMOL/L Chloride Level 104 98-107 MMOL/L Carbon Dioxide Level 24 21-32 MMOL/L Anion Gap 13 5-14 MMOL/L Blood Urea Nitrogen 18 7-18 MG/DL Creatinine 0.72 0.60-1.30 MG/DL Estimat Glomerular Filtration Rate > 60 BUN/Creatinine Ratio 25 Glucose Level 74 70-105 MG/DL Calcium Level 9.4 8.5-10.1 MG/DL Corrected Calcium 9.3 8.5-10.1 MG/DL Total Bilirubin 0.2 0.1-1.0 MG/DL Aspartate Amino Transf (AST/SGOT) 17 5-34 U/L Alanine Aminotransferase (ALT/SGPT) 19 0-55 U/L Alkaline Phosphatase 101 40-136 U/L Total Protein 7.4 6.4-8.2 GM/DL Albumin 4.1 3.2-4.5 GM/DL Urine Color YELLOW Urine Clarity VERY CLOUDY H Urine pH 6 5-9 Urine Specific [place] 1.015 L 1.016-1.022 Urine Protein 1+ H NEGATIVE Urine Glucose (UA) 4+ H NEGATIVE Urine Ketones NEGATIVE NEGATIVE Urine Nitrite NEGATIVE NEGATIVE Urine Bilirubin NEGATIVE NEGATIVE Urine Urobilinogen NORMAL NORMAL MG/DL Urine Leukocyte Esterase 3+ H NEGATIVE Urine RBC (Auto) 2+ H NEGATIVE Urine RBC RARE /HPF Urine WBC 25-50 H /HPF Urine Squamous Epithelial Cells RARE /HPF Urine Crystals NONE /LPF Urine Bacteria LARGE H /HPF Urine Casts NONE /LPF Urine Mucus NEGATIVE /LPF Urine Culture Indicated YES My Orders Orders - ESSIE DRIVER ACTUARIAL INTERN Cbc With Automated Diff (2/25/19 18:34) Comprehensive Metabolic Panel (06/12/18 18:34) Ua Culture If Indicated (06/12/18 18:34) Iv [place]-Insert (Order) (06/12/18 18:34) Potassium Chloride (Tablet) (Klor Con Ta (06/12/18 19:30) Accucheck Stat ONCE (06/12/18 19:24) Potassium Cl 10meq/50ml Ivpb (Kcl 10 Meq (06/12/18 19:30) Ns Iv 500 Ml (Sodium Chloride 0.9%) (06/12/18 19:30) Urine Culture (06/12/18 19:20) Medications Given in ED Current Medications Medications Dose Ordered Sig/Ryland Route Start Time Stop Time Status Last Admin Dose Admin Potassium Chloride 40 meq ONCE ONCE PO 06/12/18 19:30 06/12/18 19:31 DC 06/12/18 19:32 40 MEQ Vital Signs/I&O 06/12/18 18:41 Temp 98.3 Pulse 87 Resp 12 B/P (MAP) 120/87 (98) Pulse Ox 100 Capillary Refill : Departure Impression Primary Impression: Hypoglycemia Additional Impressions: Hypokalemia UTI (urinary tract infection) Qualified Codes: N30.00 - Acute cystitis without hematuria Disposition: HOME, SELF-CARE Condition: Stable Departure-Patient Inst. Decision time for Depature: 18:50 Referrals: [facility]/ (PCP) Primary Care Physician LUKE SCHUSTER (Family) Primary Care Physician Patient Instructions: HYPOGLYCEMIA, Hypokalemia (DC) Add. Discharge Instructions: 1. Return to ER for any concerns Scripts Cefuroxime Axetil (Cefuroxime) 250 Mg Tablet 250 MG PO BID, #10 TAB Prov: ESSIE DRIVER ACTUARIAL INTERN 06/12/18 ESSIE DRIVER ACTUARIAL INTERN Jun 12, 2018 18:50
[2018-06-12 19:06] LABS: ALANINE AMINOTRANSFERASE 19 U/L (0-55); ALBUMIN 4.1 GM/DL (3.2-4.5); ALKALINE PHOSPHATASE 101 U/L (40-136); BILIRUBIN,TOTAL 0.2 MG/DL (0.1-1.0); BUN/CREATININE RATIO 25; CALCIUM 9.4 MG/DL (8.5-10.1); CARBON DIOXIDE 24 MMOL/L (21-32); CHLORIDE 104 MMOL/L (98-107); CREATININE SERUM 0.72 MG/DL (0.60-1.30); GFR ESTIMATED > 60; GLUCOSE 74 MG/DL (70-105); POTASSIUM 2.8 MMOL/L (3.6-5.0); SODIUM 141 MMOL/L (135-145); TOTAL PROTEIN 7.4 GM/DL (6.4-8.2)
[2018-06-12 19:27] LABS: BILIRUBIN,URINE NEGATIVE (NEGATIVE); CLARITY,URINE VERY CLOUDY; COLOR,URINE YELLOW; GLUCOSE, URINE (UA) 4+ (NEGATIVE); KETONES,URINE NEGATIVE (NEGATIVE); LEUKOCYTE ESTERASE ,URINE 3+ (NEGATIVE); NITRITE,URINE NEGATIVE (NEGATIVE); PH,URINE 6 (5-9); PROTEIN,URINE 1+ (NEGATIVE); UROBILINOGEN,URINE NORMAL (NORMAL)
[2018-06-12] MEDS ORDERED: NS IV 500 ML 500 ML IV SCH (19:30)
[2018-06-12] MEDS ORDERED: POTASSIUM CL 10MEQ/50ML IVPB 50 ML IV ONE (19:30)
[2018-06-12] MEDS ORDERED: KCL 10 MEQ TAB (MICRO K) PO ONE (19:30)
[2018-06-12 19:31] LABS: BACTERIA,URINE LARGE /HPF; RBC,URINE RARE /HPF; SQUAMOUS EPITHELIAL CELL,UR RARE /HPF; WBC,URINE 25-50 /HPF
[2018-06-12] MEDS ORDERED: CEFU250T80 PO (19:34)
[2018-06-12 20:24] VITALS: BP 136/97
== END 2018-06-12 20:24 | disposition home or self-care (01) ==
LOC: EDUNIT# 18:33 → ER 18:34
DX: E11.649 Type 2 diabetes mellitus with hypoglycemia without coma (principal); E87.6 Hypokalemia; N39.0 Urinary tract infection, site not specified; E11.10 Type 2 diabetes mellitus with ketoacidosis without coma; M81.0 Age-related osteoporosis without current pathological fracture; F41.9 Anxiety disorder, unspecified; F32.9 Major depressive disorder, single episode, unspecified; E11.40 Type 2 diabetes mellitus with diabetic neuropathy, unspecified; Z88.2 Allergy status to sulfonamides; Z79.4 Long term (current) use of insulin; Z98.51 Tubal ligation status; Z82.49 Family history of ischemic heart disease and other diseases of the circulatory system; Z87.448 Personal history of other diseases of urinary system
CPT/HCPCS: 36415; 80053; 81000; 82962; 85025; 87077; 87088; 87186; 96361; 96365

== ENCOUNTER 2018-07-30 12:19 | Emergency (ER) | payer SELFPAY ==
[~2018-07-30] VITALS: Ht 167.6 cm; Wt 59.9 kg
[~2018-07-30 12:19] MED LIST changes: +CEFU250T80 PO
[2018-07-30] MEDS ORDERED: NS IV 1000 ML 1,000 ML IV SCH ×2 (12:30→13:45)
[2018-07-30 12:44] LABS: BASOPHILS % (AUTO) 0 % (0-10); EOSINOPHILS # (AUTO) 0.1 10^3/uL (0.0-0.3); EOSINOPHILS % (AUTO) 1 % (0-10); HEMATOCRIT 38 % (35-52); LYMPHOCYTES # (AUTO) 2.4 X 10^3 (1.0-4.0); LYMPHOCYTES % (AUTO) 29 % (12-44); MEAN CORPUSCULAR HEMOGLOBIN 27 PG (25-34); MEAN CORPUSCULAR HGB CONC 32 G/DL (32-36); MEAN CORPUSCULAR VOLUME 86 FL (80-99); MEAN PLATELET VOLUME 10.3 FL (7.4-10.4); MONOCYTES # (AUTO) 0.5 X 10^3 (0.0-1.0); MONOCYTES % (AUTO) 6 % (0-12); NEUTROPHILS # (AUTO) 5.3 X 10^3 (1.8-7.8); NEUTROPHILS % (AUTO) 64 % (42-75); PLATELET COUNT 383 10^3/uL (130-400); RED CELL DISTRIBUTION WIDTH 14.9 % (10.0-14.5); WHITE BLOOD COUNT 8.2 10^3/uL (4.3-11.0)
[2018-07-30] MEDS ORDERED: ONDANSETRON 4 MG/2 ML (SDV) Z0FRAN IVP ONE (12:45)
[2018-07-30] MEDS ORDERED: inSUlin (REGULAR) HUMAN 1 UNIT/0.01 ML (CHARGE PER UNIT) IV ONE ×2 (12:45→15:15)
[2018-07-30 13:01] LABS: ALANINE AMINOTRANSFERASE 31 U/L (0-55); ALBUMIN 4.1 GM/DL (3.2-4.5); ALKALINE PHOSPHATASE 125 U/L (40-136); AMYLASE 59 U/L (25-125); BILIRUBIN,TOTAL 0.4 MG/DL (0.1-1.0); BUN/CREATININE RATIO 10; CALCIUM 9.2 MG/DL (8.5-10.1); CARBON DIOXIDE 10 MMOL/L (21-32); CHLORIDE 94 MMOL/L (98-107); CREATININE SERUM 1.49 MG/DL (0.60-1.30); GFR ESTIMATED 46; LIPASE < 4 U/L (8-78); POTASSIUM 4.7 MMOL/L (3.6-5.0); SODIUM 131 MMOL/L (135-145); TOTAL PROTEIN 7.7 GM/DL (6.4-8.2)
[2018-07-30 13:07] LABS: GLUCOSE 671 MG/DL (70-105)
--- NOTE | 2018-07-30 14:33 | ED General ---
General Chief Complaint: Glucose Problems Stated Complaint: BLOOD SUGAR Nursing Triage Note: PT CO OF NAUSEA AND HER SUGARS BEING ELEVATED, PT HAS WOUND ON LOWER EXT Nursing Sepsis Screen: No Definite Risk Source of Information: Patient Exam Limitations: No Limitations History of Present Illness Date Seen by Provider: Jul 30, 2018 Time Seen by Provider: 12:20 Initial Comments 47-year-old female who presents to the emergency room with complaints of feeling like her blood sugars are elevated. She has been out of glucose strips for the past few days and has been dosing her insulin off of carb intake. She has an appointment with [facility] tomorrow morning for evaluation and supply refill. She also wore uncomfortable shoes causing blister on her right foot that she noticed yesterday. No signs of infection to the wound. There is a bulla approximately 4 cm in diameter. Timing/Duration: 2-3 Days Associated Systoms: Nausea/Vomiting Allergies and Home Medications Allergies Coded Allergies: Sulfa (Sulfonamide Antibiotics) (Unverified Allergy, Unknown, 05/30/17) Home Medications Cefuroxime Axetil 250 Mg Tablet, 250 MG PO BID Prescribed by: ESSIE DRIVER on 06/12/18 1934 Ciprofloxacin HCl 500 Mg Tablet, 500 MG PO BID Prescribed by: EDUARDA GUTIERREZ on 07/30/18 1630 Insulin Aspart 300 Units/3 Ml Solution, 10 UNITS SQ AC LAST FILLED 01-30-18 Prescribed by: ANNALISE RAWLS on 04/21/18 09 Insulin Detemir 100 Unit/1 Ml Insuln.pen, 15 UNIT SQ HS LAST FILLED 01-30-18 Prescribed by: ANNALSIE RAWLS on 04/21/18 09 Patient Home Medication List Home Medication List Reviewed: Yes Review of Systems Review of Systems Constitutional: see HPI; No chills, No fever Gastrointestinal: see HPI, nausea Hematologic/Lymphatic: See HPI, Other (elevated blood sugars.) All Other Systems Reviewed Negative Unless Noted: Yes Past Txkwmji-Aznxzo-Zeelah Hx Past Med/Social Hx: Reviewed Nursing Past Med/Soc Hx Patient Social History Alcohol Use: Denies Use Alcohol Beverage of Choice: Beer, [place] Recreational Drug Use: No Drug of Choice: COCAINE Smoking Status: Never a Smoker Recent Foreign Travel: No Contact w/Someone Who Travel: No Recent Infectious Disease Expo: No Recent Hopitalizations: No Immunizations Up To Date Tetanus Booster (TDap): Unknown PED Vaccines UTD: No Seasonal Allergies Seasonal Allergies: No Past Medical History Surgeries: Yes Tubal Ligation Respiratory: No Currently Using CPAP: No Currently Using BIPAP: No Cardiac: No Neurological: Yes Neuropathy 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 Disorders: No 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 Sexually Transmitted Disease: No HIV/AIDS: No Genitourinary: Yes Kidney Infection Gastrointestinal: No Musculoskeletal: Yes Osteoporosis, Arthritis Endocrine: Yes Diabetes, Insulin dep HEENT: No Cancer: No Did You Recieve Any Treatments: No Psychosocial: Yes Anxiety, Depression Integumentary: No Blood Disorders: No Adverse Reaction/Blood Tranf: No Family Medical History Reviewed Nursing Family Hx Family history: Hypertension 09 SISTER Kidney disease 03 MOTHER Myocardial infarction 09 SISTER Heart Disease, Diabetes, Hypertension Physical Exam Vital Signs Vital Signs - First Documented 07/30/18 12:25 Temp 97.5 Pulse 116 Resp 16 B/P (MAP) 102/81 (88) Pulse Ox 99 Capillary Refill : Less Than 3 Seconds Height, Weight, BMI Height: 5'6.00" Weight: 132lbs. 0.0oz. [id number]; 20.2 BMI Method:Stated General Appearance: No Apparent Distress, WD/WN HEENT: PERRL/EOMI, TMs Normal, Normal ENT Inspection, Pharynx Normal Respiratory: Chest Non Tender, Lungs Clear, Normal Breath Sounds, No Accessory Muscle Use, No Respiratory Distress Cardiovascular: Regular Rate, Rhythm, No Edema, No Gallop, No JVD, No Murmur, Normal Peripheral Pulses Gastrointestinal: Normal Bowel Sounds, No Organomegaly, No Pulsatile Mass, Non Tender, Soft Extremity: Normal Capillary Refill Neurologic/Psychiatric: Alert, Oriented x3, Normal Mood/Affect Progress/Results/Core Measures Suspected Sepsis Recent Fever Within 48 Hours: No Infection Criteria Present: None New/Unexplained Altered Menta: No Sepsis Screen: No Definite Risk SIRS Temperature:97.5 Pulse: 116 Respiratory Rate: 16 Laboratory Tests 07/30/18 12:39: White Blood Count 8.2 Blood Pressure 102 /81 Mean: 88 Laboratory Tests 07/30/18 12:39: Creatinine 1.49H, Platelet Count 383, Total Bilirubin 0.4 07/30/18 15:43: Creatinine 1.00, Total Bilirubin 0.3 Results/Orders Lab Results Laboratory Tests Test 07/30/18 12:29 07/30/18 12:39 07/30/18 13:48 07/30/18 14:25 Range/Units Glucometer 578 *H 411 *H 70-110 MG/DL White Blood Count 8.2 4.3-11.0 10^3/uL Red Blood Count 4.40 4.35-5.85 10^6/uL Hemoglobin 12.0 11.5-16.0 G/DL Hematocrit 38 35-52 % Mean Corpuscular Volume 86 80-99 FL Mean Corpuscular Hemoglobin 27 25-34 PG Mean Corpuscular Hemoglobin Concent 32 32-36 G/DL Red Cell Distribution Width 14.9 H 10.0-14.5 % Platelet Count 383 130-400 10^3/uL Mean Platelet Volume 10.3 7.4-10.4 FL Neutrophils (%) (Auto) 64 42-75 % Lymphocytes (%) (Auto) 29 12-44 % Monocytes (%) (Auto) 6 0-12 % Eosinophils (%) (Auto) 1 0-10 % Basophils (%) (Auto) 0 0-10 % Neutrophils # (Auto) 5.3 1.8-7.8 X 10^3 Lymphocytes # (Auto) 2.4 1.0-4.0 X 10^3 Monocytes # (Auto) 0.5 0.0-1.0 X 10^3 Eosinophils # (Auto) 0.1 0.0-0.3 10^3/uL Basophils # (Auto) 0.0 0.0-0.1 10^3/uL Sodium Level 131 L 135-145 MMOL/L Potassium Level 4.7 3.6-5.0 MMOL/L Chloride Level 94 L 98-107 MMOL/L Carbon Dioxide Level 10 L 21-32 MMOL/L Anion Gap 27 H 5-14 MMOL/L Blood Urea Nitrogen 15 7-18 MG/DL Creatinine 1.49 H 0.60-1.30 MG/DL Estimat Glomerular Filtration Rate 46 BUN/Creatinine Ratio 10 Glucose Level 671 *H 70-105 MG/DL Calcium Level 9.2 8.5-10.1 MG/DL Corrected Calcium 9.1 8.5-10.1 MG/DL Magnesium Level 2.0 1.8-2.4 MG/DL Total Bilirubin 0.4 0.1-1.0 MG/DL Aspartate Amino Transf (AST/SGOT) 19 5-34 U/L Alanine Aminotransferase (ALT/SGPT) 31 0-55 U/L Alkaline Phosphatase 125 40-136 U/L Total Protein 7.7 6.4-8.2 GM/DL Albumin 4.1 3.2-4.5 GM/DL Amylase Level 59 25-125 U/L Lipase < 4 L 8-78 U/L Urine Color YELLOW Urine Clarity CLEAR Urine pH 5 5-9 Urine Specific [place] 1.020 1.016-1.022 Urine Protein 1+ H NEGATIVE Urine Glucose (UA) 4+ H NEGATIVE Urine Ketones 4+ H NEGATIVE Urine Nitrite NEGATIVE NEGATIVE Urine Bilirubin NEGATIVE NEGATIVE Urine Urobilinogen NORMAL NORMAL MG/DL Urine Leukocyte Esterase 1+ H NEGATIVE Urine RBC (Auto) NEGATIVE NEGATIVE Urine RBC NONE /HPF Urine WBC 25-50 H /HPF Urine Squamous Epithelial Cells 5-10 /HPF Urine Crystals NONE /LPF Urine Bacteria TRACE /HPF Urine Casts NONE /LPF Urine Mucus NEGATIVE /LPF Urine Trichomonas FEW H /HPF Urine Culture Indicated YES Test 07/30/18 15:05 07/30/18 15:43 Range/Units Glucometer 359 H 70-110 MG/DL Sodium Level 136 135-145 MMOL/L Potassium Level 3.6 3.6-5.0 MMOL/L Chloride Level 105 98-107 MMOL/L Carbon Dioxide Level 11 L 21-32 MMOL/L Anion Gap 20 H 5-14 MMOL/L Blood Urea Nitrogen 13 7-18 MG/DL Creatinine 1.00 0.60-1.30 MG/DL Estimat Glomerular Filtration Rate > 60 BUN/Creatinine Ratio 13 Glucose Level 330 H 70-105 MG/DL Calcium Level 7.8 L 8.5-10.1 MG/DL Corrected Calcium 8.2 L 8.5-10.1 MG/DL Total Bilirubin 0.3 0.1-1.0 MG/DL Aspartate Amino Transf (AST/SGOT) 14 5-34 U/L Alanine Aminotransferase (ALT/SGPT) 26 0-55 U/L Alkaline Phosphatase 104 40-136 U/L Total Protein 6.4 6.4-8.2 GM/DL Albumin 3.5 3.2-4.5 GM/DL Micro Results Microbiology 07/30/18 Urine Culture - Preliminary, Resulted Gram Negative Moises My Orders Orders - EDUARDA GUTIERREZ Comprehensive Metabolic Panel (07/30/18 12:27) Lipase (07/30/18 12:27) Amylase (07/30/18 12:27) Ua Culture If Indicated (07/30/18 12:27) Ed Iv/Invasive Line Start (07/30/18 12:27) Cbc With Automated Diff (07/30/18 12:27) Magnesium (07/30/18 12:27) Ns Iv 1000 Ml (Sodium Chloride 0.9%) (07/30/18 12:30) Accucheck Stat ONCE (07/30/18 12:27) Ondansetron Injection (Zofran Injectio (07/30/18 12:45) Insulin (Regular) Human (Humulin R (Per (07/30/18 12:45) Ns Iv 1000 Ml (Sodium Chloride 0.9%) (07/30/18 13:45) Urine Culture (07/30/18 14:25) Metronidazole Tablet (Flagyl Tablet) (07/30/18 15:00) Comprehensive Metabolic Panel (07/30/18 15:03) Insulin (Regular) Human (Humulin R (Per (07/30/18 15:15) Medications Given in ED Vital Signs/I&O 07/31/18 00:00 Intake Total 1000 ml Balance 1000 ml Capillary Refill : Less Than 3 Seconds Blood Pressure Mean: 88 Point of Care Testing Finger Stick Blood Glucose: 411 Blood Glucose Action Taken: REPORTED TO CAREGIVER Progress Note : Time: 15:28 Progress Note I have seen and evaluated the patient. I have repeated laboratory studies and they have improved at this time. She is feeling much better at this time. She agrees with plan of care, plans for discharge, return precautions were given. Departure Impression Primary Impression: Type 1 diabetes mellitus Additional Impressions: UTI (urinary tract infection) Trichomonas infection Disposition: HOME, SELF-CARE Condition: Stable/Unchanged Departure-Patient Inst. Decision time for Depature: 15:28 Referrals: [facility] (PCP) Primary Care Physician LUKE SCHUSTER (Family) Primary Care Physician Patient Instructions: Diabetes Type 1, Adult (DC), Diabetic Foot Ulcer (DC), Urinary Tract Infection, Adult (DC) Add. Discharge Instructions: Be sure to make your appointment with [facility] tomorrow. Take medications as directed. A drink plenty of fluids to stay hydrated. Return back to the emergency room for worsening symptoms or concerns. Dose your insulin according to your carb intake. All discharge instructions reviewed with patient and/or family. Voiced understanding. Scripts Ciprofloxacin HCl (Cipro) 500 Mg Tablet 500 MG PO BID for 7 Days, #14 TAB Prov: EDUARDA GUTIERREZ 07/30/18 EDUARDA GUTIERREZ Jul 30, 2018 14:33
[2018-07-30 14:47] LABS: BILIRUBIN,URINE NEGATIVE (NEGATIVE); CLARITY,URINE CLEAR; COLOR,URINE YELLOW; GLUCOSE, URINE (UA) 4+ (NEGATIVE); KETONES,URINE 4+ (NEGATIVE); LEUKOCYTE ESTERASE ,URINE 1+ (NEGATIVE); NITRITE,URINE NEGATIVE (NEGATIVE); PH,URINE 5 (5-9); PROTEIN,URINE 1+ (NEGATIVE); UROBILINOGEN,URINE NORMAL (NORMAL)
[2018-07-30 14:48] LABS: BACTERIA,URINE TRACE /HPF; WBC,URINE 25-50 /HPF
[2018-07-30 14:49] LABS: TRICHOMONAS,URINE FEW /HPF
[2018-07-30] MEDS ORDERED: metroNIDAZOLE 500 MG (FLAGYL) TAB PO ONE (15:00)
[2018-07-30 16:05] LABS: ALANINE AMINOTRANSFERASE 26 U/L (0-55); ALBUMIN 3.5 GM/DL (3.2-4.5); ALKALINE PHOSPHATASE 104 U/L (40-136); BILIRUBIN,TOTAL 0.3 MG/DL (0.1-1.0); BUN/CREATININE RATIO 13; CALCIUM 7.8 MG/DL (8.5-10.1); CARBON DIOXIDE 11 MMOL/L (21-32); CHLORIDE 105 MMOL/L (98-107); GFR ESTIMATED > 60; GLUCOSE 330 MG/DL (70-105); POTASSIUM 3.6 MMOL/L (3.6-5.0); SODIUM 136 MMOL/L (135-145); TOTAL PROTEIN 6.4 GM/DL (6.4-8.2)
[2018-07-30] MEDS ORDERED: CIPR-225 PO (16:30)
[2018-07-30 16:45] VITALS: BP 105/72
== END 2018-07-30 16:46 | disposition home or self-care (01) ==
LOC: EDUNIT# 12:19 → ER 12:20
DX: E10.9 Type 1 diabetes mellitus without complications (principal); N39.0 Urinary tract infection, site not specified; A59.9 Trichomoniasis, unspecified; F14.10 Cocaine abuse, uncomplicated; M81.0 Age-related osteoporosis without current pathological fracture; F41.9 Anxiety disorder, unspecified; F32.9 Major depressive disorder, single episode, unspecified; Z88.2 Allergy status to sulfonamides; Z79.4 Long term (current) use of insulin; Z82.49 Family history of ischemic heart disease and other diseases of the circulatory system; Z98.51 Tubal ligation status; Z87.448 Personal history of other diseases of urinary system
CPT/HCPCS: 36415; 80053; 81000; 82150; 82962; 83690; 83735; 85025; 87077; 87088

== ENCOUNTER 2018-08-03 17:06 | Emergency (ER) | payer SELFPAY ==
[~2018-08-03] VITALS: Ht 167.6 cm; Wt 59.9 kg
--- OUTSIDE RECORDS SUMMARY | 2018-08-03 17:11 | XMS REPORT ---
Author Author Migration, Doctor Organization [facility] Address Unknown Phone Unavailable Care Team Providers Care Simulation Engineer Name Role Phone Migration, Doctor Unavailable Unavailable PROBLEMS Type Condition ICD9-CM Code [id number] Code Onset Dates Condition Status SNOMED Code Problem Type 1 diabetes mellitus with diabetic neuropathy E10.40 Active [id number] Problem Diabetes E11.9 Active [id number] ALLERGIES No Information ENCOUNTERS Encounter Location Date Diagnosis [facility] [address] [address] May, Type 2 diabetes mellitus with hyperglycemia E11.65 [facility] [id number] [place] [phone] Apr, Sinusitis, acute maxillary J01.00 [facility] [id number] [place] [address] Jan, Diabetes E11.9 [facility] [address] [address] Oct, Type 2 diabetes mellitus with hyperglycemia E11.65 [facility] [id number] [place] [address] Jul, [facility] [id number] [place] [address] Jul, [facility] [id number] [place] [phone] Jul, [facility] [address] [address] Jun, Type 1 diabetes mellitus with diabetic neuropathy E10.40 [facility] [id number] [place] [id number] May, [facility] [address] [id number] Apr, [facility] [address] [address] Feb, Type 2 diabetes mellitus with hyperglycemia E11.65 [facility] [address], [place] [address] Feb, Type 2 diabetes mellitus with other specified complication E11.69 and Diabetic mononeuropathy associated with type 2 diabetes mellitus E11.41 [facility] [address] [address] Oct, [facility] [id number] [place] [address] Oct, Type 2 diabetes mellitus with other specified complication E11.69 [facility] [id number] [place] [address] August, Type 2 diabetes mellitus with other specified complication E11.69 and Type 2 diabetes mellitus with hyperglycemia E11.65 [facility] [id number] [id number] August, [facility] [id number] [place] [address] Feb, [facility] [id number] [place] [id number] Sep, Dental caries K02.9 [facility] [id number] [place] [id number] August, Dental examination Z01.20 [facility] [address], [place] [address] Jan, [facility] [id number] [place] [address] Jan, [facility] [address], [place] [address] 16 Dec, 2014 Diabetes with ketoacidosis, type II or unspecified type, uncontrolled 250.12 [facility] [id number] [place] [address] Nov, [facility] [address] [facility] [id number] [place] [address] Nov, Fever 780.60 [facility] [address] [id number] [place] [address] Jul, [facility] [address] [id number] [place] [address] Jul, [facility] [address] [id number] [place] [address] August, [facility] [address] [id number] [address], [place] [address] August, [facility] [address] [facility] [id number] [place] [address] Jun, [facility] [address] [facility] [id number] [place] [address] Jun, [facility] [address] [facility] [id number] [place] [address] Apr, [facility] [address] [facility] [id number] [place] [address] Apr, [facility] [address] [facility] [id number] [place] [address] Mar, [facility] [address] [facility] [id number] [place] [address] Mar, [facility] [address] [facility] [id number] [place] [address] Oct, [facility] [address] [facility] [id number] [place] [address] Jun, [facility] [address] [facility] [id number] [place] [address] Jan, [facility] [address] [facility] [id number] [place] [address] Jan, [facility] [address] [facility] [id number] [address] Jan, [facility] [id number] [address] Dec, [facility] [id number] [address] Feb, [facility] [address], [place] [address] Mar, [facility] [id number] [address] Feb, [facility] [address], [place] [address] Feb, [facility] [id number] [address] Feb, IMMUNIZATIONS No Known Immunizations SOCIAL HISTORY Never Assessed REASON FOR VISIT [facility] [place] [place] [facility] VITAL SIGNS MEDICATIONS Medication Instructions Dosage Frequency Start Date End Date Duration Status Metronidazole 500 mg 1 tablet by Oral route 2 times per day for 7 days Dec, Active RESULTS No Results PROCEDURES No Known procedures INSTRUCTIONS MEDICATIONS ADMINISTERED No Known Medications MEDICAL (GENERAL) HISTORY Type Description Date Medical History Diabetes type I Medical History diabetic neuropathy Surgical History tubal ligation 2002 Hospitalization History Ketoacidosis 01/2014 Hospitalization History DKA, UTI-[facility] 08/11/16 Hospitalization History DKA, UTI-[facility] 05/09/17 Hospitalization History UTI, DKA-[facility] 05/30/17 Hospitalization History DM, Hyperglycemia-[facility] 07/20/17 Hospitalization History Hyperglycemia 01/2018
--- NOTE | 2018-08-03 17:39 | ED Lower Extremity ---
General Chief Complaint: Lower Extremity Stated Complaint: SORE ON R FOOT Source: patient Exam Limitations: no limitations History of Present Illness Date Seen by Provider: Aug 03, 2018 Time Seen by Provider: 17:36 Initial Comments To ER with sore on the right foot. She was here on July 30 or high blood sugar and had a large bulla to the right foot without signs of infection at the time. She related that to ill fitting shoes. She comes in today, the bulla has ruptured and the skin is sloughing from around. She denies fevers or chills. Onset: last week Severity: moderate Pain/Injury Location: right foot Method of Injury: unknown Modifying Factors: Worse With Movement Allergies and Home Medications Allergies Coded Allergies: Sulfa (Sulfonamide Antibiotics) (Unverified Allergy, Unknown, 05/30/17) Home Medications Cefuroxime Axetil 250 Mg Tablet, 250 MG PO BID Prescribed by: ESSIE DRIVER on 06/12/18 193 Ciprofloxacin HCl 500 Mg Tablet, 500 MG PO BID Prescribed by: EDUARDA GUTIERREZ on 07/30/18 1630 Insulin Aspart 300 Units/3 Ml Solution, 10 UNITS SQ AC LAST FILLED 01-30-18 Prescribed by: ANNALISE RAWLS on 04/21/18 09 Insulin Detemir 100 Unit/1 Ml Insuln.pen, 15 UNIT SQ HS LAST FILLED 01-30-18 Prescribed by: ANNALISE RAWLS on 04/21/18 09 Patient Home Medication List Home Medication List Reviewed: Yes Review of Systems Constitutional: see HPI; No chills, No fever EENTM: see HPI Respiratory: no symptoms reported Cardiovascular: no symptoms reported Genitourinary: no symptoms reported Musculoskeletal: no symptoms reported Skin: see HPI Psychiatric/Neurological: No Symptoms Reported Past Yxfdvbb-Wfdgef-Giqarp Hx Patient Social History Alcohol Beverage of Choice: Beer, [place] Drug of Choice: COCAINE Recent Foreign Travel: No Contact w/Someone Who Travel: No Recent Hopitalizations: No Immunizations Up To Date Tetanus Booster (TDap): Unknown PED Vaccines UTD: No Seasonal Allergies Seasonal Allergies: No Past Medical History Surgeries: Yes Tubal Ligation Respiratory: No Currently Using CPAP: No Currently Using BIPAP: No Cardiac: No Neurological: Yes Neuropathy 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 Disorders: No Female 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 Disorders: Denies 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 Sexually Transmitted Disease: No HIV/AIDS: No Genitourinary: Yes Kidney Infection Gastrointestinal: No Musculoskeletal: Yes Osteoporosis, Arthritis Endocrine: Yes Diabetes, Insulin dep HEENT: No Cancer: No Did You Recieve Any Treatments: No Psychosocial: Yes Anxiety, Depression Integumentary: No Blood Disorders: No Adverse Reaction/Blood Tranf: No Family Medical History Family history: Hypertension 09 SISTER Kidney disease 03 MOTHER Myocardial infarction 09 SISTER Heart Disease, Diabetes, Hypertension Physical Exam Vital Signs Vital Signs - First Documented 08/03/18 17:30 Temp 97.3 Pulse 107 Resp 14 B/P (MAP) 126/68 (87) Pulse Ox 99 Capillary Refill : Height, Weight, BMI Height: 5'6.00" Weight: 132lbs. 0.0oz. 59.991318jo; 20.2 BMI Method:Stated General Appearance: WD/WN, no apparent distress HEENT: PERRL/EOMI, normal ENT inspection Respiratory: no respiratory distress, no accessory muscle use Hips: bilateral hip non-tender, bilateral hip normal inspection, bilateral hip normal range of motion Legs: bilateral leg non-tender, bilateral leg normal inspection, bilateral leg normal range of motion Knees: bilateral knee non-tender, bilateral knee normal inspection, bilateral knee normal range of motion Ankles: bilateral ankle non-tender, bilateral ankle normal inspection, bilateral ankle normal range of motion Feet: right foot other (there is a 10 x 12 cm area of the the red granulation tissue to the arch of the foot beneath the roof of what was the large bulla. Part of this skin is already on and there is about 1-2 cm of loose skin from the borders of the bulla around the perimeter of the wound. There is minimal erythema, there is however some swelling of the foot.) Skin: normal color, warm/dry Progress/Results/Core Measures Results/Orders Lab Results Laboratory Tests Test 08/03/18 17:41 Range/Units White Blood Count 6.0 4.3-11.0 10^3/uL Red Blood Count 4.13 L 4.35-5.85 10^6/uL Hemoglobin 11.3 L 11.5-16.0 G/DL Hematocrit 34 L 35-52 % Mean Corpuscular Volume 83 80-99 FL Mean Corpuscular Hemoglobin 27 25-34 PG Mean Corpuscular Hemoglobin Concent 33 32-36 G/DL Red Cell Distribution Width 15.1 H 10.0-14.5 % Platelet Count 327 130-400 10^3/uL Mean Platelet Volume 10.9 H 7.4-10.4 FL Neutrophils (%) (Auto) 65 42-75 % Lymphocytes (%) (Auto) 27 12-44 % Monocytes (%) (Auto) 6 0-12 % Eosinophils (%) (Auto) 2 0-10 % Basophils (%) (Auto) 0 0-10 % Neutrophils # (Auto) 3.9 1.8-7.8 X 10^3 Lymphocytes # (Auto) 1.6 1.0-4.0 X 10^3 Monocytes # (Auto) 0.4 0.0-1.0 X 10^3 Eosinophils # (Auto) 0.1 0.0-0.3 10^3/uL Basophils # (Auto) 0.0 0.0-0.1 10^3/uL Sodium Level 135 135-145 MMOL/L Potassium Level 3.5 L 3.6-5.0 MMOL/L Chloride Level 95 L 98-107 MMOL/L Carbon Dioxide Level 27 21-32 MMOL/L Anion Gap 13 5-14 MMOL/L Blood Urea Nitrogen 11 7-18 MG/DL Creatinine 0.89 0.60-1.30 MG/DL Estimat Glomerular Filtration Rate > 60 BUN/Creatinine Ratio 12 Glucose Level 614 *H 70-105 MG/DL Calcium Level 9.4 8.5-10.1 MG/DL Corrected Calcium 9.5 8.5-10.1 MG/DL Total Bilirubin 0.2 0.1-1.0 MG/DL Aspartate Amino Transf (AST/SGOT) 16 5-34 U/L Alanine Aminotransferase (ALT/SGPT) 19 0-55 U/L Alkaline Phosphatase 118 40-136 U/L Total Protein 7.3 6.4-8.2 GM/DL Albumin 3.9 3.2-4.5 GM/DL My Orders Orders - ESSIE DRIVER MOISTURE TESTER Cbc With Automated Diff (08/03/18 17:29) Comprehensive Metabolic Panel (08/03/18 17:29) Wound Culture (08/03/18 17:29) Iv Heplock-Insert (Order) (08/03/18 17:29) Ceftriaxone For Iv Use (Rocephin For I (08/03/18 17:45) Doxycycline Hyclate Tablet (Vibramycin T (08/03/18 17:45) Mupirocin Ointment (Bactroban Ointment (08/03/18 21:00) Mupirocin Ointment (Bactroban Ointment (08/03/18 17:56) Ns Iv 1000 Ml (Sodium Chloride 0.9%) (08/03/18 18:12) Potassium Cl 10meq/50ml Ivpb (Kcl 10 Meq (08/03/18 18:30) Ns Iv 1000 Ml (Sodium Chloride 0.9%) (08/03/18 18:30) Insulin (Regular) Human (Humulin R (Per (08/03/18 21:00) Medications Given in ED Current Medications Medications Dose Ordered Sig/Ryland Route Start Time Stop Time Status Last Admin Dose Admin Ceftriaxone Sodium 1000 mg/ Sterile Water 10 ml @ 200 mls/hr ONCE ONCE IV 08/03/18 17:45 08/03/18 17:47 DC 08/03/18 18:05 200 MLS/HR Sodium Chloride 1,000 ml @ STK-MED ONCE .ROUTE 08/03/18 18:12 08/03/18 18:15 DC 08/03/18 18:19 999 MLS/HR Vital Signs/I&O 08/03/18 17:30 Temp 97.3 Pulse 107 Resp 14 B/P (MAP) 126/68 (87) Pulse Ox 99 Departure Communication (Admissions) I spoke with Dr. Mcbride. They'll call Bess tomorrow to make an appointment for follow-up. She has no tachycardia, no fever, no leukocytosis, very minimal erythema around border wound without significant cellulitis. We'll do a dose of IV antibiotics here, discharged home on oral antibiotics with close follow-up. Impression Primary Impression: Hypokalemia Additional Impressions: Wound of right foot Hyperglycemia Disposition: 01 HOME, SELF-CARE Condition: Stable Departure-Patient Inst. Decision time for Depature: 18:29 Referrals: [facility] (PCP) Primary Care Physician LUKE SCHUSTER (Family) Primary Care Physician ENOCH CRISTINA MD Patient Instructions: Wound Care Add. Discharge Instructions: 1. Change the dressing daily. Return to ER for fevers, worsening redness or swelling. [facility] will call you tomorrow and appointment for follow- up. They do not call by noon then called them. Start the antibiotics as directed tomorrow. Call Dr. Tejada from wound care to make an appointment to be seen. All discharge instructions reviewed with patient and/or family. Voiced understanding. Scripts Amoxicillin/Potassium Clav (Augmentin 875-125 Tablet) 1 Each Tablet 1 EACH PO BID, #14 TAB Prov: ESSIE DRIVER APRN 08/03/18 ESSIE DRIVER APRN Aug 03, 2018 17:39
[2018-08-03] MEDS ORDERED: cefTRIAXone FOR IV USE 1,000 MG in WATER (STERILE) FOR INJECTION 10 ML IV ONE (17:45)
[2018-08-03] MEDS ORDERED: DOXYCYCLINE 100 MG (VIBRAMYCIN) TABLET PO SCH (17:45)
[2018-08-03 17:47] LABS: BASOPHILS % (AUTO) 0 % (0-10); EOSINOPHILS # (AUTO) 0.1 10^3/uL (0.0-0.3); EOSINOPHILS % (AUTO) 2 % (0-10); HEMATOCRIT 34 % (35-52); HEMOGLOBIN 11.3 G/DL (11.5-16.0); LYMPHOCYTES # (AUTO) 1.6 X 10^3 (1.0-4.0); LYMPHOCYTES % (AUTO) 27 % (12-44); MEAN CORPUSCULAR HEMOGLOBIN 27 PG (25-34); MEAN CORPUSCULAR HGB CONC 33 G/DL (32-36); MEAN CORPUSCULAR VOLUME 83 FL (80-99); MEAN PLATELET VOLUME 10.9 FL (7.4-10.4); MONOCYTES # (AUTO) 0.4 X 10^3 (0.0-1.0); MONOCYTES % (AUTO) 6 % (0-12); NEUTROPHILS # (AUTO) 3.9 X 10^3 (1.8-7.8); NEUTROPHILS % (AUTO) 65 % (42-75); PLATELET COUNT 327 10^3/uL (130-400); RED CELL DISTRIBUTION WIDTH 15.1 % (10.0-14.5)
[2018-08-03] MEDS ORDERED: MUPIROCIN 2% OINT 22 GM (BACTROBAN) TUBE ONE (17:56)
[2018-08-03 18:08] LABS: ALANINE AMINOTRANSFERASE 19 U/L (0-55); ALBUMIN 3.9 GM/DL (3.2-4.5); ALKALINE PHOSPHATASE 118 U/L (40-136); BILIRUBIN,TOTAL 0.2 MG/DL (0.1-1.0); BUN/CREATININE RATIO 12; CALCIUM 9.4 MG/DL (8.5-10.1); CARBON DIOXIDE 27 MMOL/L (21-32); CHLORIDE 95 MMOL/L (98-107); CREATININE SERUM 0.89 MG/DL (0.60-1.30); GFR ESTIMATED > 60; POTASSIUM 3.5 MMOL/L (3.6-5.0); SODIUM 135 MMOL/L (135-145); TOTAL PROTEIN 7.3 GM/DL (6.4-8.2)
[2018-08-03 18:11] LABS: GLUCOSE 614 MG/DL (70-105)
[2018-08-03] MEDS ORDERED: NS IV 1000 ML 1,000 ML ONE (18:12)
[2018-08-03] MEDS ORDERED: NS IV 1000 ML 1,000 ML IV SCH (18:30)
[2018-08-03] MEDS ORDERED: POTASSIUM CL 10MEQ/50ML IVPB 50 ML IV ONE (18:30)
[2018-08-03] MEDS ORDERED: AMOX-358 PO (18:31)
[2018-08-03 20:05] VITALS: BP 135/106
[2018-08-03] MEDS ORDERED: MUPIROCIN 2% OINT 22 GM (BACTROBAN) TUBE TOP SCH (21:00)
[2018-08-03] MEDS ORDERED: inSUlin (REGULAR) HUMAN 1 UNIT/0.01 ML (CHARGE PER UNIT) IV SCH (21:00)
== END 2018-08-03 20:05 | disposition home or self-care (01) ==
LOC: EDUNIT# 17:06 → ER 17:07
DX: E11.621 Type 2 diabetes mellitus with foot ulcer (principal); L97.519 Non-pressure chronic ulcer of other part of right foot with unspecified severity; E11.65 Type 2 diabetes mellitus with hyperglycemia; E87.6 Hypokalemia; F41.9 Anxiety disorder, unspecified; F32.9 Major depressive disorder, single episode, unspecified; F14.10 Cocaine abuse, uncomplicated; M81.0 Age-related osteoporosis without current pathological fracture; Z98.51 Tubal ligation status; Z88.2 Allergy status to sulfonamides; Z82.49 Family history of ischemic heart disease and other diseases of the circulatory system; Z79.4 Long term (current) use of insulin; Z87.448 Personal history of other diseases of urinary system
CPT/HCPCS: 36415; 80053; 82962; 85025; 87070; 87077; 87186; 87205

== ENCOUNTER 2018-08-25 17:08 | Emergency (ER) | payer SELFPAY ==
[~2018-08-25] VITALS: Ht 167.6 cm; Wt 59.0 kg
[~2018-08-25 17:08] MED LIST changes: +AMOX-358 PO
[2018-08-25] MEDS ORDERED: NS IV 1000 ML 1,000 ML ONE (17:34)
--- NOTE | 2018-08-25 17:35 | ED Lower Extremity ---
General Stated Complaint: R FOOT PAIN Source: patient Exam Limitations: no limitations (FLORECITA POWERS) History of Present Illness Date Seen by Provider: August 25, 2018 Time Seen by Provider: 17:19 Initial Comments Patient presents to ER by private conveyance with chief complaint of a little increased pain in the top of her foot and some whitish eschar on the chronic wound on her foot. She has not seen wound care for a week since she was dismissed from wound care. She is on antibiotics and just doing dressing changes and cleaning the wound with regular soap and water. She has no fevers or chills. She denies any nausea vomiting cough. She's not taken anything for the pain syndrome but is bad enough to need anything. She is just concerned that the wound may be taking a turn for the worse. She has not seen any redness in her foot or going up her leg. No swelling in her calves. She is a type I diabetic with a history of multiple DKA. She says her blood sugar in the past week has been under 200. She did have one blood sugar of 79 one morning. (FLORECITA POWERS) Allergies and Home Medications Allergies Coded Allergies: No Known Drug Allergies (Unverified , 08/25/18) Home Medications Amoxicillin/Potassium Clav 1 Each Tablet, 1 EACH PO BID Prescribed by: ESSIE DRIVER on 08/03/18 183 Cefuroxime Axetil 250 Mg Tablet, 250 MG PO BID Prescribed by: SESIE DRIVER on 06/12/18 193 Ciprofloxacin HCl 500 Mg Tablet, 500 MG PO BID Prescribed by: EDUARDA GUTIERREZ on 07/30/18 1630 Insulin Aspart 300 Units/3 Ml Solution, 10 UNITS SQ AC LAST FILLED 01-30-18 Prescribed by: ANNALISE RAWLS on 04/21/18 09 Insulin Detemir 100 Unit/1 Ml Insuln.pen, 15 UNIT SQ HS LAST FILLED 01-30-18 Prescribed by: ANNALISE RAWLS on 04/21/18 09 Patient Home Medication List Home Medication List Reviewed: Yes (FLORECITA POWERS) Review of Systems Constitutional: No chills, No fever, No malaise EENTM: No ear pain, No blurred vision Respiratory: No cough, No short of breath Cardiovascular: No chest pain, No edema Gastrointestinal: No abdominal pain, No nausea Genitourinary: No discharge, No dysuria Musculoskeletal: No back pain, No joint pain (FLORECITA POWERS) Past Uzcrqgo-Djjngm-Taxyxf Hx Patient Social History Alcohol Use: Regular Use Alcohol Beverage of Choice: Beer, Chinle Recreational Drug Use: Yes Drug of Choice: COCAINE Recent Foreign Travel: No Contact w/Someone Who Travel: No Recent Hopitalizations: No (FLORECITA POWERS) Immunizations Up To Date Tetanus Booster (TDap): Unknown PED Vaccines UTD: No (FLORECITA POWERS) Seasonal Allergies Seasonal Allergies: No (FLORECITA POWERS) Past Medical History Surgeries: Yes Tubal Ligation Respiratory: No Currently Using CPAP: No Currently Using BIPAP: No Cardiac: No Neurological: Yes Neuropathy 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 Disorders: No Female 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 Disorders: Denies 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 Sexually Transmitted Disease: No HIV/AIDS: No Genitourinary: Yes Kidney Infection Gastrointestinal: No Musculoskeletal: Yes Osteoporosis, Arthritis Endocrine: Yes Diabetes, Insulin dep HEENT: No Cancer: No Did You Recieve Any Treatments: No Psychosocial: Yes Anxiety, Depression Integumentary: No Blood Disorders: No Adverse Reaction/Blood Tranf: No (FLORECITA POWERS) Family Medical History Family history: Hypertension 09 SISTER Kidney disease 03 MOTHER Myocardial infarction 09 SISTER Heart Disease, Diabetes, Hypertension (FLORECITA POWERS) Physical Exam Vital Signs Vital Signs - First Documented 08/25/18 17:28 Temp 97.6 Pulse 108 Resp 18 B/P (MAP) 127/93 (104) Pulse Ox 100 O2 Delivery Room Air (ARJUN FARIAS MD) Vital Signs Capillary Refill : (FLORECITA POWERS) Height, Weight, BMI Height: 5'6.00" Weight: 132lbs. 0.0oz. [id number]; 20.2 BMI Method:Stated General Appearance: WD/WN, no apparent distress, thin HEENT: PERRL/EOMI, pharynx normal Neck: full range of motion, normal inspection Cardiovascular: normal peripheral pulses, regular rate, rhythm Respiratory: lungs clear, normal breath sounds, no respiratory distress, no accessory muscle use Ankles: bilateral ankle non-tender, bilateral ankle normal inspection, bilateral ankle normal range of motion, bilateral ankle no evidence of injury Feet: left foot non-tender, left foot normal inspection; bilateral foot normal range of motion; left foot no evidence of injury; right foot pain (mild tenderness to palpation on the dorsum of her foot), right foot other (has a 6 cm diameter wound/ulcer unstageable on the medial right foot with a black and white eschar and no drainage, induration or fluctuance. The wound edges are not particularly erythematous.) Neurologic/Tendon: other Neurologic/Psychiatric: alert, normal mood/affect, oriented x 3 (FLORECITA POWERS ) Progress/Results/Core Measures Results/Orders Lab Results Laboratory Tests Test 08/25/18 17:53 08/25/18 18:10 Range/Units Urine Color YELLOW Urine Clarity CLEAR Urine pH 6.5 5-9 Urine Specific [place] 1.020 1.016-1.022 Urine Protein 3+ H NEGATIVE Urine Glucose (UA) 3+ H NEGATIVE Urine Ketones 1+ H NEGATIVE Urine Nitrite POSITIVE H NEGATIVE Urine Bilirubin NEGATIVE NEGATIVE Urine Urobilinogen NORMAL NORMAL MG/DL Urine Leukocyte Esterase 2+ H NEGATIVE Urine RBC (Auto) NEGATIVE NEGATIVE Urine RBC 0-2 /HPF Urine WBC 2-5 /HPF Urine Squamous Epithelial Cells 0-2 /HPF Urine Crystals NONE /LPF Urine Bacteria FEW H /HPF Urine Casts NONE /LPF Urine Mucus NEGATIVE /LPF Urine Yeast LARGE H /HPF Urine Culture Indicated YES Urine Opiates Screen NEGATIVE NEGATIVE Urine Oxycodone Screen NEGATIVE NEGATIVE Urine Methadone Screen NEGATIVE NEGATIVE Urine Propoxyphene Screen NEGATIVE NEGATIVE Urine Barbiturates Screen NEGATIVE NEGATIVE Ur Tricyclic Antidepressants Screen NEGATIVE NEGATIVE Urine Phencyclidine Screen NEGATIVE NEGATIVE Urine Amphetamines Screen NEGATIVE NEGATIVE Urine Methamphetamines Screen NEGATIVE NEGATIVE Urine Benzodiazepines Screen NEGATIVE NEGATIVE Urine Cocaine Screen NEGATIVE NEGATIVE Urine Cannabinoids Screen NEGATIVE NEGATIVE White Blood Count 7.6 4.3-11.0 10^3/uL Red Blood Count 4.27 L 4.35-5.85 10^6/uL Hemoglobin 11.7 11.5-16.0 G/DL Hematocrit 35 35-52 % Mean Corpuscular Volume 82 80-99 FL Mean Corpuscular Hemoglobin 27 25-34 PG Mean Corpuscular Hemoglobin Concent 33 32-36 G/DL Red Cell Distribution Width 15.1 H 10.0-14.5 % Platelet Count 424 H 130-400 10^3/uL Mean Platelet Volume 10.7 H 7.4-10.4 FL Neutrophils (%) (Auto) 66 42-75 % Lymphocytes (%) (Auto) 27 12-44 % Monocytes (%) (Auto) 6 0-12 % Eosinophils (%) (Auto) 1 0-10 % Basophils (%) (Auto) 0 0-10 % Neutrophils # (Auto) 5.0 1.8-7.8 X 10^3 Lymphocytes # (Auto) 2.1 1.0-4.0 X 10^3 Monocytes # (Auto) 0.4 0.0-1.0 X 10^3 Eosinophils # (Auto) 0.1 0.0-0.3 10^3/uL Basophils # (Auto) 0.0 0.0-0.1 10^3/uL Prothrombin Time 11.9 L 12.2-14.7 SEC INR Comment 0.8 0.8-1.4 Activated Partial Thromboplast Time 24 24-35 SEC Sodium Level 131 L 135-145 MMOL/L Potassium Level 3.7 3.6-5.0 MMOL/L Chloride Level 96 L 98-107 MMOL/L Carbon Dioxide Level 20 L 21-32 MMOL/L Anion Gap 15 H 5-14 MMOL/L Blood Urea Nitrogen 17 7-18 MG/DL Creatinine 1.39 H 0.60-1.30 MG/DL Estimat Glomerular Filtration Rate 50 BUN/Creatinine Ratio 12 Glucose Level 506 *H 70-105 MG/DL Lactic Acid Level 1.08 0.50-2.00 MMOL/L Calcium Level 9.5 8.5-10.1 MG/DL Corrected Calcium 9.4 8.5-10.1 MG/DL Total Bilirubin 0.2 0.1-1.0 MG/DL Aspartate Amino Transf (AST/SGOT) 13 5-34 U/L Alanine Aminotransferase (ALT/SGPT) 17 0-55 U/L Alkaline Phosphatase 146 H 40-136 U/L Total Protein 7.9 6.4-8.2 GM/DL Albumin 4.1 3.2-4.5 GM/DL Serum Alcohol < 10 <10 MG/DL (ARJUN FARIAS MD) My Orders Orders - ARJUN FARIAS MD Ed Iv/Invasive Line Start (08/25/18 19:09) Lactated Ringers (Lr 1000 Ml Iv Solution (08/25/18 19:09) Insulin (Regular) Human (Humulin R (Per (08/25/18 19:09) Fluconazole Tablet (Ed Only) (Diflucan T (08/25/18 19:16) (ARJUN FARIAS MD) Medications Given in ED Current Medications Medications Dose Ordered Sig/Ryland Route Start Time Stop Time Status Last Admin Dose Admin Acetaminophen 1,000 mg ONCE ONCE PO 08/25/18 17:45 08/25/18 17:46 DC 08/25/18 17:45 1,000 MG Lactated Ringer's 1,000 ml @ 0 mls/hr Q0M ONCE IV 08/25/18 19:09 08/25/18 19:11 DC 08/25/18 19:24 0 MLS/HR Piperacillin Sod/ Tazobactam Sod 4.5 gm/Sodium Chloride 100 ml @ 200 mls/hr ONCE ONCE IV 08/25/18 17:45 08/25/18 18:14 DC 08/25/18 18:15 200 MLS/HR (ARJUN FARIAS MD) Vital Signs/I&O 08/25/18 17:28 Temp 97.6 Pulse 108 Resp 18 B/P (MAP) 127/93 (104) Pulse Ox 100 O2 Delivery Room Air (ARJUN FARIAS MD) Progress Progress Note : Time: 17:47 Progress Note Does not appear to be any cellulitis but the wound is unstageable and has been over weeks and she's been examined by wound care. What is most concerning is that her heart rate is in the 100-110 range. We gave her a few minutes to rest on the monitor and her heart rate did not come down below 100. Plan to give her some IV fluids check for alcohol, drug use that might explain her tachycardia and initiate a potential septic workup with 1 L fluids being more than 20 mL/kg given an estimated weight of 110 pounds. We've offered 1000 mg of Tylenol for pain which she has accepted. We'll give her a dose of Zosyn at this wound does not look bad infection. The other possibility is that she could be approaching DKA as she has many times in the past and that explains her tachycardia. Her history of a blood sugar frequently below 200 for the past week is encouraging. Care was transferred over to Dr. Farias at shift change. (FLORECITA POWERS) Progress Note : Progress Note 1909: I have reexamined the patient. Blood sugar noted to be 506. Insulin 15 units IV as well as repeat fluids bolus with LR 1 L. Does not appear to have clinically significant infection although does have the wound on the foot as described above and this does need to be followed with wound care again. Diflucan 150 mg by mouth given for yeast infection. Patient will need to be treated for urinary tract infection. We will initiate Keflex outpatient. Patient agrees. Monitor patient. 1926: I was able to talk with Dr. Mcbride and she will actually call in cefdinir to the clinic pharmacy which is what I would prefer. Her help is much appreciated. We will give the first dose of that tonight as well. Monitor patient. 05/19/02: Overall doing that area. Omnicef 300 mg by mouth. Repeat blood sugar done. Discharged home with return precautions. Patient verbalize understanding instructions and agreement with plan. (ARJUN FARIAS MD) Transfer of Care Time: 18:00 Care transferred to: Dr. Farias (FLORECITA POWERS) Departure Impression Primary Impression: UTI (urinary tract infection) Qualified Codes: N30.00 - Acute cystitis without hematuria Additional Impressions: Diabetes mellitus with hyperglycemia Qualified Codes: E10.65 - Type 1 diabetes mellitus with hyperglycemia Diabetic ulcer of right foot Qualified Codes: E10.621 - Type 1 diabetes mellitus with foot ulcer; L97.418 - Non-pressure chronic ulcer of right heel and midfoot with other specified severity Disposition: 01 HOME, SELF-CARE Condition: Stable Departure-Patient Inst. Decision time for Depature: 19:29 (ARJUN FARIAS MD) [place] [facility] [place] Primary Care Physician LUKE SCHUSTER (Family) Primary Care Physician Patient Instructions: Diabetic Foot Ulcer (DC), Urinary Tract Infection, Adult (DC) Add. Discharge Instructions: It is important that you monitor and manage her blood sugars keep been in normal range. Drink plenty of non-sugary fluids. 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 Use local wound care as previously prescribed to your foot. You should follow-up with the wound care clinic. Call Tuesday for appointment. Return for worse pain, fever, vomiting, weakness, breathing problems or other concerns as needed. Follow-up with your doctor next week for recheck and further evaluation. FLORECITA POWERS August 25, 2018 17:35 ARJUN FARIAS MD August 25, 2018 19:23
[2018-08-25] MEDS ORDERED: NS IV 1000 ML 1,000 ML IV SCH (17:38)
[2018-08-25] MEDS ORDERED: ACETAMINOPHEN 500 MG TAB (TYLENOL) PO ONE (17:45)
[2018-08-25] MEDS ORDERED: PIPERACILLIN SODIUM/TAZOBACTAM 4.5 GM in NS (IVPB) 100 ML IV ONE (17:45)
[2018-08-25 18:32] LABS: BASOPHILS % (AUTO) 0 % (0-10); EOSINOPHILS # (AUTO) 0.1 10^3/uL (0.0-0.3); EOSINOPHILS % (AUTO) 1 % (0-10); HEMATOCRIT 35 % (35-52); HEMOGLOBIN 11.7 G/DL (11.5-16.0); LYMPHOCYTES # (AUTO) 2.1 X 10^3 (1.0-4.0); LYMPHOCYTES % (AUTO) 27 % (12-44); MEAN CORPUSCULAR HEMOGLOBIN 27 PG (25-34); MEAN CORPUSCULAR HGB CONC 33 G/DL (32-36); MEAN CORPUSCULAR VOLUME 82 FL (80-99); MEAN PLATELET VOLUME 10.7 FL (7.4-10.4); MONOCYTES # (AUTO) 0.4 X 10^3 (0.0-1.0); MONOCYTES % (AUTO) 6 % (0-12); NEUTROPHILS % (AUTO) 66 % (42-75); PLATELET COUNT 424 10^3/uL (130-400); RED CELL DISTRIBUTION WIDTH 15.1 % (10.0-14.5); WHITE BLOOD COUNT 7.6 10^3/uL (4.3-11.0)
[2018-08-25 18:38] LABS: INR 0.8 (0.8-1.4); PROTHROMBIN TIME PATIENT 11.9 SEC (12.2-14.7)
[2018-08-25 18:38] LABS: BILIRUBIN,URINE NEGATIVE (NEGATIVE); CLARITY,URINE CLEAR; COLOR,URINE YELLOW; GLUCOSE, URINE (UA) 3+ (NEGATIVE); KETONES,URINE 1+ (NEGATIVE); LEUKOCYTE ESTERASE ,URINE 2+ (NEGATIVE); NITRITE,URINE POSITIVE (NEGATIVE); PH,URINE 6.5 (5-9); PROTEIN,URINE 3+ (NEGATIVE); UROBILINOGEN,URINE NORMAL (NORMAL)
[2018-08-25 18:45] LABS: BACTERIA,URINE FEW /HPF; RBC,URINE 0-2 /HPF; SQUAMOUS EPITHELIAL CELL,UR 0-2 /HPF; YEAST,URINE LARGE /HPF
[2018-08-25 18:46] LABS: ALANINE AMINOTRANSFERASE 17 U/L (0-55); ALBUMIN 4.1 GM/DL (3.2-4.5); ALKALINE PHOSPHATASE 146 U/L (40-136); BILIRUBIN,TOTAL 0.2 MG/DL (0.1-1.0); BUN/CREATININE RATIO 12; CALCIUM 9.5 MG/DL (8.5-10.1); CARBON DIOXIDE 20 MMOL/L (21-32); CHLORIDE 96 MMOL/L (98-107); CREATININE SERUM 1.39 MG/DL (0.60-1.30); GFR ESTIMATED 50; POTASSIUM 3.7 MMOL/L (3.6-5.0); SODIUM 131 MMOL/L (135-145); TOTAL PROTEIN 7.9 GM/DL (6.4-8.2)
[2018-08-25 18:51] LABS: GLUCOSE 506 MG/DL (70-105)
[2018-08-25 18:51] LABS: AMPHETAMINE SCREEN, URINE NEGATIVE (NEGATIVE); BARBITURATE SCREEN URINE NEGATIVE (NEGATIVE); BENZODIAZEPINES SCREEN URINE NEGATIVE (NEGATIVE); CANNABINOID SCREEN, URINE NEGATIVE (NEGATIVE); COCAINE SCREEN URINE NEGATIVE (NEGATIVE); METHADONE STAT NEGATIVE (NEGATIVE); METHAMPHETAMINE SCREEN URINE S NEGATIVE (NEGATIVE); OPIATE SCREEN URINE NEGATIVE (NEGATIVE); OXYCODONE STAT NEGATIVE (NEGATIVE); PROPOXYPHENE STAT NEGATIVE (NEGATIVE); TRICYCLIC ANTIDEPRESSANTS SCRE NEGATIVE (NEGATIVE)
--- NOTE | 2018-08-25 18:57 | NUR ---
Report recieved from LESLEY Peres to assume care of pt @ this time.
[2018-08-25] MEDS ORDERED: inSUlin (REGULAR) HUMAN 1 UNIT/0.01 ML (CHARGE PER UNIT) IV STA (19:09)
[2018-08-25] MEDS ORDERED: LACTATED RINGERS 1,000 ML IV ONE (19:09)
[2018-08-25] MEDS ORDERED: FLUCONAZOLE 150 MG TABLET (ED ONLY) PO STA (19:16)
[2018-08-25] MEDS ORDERED: CEFDINIR 300 MG (OMNICEF) CAP PO ONE (21:15)
[2018-08-25 21:18] VITALS: BP 127/94
== END 2018-08-25 21:18 | disposition home or self-care (01) ==
LOC: EDUNIT# 17:08 → ER 17:09
DX: N39.0 Urinary tract infection, site not specified (principal); E10.65 Type 1 diabetes mellitus with hyperglycemia; E10.621 Type 1 diabetes mellitus with foot ulcer; L97.418 Non-pressure chronic ulcer of right heel and midfoot with other specified severity; E10.10 Type 1 diabetes mellitus with ketoacidosis without coma; E10.40 Type 1 diabetes mellitus with diabetic neuropathy, unspecified; F14.10 Cocaine abuse, uncomplicated; M81.0 Age-related osteoporosis without current pathological fracture; F41.9 Anxiety disorder, unspecified; F32.9 Major depressive disorder, single episode, unspecified; Z87.448 Personal history of other diseases of urinary system; Z79.4 Long term (current) use of insulin; Z98.51 Tubal ligation status; Z82.49 Family history of ischemic heart disease and other diseases of the circulatory system
CPT/HCPCS: 36415; 80053; 80306; 80320; 81000; 82962; 83605; 85025; 85610; 85730; 87040; 87088